=== PATIENT | female | born 2000 | race American Indian/Alaskan Native ===

== ENCOUNTER 2020-03-27 23:32 | Emergency (ER) | payer OTHER ==
--- NOTE | 2020-03-28 00:51 | Emergency Department Report ---
ED Psych HPI - General Chief Complaint: Psych Stated Complaint: SUICIDAL IDEATION/NO ATTEMPT Time Seen by Provider: 03/28/20 00:15 Source: patient, EMS Mode of arrival: Stretcher - History of Present Illness Initial Comments: Patient is 19 years old female with history of schizophrenia and bipolar disorder. Patient presented to the ER with a chief complaint of auditory hallucination and suicidal ideation. Patient stated that he is hearing voices asking her to kill herself by jumping in front of a moving car. Patient denied any homicidal ideation. No visual hallucination. MD Complaint: suicidal ideation -: days(s) Associated Psychiatric Symptoms: suicidal ideation, racing thoughts, auditory [place] llucinations History of same: Yes Quality: constant Associated Symptoms: denies other symptoms Treatments Prior to Arrival: none If Self Harm: admits thoughts of, has plan, self-inflicted trauma - Related Data Allergies Allergy/AdvReac Type Severity Reaction Status Date / Time No Known Allergies Allergy Unverified 03/28/20 01:20 ED Review of Systems ROS: Stated complaint: SUICIDAL IDEATION/NO ATTEMPT Other details as noted in HPI Comment: All other systems reviewed and negative Constitutional: denies: chills, fever Respiratory: denies: cough, shortness of breath, SOB with exertion, SOB at rest Cardiovascular: denies: chest pain, palpitations Gastrointestinal: denies: abdominal pain, nausea, vomiting Neurological: denies: headache, weakness, numbness, paresthesias, confusion Psychiatric: auditory hallucinations, suicidal thoughts. denies: visual hallucinations, homicidal thoughts ED Past Medical Hx - Past Medical History Previous Medical History?: Yes Hx Psychiatric Treatment: Yes (schizophrenia, bipolar, depression, anxiety, hydrocephalus) - Surgical History Past Surgical History?: Yes Additional Surgical History: hydrocephalus shunt - Social History Smoking Status: Never Smoker Substance Use Type: None ED Physical Exam - General Limitations: Physical Limitation General appearance: alert, in no apparent distress - Head Head exam: Present: atraumatic, normocephalic, normal inspection - Eye Eye exam: Present: normal appearance - ENT ENT exam: Present: normal exam, normal orophraynx, mucous membranes moist - Neck Neck exam: Present: normal inspection, full ROM. Absent: tenderness, meningismus - Respiratory Respiratory exam: Present: normal lung sounds bilaterally - Cardiovascular Cardiovascular Exam: Present: regular rate, normal rhythm, normal heart sounds - GI/Abdominal GI/Abdominal exam: Present: soft, normal bowel sounds. Absent: distended, tenderness, guarding, rebound, rigid, organomegaly, mass, bruit, pulsatile mass, hernia - Extremities Exam Extremities exam: Present: normal inspection, full ROM, normal capillary refill. Absent: tenderness, pedal edema, joint swelling, calf tenderness - Back Exam Back exam: Present: normal inspection, full ROM. Absent: CVA tenderness (R), CVA tenderness (L) - Neurological Exam Neurological exam: Present: alert, oriented X3, CN II-XII intact - Psychiatric Psychiatric exam: Present: anxious, suicidal ideation. Absent: homicidal ideation - Skin Skin exam: Present: warm ED Course Vital Signs 03/27/20 03/28/20 03/28/20 23:45 05:30 07:51 Temperature 98.4 F 97.8 F 98.0 F Pulse Rate 80 98 H 90 Respiratory 18 18 18 Rate Blood Pressure 101/62 113/42 112/63 [Left] O2 Sat by Pulse 96 98 98 Oximetry ED Medical Decision Making - Lab Data Result diagrams: 03/28/20 01:12 03/28/20 01:12 Critical care attestation.: If time is entered above; I have spent that time in minutes in the direct care of this critically ill patient, excluding procedure time. ED Disposition Clinical Impression: Suicidal ideation Disposition: DC/TX-65 PSY HOSP/PSY UNIT Is pt being admited?: No Condition: Stable Referrals: PRIMARY CARE, [Primary Care Provider] - 3-5 Days
[2020-03-28 01:15] LABS: Amphetamine Screen,Urine PRESUMPTIVE NEGATIVE; Benzodiazepines Screen,Urine PRESUMPTIVE NEGATIVE; Cannabinoid Screen,Urine PRESUMPTIVE NEGATIVE; Cocaine Screen,Urine PRESUMPTIVE NEGATIVE; Methadone Screen,Urine PRESUMPTIVE NEGATIVE; Opiate Screen,Urine PRESUMPTIVE NEGATIVE
[2020-03-28 01:18] LABS: Bilirubin,Urine NEG (Negative); Blood,Urine NEG (Negative); Color,Urine Yellow (Yellow); Mucus,Urine 3+ /HPF
[2020-03-28 02:00] LABS: Basophils % (Auto) 0.4 % (0.0-1.8); Eosinophils # (Auto) 0.1 K/mm3 (0.0-0.4); Eosinophils % (Auto) 0.8 % (0.0-4.3); Hematocrit 33.4 % (30.3-42.9); Hemoglobin 11.1 gm/dl (10.1-14.3); Lymphocytes # (Auto) 2.6 K/mm3 (1.2-5.4); Mean Corpuscular HGB Conc 33 % (30-34); Mean Corpuscular Volume 87 fl (79-97); Monocytes # (Auto) 0.4 K/mm3 (0.0-0.8); Monocytes % (Auto) 5.3 % (0.0-7.3); Platelet Count 421 K/mm3 (140-440); Red Blood Count 3.83 M/mm3 (3.65-5.03); Red Cell Distribution Width 17.9 % (13.2-15.2)
[2020-03-28 02:16] LABS: Blood Urea Nitrogen 8 mg/dL (7-17); Calcium 9.8 mg/dL (8.4-10.2); Hemolysis Index 6
[2020-03-28 02:17] LABS: BUN/Creatinine Ratio 11
[2020-03-28 07:52] VITALS: BP 112/63
== END 2020-03-28 14:53 ==
LOC: ED 23:32
DX: R45.851 Suicidal ideations (principal); F25.0 Schizoaffective disorder, bipolar type; F41.9 Anxiety disorder, unspecified; Z98.890 Other specified postprocedural states
CPT/HCPCS: 36415; 80048; 80307; 80320; 81001; 84703; 85025; G0480

== ENCOUNTER 2020-04-06 20:54 | Emergency (ER) | payer OTHER ==
[2020-04-06 21:56] LABS: Basophils % (Auto) 0.3 % (0.0-1.8); Eosinophils % (Auto) 0.6 % (0.0-4.3); Hematocrit 32.1 % (30.3-42.9); Hemoglobin 10.6 gm/dl (10.1-14.3); Lymphocytes # (Auto) 1.5 K/mm3 (1.2-5.4); Lymphocytes % (Auto) 20.6 % (13.4-35.0); Mean Corpuscular HGB Conc 33 % (30-34); Mean Corpuscular Volume 88 fl (79-97); Monocytes # (Auto) 0.9 K/mm3 (0.0-0.8); Monocytes % (Auto) 12.3 % (0.0-7.3); Platelet Count 403 K/mm3 (140-440); Red Blood Count 3.65 M/mm3 (3.65-5.03); Red Cell Distribution Width 18.1 % (13.2-15.2)
[2020-04-06 22:11] LABS: Alanine Aminotransferase 7 units/L (7-56); Albumin 4.1 g/dL (3.9-5); Blood Urea Nitrogen 8 mg/dL (7-17); Calcium 9.7 mg/dL (8.4-10.2); Hemolysis Index 10
[2020-04-06 22:12] LABS: BUN/Creatinine Ratio 11
[2020-04-06 23:08] LABS: Bilirubin,Urine NEG (Negative); Blood,Urine NEG (Negative); Color,Urine Yellow (Yellow); Mucus,Urine 3+ /HPF
[2020-04-07] MEDS ORDERED: MORPHINE 4 MG/1 ML INJ IV ONE (08:25)
[2020-04-07] MEDS ORDERED: ONDANSETRON 4 MG/2 ML INJ IV ONE (08:25)
[2020-04-07] MEDS ORDERED: SODIUM CHLORIDE 0.9% 1000 ML 1,000 ML IV ONE (08:26)
--- NOTE | 2020-04-07 08:27 | Emergency Department Report ---
ED Abdominal Pain HPI - General Chief Complaint: Abdominal Pain Stated Complaint: N/V Time Seen by Provider: 04/07/20 07:42 Source: patient, EMS Mode of arrival: Ambulatory Limitations: No Limitations - History of Present Illness Initial Comments: 19-year-old female with a past medical history of hydrocephalus status post PRICER shunt, psoriasis, anxiety and mood disorder presents to the ER today complaining of severe abdominal pain. Patient states that her pain started about a week ago. She reports pain mainly to her epigastric, right upper quadrant and periumbilical area which has been constant, and nonradiating. She describes as a "pulling pain". Seems to be worse when she coughs and moves and on palpation. Patient reports that she vomited twice yesterday. She denies any bowel changes, urinary symptoms, vaginal symptoms, fever or chills. She states that her last menstrual cycle was towards the end of February. Patient reports that she had similar pain in January, but at the time she swallowed plastic in a suicide attempt and he had to go in surgically to remove it from her abdomen but she states that in the past week she has not swallowed anything. She also reports that prior to that she had to have "fluid drained " from her abdomen secondary a shunt malfunction. She states she still has her shunt in place (it was removed from right to left side). Patient states that these procedures were done in [place]. She does not recall the name of her surgeon. She denies any other abdominal surgeries. She denies any history of bowel obstruction. MD Complaint: abdominal pain -: Gradual (1 week ago) - Related Data Previous Rx's Medication Instructions Recorded Last Taken Type Acetaminophen/Codeine [Tylenol 1 tab PO Q4H PRN #12 tab 04/07/20 Unknown Rx /Codeine # 3 tab] Dicyclomine [Bentyl] 10 mg PO TID PRN #15 capsule 04/07/20 Unknown Rx Ondansetron [Zofran Odt] 4 mg PO Q8HR PRN #12 tab.rapdis 04/07/20 Unknown Rx Allergies Allergy/AdvReac Type Severity Reaction Status Date / Time No Known Allergies Allergy Unverified 03/28/20 01:20 ED Review of Systems ROS: Stated complaint: N/V Other details as noted in HPI Comment: All other systems reviewed and negative Constitutional: denies: chills, fever Respiratory: denies: cough, shortness of breath, wheezing Cardiovascular: denies: chest pain, palpitations Gastrointestinal: abdominal pain, nausea, vomiting. denies: diarrhea, constipation, hematemesis, melena, hematochezia Genitourinary: denies: urgency, dysuria, discharge Musculoskeletal: denies: back pain, joint swelling, arthralgia Skin: denies: rash, lesions Psychiatric: denies: auditory hallucinations, visual hallucinations, homicidal thoughts, suicidal thoughts ED Past Medical Hx - Past Medical History Previous Medical History?: Yes Hx Psychiatric Treatment: Yes (schizophrenia, bipolar, depression, anxiety, hydrocephalus) - Surgical History Past Surgical History?: Yes Additional Surgical History: hydrocephalus shunt - Social History Smoking Status: Former Smoker Substance Use Type: None - Medications Home Medications: Home Medications Medication Instructions Recorded Confirmed Last Taken Type Acetaminophen/Codeine [Tylenol 1 tab PO Q4H PRN #12 tab 04/07/20 Unknown Rx /Codeine # 3 tab] Dicyclomine [Bentyl] 10 mg PO TID PRN #15 capsule 04/07/20 Unknown Rx Ondansetron [Zofran Odt] 4 mg PO Q8HR PRN #12 tab.rapdis 04/07/20 Unknown Rx ED Physical Exam - General Limitations: No Limitations General appearance: alert, anxious, in distress (mild pain distress) - Head Head exam: Present: atraumatic, normocephalic, normal inspection - ENT ENT exam: Present: normal exam, mucous membranes moist - Neck Neck exam: Present: normal inspection, full ROM - Respiratory Respiratory exam: Absent: respiratory distress - Cardiovascular Cardiovascular Exam: Present: regular rate - GI/Abdominal GI/Abdominal exam: Present: soft, tenderness (Diffuse abd ttp but more so epigastric and RUQ with guarding; ). Absent: rebound, rigid - Neurological Exam Neurological exam: Present: alert, oriented X3, CN II-XII intact - Psychiatric Psychiatric exam: Present: normal affect, anxious - Skin Skin exam: Present: intact ED Course Vital Signs 04/06/20 04/07/20 04/07/20 21:33 11:11 11:21 Temperature 98.6 F 97.6 F Pulse Rate 117 H 90 Respiratory 18 18 19 Rate Blood Pressure 117/59 Blood Pressure 109/67 [Left] O2 Sat by Pulse 97 100 Oximetry 04/07/20 11:27 Temperature 97.6 F Pulse Rate Respiratory Rate Blood Pressure Blood Pressure [Left] O2 Sat by Pulse Oximetry ED Medical Decision Making - Lab Data Result diagrams: 04/06/20 21:40 04/06/20 21:40 - Radiology Data Radiology results: report reviewed Patient: REZA DUMONT MR#: [id number] : 2000 Acct:[id number] Age/Sex: 19 / F ADM Date: 04/06/20 Loc: ED Attending Dr: Ordering Physician: CARLENE TORRES Date of Service: 04/07/20 Procedure(s): CT abdomen pelvis w con Accession Number(s): [id number] cc: CARLENE TORRES CT ABDOMEN AND PELVIS WITH CONTRAST INDICATION / CLINICAL INFORMATION: Severe central abdominal pain for one week. TECHNIQUE: Axial CT images were obtained through the abdomen and pelvis following the administration of intravenous contrast. All CT scans at this location are performed using CT dose reduction for ALARA by means of automated exposure control. COMPARISON: None available. FINDINGS: LOWER CHEST: No significant abnormality. LIVER: No significant abnormality. GALLBLADDER: No significant abnormality. PANCREAS: No significant abnormality. SPLEEN: No significant abnormality. ADRENALS: No significant abnormality. KIDNEYS / URETERS: No significant abnormality. URINARY BLADDER: No significant abnormality. REPRODUCTIVE ORGANS: No significant abnormality. STOMACH / SMALL BOWEL: No significant abnormality. COLON: No significant abnormality. APPENDIX: No significant abnormality. PERITONEUM: There is a moderate amount of abdominopelvic free fluid predominantly layering within the pelvis. No free air. No fluid collection. LYMPH NODES: No significant adenopathy. AORTA / ARTERIES: No significant abnormality. IVC / VEINS: No significant abnormality. SKELETAL SYSTEM: No significant abnormality. ADDITIONAL FINDINGS: Midline surgical incision is noted. IMPRESSION: 1. Moderate amount of abdominopelvic free fluid predominantly layering within the pelvis. This is likely related to the patient's history of PRICER shunt. No radiopaque shunt is visualized on this exam, however. 2. No acute abdominopelvic abnormality. Signer Name: Arthur Segundo MD Signed: 04/07/2020 10:41 AM Workstation Name: [id number] Transcribed By: SS Dictated By: ARTHUR SEGUNDO Electronically Authenticated By: ARTHUR SEGUNDO Signed Date/Time: 04/07/20 1041 DD/ 1035 TD/TT: - Medical Decision Making 04/07/2020 1051 19-year-old female with a past medical history of hydrocephalus status post PRICER shunt, psoriasis, anxiety and mood disorder presents to the ER today complaining of severe abdominal pain. Patient states that her pain started about a week ago. She reports pain mainly to her epigastric, right upper quadrant and periu mbilical area which has been constant, and nonradiating. She describes as a "pulling pain". Seems to be worse when she coughs and moves and on palpation. Patient reports that she vomited twice yesterday. She denies any bowel changes, urinary symptoms, vaginal symptoms, fever or chills. She states that her last menstrual cycle was towards the end of February. Patient currently resting comfortably with some improvement of her symptoms after morphine/zofran and fluids. Repeat abdominal exam - soft, non surgical abd exam. Labs/UA reviewed, her lipase was elevated at 147, but remaining labs showed no significant abnormality. Her CT abdomen/pelvis with IV contrast Moderate amount of abdominopelvic free fluid predominantly layering within the pelvis. This is likely related to the patient's history of PRICER shunt. No radiopaque shunt is visualized on this exam, however. No acute abdominopelvic abnormality. No evidence of pancreatitis on the CT, her pancrease was noted to be normal. Patient overall is not toxic, and appears well and currently in no distress. I reviewed heart rate improved with the fluids, she is afebrile and remaining vital signs have been stable. Based on repeat exam/ct/labs.. there is no indication for additional work up, admission or emergent surgical/GI consult at this time. Discussed CT and lab results with patient. She is scheduled to return back home to [place] around April 29 for 12. I will give her referral to local primary care doctor whom she can follow-up with during her stay. She will be discharged home with medication for pain and nausea. Patient understands that she should return to the ER if any symptoms changes or worsens in any way. Critical care attestation.: If time is entered above; I have spent that time in minutes in the direct care of this critically ill patient, excluding procedure time. ED Disposition Clinical Impression: Abdominal pain Disposition: DC-01 TO HOME OR SELFCARE Is pt being admited?: No Does the pt Need Aspirin: No Condition: Stable Instructions: Abdominal Pain, Adult, [id number], Abdominal Pain (ED) Additional Instructions: Take the medications as prescribed. Follow up with PCP listed on d/c instructions. Return to ED if symptoms changes or worsens in any way. Prescriptions: Dicyclomine [Bentyl] 10 mg PO TID PRN #15 capsule PRN Reason: abdominal cramp Acetaminophen/Codeine [Tylenol /Codeine # 3 tab] 1 tab PO Q4H PRN #12 tab PRN Reason: PAIN Ondansetron [Zofran Odt] 4 mg PO Q8HR PRN #12 tab.rapdis PRN Reason: Vomiting Referrals: JEANNINE BAZAN MD [Primary Care Provider] - 3-5 Days CORBIN PERRIN MD [Staff Physician] - 3-5 Days Time of Disposition: 11:07
--- NOTE | 2020-04-07 10:45 | Cat Scan Report ---
CT ABDOMEN AND PELVIS WITH CONTRAST INDICATION / CLINICAL INFORMATION: Severe central abdominal pain for one week. TECHNIQUE: Axial CT images were obtained through the abdomen and pelvis following the administration of intraven ous contrast. All CT scans at this location are performed using CT dose reduction for ALARA by means of automated exposure control. COMPARISON: None available. FINDINGS: LOWER CHEST: No significant abnormality. LIVER: No significant abnormality. GALLBLADDER: No significant abnormality. PANCREAS: No significant abnormality. SPLEEN: No significant abnormality. ADRENALS: No significant abnormality. KIDNEYS / URETERS: No significant abnormality. URINARY BLADDER: No significant abnormality. REPRODUCTIVE ORGANS: No significant abnormality. STOMACH / SMALL BOWEL: No significant abnormality. COLON: No significant abnormality. APPENDIX: No significant abnormality. PERITONEUM: There is a moderate amount of abdominopelvic free fluid predominantly layering within the pelvis. No free air. No fluid collection. LYMPH NODES: No significant adenopathy. AORTA / ARTERIES: No significant abnormality. IVC / VEINS: No significant abnormality. SKELETAL SYSTEM: No significant abnormality. ADDITIONAL FINDINGS: Midline surgical incision is noted. IMPRESSION: 1. Moderate amount of abdominopelvic free fluid predominantly layering within the pelvis. 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 No radiopaque shunt is visualized on this exam, how ever. 2. No acute abdominopelvic abnormality. Signer Name: Armando Segundo MD Signed: 04/07/2020 10:41 AM Workstation Name: [id number]
[2020-04-07] MEDS ORDERED: KETOROLAC 30 MG/1 ML INJ IV ONE (11:04)
[2020-04-07 11:22] VITALS: BP 109/67
== END 2020-04-07 11:27 | disposition home or self-care (01) ==
LOC: ED 20:54
DX: R10.13 Epigastric pain (principal); R10.11 Right upper quadrant pain; R10.33 Periumbilical pain; F20.9 Schizophrenia, unspecified; Z79.899 Other long term (current) drug therapy; Z98.890 Other specified postprocedural states; Z87.891 Personal history of nicotine dependence
CPT/HCPCS: 36415; 74177; 80053; 81001; 83690; 84703; 85025; 96361; 96374; 96375; 99284; J1885; J2270; J2405; J7030; Q9967

== ENCOUNTER 2020-06-30 16:56 | Observation (INO) | payer OTHER ==
--- NOTE | 2020-06-30 18:12 | XRay Report ---
CHEST / ABDOMEN 1 VIEW INDICATION / CLINICAL INFORMATION: F.B.. COMPARISON: None available. FINDINGS: SUPPORT DEVICES: Left IJ central venous catheter with tip terminating at the proximal right atrium. F igure 8 configuration of the catheter in the left cervical region. No evidence of kinking. HEART / MEDIASTINUM: No significant abnormality. LUNGS / PLEURA: No significant pulmonary or pleural abnormality. No pneumothorax. TUBES / LINES: None. BOWEL GAS PATTERN: No significant abnormality. FREE AIR / EXTRALUMINAL GAS: None seen. ADDITIONAL FINDINGS: No significant additional findings. IMPRESSION: 1. No acute findings. 2. Central venous catheter, as above. Signer Name: Maximiliano Crystal MD Signed: 06/30/2020 6:08 PM Workstation Name: [id number]
[2020-06-30 18:18] LABS: Basophils % (Auto) 0.3 % (0.0-1.8); Eosinophils # (Auto) 0.1 K/mm3 (0.0-0.4); Eosinophils % (Auto) 1.1 % (0.0-4.3); Hematocrit 35.8 % (30.3-42.9); Hemoglobin 12.1 gm/dl (10.1-14.3); Lymphocytes # (Auto) 2.2 K/mm3 (1.2-5.4); Lymphocytes % (Auto) 27.1 % (13.4-35.0); Mean Corpuscular HGB Conc 34 % (30-34); Mean Corpuscular Volume 94 fl (79-97); Monocytes # (Auto) 0.6 K/mm3 (0.0-0.8); Monocytes % (Auto) 7.9 % (0.0-7.3); Platelet Count 289 K/mm3 (140-440); Red Blood Count 3.79 M/mm3 (3.65-5.03); Red Cell Distribution Width 15.3 % (13.2-15.2)
--- NOTE | 2020-06-30 18:34 | Emergency Department Report ---
<ALOK HUTCHISON - Last Filed: 06/30/20 19:57> ED Abdominal Pain HPI - General Chief Complaint: Medical Clearance Stated Complaint: SWALLOWED PLASTIC SPOON/ABD PAIN Time Seen by Provider: 06/30/20 17:24 Source: patient, EMS, old records reviewed Mode of arrival: Stretcher Limitations: No Limitations - History of Present Illness Initial Comments: 19-year-old female the past medical history of bipolar disorder, schizophrenia, autism, hydrocephalus with previous BODY MASKER shunt placement presents to the hospital complaining of abdominal pain after swallowing plastic spoons. Patient is currently at [facility] but she is not a 1013. She states she was feeling suicidal and therefore swallowed the spoon ahndles. Pt broke off the spoon scoope and broke the handle into 2 pieces and swallowed them. She swallowed 1 handle yesterday and 2 handles today. Patient states she had nausea vomiting earlier today. Last bowel movement was here while in the ED. Patient has a history of swallowing plastic in the past which has required surgery/ex lap. Psychiatric no tremor was reviewed. Patient was recently admitted on June 21 with suicidal ideations on 1012 with plan to overdose which occurred self. Chief complaint at this time was "I am homeless. I need a place to stay" is noted that patient had kicked out of the [place] [facility] and needed placement and was exhibiting attention seeking behavior by the psychiatric facility and having pseudoseizures. Is documented that on the she both a letter to the nurse practitioner explained that she went to have a seizure because she want other people to feel her pain and that she wanted stronger medications. Patient diagnosis is schizoaffective disorder, bipolar type and chronic posttraumatic stress disorder. Plan apparently is to enroll patient in individual group therapy to has coping skills. - Related Data Allergies Allergy/AdvReac Type Severity Reaction Status Date / Time No Known Allergies Allergy Unverified 06/30/20 17:30 ED Review of Systems Comment: All other systems reviewed and negative ED Past Medical Hx - Past Medical History Additional medical history: bipolar, schizophrenic, autistic, anxiety, depre ssion - Surgical History Past Surgical History?: Yes Additional Surgical History: brain surgery - hydrocephalus, BODY MASKER shunt, abdominal surgery for swallowing plastic - Social History Smoking Status: Never Smoker Substance Use Type: None ED Physical Exam - General Limitations: No Limitations - Other Other exam information: General: No acute distress Head: Atraumatic Eyes: normal appearance ENT: Moist mucous membranes Neck: Normal appearance, no midline tenderness Chest: Clear to auscultation bilaterally CV: Regular rate and rhythm Abdomen: Soft, normal bowel sounds,midline vertical surgical scar, epigastric, mid abdomen, left lower quadrant tenderness, nondistended, no rebound or guarding Back: Normal inspection Extremity: Normal inspection, full range of motion Neuro: Alert O x 3, no facial asymmetry, speech clear, no gross motor sensory deficit Psych: Appropriate behavior Skin: Generalized rash combination of vitiligo and psoriasis (hypopigmented scaly rash) ED Course - Reevaluation(s) Reevaluation #1: 06/30/20 19:54 As of this time no foreign body identified on chest x-ray or abdominal x-ray. CT chest abdomen pelvis pending and delayed due to emergent stroke. Patient signed out to Dr. Betancur to follow-up results and reconsult surgery or GI as necessary for possible foreign body ingestion. - Consultations Consultation #1: 06/30/20 19:00 Case discussed with on-call surgeon Dr. Ron. CT pending at this time. Please refer to his note. Will reconsult as needed ED Medical Decision Making - Lab Data Result diagrams: 06/30/20 18:00 06/30/20 18:00 - Radiology Data Radiology results: report reviewed Chest x-ray/abdominal x-ray: No acute foreign body. Retained BODY MASKER shunt noted. Critical Care Time: No ED Disposition Clinical Impression: Foreign body ingestion, Schizoaffective disorder, Bipolar disorder Disposition: 09 OP ADMIT IP TO THIS HOSP Condition: Stable Referrals: PRIMARY CARE, [Primary Care Provider] - 3-5 Days <BUCK BETANCUR - Last Filed: 06/30/20 20:36> ED Review of Systems ROS: Stated complaint: SWALLOWED PLASTIC SPOON/ABD PAIN Other details as noted in HPI ED Course Vital Signs 06/30/20 06/30/20 06/30/20 17:32 17:35 18:33 Temperature 98.2 F Pulse Rate 83 80 Respiratory 16 18 16 Rate Blood Pressure 102/67 Blood Pressure 102/61 [Left] O2 Sat by Pulse 100 98 Oximetry 06/30/20 19:39 Temperature Pulse Rate 89 Respiratory 16 Rate Blood Pressure Blood Pressure 111/70 [Left] O2 Sat by Pulse 100 Oximetry - Consultations Consultation #2: 06/30/20 20:33 Received sign out from Dr Hutchison. CT's negative for foreign body. Shows simple- appearing free pelvic fluid. No definite evidence of hemoperitoneum to suggest rupture. CT findings relayed to Dr. Ron, general surgeon. Recommends admit for observation overnight. Keep patient n.p.o. ED Medical Decision Making - Lab Data Result diagrams: 06/30/20 18:00 06/30/20 18:00 Critical care attestation.: If time is entered above; I have spent that time in minutes in the direct care of this critically ill patient, excluding procedure time. ED Disposition Is pt being admited?: Yes Time of Disposition: 20:35
[2020-06-30 18:42] LABS: Alanine Aminotransferase 6 units/L (7-56); Albumin 3.9 g/dL (3.9-5); Blood Urea Nitrogen 13 mg/dL (7-17); Hemolysis Index 8
[2020-06-30 18:50] LABS: BUN/Creatinine Ratio 19
--- NOTE | 2020-06-30 18:53 | Consultation ---
History of Present Illness Consult date: 06/30/20 Reason for consult: abdominal pain - History of present illness History of present illness: 19 yo female schizophrenia pt who swallowed plastic spoons to "hurt myself". She c/o diffuse abdominal pain without fever, chills, melena or hematemesis. Pt has a h/o similar behavior in the past requiring operative intervention. Past History Past Medical History: other (autism, bipolar d/o) Medications and Allergies Allergies Allergy/AdvReac Type Severity Reaction Status Date / Time No Known Allergies Allergy Unverified 06/30/20 17:30 Review of Systems All systems: negative (none) Exam Vital Signs Resp 16 06/30/20 17:32 - General physical appearance Positive: well developed, well nourished, no distress - Eyes Positive: PERRL, normal occular movement - ENT Positive: normal pinna, normal nares, normal mucosa, no hearing loss, no congestion - Neck Positive: no masses, no bruits, trachea midline, no venous distension - Respiratory Positive: normal expansion, normal respiratory effort, clear to auscultation - Cardiovascular Rhythm: regular Heart Sounds: Present: S1 & S2. Absent: rub, click - Extremities Extremities: no ischemia, pulses symmetrical, No edema - Breasts Breasts: normal, no mass, no skin changes - Abdomen Abdomen: Present: soft, bowel sounds normal. Absent: tender, distended Hernia: none - Genitourinary Male Genitourinary: normal Female Genitourinary: normal - Integumentary no rash, no growths, no abnormal pigmentation - Neurologic Neurologic: alert and oriented to time, place and person, motor strength and sensation are grossly intact - Musculoskeletal normal gait, normal posture - Psychiatric Psychiatric: appropriate mood/affect, intact judgment & insight Results - Labs 06/30/20 18:00 06/30/20 18:00 Abnormal lab results 06/30/20 06/30/20 Range/Units 18:00 18:00 RDW 15.3 H (13.2-15.2) % [place] % (Auto) 7.9 H (0.0-7.3) % ALT 6 L (7-56) units/L Diabetes panel 06/30/20 Range/Units 18:00 Sodium 140 (137-145) mmol/L Potassium 4.3 (3.6-5.0) mmol/L Chloride 104.9 (98-107) mmol/L Carbon Dioxide 25 (22-30) mmol/L BUN 13 (7-17) mg/dL Creatinine 0.7 (0.6-1.2) mg/dL Glucose 85 (65-100) mg/dL Calcium 9.0 (8.4-10.2) mg/dL AST 19 (5-40) units/L ALT 6 L (7-56) units/L Alkaline Phosphatase 52 (35-129) units/L Total Protein 6.4 (6.3-8.2) g/dL Albumin 3.9 (3.9-5) g/dL Calcium panel 06/30/20 Range/Units 18:00 Calcium 9.0 (8.4-10.2) mg/dL Albumin 3.9 (3.9-5) g/dL Pituitary panel 06/30/20 Range/Units 18:00 Sodium 140 (137-145) mmol/L Potassium 4.3 (3.6-5.0) mmol/L Chloride 104.9 (98-107) mmol/L Carbon Dioxide 25 (22-30) mmol/L BUN 13 (7-17) mg/dL Creatinine 0.7 (0.6-1.2) mg/dL Glucose 85 (65-100) mg/dL Calcium 9.0 (8.4-10.2) mg/dL Adrenal panel 06/30/20 Range/Units 18:00 Sodium 140 (137-145) mmol/L Potassium 4.3 (3.6-5.0) mmol/L Chloride 104.9 (98-107) mmol/L Carbon Dioxide 25 (22-30) mmol/L BUN 13 (7-17) mg/dL Creatinine 0.7 (0.6-1.2) mg/dL Glucose 85 (65-100) mg/dL Calcium 9.0 (8.4-10.2) mg/dL Total Bilirubin < 0.20 (0.1-1.2) mg/dL AST 19 (5-40) units/L ALT 6 L (7-56) units/L Alkaline Phosphatase 52 (35-129) units/L Total Protein 6.4 (6.3-8.2) g/dL Albumin 3.9 (3.9-5) g/dL - Imaging Chest x-ray: report reviewed Abdominal x-ray: report reviewed Assessment and Plan - Patient Problems (1) Foreign body ingestion Current Visit: Yes Status: Acute Plan to address problem: 1) Urine/serum test 2) CT of chest abdomen and pelvis 3) Further intervention pending the results of CT's.
--- NOTE | 2020-06-30 20:17 | Cat Scan Report ---
CT CHEST, ABDOMEN, AND PELVIS WITH IV CONTRAST INDICATION / CLINICAL INFORMATION: abd pain. swallowed 3 plastic spoon handles. TECHNIQUE: Axial CT images were obtained through the chest, abdomen, and pelvis after 100 cc Omnipaque [address] All [address] scans at this location are performed using CT dose reduction for ALARA by means of aut omated exposure control. COMPARISON: None available. FINDINGS: NECK BASE: No significant abnormality. HEART: No significant abnormality. MEDIASTINUM and WALLACE: No significant abnormality. LUNGS/PLEURA: No acute air space or interstitial disease. HEPATOBILIARY: No significant abnormality. PANCREAS/SPLEEN/ADRENALS: No significant abnormality. GENITOURINARY: No significant abnormality. GASTROINTESTINAL/MESENTERY: No bowel obstruction or inflammation. No foreign object is visualized by CT technique. No free air. There is a moderate amount of simple attenuation pelvic free fluid. RETROPERITONEUM: No significant adenopathy. REPRODUCTIVE ORGANS: Subcentimeter ovarian follicles. No significant abnormality. VASCULAR: No significant abnormality. BODY WALL: Prominent right axillary lymph nodes likely reactive. SKELETAL SYSTEM: No significant abnormality. IMPRESSION: 1. Moderate amount of simple appearing pelvic free fluid. Etiology is not certain on this examination . No definite evidence of hemoperitoneum to suggest ruptured. Although pelvic structures demonstrate no focal abnormality, further evaluation with pelvic ultrasound should be considered. 2. No CT evidence of ingested foreign body. Signer Name: Maximiliano Crystal MD Signed: 06/30/2020 8:13 PM Workstation Name: [id number] ([id number]
[2020-06-30] MEDS ORDERED: ONDANSETRON 4 MG/2 ML INJ IV PRN (22:37)
[2020-06-30] MEDS ORDERED: ACETAMINOPHEN 650 MG RECT SUPP PR PRN (22:37)
[2020-06-30] MEDS: D5W/0.45% NACL 1,000 ML IV SCH (23:20)
[2020-06-30] MEDS: MORPHINE 2 MG/1 ML INJ IV PRN (23:28)
--- NOTE | 2020-07-01 04:29 | History and Physical Report ---
History of Present Illness Date of examination: 06/30/20 Date of admission: 06/30/20 21:42 Chief complaint: Chief complaint is abdominal pain, other complaint include swallowing of plastic material History of present illness: History of presenting illness, patient is a 89-year-old female brought from [facility] after she complained of having abdominal pain following swallow of plastic material. Patient has history of swallowing plastic in the past and have had exploratory laparotomy done because of that, there is no history of fever or chills, there is history of nausea but no vomiting, there is no history of diarrhea or constipation, also patient denied history of shortness of breath or chest pain. Past History Past Medical History: other (Autism, Bipolar Disorder, Schizophrenia) Past Surgical History: Other (EXPLORATORY LAPROTOMY) Social history: no significant social history Family history: no significant family history Medications and Allergies Allergies Allergy/AdvReac Type Severity Reaction Status Date / Time No Known Allergies Allergy Verified 06/30/20 22:40 Home Medications Medication Instructions Recorded Confirmed Last Taken Type No Known Home Medications [No 07/01/20 07/01/20 Unknown History Reported Home Medications] Active Meds: Active Medications Acetaminophen (Acetaminophen 650 Mg Rect Supp) 650 mg [place] Q4H PRN PRN Reason: Fever >101 Dextrose/Sodium Chloride (D5/0.45ns) 1,000 mls @ 125 mls/hr IV DIRECT RODO Last Admin: 06/30/20 23:20 Dose: 125 mls/hr Documented by: Morphine Sulfate (Morphine 2 Mg/1 Ml Inj) 2 mg IV Q4H PRN PRN Reason: Pain, Moderate (4-6) Last Admin: 06/30/20 23:28 Dose: 2 mg Documented by: Ondansetron HCl (Ondansetron 4 Mg/2 Ml Inj) 4 mg IV Q8H PRN PRN Reason: Nausea And Vomiting Last Admin: 06/30/20 23:46 Dose: 4 mg Documented by: Review of Systems Constitutional: no weight gain, no fever, no chills, no weakness Eyes: bilateral: other (NO BILATERAL EYE SYMPTOMS) Ears, nose, mouth and throat: no ear pain Breasts: deferred Cardiovascular: no chest pain, no orthopnea, no palpitations, no syncope, no lightheadedness Respiratory: no cough, no shortness of breath, no dyspnea on exertion Gastrointestinal: abdominal pain, nausea, no vomiting, no diarrhea, no constipation, no change in bowel habits, no melena Genitourinary Female: no pelvic pain, no flank pain Rectal: no pain Musculoskeletal: no neck stiffness, no neck pain Integumentary: no rash, no pruritis, no redness, no growths Neurological: no paralysis, no weakness, no parathesias, no numbness, no seizures, no syncope, no tremors, no vertigo, no headaches, no migraines Psychiatric: no anxiety, no depression Endocrine: no polydipsia, no polyuria, no nocturia Hematologic/Lymphatic: no easy bruising Exam - Constitutional Vitals: Temp Pulse Resp BP Pulse Ox 97.8 F 88 18 92/47 97 06/30/20 23:00 06/30/20 23:00 06/30/20 23:58 06/30/20 23:00 06/30/20 23:00 General appearance: Present: no acute distress - EENT Eyes: Present: PERRL, EOM intact ENT: hearing intact, clear oral mucosa - Neck Neck: Present: supple, normal ROM - Respiratory Respiratory effort: normal - Cardiovascular Rhythm: regular Heart Sounds: Present: S1 & S2. Absent: gallop - Extremities Extremities: no ischemia, No edema Peripheral Pulses: within normal limits - Abdominal General gastrointestinal: Present: soft, non-tender, non-distended. Absent: tender, distended, rigid, hepatomegaly, splenomegaly Female genitourinary: Present: deferred - Rectal Rectal Exam: deferred - Integumentary Integumentary: Present: clear, warm, dry - Musculoskeletal Musculoskeletal: strength equal bilaterally - Psychiatric Psychiatric: appropriate mood/affect HEART Score - HEART Score Risk factors: No known risk factors Troponin: < normal limit - Critical Actions Critical Actions: 0-3 pts:0.9-1.7%risk of adverse cardiac event.Candidate for discharge Results - Labs CBC & Chem 7: 06/30/20 18:00 06/30/20 18:00 Labs: Laboratory Last Values WBC 8.0 K/mm3 (4.5-11.0) 06/30/20 18:00 RBC 3.79 M/mm3 (3.65-5.03) 06/30/20 18:00 Hgb 12.1 gm/dl (10.1-14.3) 06/30/20 18:00 Hct 35.8 % (30.3-42.9) 06/30/20 18:00 MCV 94 fl (79-97) 06/30/20 18:00 MCH 32 pg (28-32) 06/30/20 18:00 MCHC 34 % (30-34) 06/30/20 18:00 RDW 15.3 % (13.2-15.2) H 06/30/20 18:00 Plt Count 289 K/mm3 (140-440) 06/30/20 18:00 Lymph % (Auto) 27.1 % (13.4-35.0) 06/30/20 18:00 [place] % (Auto) 7.9 % (0.0-7.3) H 06/30/20 18:00 Eos % (Auto) 1.1 % (0.0-4.3) 06/30/20 18:00 Baso % (Auto) 0.3 % (0.0-1.8) 06/30/20 18:00 Lymph # (Auto) 2.2 K/mm3 (1.2-5.4) 06/30/20 18:00 [place] # (Auto) 0.6 K/mm3 (0.0-0.8) 06/30/20 18:00 Eos # (Auto) 0.1 K/mm3 (0.0-0.4) 06/30/20 18:00 Baso # (Auto) 0.0 K/mm3 (0.0-0.1) 06/30/20 18:00 Seg Neutrophils % 63.6 % (40.0-70.0) 06/30/20 18:00 Seg Neutrophils # 5.1 K/mm3 (1.8-7.7) 06/30/20 18:00 Sodium 140 mmol/L (137-145) 06/30/20 18:00 Potassium 4.3 mmol/L (3.6-5.0) 06/30/20 18:00 Chloride 104.9 mmol/L (98-107) 06/30/20 18:00 Carbon Dioxide 25 mmol/L (22-30) 06/30/20 18:00 Anion Gap 14 mmol/L 06/30/20 18:00 BUN 13 mg/dL (7-17) 06/30/20 18:00 Creatinine 0.7 mg/dL (0.6-1.2) 06/30/20 18:00 Estimated GFR > 60 ml/min 06/30/20 18:00 BUN/Creatinine Ratio 19 % 06/30/20 18:00 Glucose 85 mg/dL (65-100) 06/30/20 18:00 Calcium 9.0 mg/dL (8.4-10.2) 06/30/20 18:00 Total Bilirubin < 0.20 mg/dL (0.1-1.2) 06/30/20 18:00 AST 19 units/L (5-40) 06/30/20 18:00 ALT 6 units/L (7-56) L 06/30/20 18:00 Alkaline Phosphatase 52 units/L (35-129) 06/30/20 18:00 Total Protein 6.4 g/dL (6.3-8.2) 06/30/20 18:00 Albumin 3.9 g/dL (3.9-5) 06/30/20 18:00 Albumin/Globulin Ratio 1.6 % 06/30/20 18:00 HCG, Quant < 2 mIU/mL (0-4) 06/30/20 18:00 Arizmendi/IV: Voiding Method Bedside Commode Assessment and Plan - Patient Problems (1) Bipolar disorder Current Visit: Yes Status: Acute Plan to address problem: PSYCHIATRIC CONSULT (2) Foreign body ingestion Current Visit: Yes Status: Acute Plan to address problem: 1. NPO 2. SURGICAL CONSULT 3. PSYCHIATRIC CONSULT 4. I.V MORPHINE FOR PAIN 5.I.V ZOFRAN FOR NAUSEA AND VOMITING (3) Schizoaffective disorder Current Visit: Yes Status: Acute Plan to address problem: PSYCHIATRIC CONSULT
[2020-07-01] MEDS: MORPHINE 2 MG/1 ML INJ IV PRN ×2 (09:03→14:33)
[2020-07-01] MEDS: D5W/0.45% NACL 1,000 ML IV SCH ×2 (09:08→19:38)
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
--- NOTE | 2020-07-01 15:41 | Progress Note ---
Assessment and Plan - Patient Problems (1) Foreign body ingestion Current Visit: Yes Status: Acute Plan to address problem: 1) Check repeat CBC 2) EGD tomorrow Subjective Date of service: 07/01/20 Patient Reports: Positive: no new complaints, still having pain (Hungry. Wants to eat.) Narrative: Pt insists that she swallowed 2 pieces of plastic spoon. Objective Vital Signs - 12hr 07/01/20 07/01/20 06:40 11:10 Temperature 97.7 F 98.6 F Pulse Rate 81 94 H Respiratory 16 20 Rate Blood Pressure 66/31 78/42 O2 Sat by Pulse 97 96 Oximetry - Abdomen soft, bowel sounds normal (Mild diffuse tenderness without rebound or guarding.) - Labs 06/30/20 18:00 06/30/20 18:00 Diabetes panel 06/30/20 Range/Units 18:00 Sodium 140 (137-145) mmol/L Potassium 4.3 (3.6-5.0) mmol/L Chloride 104.9 (98-107) mmol/L Carbon Dioxide 25 (22-30) mmol/L BUN 13 (7-17) mg/dL Creatinine 0.7 (0.6-1.2) mg/dL Glucose 85 (65-100) mg/dL Calcium 9.0 (8.4-10.2) mg/dL AST 19 (5-40) units/L ALT 6 L (7-56) units/L Alkaline Phosphatase 52 (35-129) units/L Total Protein 6.4 (6.3-8.2) g/dL Albumin 3.9 (3.9-5) g/dL Calcium panel 06/30/20 Range/Units 18:00 Calcium 9.0 (8.4-10.2) mg/dL Albumin 3.9 (3.9-5) g/dL Pituitary panel 06/30/20 Range/Units 18:00 Sodium 140 (137-145) mmol/L Potassium 4.3 (3.6-5.0) mmol/L Chloride 104.9 (98-107) mmol/L Carbon Dioxide 25 (22-30) mmol/L BUN 13 (7-17) mg/dL Creatinine 0.7 (0.6-1.2) mg/dL Glucose 85 (65-100) mg/dL Calcium 9.0 (8.4-10.2) mg/dL Adrenal panel 06/30/20 Range/Units 18:00 Sodium 140 (137-145) mmol/L Potassium 4.3 (3.6-5.0) mmol/L Chloride 104.9 (98-107) mmol/L Carbon Dioxide 25 (22-30) mmol/L BUN 13 (7-17) mg/dL Creatinine 0.7 (0.6-1.2) mg/dL Glucose 85 (65-100) mg/dL Calcium 9.0 (8.4-10.2) mg/dL Total Bilirubin < 0.20 (0.1-1.2) mg/dL AST 19 (5-40) units/L ALT 6 L (7-56) units/L Alkaline Phosphatase 52 (35-129) units/L Total Protein 6.4 (6.3-8.2) g/dL Albumin 3.9 (3.9-5) g/dL - Imaging CT scan - abdomen: report reviewed CT scan - chest: report reviewed CT scan - pelvis: report reviewed
[2020-07-01 16:29] LABS: Basophils % (Auto) 0.4 % (0.0-1.8); Eosinophils # (Auto) 0.1 K/mm3 (0.0-0.4); Eosinophils % (Auto) 1.5 % (0.0-4.3); Hematocrit 32.1 % (30.3-42.9); Lymphocytes # (Auto) 1.8 K/mm3 (1.2-5.4); Lymphocytes % (Auto) 27.1 % (13.4-35.0); Mean Corpuscular HGB Conc 34 % (30-34); Mean Corpuscular Volume 94 fl (79-97); Monocytes # (Auto) 0.6 K/mm3 (0.0-0.8); Monocytes % (Auto) 9.4 % (0.0-7.3); Platelet Count 273 K/mm3 (140-440); Red Blood Count 3.42 M/mm3 (3.65-5.03)
--- NOTE | 2020-07-01 18:13 | Progress Note ---
Assessment and Plan Assessment and plan: --Foreign body ingestion; Patient claims that she ate plastic spoons Imaging studies did not reveal any foreign bodies Patient does not have any nausea vomiting Supportive care, n.p.o., IV fluids, IV Protonix Surgery evaluation noted and appreciated Surgery recommend EGD tomorrow N.p.o. from midnight --History of bipolar disorder; Management per psych --History of schizophrenia/schizoaffective disorder; Continue current psych medications Psych following --Mild hypotension; Fluid bolus, closely monitor blood pressures If no improvement consider vasopressors Levophed per protocol --DVT prophylaxis; Lovenox We will closely monitor the patient and adjust management as needed packaging sales representative Consultants evaluation recommendations noted and appreciated History Interval history: I have seen and examined the patient at the bedside Patient's chart and medications reviewed Patient was admitted with history of swallowing plastic spoons However imaging studies did not show any evidence of foreign bodies in the stomach Or intestines Patient is alert and awake responding to simple questions appropriately Vital signs noted Hospitalist Physical - Constitutional Vitals: Temp Pulse Resp BP Pulse Ox 98.5 F 77 20 80/32 97 07/01/20 15:54 07/01/20 15:54 07/01/20 15:54 07/01/20 15:54 07/01/20 15:54 General appearance: Present: no acute distress, well-nourished - EENT Eyes: Present: PERRL, EOM intact - Neck Neck: Present: supple, normal ROM - Respiratory Respiratory effort: normal Respiratory: bilateral: diminished, negative: rales, rhonchi, wheezing - Cardiovascular Rhythm: regular Heart Sounds: Present: S1 & S2 - Extremities Extremities: no ischemia, No edema - Abdominal General gastrointestinal: soft, non-tender, non-distended, normal bowel sounds - Integumentary Integumentary: Present: clear, warm - Psychiatric Psychiatric: appropriate mood/affect, cooperative, other (Confused at times) - Neurologic Neurologic: moves all extremities HEART Score - HEART Score Risk factors: No known risk factors Troponin: < normal limit - Critical Actions Critical Actions: 0-3 pts:0.9-1.7%risk of adverse cardiac event.Candidate for discharge Results - Labs CBC & Chem 7: 07/01/20 16:08 06/30/20 18:00 Labs: Laboratory Last Values WBC 6.7 K/mm3 (4.5-11.0) 07/01/20 16:08 RBC 3.42 M/mm3 (3.65-5.03) L 07/01/20 16:08 Hgb 11.0 gm/dl (10.1-14.3) 07/01/20 16:08 Hct 32.1 % (30.3-42.9) 07/01/20 16:08 MCV 94 fl (79-97) 07/01/20 16:08 MCH 32 pg (28-32) 07/01/20 16:08 MCHC 34 % (30-34) 07/01/20 16:08 RDW 15.0 % (13.2-15.2) 07/01/20 16:08 Plt Count 273 K/mm3 (140-440) 07/01/20 16:08 Lymph % (Auto) 27.1 % (13.4-35.0) 07/01/20 16:08 [place] % (Auto) 9.4 % (0.0-7.3) H 07/01/20 16:08 Eos % (Auto) 1.5 % (0.0-4.3) 07/01/20 16:08 Baso % (Auto) 0.4 % (0.0-1.8) 07/01/20 16:08 Lymph # (Auto) 1.8 K/mm3 (1.2-5.4) 07/01/20 16:08 [place] # (Auto) 0.6 K/mm3 (0.0-0.8) 07/01/20 16:08 Eos # (Auto) 0.1 K/mm3 (0.0-0.4) 07/01/20 16:08 Baso # (Auto) 0.0 K/mm3 (0.0-0.1) 07/01/20 16:08 Seg Neutrophils % 61.6 % (40.0-70.0) 07/01/20 16:08 Seg Neutrophils # 4.1 K/mm3 (1.8-7.7) 07/01/20 16:08 Sodium 140 mmol/L (137-145) 06/30/20 18:00 Potassium 4.3 mmol/L (3.6-5.0) 06/30/20 18:00 Chloride 104.9 mmol/L (98-107) 06/30/20 18:00 Carbon Dioxide 25 mmol/L (22-30) 06/30/20 18:00 Anion Gap 14 mmol/L 06/30/20 18:00 BUN 13 mg/dL (7-17) 06/30/20 18:00 Creatinine 0.7 mg/dL (0.6-1.2) 06/30/20 18:00 Estimated GFR > 60 ml/min 06/30/20 18:00 BUN/Creatinine Ratio 19 % 06/30/20 18:00 Glucose 85 mg/dL (65-100) 06/30/20 18:00 Calcium 9.0 mg/dL (8.4-10.2) 06/30/20 18:00 Total Bilirubin < 0.20 mg/dL (0.1-1.2) 06/30/20 18:00 AST 19 units/L (5-40) 06/30/20 18:00 ALT 6 units/L (7-56) L 06/30/20 18:00 Alkaline Phosphatase 52 units/L (35-129) 06/30/20 18:00 Total Protein 6.4 g/dL (6.3-8.2) 06/30/20 18:00 Albumin 3.9 g/dL (3.9-5) 06/30/20 18:00 Albumin/Globulin Ratio 1.6 % 06/30/20 18:00 HCG, Quant < 2 mIU/mL (0-4) 06/30/20 18:00 Arizmendi/IV: Voiding Method Bedside Commode Active Medications - Current Medications Current Medications: Generic Name Dose Route Start Last Admin Trade Name Freq PRN Reason Stop Dose Admin Acetaminophen 650 mg 06/30/20 22:37 Acetaminophen 650 Mg Rect Supp [place] Q4H PRN Fever >101 Dextrose/Sodium Chloride 1,000 mls @ 125 mls/hr 06/30/20 23:00 07/01/20 09:08 D5/0.45ns IV 125 mls/hr DIRECT RODO Administration Morphine Sulfate 2 mg 06/30/20 22:37 07/01/20 14:33 Morphine 2 Mg/1 Ml Inj IV 2 mg Q4H PRN Administration Pain, Moderate (4-6) Ondansetron HCl 4 mg 06/30/20 22:37 06/30/20 23:46 Ondansetron 4 Mg/2 Ml Inj IV 4 mg Q8H PRN Administration Nausea And Vomiting
[2020-07-02] MEDS: D5W/0.45% NACL 1,000 ML IV SCH (05:46)
[2020-07-02] MEDS ORDERED: SODIUM CHLORIDE 0.9% 1000 ML 1,000 ML IV SCH ×2 (10:00→10:30)
--- NOTE | 2020-07-02 10:13 | Progress Note ---
Assessment and Plan Assessment and plan: --Foreign body ingestion; Patient claims that she ate plastic spoons Imaging studies did not reveal any foreign bodies Patient does not have any nausea vomiting Scheduled for EGD today per surgery Patient n.p.o. status Supportive care --History of bipolar disorder; Management per psych Stable on medications --History of schizophrenia/schizoaffective disorder; Continue current psych medications, stable Psych following Patient will return to [place] --Mild hypotension; Fluid bolus, closely monitor blood pressures Abortive care --DVT prophylaxis; Lovenox We will closely monitor the patient and adjust management as needed custom seamstress at the bedside Follow EGD findings, if negative and patient is stable, unable to tolerate diet May discharge back to [place] tomorrow Case management to assist with DC planning Consultants evaluation recommendations noted and appreciated History Interval history: Patient is scheduled for EGD today Vital signs noted Patient n.p.o. status Hospitalist Physical - Physical exam Narrative exam: Patient is in GI suite for EGD - Constitutional Vitals: Temp Pulse Resp BP Pulse Ox 98.0 F 109 H 20 91/57 96 07/01/20 23:56 07/01/20 23:56 07/01/20 23:56 07/01/20 23:56 07/01/20 23:56 General appearance: Present: other (Patient is in procedure) - EENT ENT: other (Patient having the procedure) - Neck Neck: Present: other (Patient having a procedure) - Respiratory Respiratory effort: other (Portion than GI suite) - Neurologic Neurologic: other (Patient is in procedure) HEART Score - HEART Score Risk factors: No known risk factors Troponin: < normal limit - Critical Actions Critical Actions: 0-3 pts:0.9-1.7%risk of adverse cardiac event.Candidate for discharge Results - Labs CBC & Chem 7: 07/01/20 16:08 06/30/20 18:00 Labs: Laboratory Last Values WBC 6.7 K/mm3 (4.5-11.0) 07/01/20 16:08 RBC 3.42 M/mm3 (3.65-5.03) L 07/01/20 16:08 Hgb 11.0 gm/dl (10.1-14.3) 07/01/20 16:08 Hct 32.1 % (30.3-42.9) 07/01/20 16:08 MCV 94 fl (79-97) 07/01/20 16:08 MCH 32 pg (28-32) 07/01/20 16:08 MCHC 34 % (30-34) 07/01/20 16:08 RDW 15.0 % (13.2-15.2) 07/01/20 16:08 Plt Count 273 K/mm3 (140-440) 07/01/20 16:08 Lymph % (Auto) 27.1 % (13.4-35.0) 07/01/20 16:08 [place] % (Auto) 9.4 % (0.0-7.3) H 07/01/20 16:08 Eos % (Auto) 1.5 % (0.0-4.3) 07/01/20 16:08 Baso % (Auto) 0.4 % (0.0-1.8) 07/01/20 16:08 Lymph # (Auto) 1.8 K/mm3 (1.2-5.4) 07/01/20 16:08 [place] # (Auto) 0.6 K/mm3 (0.0-0.8) 07/01/20 16:08 Eos # (Auto) 0.1 K/mm3 (0.0-0.4) 07/01/20 16:08 Baso # (Auto) 0.0 K/mm3 (0.0-0.1) 07/01/20 16:08 Seg Neutrophils % 61.6 % (40.0-70.0) 07/01/20 16:08 Seg Neutrophils # 4.1 K/mm3 (1.8-7.7) 07/01/20 16:08 Sodium 140 mmol/L (137-145) 06/30/20 18:00 Potassium 4.3 mmol/L (3.6-5.0) 06/30/20 18:00 Chloride 104.9 mmol/L (98-107) 06/30/20 18:00 Carbon Dioxide 25 mmol/L (22-30) 06/30/20 18:00 Anion Gap 14 mmol/L 06/30/20 18:00 BUN 13 mg/dL (7-17) 06/30/20 18:00 Creatinine 0.7 mg/dL (0.6-1.2) 06/30/20 18:00 Estimated GFR > 60 ml/min 06/30/20 18:00 BUN/Creatinine Ratio 19 % 06/30/20 18:00 Glucose 85 mg/dL (65-100) 06/30/20 18:00 Calcium 9.0 mg/dL (8.4-10.2) 06/30/20 18:00 Total Bilirubin < 0.20 mg/dL (0.1-1.2) 06/30/20 18:00 AST 19 units/L (5-40) 06/30/20 18:00 ALT 6 units/L (7-56) L 06/30/20 18:00 Alkaline Phosphatase 52 units/L (35-129) 06/30/20 18:00 Total Protein 6.4 g/dL (6.3-8.2) 06/30/20 18:00 Albumin 3.9 g/dL (3.9-5) 06/30/20 18:00 Albumin/Globulin Ratio 1.6 % 06/30/20 18:00 HCG, Quant < 2 mIU/mL (0-4) 06/30/20 18:00 Arizmendi/IV: Voiding Method Bedside Commode Active Medications - Current Medications Current Medications: Generic Name Dose Route Start Last Admin Trade Name Freq PRN Reason Stop Dose Admin Acetaminophen 650 mg 06/30/20 22:37 Acetaminophen 650 Mg Rect Supp [place] Q4H PRN Fever >101 Dextrose/Sodium Chloride 1,000 mls @ 125 mls/hr 06/30/20 23:00 07/02/20 05:46 D5/0.45ns IV 125 mls/hr DIRECT RODO Administration Sodium Chloride 1,000 mls @ 75 mls/hr 07/02/20 10:00 Nacl 0.9% 1000 Ml IV DIRECT RODO Morphine Sulfate 2 mg 06/30/20 22:37 07/01/20 14:33 Morphine 2 Mg/1 Ml Inj IV 2 mg Q4H PRN Administration Pain, Moderate (4-6) Ondansetron HCl 4 mg 06/30/20 22:37 06/30/20 23:46 Ondansetron 4 Mg/2 Ml Inj IV 4 mg Q8H PRN Administration Nausea And Vomiting
--- NOTE | 2020-07-02 10:40 | Anesthesia Day of Surgery ---
Anesthesia Day of Surgery - Day of Surgery Patient Examined: Yes Patient H&P Reviewed: Yes Patient is NPO: Yes
--- NOTE | 2020-07-02 10:40 | Anesthesia Consultation ---
Anesthesia Consult and Med Hx Date of service: 07/02/20 - Airway Anesthetic Teeth Evaluation: Good ROM Head & Neck: Adequate Mental/Hyoid Distance: Adequate Mallampati Class: Class II - Pre-Operative Health Status ASA Pre-Surgery Classification: ASA2 Proposed Anesthetic Plan: General - Pulmonary Hx Pneumonia: No - Central Nervous System Hx Psychiatric Problems: Yes (schizophrenia, bipolar disorder, suicidal ideation) - Gastrointestinal Hx Ulcer: No (foreign body in the stomack (3 plastic spoon handles) )
[2020-07-02] MEDS ORDERED: LIDOCAINE MPF (2%) 20 MG/1 ML VIAL 5 ML ONE (10:44)
[2020-07-02] MEDS ORDERED: propofoL 200 MG/20 ML VIAL IV ONE (10:44)
[2020-07-02] MEDS ORDERED: HYDROmorphone 1 MG/1 ML INJ ONE (10:44)
[2020-07-02] MEDS ORDERED: SUCCINYLCHOLINE CHLORIDE 200 MG/10 ML INJ MDV ONE (10:45)
[2020-07-02] MEDS ORDERED: ESMOLOL 100 MG/10 ML INJ IV ONE (11:24)
--- NOTE | 2020-07-02 11:28 | Procedure Note ---
Date of procedure: 07/02/20 Pre-op diagnosis: Foreign body ingestion Post-op diagnosis: same Procedure: EGD Description of procedure: Pt was placed supine on the OR table. GETA was administered. Pt was repositioned left side down. Bite block was placed between the pt's incisors. Endoscope was introduced into the pt's oropharynx and the esophagus intubated under direct vision. Examination of the esophagus, stomach and 1st and 2nd portions of the duodenum was then performed. The examination included a retroflexed view of the gastric fundus. No foreign body material, ulcers, tumors or significant inflammation was identified. Insufflated air was aspirated from the stomach and the scope withdrawn. Pt tolerated the procedure well. Pt was extubated in the OR and was taken to PACU in stable condition. Findings: Normal EGD. No foreign bodies were identified. Anesthesia: GETA Surgeon: ULICES ORTIZ Estimated blood loss: none Pathology: none Condition: stable Disposition: other (Pt can be discharged after she tolerates clear liquids.)
[2020-07-02] MEDS ORDERED: ONDANSETRON 4 MG/2 ML INJ ONE (11:29)
--- NOTE | 2020-07-02 12:35 | Post Anesthesia Evaluation ---
- Post Anesthesia Evaluation Patient Participated: Yes Airway Patent: Yes Stable Respiratory Function: Yes Nausea/Vomiting: No Temp > 96.8F: Yes Pain Manageable: Yes Adequeate Hydration: Yes Anesthesia Complications: No
--- NOTE | 2020-07-03 09:47 | Progress Note ---
Assessment and Plan - Patient Problems (1) Foreign body ingestion Current Visit: Yes Status: Acute Plan to address problem: 1) Pt can be discharged from my perspective. Subjective Date of service: 07/03/20 Patient Reports: Positive: no new complaints, feels better, tolerating liquids w ell Objective Vital Signs - 12hr 07/03/20 07/03/20 00:26 05:31 Temperature 97.7 F 97.6 F Pulse Rate 78 79 Respiratory 16 16 Rate Blood Pressure 87/42 80/35 O2 Sat by Pulse 96 97 Oximetry - Abdomen PM_46_EXABD1 4, PM_46_EXABD1 6, PM_46_EXABD1 8 Hernia: none - Labs 07/01/20 16:08 06/30/20 18:00
[2020-07-03] MEDS ORDERED: ACETAMINOPHEN 325 MG TAB PO PRN (12:00)
--- NOTE | 2020-07-03 14:38 | Progress Note ---
Assessment and Plan Assessment and plan: --Foreign body ingestion; Patient claims that she ate plastic spoons Imaging studies did not reveal any foreign bodies Status post EGD; no foreign body found Patient tolerated the diet --History of bipolar disorder; Management per psych Stable on medications --History of schizophrenia/schizoaffective disorder; Continue current psych medications, stable Psych following, Patient will return to [place] --Mild hypotension; Fluid bolus, resolved --DVT prophylaxis; Lovenox Patient is hemodynamically and clinically stable for discharge DC planning per case management. DC back to [place] versus home with home health Medically stable for discharge History Interval history: I have seen and examined the patient at the bedside Patient's chart and medications reviewed Patient underwent EGD yesterday no foreign body material seen Surgery cleared for discharge. Patient tolerated diet Alert and awake wants to go back to [place]. Vital signs noted Hospitalist Physical - Constitutional Vitals: Temp Pulse Resp BP Pulse Ox 97.6 F 79 16 80/35 97 07/03/20 05:31 07/03/20 05:31 07/03/20 05:31 07/03/20 05:31 07/03/20 05:31 General appearance: Present: no acute distress, well-nourished, other (Patient is in procedure) - EENT Eyes: Present: PERRL, EOM intact - Neck Neck: Present: supple, normal ROM - Respiratory Respiratory effort: normal Respiratory: bilateral: diminished, negative: rales, rhonchi, wheezing - Cardiovascular Rhythm: regular Heart Sounds: Present: S1 & S2 - Extremities Extremities: no ischemia, pulses intact - Abdominal General gastrointestinal: soft, non-tender, non-distended, normal bowel sounds - Integumentary Integumentary: Present: clear, warm - Psychiatric Psychiatric: appropriate mood/affect, cooperative - Neurologic Neurologic: moves all extremities HEART Score - HEART Score Risk factors: No known risk factors Troponin: < normal limit - Critical Actions Critical Actions: 0-3 pts:0.9-1.7%risk of adverse cardiac event.Candidate for discharge Results - Labs CBC & Chem 7: 07/01/20 16:08 06/30/20 18:00 Labs: Laboratory Last Values WBC 6.7 K/mm3 (4.5-11.0) 07/01/20 16:08 RBC 3.42 M/mm3 (3.65-5.03) L 07/01/20 16:08 Hgb 11.0 gm/dl (10.1-14.3) 07/01/20 16:08 Hct 32.1 % (30.3-42.9) 07/01/20 16:08 MCV 94 fl (79-97) 07/01/20 16:08 MCH 32 pg (28-32) 07/01/20 16:08 MCHC 34 % (30-34) 07/01/20 16:08 RDW 15.0 % (13.2-15.2) 07/01/20 16:08 Plt Count 273 K/mm3 (140-440) 07/01/20 16:08 Lymph % (Auto) 27.1 % (13.4-35.0) 07/01/20 16:08 [place] % (Auto) 9.4 % (0.0-7.3) H 07/01/20 16:08 Eos % (Auto) 1.5 % (0.0-4.3) 07/01/20 16:08 Baso % (Auto) 0.4 % (0.0-1.8) 07/01/20 16:08 Lymph # (Auto) 1.8 K/mm3 (1.2-5.4) 07/01/20 16:08 [place] # (Auto) 0.6 K/mm3 (0.0-0.8) 07/01/20 16:08 Eos # (Auto) 0.1 K/mm3 (0.0-0.4) 07/01/20 16:08 Baso # (Auto) 0.0 K/mm3 (0.0-0.1) 07/01/20 16:08 Seg Neutrophils % 61.6 % (40.0-70.0) 07/01/20 16:08 Seg Neutrophils # 4.1 K/mm3 (1.8-7.7) 07/01/20 16:08 Sodium 140 mmol/L (137-145) 06/30/20 18:00 Potassium 4.3 mmol/L (3.6-5.0) 06/30/20 18:00 Chloride 104.9 mmol/L (98-107) 06/30/20 18:00 Carbon Dioxide 25 mmol/L (22-30) 06/30/20 18:00 Anion Gap 14 mmol/L 06/30/20 18:00 BUN 13 mg/dL (7-17) 06/30/20 18:00 Creatinine 0.7 mg/dL (0.6-1.2) 06/30/20 18:00 Estimated GFR > 60 ml/min 06/30/20 18:00 BUN/Creatinine Ratio 19 % 06/30/20 18:00 Glucose 85 mg/dL (65-100) 06/30/20 18:00 Calcium 9.0 mg/dL (8.4-10.2) 06/30/20 18:00 Total Bilirubin < 0.20 mg/dL (0.1-1.2) 06/30/20 18:00 AST 19 units/L (5-40) 06/30/20 18:00 ALT 6 units/L (7-56) L 06/30/20 18:00 Alkaline Phosphatase 52 units/L (35-129) 06/30/20 18:00 Total Protein 6.4 g/dL (6.3-8.2) 06/30/20 18:00 Albumin 3.9 g/dL (3.9-5) 06/30/20 18:00 Albumin/Globulin Ratio 1.6 % 06/30/20 18:00 HCG, Quant < 2 mIU/mL (0-4) 06/30/20 18:00 Arizmendi/IV: Voiding Method Bedside Commode Active Medications - Current Medications Current Medications: Generic Name Dose Route Start Last Admin Trade Name Freq PRN Reason Stop Dose Admin Acetaminophen 650 mg 06/30/20 22:37 Acetaminophen 650 Mg Rect Supp [place] Q4H PRN Fever >101 Acetaminophen 650 mg 07/03/20 12:00 Acetaminophen 325 Mg Tab PO Q4H PRN Fever >101 Dextrose/Sodium Chloride 1,000 mls @ 125 mls/hr 06/30/20 23:00 07/02/20 05:46 D5/0.45ns IV 125 mls/hr DIRECT RODO Administration Morphine Sulfate 2 mg 06/30/20 22:37 07/01/20 14:33 Morphine 2 Mg/1 Ml Inj IV 2 mg Q4H PRN Administration Pain, Moderate (4-6) Ondansetron HCl 4 mg 06/30/20 22:37 06/30/20 23:46 Ondansetron 4 Mg/2 Ml Inj IV 4 mg Q8H PRN Administration Nausea And Vomiting
[2020-07-03] MEDS ORDERED: HALOPERIDOL 1 MG TAB PO PRN (14:48)
[2020-07-03] MEDS: MORPHINE 2 MG/1 ML INJ IV PRN (16:00)
--- NOTE | 2020-07-03 16:22 | Post Anesthesia Evaluation ---
- Post Anesthesia Evaluation Patient Participated: Yes Airway Patent: Yes Stable Respiratory Function: Yes Nausea/Vomiting: No Temp > 96.8F: Yes Pain Manageable: Yes (little epigastric dyscomfort) Adequeate Hydration: Yes Anesthesia Complications: No Block Receding Appropriately: Not Applicable Patient on Ventilator: No
--- NOTE | 2020-07-03 16:35 | Discharge Summary ---
Providers - Providers Date of Admission: 06/30/20 21:42 Date of discharge: 07/03/20 Attending physician: CASH VALENTINE 06/30/20 19:05 Consult to Physician [CONS] Urgent Comment: Consulting Provider: ULICES ORTIZ Physician Instructions: Reason For Exam: abd pain, swallowed spoons Primary care physician: ENVIRONMENTAL PLANNING ENGINEER Hospitalization Reason for admission: Abdominal pain/foreign body ingestion[plastic spoons] Condition: Stable Pertinent studies: X-ray chest; no acute abnormality noted CT chest abdomen and pelvis; moderate amount of simple appearance pelvic free fluid No acute abnormality noted No CT evidence of foreign body Procedures: EGD; no foreign bodies are identified, normal EGD patient feels better Hospital course: 19-year-old female patient was sent from [place] with abdominal pain Patient reports that she ate some plastic material, admitted symptomatically managed, imaging studies Did not reveal any foreign body in the abdomen, evaluated by surgery, patient underwent EGD No foreign body found in GI system, patient tolerated the food Patient also has significant psych history, psych has evaluated the patient, no indication for inpatient psych management Today she is comfortable no new complaints vital signs stable [place] was contacted by case management, they have discharge the patient unable to take her back. Patient is medically stable for discharge. Safe DC planning per case management Discharge diagnosis: --h/o Foreign body ingestion; Patient claims that she ate plastic spoons Imaging studies did not reveal any foreign bodies s/p EGD; no foreign body found Patient tolerated the diet --History of bipolar disorder; Management per psych, scripts prior to discharge --History of schizophrenia/schizoaffective disorder; Management per psych, scripts to be given at discharge --Mild hypotension; resolved Patient is medically stable for discharge Safe discharge planning per case management Disposition: DC-01 TO HOME OR SELFCARE Final Discharge Diagnosis (Prints w/discharge instructions): --Foreign body ingestion/EGD no foreign body material seen. --History of bipolar. --History of schizophrenia. --Hypotension, resolved Time spent for discharge: 35 min Core Measure Documentation - Palliative Care Palliative Care/ Comfort Measures: Not Applicable - Core Measures Any of the following diagnoses?: none Exam - Constitutional Vitals: Temp Pulse Resp BP Pulse Ox 98.3 F 95 H 20 95/55 95 07/03/20 15:51 07/03/20 15:51 07/03/20 15:51 07/03/20 15:51 07/03/20 15:51 General appearance: Present: no acute distress, well-nourished - EENT Eyes: Present: PERRL, EOM intact - Neck Neck: Present: supple - Respiratory Respiratory effort: normal Respiratory: negative: diminished, rales, rhonchi, wheezing - Cardiovascular Rhythm: regular Heart Sounds: Present: S1 & S2 - Extremities Extremities: no ischemia, No edema - Abdominal General gastrointestinal: Present: soft, non-tender, non-distended, normal bowel sounds - Integumentary Integumentary: Present: clear, warm - Musculoskeletal Musculoskeletal: strength equal bilaterally - Psychiatric Psychiatric: appropriate mood/affect, cooperative - Neurologic Neurologic: CNII-XII intact, moves all extremities Plan Activity: advance as tolerated Diet: regular Additional Instructions: Advised to follow private [facility] health in 3 to 5 days. If you have worsening symptoms contact MD or go to emergency room. Psych prescriptions to be given by psych at discharge. Advised to follow with [facility] Follow up with: PRIMARY CARE, [Primary Care Provider] - 3-5 Days
--- NOTE | 2020-07-03 19:43 | Event Note ---
Date: 07/03/20 Patient is trying to leave the hospital, Initially patient was supposed to be discharged to [place] facility As per case management, reviewed has discharged Patient is homeless, case management is processing placement Try to convince the patient about placement issues However patient has psych problems, unable to comprehend, insists on leaving Requested a safety manager, placed on [id number] as she cannot care for self Will follow psych recommendations, will follow DC planning tomorrow Plan of care discussed with patient's nurse, charge nurse and nurse fabric worker supervisor
[2020-07-03] MEDS: D5W/0.45% NACL 1,000 ML IV SCH (22:45)
[2020-07-03] MEDS: oxyCODONE /ACETAMINOPHEN 5-325MG TAB PO PRN (22:48)
[2020-07-04] MEDS ORDERED: diphenhydrAMINE 50 MG/ML VIAL IV ONE (00:23)
[2020-07-04] MEDS: oxyCODONE /ACETAMINOPHEN 5-325MG TAB PO PRN (10:32)
[2020-07-04 13:15] VITALS: BP 91/49
== END 2020-07-04 14:38 | disposition home or self-care (01) ==
LOC: ED 16:56 → 3A 21:42 → MERGE 21:42 → OBSVTOIN 07-01 16:58 → INTOOBSV 07-01 16:58
PROVIDERS: ADMIT Internal Medicine; ATTEND Internal Medicine
DX: T18.198A Other foreign object in esophagus causing other injury, initial encounter (principal); F31.9 Bipolar disorder, unspecified; F25.0 Schizoaffective disorder, bipolar type; F84.0 Autistic disorder; I95.9 Hypotension, unspecified; R10.9 Unspecified abdominal pain; Z98.890 Other specified postprocedural states; Z79.899 Other long term (current) drug therapy; X58.XXXA Exposure to other specified factors, initial encounter; Y93.89 Activity, other specified; Y92.89 Other specified places as the place of occurrence of the external cause; Y99.8 Other external cause status
CPT/HCPCS: 36415; 43235; 71045; 71260; 74018; 74177; 80053; 84702; 85025; 96361; 96374; 96375; 96376; 99285; G0378; J0330; J1170; J1200; J2270; J2405; J2704; J7030; Q9967

== ENCOUNTER 2020-07-07 12:04 | Emergency (ER) | payer OTHER ==
[2020-07-07 12:12] VITALS: BP 105/55
--- NOTE | 2020-07-07 12:51 | XRay Report ---
HISTORY:previous ankle fracture, heard pop today COMPARISON: None. TECHNIQUE: AP lateral and obliques views were obtained FINDINGS: Bones: No fracture or dislocation. Joint spaces: Maintained. Soft tissues: No significant abnormality. Additional findings: None. IMPRESSION: 1. No significant abnormality. Signer Name: Kit Cárdenas MD Signed: 07/07/2020 12:47 PM Workstation Name: [id number]
--- NOTE | 2020-07-07 12:52 | XRay Report ---
CLINICAL DATA: previous ankle fracture, heard pop today TECHNICAL DATA: Four views of the ankle were obtained in the AP, lateral, and obliques. FINDINGS: There is no acute fracture, dislocation, or subluxation. There is no joint effusion or soft tissue sw elling. The tibial plafond, ankle mortise, and talar dome are intact. IMPRESSION: No acute radiographic abnormality. Signer Name: Kit Cárdenas MD Signed: 07/07/2020 12:47 PM Workstation Name: [id number]
--- NOTE | 2020-07-07 13:22 | Emergency Department Report ---
ED Lower Extremity HPI - General Chief Complaint: Extremity Injury, Lower Stated Complaint: POSSIBLE LT ANKLE Time Seen by Provider: 07/07/20 12:12 Source: patient Mode of arrival: Ambulatory Limitations: No Limitations - History of Present Illness Initial Comments: Patient is a 19-year-old female who presents emergency room complaints of a left ankle injury that occurred today. Patient states that she was running down the steps when she accidentally tripped and fell and had a inversion injury of her ankle. She states that she heard a popping noise. She states that she was wearing her walking boot. She is currently in a walking boot secondary to a fracture that she had in May which she reports was diagnosed at [facility]. She states that she had a ankle fracture but is not sure which bone is fractured. She states that she has not yet seen an orthopedic doctor. She states that she is currently at a [facility] facility and cannot follow-up with orthopedic until she has been released from the facility. She denies any numbness or weakness. She has been ambulating. She has a past medical history of hydrocephalus with a [employer] shunt, she denies any complications. She denies any medication allergies. - Related Data Previous Rx's Medication Instructions Recorded Last Taken Type Acetaminophen/Codeine [Tylenol 1 tab PO Q4H PRN #12 tab 04/07/20 Unknown Rx /Codeine # 3 tab] Dicyclomine [Bentyl] 10 mg PO TID PRN #15 capsule 04/07/20 Unknown Rx Ondansetron [Zofran Odt] 4 mg PO Q8HR PRN #12 tab.rapdis 04/07/20 Unknown Rx Ibuprofen [Motrin 600 MG tab] 600 mg PO Q8H PRN #20 tablet 07/07/20 Unknown Rx Allergies Allergy/AdvReac Type Severity Reaction Status Date / Time No Known Allergies Allergy Verified 07/07/20 12:07 ED Review of Systems ROS: Stated complaint: POSSIBLE LT ANKLE Other details as noted in HPI Comment: All other systems reviewed and negative ED Past Medical Hx - Past Medical History Hx Psychiatric Treatment: Yes (schizophrenia, bipolar, depression, anxiety, hydrocephalus) Additional medical history: bipolar, schizophrenic, autistic, anxiety, depression - Surgical History Additional Surgical History: brain surgery - hydrocephalus, [employer] shunt, abdominal surgery for swallowing plastic - Social History Smoking Status: Never Smoker Substance Use Type: None - Medications Home Medications: Home Medications Medication Instructions Recorded Confirmed Last Taken Type Acetaminophen/Codeine [Tylenol 1 tab PO Q4H PRN #12 tab 04/07/20 Unknown Rx /Codeine # 3 tab] Dicyclomine [Bentyl] 10 mg PO TID PRN #15 capsule 04/07/20 Unknown Rx Ondansetron [Zofran Odt] 4 mg PO Q8HR PRN #12 tab.rapdis 04/07/20 Unknown Rx Ibuprofen [Motrin 600 MG tab] 600 mg PO Q8H PRN #20 tablet 07/07/20 Unknown Rx ED Physical Exam - General Limitations: No Limitations General appearance: alert, in no apparent distress - Head Head exam: Present: atraumatic, normocephalic - Eye Eye exam: Present: normal appearance - ENT ENT exam: Present: mucous membranes moist - Respiratory Respiratory exam: Absent: respiratory distress, accessory muscle use - Extremities Exam Extremities exam: Present: other (ttp and mild edema present to the left lateral malleolus, mild ttp to the proximal, dorsal left foot, no digit ttp, FROM of the LLE, discomfort with internal rotation of the left ankle, no deformity, neurovascularly intact) - Neurological Exam Neurological exam: Present: alert, oriented X3 - Psychiatric Psychiatric exam: Present: normal affect, normal mood - Skin Skin exam: Present: warm, dry, intact ED Course Vital Signs 07/07/20 12:11 Temperature 98.6 F Pulse Rate 91 H Respiratory 20 Rate Blood Pressure 105/55 O2 Sat by Pulse 98 Oximetry ED Lower Extremity MDM - Radiology Data Radiology results: report reviewed Ordering Physician: JOSLYN JENKINS Date of Service: 07/07/20 Procedure(s): XR ankle 3+V LT Accession Number(s): [id number] cc: JOSLYN JENKINS Fluoro Time In Minutes: CLINICAL DATA: previous ankle fracture, heard pop today TECHNICAL DATA: Four views of the ankle were obtained in the AP, lateral, and obliques. FINDINGS: There is no acute fracture, dislocation, or subluxation. There is no joint effusion or soft tissue swelling. The tibial plafond, ankle mortise, and talar dome are intact. IMPRESSION: No acute radiographic abnormality. Signer Name: Kit Cárdenas MD Signed: 07/07/2020 12:47 PM Workstation Name: [id number] Transcribed By: PB Dictated By: Kit Cárdenas MD Electronically Authenticated By: Kit Cárdenas MD Signed Date/Time: 07/07/201246 DD/ 46 TD/TT: Print Ordering Physician: JOSLYN JENKINS Date of Service: 07/07/20 Procedure(s): XR foot 3+V LT Accession Number(s): [id number] cc: JOSLYN JENKINS Fluoro Time In Minutes: HISTORY:previous ankle fracture, heard pop today COMPARISON: None. TECHNIQUE: AP lateral and obliques views were obtained FINDINGS: Bones: No fracture or dislocation. Joint spaces: Maintained. Soft tissues: No significant abnormality. Additional findings: None. IMPRESSION: 1. No significant abnormality. Signer Name: Kit Cárdenas MD Signed: 07/07/2020 12:47 PM Workstation Name: [id number] Transcribed By: PB Dictated By: Kit Cárdenas MD Electronically Authenticated By: Kit Cárdenas MD Signed Date/Time: 07/07/201246 DD/ 45 TD/TT: - Medical Decision Making Patient is a 19-year-old female who presents emergency room complaints of a left ankle injury that occurred today. Patient states that she was running down the steps when she accidentally tripped and fell and had a inversion injury of her ankle. She states that she heard a popping noise. She states that she was wearing her walking boot. She is currently in a walking boot secondary to a fracture that she had in May which she reports was diagnosed at [facility]. She states that she had a ankle fracture but is not sure which bone is fractured. She states that she has not yet seen an orthopedic doctor. She states that she is currently at a [facility] facility and cannot follow-up with orthopedic until she has been released from the facility. She denies any numbness or weakness. She has been ambulating. She has a past medical history of hydrocephalus with a [employer] shunt, she denies any complications. She denies any medication allergies. vss. on exam:ttp and mild edema present to the left lateral malleolus, mild ttp to the proximal, dorsal left foot, no digit ttp, FROM of the LLE, discomfort with internal rotation of the left ankle, no deformity, neurovascularly intact. X-ray left foot and left ankle: 1. No significant abnormality. Patient is already in a orthopedic boot. Advised patient to please keep the orthopedic boot on and patient was given crutches and advised not to bear weight. Patient can prescription for ibuprofen. Advised patient Please take medication as prescribed as needed. May use ice for 15 minutes at a time, rest, elevation of the leg. Please avoid bearing weight on the leg. Follow-up with orthopedic doctor. Return to emergency room for any new or worsening symptoms. - Differential Diagnosis Strain, sprain, fracture, dislocation, contusion Critical care attestation.: If time is entered above; I have spent that time in minutes in the direct care of this critically ill patient, excluding procedure time. ED Disposition Clinical Impression: Left ankle sprain Qualifiers: Encounter type: initial encounter Involved ligament of ankle: unspecified ligament Qualified Code(s): S93.402A - Sprain of unspecified ligament of left ankle, initial encounter Disposition: TO HOME OR SELFCARE Is pt being admited?: No Does the pt Need Aspirin: No Condition: Stable Instructions: Ankle Sprain Additional Instructions: Please take medication as prescribed as needed. May use ice for 15 minutes at a time, rest, elevation of the leg. Please avoid bearing weight on the leg. Follow-up with orthopedic doctor. Return to emergency room for any new or worsening symptoms. Prescriptions: Ibuprofen [Motrin 600 MG tab] 600 mg PO Q8H PRN #20 tablet PRN Reason: Pain Referrals: PRIMARY CARE, [Primary Care Provider] - 2-3 Days JEIMY GARRIDO MD [Staff Physician] - 2-3 Days [facility] [Provider Group] - 2-3 Days Forms: Work/School Release Form(ED) Time of Disposition: 13:21 Print Language: SWEDISH
== END 2020-07-07 13:46 | disposition home or self-care (01) ==
LOC: ED 12:04
DX: S93.402A Sprain of unspecified ligament of left ankle, initial encounter (principal); F20.9 Schizophrenia, unspecified; F31.9 Bipolar disorder, unspecified; Z98.890 Other specified postprocedural states; Z79.1 Long term (current) use of non-steroidal anti-inflammatories (NSAID); Z79.899 Other long term (current) drug therapy; W01.0XXA Fall on same level from slipping, tripping and stumbling without subsequent striking against object, initial encounter; Y93.89 Activity, other specified; Y92.89 Other specified places as the place of occurrence of the external cause; Y99.8 Other external cause status

== ENCOUNTER 2020-07-10 03:16 | Emergency (ER) | payer OTHER ==
[2020-07-10 05:58] LABS: Basophils % (Auto) 0.4 % (0.0-1.8); Eosinophils # (Auto) 0.1 K/mm3 (0.0-0.4); Eosinophils % (Auto) 1.5 % (0.0-4.3); Hematocrit 34.2 % (30.3-42.9); Hemoglobin 11.7 gm/dl (10.1-14.3); Lymphocytes # (Auto) 2.4 K/mm3 (1.2-5.4); Lymphocytes % (Auto) 35.6 % (13.4-35.0); Mean Corpuscular HGB Conc 34 % (30-34); Mean Corpuscular Volume 94 fl (79-97); Monocytes # (Auto) 0.7 K/mm3 (0.0-0.8); Monocytes % (Auto) 10.5 % (0.0-7.3); Platelet Count 386 K/mm3 (140-440); Red Blood Count 3.63 M/mm3 (3.65-5.03); Red Cell Distribution Width 14.7 % (13.2-15.2)
[2020-07-10 06:17] LABS: Bilirubin,Urine NEG (Negative); Blood,Urine NEG (Negative); Color,Urine Yellow (Yellow); Mucus,Urine FEW /HPF; WBC,Urine < 1.0 /HPF (0.0-6.0)
[2020-07-10 06:21] LABS: Albumin 3.9 g/dL (3.9-5); Blood Urea Nitrogen 6 mg/dL (7-17); Calcium 9.5 mg/dL (8.4-10.2); Hemolysis Index 18
[2020-07-10 06:22] LABS: Alanine Aminotransferase < 5 units/L (7-56); BUN/Creatinine Ratio 10
--- NOTE | 2020-07-10 07:18 | Emergency Department Report ---
ED Abdominal Pain HPI - General Chief Complaint: Abdominal Pain Stated Complaint: N/V PUI?: No Time Seen by Provider: 07/10/20 07:01 Source: patient Mode of arrival: Ambulatory Limitations: No Limitations - History of Present Illness Initial Comments: This is a very pleasant 19-year-old female who presents to the emergency depar tment chief complaint of nausea, vomiting, diarrhea that started last night after eating nachos. She denies any bloody or bilious vomiting. She denies any bloody diarrhea. She reports some intermittent left lower abdominal cramping that has now resolved. She denies any associated fever, chills, night sweats, headache, dizziness, blurry vision, chest pain, shortness of breath, weakness or any other associated symptoms. Severity scale (0 -10): 9 - Related Data Previous Rx's Medication Instructions Recorded Last Taken Type Acetaminophen/Codeine [Tylenol 1 tab PO Q4H PRN #12 tab 04/07/20 Unknown Rx /Codeine # 3 tab] Ibuprofen [Motrin 600 MG tab] 600 mg PO Q8H PRN #20 tablet 07/07/20 Unknown Rx Dicyclomine [Bentyl] 10 mg PO TID PRN #15 capsule 07/10/20 Unknown Rx Ondansetron [Zofran ODT TAB] 4 mg PO Q8HR PRN #12 tab.rapdis 07/10/20 Unknown Rx Allergies Allergy/AdvReac Type Severity Reaction Status Date / Time No Known Allergies Allergy Verified 07/10/20 03:27 ED Review of Systems ROS: Stated complaint: N/V Other details as noted in HPI Constitutional: denies: chills, fever Eyes: denies: eye pain, eye discharge, vision change ENT: denies: ear pain, throat pain Respiratory: denies: cough, shortness of breath, wheezing Cardiovascular: denies: chest pain, palpitations Endocrine: no symptoms reported Gastrointestinal: abdominal pain, nausea, vomiting, diarrhea Genitourinary: denies: urgency, dysuria, discharge Musculoskeletal: denies: back pain, joint swelling, arthralgia Skin: denies: rash, lesions Neurological: denies: headache, weakness, paresthesias Psychiatric: denies: anxiety, depression Hematological/Lymphatic: denies: easy bleeding, easy bruising ED Past Medical Hx - Past Medical History Previous Medical History?: Yes Hx Psychiatric Treatment: Yes (schizophrenia, bipolar, depression, anxiety, hydrocephalus) Additional medical history: bipolar, schizophrenic, autistic, anxiety, depression - Surgical History Past Surgical History?: Yes Additional Surgical History: brain surgery - hydrocephalus, [employer] shunt, abdominal surgery for swallowing plastic - Social History Smoking Status: Never Smoker Substance Use Type: None - Medications Home Medications: Home Medications Medication Instructions Recorded Confirmed Last Taken Type Acetaminophen/Codeine [Tylenol 1 tab PO Q4H PRN #12 tab 04/07/20 Unknown Rx /Codeine # 3 tab] Ibuprofen [Motrin 600 MG tab] 600 mg PO Q8H PRN #20 tablet 07/07/20 Unknown Rx Dicyclomine [Bentyl] 10 mg PO TID PRN #15 capsule 07/10/20 Unknown Rx Ondansetron [Zofran ODT TAB] 4 mg PO Q8HR PRN #12 tab.rapdis 07/10/20 Unknown Rx ED Physical Exam - General Limitations: No Limitations General appearance: alert, in no apparent distress - Head Head exam: Present: atraumatic, normocephalic - Eye Eye exam: Present: normal appearance, PERRL, EOMI Pupils: Present: normal accommodation - ENT ENT exam: Present: normal exam, normal orophraynx, mucous membranes moist - Neck Neck exam: Present: normal inspection, full ROM. Absent: tenderness, meningismus - Respiratory Respiratory exam: Present: normal lung sounds bilaterally. Absent: respiratory distress, wheezes, rales, rhonchi, stridor, chest wall tenderness - Cardiovascular Cardiovascular Exam: Present: regular rate, normal rhythm, normal heart sounds. Absent: systolic murmur, diastolic murmur, rubs, gallop - GI/Abdominal GI/Abdominal exam: Present: soft, normal bowel sounds, other (Negative Rivka's point tenderness, negative Lopez sign, no rebound or guarding.). Absent: distended, tenderness, guarding, rebound, rigid - Extremities Exam Extremities exam: Present: normal inspection, full ROM, normal capillary refill. Absent: tenderness, calf tenderness - Back Exam Back exam: Present: normal inspection, full ROM. Absent: tenderness, CVA tenderness (R), CVA tenderness (L) - Neurological Exam Neurological exam: Present: alert, oriented X3, normal gait - Psychiatric Psychiatric exam: Present: normal affect, normal mood - Skin Skin exam: Present: warm, dry, intact, normal color. Absent: rash ED Course Vital Signs 07/10/20 03:29 Temperature 98.2 F Pulse Rate 86 Respiratory 18 Rate Blood Pressure 107/43 O2 Sat by Pulse 98 Oximetry - Reevaluation(s) Reevaluation #1: 07/10/20 07:18 07/10/20 07:20 ED Medical Decision Making - Lab Data Result diagrams: 07/10/20 05:28 07/10/20 05:28 Lab Results 07/10/20 07/10/20 07/10/20 Range/Units 05:23 05:28 05:28 WBC 6.6 (4.5-11.0) K/mm3 RBC 3.63 L (3.65-5.03) M/mm3 Hgb 11.7 (10.1-14.3) gm/dl Hct 34.2 (30.3-42.9) % MCV 94 (79-97) fl MCH 32 (28-32) pg MCHC 34 (30-34) % RDW 14.7 (13.2-15.2) % Plt Count 386 (140-440) K/mm3 Lymph % (Auto) 35.6 H (13.4-35.0) % Potter % (Auto) 10.5 H (0.0-7.3) % Eos % (Auto) 1.5 (0.0-4.3) % Baso % (Auto) 0.4 (0.0-1.8) % Lymph # (Auto) 2.4 (1.2-5.4) K/mm3 Potter # (Auto) 0.7 (0.0-0.8) K/mm3 Eos # (Auto) 0.1 (0.0-0.4) K/mm3 Baso # (Auto) 0.0 (0.0-0.1) K/mm3 Seg Neutrophils % 52.0 (40.0-70.0) % Seg Neutrophils # 3.4 (1.8-7.7) K/mm3 Sodium 140 (137-145) mmol/L Potassium 4.0 (3.6-5.0) mmol/L Chloride 105.8 (98-107) mmol/L Carbon Dioxide 25 (22-30) mmol/L Anion Gap 13 mmol/L BUN 6 L (7-17) mg/dL Creatinine 0.6 (0.6-1.2) mg/dL Estimated GFR > 60 ml/min BUN/Creatinine Ratio 10 % Glucose 81 (65-100) mg/dL Calcium 9.5 (8.4-10.2) mg/dL Total Bilirubin < 0.20 (0.1-1.2) mg/dL AST 11 (5-40) units/L ALT < 5 L (7-56) units/L Alkaline Phosphatase 54 (35-129) units/L Total Protein 6.4 (6.3-8.2) g/dL Albumin 3.9 (3.9-5) g/dL Albumin/Globulin Ratio 1.6 % Lipase 23 (13-60) units/L HCG, Qual (Negative) Urine Color Yellow (Yellow) Urine Turbidity Slightly-cloudy (Clear) Urine pH 7.0 (5.0-7.0) Ur Specific [place] 1.024 (1.003-1.030) Urine Protein 30 mg/dl (Negative) mg/dL Urine Glucose (UA) Neg (Negative) mg/dL Urine Ketones Tr (Negative) mg/dL Urine Blood Neg (Negative) Urine Nitrite Neg (Negative) Urine Bilirubin Neg (Negative) Urine Urobilinogen 2.0 (<2.0) mg/dL Ur Leukocyte Esterase Neg (Negative) Urine WBC (Auto) < 1.0 (0.0-6.0) /HPF Urine RBC (Auto) 4.0 (0.0-6.0) /HPF U Epithel Cells (Auto) 18.0 H (0-13.0) /HPF Urine Mucus Few /HPF 07/10/20 Range/Units 05:28 WBC (4.5-11.0) K/mm3 RBC (3.65-5.03) M/mm3 Hgb (10.1-14.3) gm/dl Hct (30.3-42.9) % MCV (79-97) fl MCH (28-32) pg MCHC (30-34) % RDW (13.2-15.2) % Plt Count (140-440) K/mm3 Lymph % (Auto) (13.4-35.0) % Potter % (Auto) (0.0-7.3) % Eos % (Auto) (0.0-4.3) % Baso % (Auto) (0.0-1.8) % Lymph # (Auto) (1.2-5.4) K/mm3 Potter # (Auto) (0.0-0.8) K/mm3 Eos # (Auto) (0.0-0.4) K/mm3 Baso # (Auto) (0.0-0.1) K/mm3 Seg Neutrophils % (40.0-70.0) % Seg Neutrophils # (1.8-7.7) K/mm3 Sodium (137-145) mmol/L Potassium (3.6-5.0) mmol/L Chloride (98-107) mmol/L Carbon Dioxide (22-30) mmol/L Anion Gap mmol/L BUN (7-17) mg/dL Creatinine (0.6-1.2) mg/dL Estimated GFR ml/min BUN/Creatinine Ratio % Glucose (65-100) mg/dL Calcium (8.4-10.2) mg/dL Total Bilirubin (0.1-1.2) mg/dL AST (5-40) units/L ALT (7-56) units/L Alkaline Phosphatase (35-129) units/L Total Protein (6.3-8.2) g/dL Albumin (3.9-5) g/dL Albumin/Globulin Ratio % Lipase (13-60) units/L HCG, Qual Negative (Negative) Urine Color (Yellow) Urine Turbidity (Clear) Urine pH (5.0-7.0) Ur Specific [place] (1.003-1.030) Urine Protein (Negative) mg/dL Urine Glucose (UA) (Negative) mg/dL Urine Ketones (Negative) mg/dL Urine Blood (Negative) Urine Nitrite (Negative) Urine Bilirubin (Negative) Urine Urobilinogen (<2.0) mg/dL Ur Leukocyte Esterase (Negative) Urine WBC (Auto) (0.0-6.0) /HPF Urine RBC (Auto) (0.0-6.0) /HPF U Epithel Cells (Auto) (0-13.0) /HPF Urine Mucus /HPF - Medical Decision Making Patient is nontoxic in no acute distress. Labs were unremarkable and abdominal exam was unremarkable. She was tolerating p.o. fluids and felt much better. I will discharge her with outpatient follow-up with her primary care doctor in the next 24 hours and gave her Zofran and Bentyl. The patient had no reproducible abdominal tenderness on exam. She had negative McBurney's point tenderness and no right lower quadrant tenderness with a low Hartley score making acute appendicitis unlikely. She had no pelvic pain and denies any new unprotected sexual encounters or any concern about an STD exposure making PID, TOA unlikely. She had a soft nontender nonrigid abdomen making peritonitis unlikely obstruction unlikely any other acute intra-abdominal process unlikely. No right upper quadrant pain with a negative Lopez sign and normal LFTs making acute cholecystitis or cholelithiasis less likely. She is instructed to return to the emergency department immediately with any change or worsening symptoms. A plain film x-ray was ordered initially in triage I suspect secondary to the patient's history of ingestion of foreign substances however the patient adamantly denies that she has done this and does not want to have x-ray at this time. I think this is reasonable due to the benign abdominal exam I have low suspicion for this. She understood she could return to the ER at any time if she develops any change or worsening symptoms. - Differential Diagnosis Enteritis, cystitis, ovarian cyst, appendicitis, cholecystitis Critical care attestation.: If time is entered above; I have spent that time in minutes in the direct care of this critically ill patient, excluding procedure time. ED Disposition Clinical Impression: Nausea vomiting and diarrhea, LLQ abdominal pain Disposition: TO HOME OR SELFCARE Is pt being admited?: No Does the pt Need Aspirin: No Condition: Stable Instructions: Abdominal Pain (ED), Nausea and Vomiting, Adult, Food Choices to Help Relieve Diarrhea, Adult Prescriptions: Dicyclomine [Bentyl] 10 mg PO TID PRN #15 capsule PRN Reason: abdominal cramp Ondansetron [Zofran ODT TAB] 4 mg PO Q8HR PRN #12 tab.rapdis PRN Reason: Vomiting Referrals: PRIMARY CARE, [Primary Care Provider] - 3-5 Days [facility]Provider Group[facility] - 3-5 Days Forms: Work/School Release Form(ED) Time of Disposition: 07:08
[2020-07-10 07:25] VITALS: BP 97/54
== END 2020-07-10 07:30 | disposition home or self-care (01) ==
LOC: ED 03:16
DX: R11.2 Nausea with vomiting, unspecified (principal); R19.7 Diarrhea, unspecified; R10.32 Left lower quadrant pain; F25.0 Schizoaffective disorder, bipolar type; F41.9 Anxiety disorder, unspecified; Z98.890 Other specified postprocedural states; Z79.899 Other long term (current) drug therapy
CPT/HCPCS: 36415; 80053; 81001; 83690; 84703; 85025

== ENCOUNTER 2020-07-13 10:10 | Emergency (ER) | payer OTHER ==
[2020-07-13 10:58] LABS: Bilirubin,Urine NEG (Negative); Blood,Urine NEG (Negative); Color,Urine Yellow (Yellow); Mucus,Urine 1+ /HPF
--- NOTE | 2020-07-13 10:59 | Emergency Department Report ---
ED General Adult HPI - General Chief complaint: Psych Stated complaint: SWALLOWED PAPERCLIP Time Seen by Provider: 07/13/20 10:45 Source: patient Mode of arrival: Ambulatory Limitations: No Limitations - History of Present Illness Initial comments: 19-year-old female, history of bipolar, schizophrenia, psoriasis, cellulitis, presents to ED after reporting that she swallowed a paperclip. Patient currently living at [facility]. Patient states she went to speak to one of the counselors at [facility] to tell them what she had done. She states they ad vised her to come to the ER for evaluation. Patient denies reports some mild abdominal pain. Denies nausea, vomiting. Patient states it was a small, closed paperclip. It was not unfolded. There were no sharp ends exposed. Patient had a recent admission for same, 13 days ago, after reporting that she swallowed plastic spoons. At that time patient had negative abdominal x-ray and CT abdomen pelvis. She was also taken to the OR by Dr. Ron, general surgeon for an EGD that was normal, no foreign bodies were found. Patient reports history of swallowing foreign bodies which has required ex lap in the past. -: hour(s) (1) Location: abdomen Radiation: non-radiation Quality: aching Consistency: intermittent Improves with: none Worsens with: none Associated Symptoms: denies: fever/chills, nausea/vomiting Treatments Prior to Arrival: none - Related Data Home Medications Medication Instructions Recorded Confirmed Last Taken ARIPiprazole [Abilify] 20 mg PO QHS 07/13/20 07/13/20 Unknown Divalproex ER [DepaKOTE ER] 500 mg PO BID 07/13/20 07/13/20 Unknown Escitalopram [Lexapro] 10 mg PO DAILY 07/13/20 07/13/20 Unknown Gabapentin [Neurontin] 300 mg PO Q8HR 07/13/20 07/13/20 Unknown Ibuprofen [Motrin] 600 mg PO Q8H PRN 07/13/20 07/13/20 Unknown Midodrine HCl 10 mg PO TID 07/13/20 07/13/20 Unknown Previous Rx's Medication Instructions Recorded Last Taken Type Ibuprofen [Motrin 600 MG tab] 600 mg PO Q8H PRN #20 tablet 07/07/20 Unknown Rx Allergies Allergy/AdvReac Type Severity Reaction Status Date / Time No Known Allergies Allergy Verified 07/10/20 03:27 ED Review of Systems ROS: Stated complaint: SWALLOWED PAPERCLIP Other details as noted in HPI Comment: All other systems reviewed and negative Constitutional: denies: chills, fever Gastrointestinal: abdominal pain. denies: nausea, vomiting, diarrhea, hematemesis Psychiatric: denies: homicidal thoughts, suicidal thoughts ED Past Medical Hx - Past Medical History Previous Medical History?: Yes Hx Psychiatric Treatment: Yes (schizophrenia, bipolar, depression, anxiety, hydrocephalus) Additional medical history: bipolar, schizophrenic, autistic, anxiety, depression - Surgical History Past Surgical History?: Yes Additional Surgical History: brain surgery - hydrocephalus, WALL STEAMER shunt, abdominal surgery for swallowing plastic - Social History Smoking Status: Current Every Day Smoker Substance Use Type: Marijuana - Medications Home Medications: Home Medications Medication Instructions Recorded Confirmed Last Taken Type Ibuprofen [Motrin 600 MG tab] 600 mg PO Q8H PRN #20 tablet 07/07/20 07/13/20 Unknown Rx ARIPiprazole [Abilify] 20 mg PO QHS 07/13/20 07/13/20 Unknown History Divalproex ER [DepaKOTE ER] 500 mg PO BID 07/13/20 07/13/20 Unknown History Escitalopram [Lexapro] 10 mg PO DAILY 07/13/20 07/13/20 Unknown History Gabapentin [Neurontin] 300 mg PO Q8HR 07/13/20 07/13/20 Unknown History Ibuprofen [Motrin] 600 mg PO Q8H PRN 07/13/20 07/13/20 Unknown History Midodrine HCl 10 mg PO TID 07/13/20 07/13/20 Unknown History ED Physical Exam - General Limitations: No Limitations General appearance: alert, in no apparent distress - Head Head exam: Present: atraumatic, normocephalic - Eye Eye exam: Present: normal appearance - ENT ENT exam: Present: mucous membranes moist - Neck Neck exam: Present: normal inspection - Respiratory Respiratory exam: Present: normal lung sounds bilaterally. Absent: respiratory distress - Cardiovascular Cardiovascular Exam: Present: regular rate, normal rhythm - GI/Abdominal GI/Abdominal exam: Present: soft, other (Ex lap scar present midabdomen). Absent: distended, tenderness - Extremities Exam Extremities exam: Present: normal inspection - Neurological Exam Neurological exam: Present: alert, oriented X3 - Psychiatric Psychiatric exam: Present: normal affect, normal mood - Skin Skin exam: Present: warm, dry, intact ED Course Vital Signs 07/13/20 07/13/20 11:21 17:03 Temperature 98.3 F Pulse Rate 83 68 Respiratory 20 16 Rate Blood Pressure 100/63 100/62 [left arm] O2 Sat by Pulse 100 100 Oximetry - Consultations Consultation #1: 07/13/20 11:53 Spoke w/ Dr Baig, general surgery. States better for pt to undergo EGD since FB still in stomach. Spoke w/ Dr Antoine, conffirms no GI lab available here on weekends. Will attempt transfer. 07/13/20 13:06 Spoke w/ [facility]. Transfer line RN states no GI procedures performed on the weekend. Still awaiting callback from [facility]. 07/13/20 13:16 Contacted [facility]. Awaiting call back from 07/13/20 14:[address] Nicole at [place]. ED Medical Decision Making - Lab Data Result diagrams: 07/13/20 10:50 07/13/20 10:50 - Radiology Data Radiology results: report reviewed, image reviewed - Medical Decision Making Neg HCG on 07/10/20 19-year-old female presents to ED after following a paperclip earlier this morning. Patient has history of bipolar, schizophrenia and has a history of swallowing foreign objects in the past. X-ray shows paperclip in the stomach. Patient will be transferred to [facility] as we do not have GI services available at this time. Labs appear normal. Patient has been seen and evaluated by mental health intake assessor. Patient denies any suicidal ideation. No inpatient treatment on 1013 recommended at this time. Patient will be transferred to [facility] via ambulance. - Differential Diagnosis ingested foreign body, bowel perforation Critical care attestation.: If time is entered above; I have spent that time in minutes in the direct care of this critically ill patient, excluding procedure time. ED Disposition Clinical Impression: Foreign body ingestion Disposition: [id number]/[id number] ANOTHER TYPE HLTHCARE Is pt being admited?: No Condition: Stable Additional Instructions: OUTPATIENT MENTAL HEALTH RESOURCES [facility], [facility] Yaima Dahl MD: [address] [place] [address] [place] [address] [phone] [facility]: [facility] [address] [place] [address] [place], [place] [id number] [phone] [facility]: [facility]: [address] [facility] [address] [place] [address] [facility] [id number] [facility]: Duran [facility] MD: [address] [facility] [address] [facility] [id number] [facility]: [address] [place] [address] [phone] [place] CRISIS AND ACCESS LINE: Referrals: PRIMARY CAREMD [Primary Care Provider] - 3-5 Days Time of Disposition: 15:04
[2020-07-13 11:03] LABS: Basophils % (Auto) 0.7 % (0.0-1.8); Eosinophils # (Auto) 0.1 K/mm3 (0.0-0.4); Eosinophils % (Auto) 0.9 % (0.0-4.3); Hematocrit 34.9 % (30.3-42.9); Hemoglobin 11.9 gm/dl (10.1-14.3); Lymphocytes % (Auto) 33.2 % (13.4-35.0); Mean Corpuscular HGB Conc 34 % (30-34); Mean Corpuscular Volume 94 fl (79-97); Monocytes # (Auto) 0.3 K/mm3 (0.0-0.8); Monocytes % (Auto) 5.8 % (0.0-7.3); Platelet Count 357 K/mm3 (140-440); Red Cell Distribution Width 14.7 % (13.2-15.2)
[2020-07-13 11:06] LABS: Amphetamine Screen,Urine Negative; Benzodiazepines Screen,Urine Negative; Cannabinoid Screen,Urine Negative; Cocaine Screen,Urine Negative; Methadone Screen,Urine Negative; Opiate Screen,Urine Negative
[2020-07-13 11:18] LABS: BUN/Creatinine Ratio 11; Blood Urea Nitrogen 9 mg/dL (7-17); Calcium 9.3 mg/dL (8.4-10.2); Hemolysis Index 8
--- NOTE | 2020-07-13 11:36 | XRay Report ---
ABDOMEN 1 VIEW 07/13/2020 11:15 AM INDICATION / CLINICAL INFORMATION: swallowed paper clip. COMPARISON: 06/30/20 FINDINGS: TUBES / LINES: None. BOWEL GAS PATTERN: No significant abnormality. FREE AIR / EXTRALUMINAL GAS: None. ADDITIONAL FINDINGS: Metallic paper clip projects over the left upper abdomen possibly within the sto mach. IMPRESSION: 1. Metallic paperclip projecting over the left upper abdomen. Signer Name: Dean Madrigal MD Signed: 07/13/2020 11:32 AM Workstation Name: [id number]
--- NOTE | 2020-07-13 11:38 | XRay Report ---
CHEST 1 VIEW 07/13/2020 11:15 AM INDICATION / CLINICAL INFORMATION: swallowed paper clip. COMPARISON: 06/30/20 FINDINGS: SUPPORT DEVICES: Left-sided ventriculovenous shunt catheter is unchanged. Tip projects over the SVC-r ight atrial junction. HEART / MEDIASTINUM: No significant abnormality. LUNGS / PLEURA: No significant pulmonary or pleural abnormality. No pneumothorax. ADDITIONAL FINDINGS: Metallic paperclip projects over the left upper abdomen likely in the stomach. IMPRESSION: 1. Metallic paper clip in the left upper abdomen. Signer Name: Dean Madrigal MD Signed: 07/13/2020 11:34 AM Workstation Name: [id number]
--- NOTE | 2020-07-13 11:54 | Consultation ---
History of Present Illness - Reason for Consult Consult date: 07/13/20 Reason for consult: swollowed paperclip - History of Present Psychiatric Illness Per ER Note: 19-year-old female, history of bipolar, schizophrenia, psoriasis, cellulitis, presents to ED after reporting that she swallowed a paperclip. Patient currently living at [facility]. Patient states she went to speak to one of the counselors at [facility] to tell them what she had done. She states they advised her to come to the ER for evaluation. Patient denies reports some mild abdominal pain. Denies nausea, vomiting. Patient states it was a small, closed paperclip. It was not unfolded. There were no sharp ends exposed. Patient had a recent admission for same, 13 days ago, after reporting that she swallowed plastic spoons. At that time patient had negative abdominal x-ray and CT abdomen pelvis. She was also taken to the OR by Dr. Ron, general surgeon for an EGD that was normal, no foreign bodies were found. Patient reports history of swallowing foreign bodies which has required ex lap in the past. Pierre Torre is a patient who is known to me from a recent visit with a similar story. She is calm, cooperative, pleasant, and polite. She is here sta ting she swallowed a paperclip. The patient is a resident at [facility]. She says she was trying to get away from a situation where her boundaries were crossed. She says she also didn't want them to be mad at her. The patient is denying SI/HI, or any fear of harming herself. She says she does things like this "when my boundaries are crossed." Instructed the patient on some adaptive coping skills. She says "I'm doing well right now. I promise I'm not going to hurt myself." She denies any illicit drug use, alcohol or nicotine. PAST PSYCHIATRIC HISTORY Diagnoses: Biplar, schizophrenia Suicide attempts or Self-harm behavior: Yes Prior psychiatric hospitalizations: Yes Substance Abuse history: Denies Previous psychiatric medications tried: Could not recall Outpatient treatment: Denies PAST MEDICAL HISTORY: None reported Family Psychiatric History: None reported or documented SOCIAL HISTORY Marital Status: Single Living Arrangements: Homeless Employment Status: Unemployed Access to guns/weapons: Denies Education: high school History of Abuse: Denies Legal History: None reported REVIEW OF SYSTEMS Constitutional: Negative for weight loss ENT: Negative for stridor Respiratory: Negative for cough or hemoptysis All other systems reviewed and are negative MENTAL STATUS EXAMINATION General Appearance and Behavior: Age appropriate, good hygiene, not wearing appropriate clothes, good eye contact, calm, cooperative and polite Cooperation: cooperative Psychomotor Behavior: Psychomotor normal Mood: fine Affect and affective range: Euthymic, smiling Thought Process: Goal directed Thought Content: optimism Speech: normal rate and volume Suicidal Ideation: Denies Homicidal Ideation: Denies Hallucinations: Denies Delusions: None elicited Impulse Control: Impaired Insight and Judgment: Limited Memory: Limited Attention: Divided attention impaired Orientation: Alert Assessment and Plan (1) Bipolar Disorder Treatment Plan No medications at this time Risks, benefits and alternatives of medications discussed with the patient, questions answered and consent obtained from patient. PSYCHOTHERAPY: Supportive psychotherapy provided MEDICAL: Per primary team DELIRIUM PRECAUTIONS: Please re-orient patient frequently, keep lights on during the day, and minimize benzodiazepines and opiates as these medications could worsen patient's confusion. MANAGER CHANNEL: Defer to primary DISPOSITION: Do Not Recommend acute inpatient psychiatric hospitalization at this time. LEGAL STATUS: voluntary FOLLOW-UP: Will sign off The deputy assessor to give the patient safety plan, and resources. Thank you for the consult. Please contact with any questions and/or concerns Case discussed with Dr. Estrada who agrees with current disposition Medications and Allergies Allergies Allergy/AdvReac Type Severity Reaction Status Date / Time No Known Allergies Allergy Verified 07/10/20 03:27 Home Medications Medication Instructions Recorded Confirmed Last Taken Type Acetaminophen/Codeine [Tylenol 1 tab PO Q4H PRN #12 tab 04/07/20 Unknown Rx /Codeine # 3 tab] Ibuprofen [Motrin 600 MG tab] 600 mg PO Q8H PRN #20 tablet 07/07/20 Unknown Rx Dicyclomine [Bentyl] 10 mg PO TID PRN #15 capsule 07/10/20 Unknown Rx Ondansetron [Zofran ODT TAB] 4 mg PO Q8HR PRN #12 tab.rapdis 07/10/20 Unknown Rx Mental Status Exam - Vital signs Last Vital Signs Temp 98.3 F 07/13/20 11:21 Pulse 83 07/13/20 11:21 Resp 20 07/13/20 11:21 BP 100/63 07/13/20 11:21 Pulse Ox 100 07/13/20 11:21 Results Result Diagrams: 07/13/20 10:50 07/13/20 10:50 Abnormal lab results 07/13/20 Range/Units 10:50 Glucose 106 H (65-100) mg/dL All other labs normal.
[2020-07-13] MEDS ORDERED: LORazepam 2 MG/ML VIAL IM ONE (17:03)
[2020-07-13 17:04] VITALS: BP 100/62
== END 2020-07-13 18:54 | disposition other institution (70) ==
LOC: ED 10:10
DX: T18.8XXA Foreign body in other parts of alimentary tract, initial encounter (principal); F25.0 Schizoaffective disorder, bipolar type; F41.9 Anxiety disorder, unspecified; F17.200 Nicotine dependence, unspecified, uncomplicated; F12.10 Cannabis abuse, uncomplicated; Z79.899 Other long term (current) drug therapy; X58.XXXA Exposure to other specified factors, initial encounter; Y93.89 Activity, other specified; Y92.89 Other specified places as the place of occurrence of the external cause; Y99.8 Other external cause status
CPT/HCPCS: 36415; 71045; 74018; 80048; 80307; 81001; 85025; 96372; 99285; J2060

== ENCOUNTER 2020-07-30 23:45 | Emergency (ER) | payer OTHER ==
[2020-07-30 23:56] VITALS: BP 119/75
[2020-07-31] MEDS ORDERED: traMADol 50 MG TAB PO ONE (02:34)
[2020-07-31] MEDS ORDERED: TETANUS,DIPH,PERTUSS(ACELL) VACCINE 0.5 ML SYRINGE IM ONE (02:34)
--- NOTE | 2020-07-31 03:45 | Emergency Department Report ---
ED General Adult HPI - General Chief complaint: Wound/Laceration Stated complaint: LACERATION TO INDEX FINGER Time Seen by Provider: 07/31/20 02:26 Source: patient Mode of arrival: Ambulatory Limitations: No Limitations - History of Present Illness Initial comments: Patient is a 19-year-old female who presents for laceration to left index finger palmar side. States she accidentally cut it with a steak knife tonight at home. Bleeding was controlled with direct pressure. Patient drove self to ED last tetanus status unknown. Pain is described as 3/10 aching. There are no other exacerbating or relieving factors. Severity scale (0 -10): 3 - Related Data Home Medications Medication Instructions Recorded Confirmed Last Taken ARIPiprazole [Abilify] 20 mg PO QHS 07/13/20 07/13/20 Unknown Divalproex ER [DepaKOTE ER] 500 mg PO BID 07/13/20 07/13/20 Unknown Escitalopram [Lexapro] 10 mg PO DAILY 07/13/20 07/13/20 Unknown Gabapentin [Neurontin] 300 mg PO Q8HR 07/13/20 07/13/20 Unknown Ibuprofen [Motrin] 600 mg PO Q8H PRN 07/13/20 07/13/20 Unknown Midodrine HCl 10 mg PO TID 07/13/20 07/13/20 Unknown Previous Rx's Medication Instructions Recorded Last Taken Type Ibuprofen [Motrin 600 MG tab] 600 mg PO Q8H PRN #20 tablet 07/07/20 Unknown Rx Ibuprofen [Motrin 800 MG tab] 800 mg PO Q8HR PRN #30 tablet 07/31/20 Unknown Rx cephALEXin [Keflex] 500 mg PO Q8HR 7 Days #21 cap 07/31/20 Unknown Rx Allergies Allergy/AdvReac Type Severity Reaction Status Date / Time No Known Allergies Allergy Verified 07/10/20 03:27 ED Review of Systems ROS: Stated complaint: LACERATION TO INDEX FINGER Other details as noted in HPI Constitutional: denies: chills, fever Eyes: denies: eye pain, eye discharge, vision change ENT: denies: ear pain, throat pain Respiratory: denies: cough, shortness of breath, wheezing Cardiovascular: denies: chest pain, palpitations Endocrine: no symptoms reported Gastrointestinal: denies: abdominal pain, nausea, diarrhea Genitourinary: denies: urgency, dysuria, discharge Musculoskeletal: denies: back pain, joint swelling, arthralgia Skin: other (laceration left index finger less than 1 acm ) Neurological: denies: headache, weakness, paresthesias Psychiatric: denies: anxiety, depression Hematological/Lymphatic: denies: easy bleeding, easy bruising ED Past Medical Hx - Past Medical History Previous Medical History?: Yes Hx Psychiatric Treatment: Yes (schizophrenia, bipolar, depression, anxiety, hydrocephalus) Additional medical history: bipolar, schizophrenic, autistic, anxiety, depression - Surgical History Past Surgical History?: Yes Additional Surgical History: brain surgery - hydrocephalus, 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, abdominal surgery for swallowing plastic - Social History Smoking Status: Never Smoker Substance Use Type: None - Medications Home Medications: Home Medications Medication Instructions Recorded Confirmed Last Taken Type Ibuprofen [Motrin 600 MG tab] 600 mg PO Q8H PRN #20 tablet 07/07/20 07/13/20 Unknown Rx ARIPiprazole [Abilify] 20 mg PO QHS 07/13/20 07/13/20 Unknown History Divalproex ER [DepaKOTE ER] 500 mg PO BID 07/13/20 07/13/20 Unknown History Escitalopram [Lexapro] 10 mg PO DAILY 07/13/20 07/13/20 Unknown History Gabapentin [Neurontin] 300 mg PO Q8HR 07/13/20 07/13/20 Unknown History Ibuprofen [Motrin] 600 mg PO Q8H PRN 07/13/20 07/13/20 Unknown History Midodrine HCl 10 mg PO TID 07/13/20 07/13/20 Unknown History Ibuprofen [Motrin 800 MG tab] 800 mg PO Q8HR PRN #30 tablet 07/31/20 Unknown Rx cephALEXin [Keflex] 500 mg PO Q8HR 7 Days #21 cap 07/31/20 Unknown Rx ED Physical Exam - General Limitations: No Limitations General appearance: alert, in no apparent distress - Head Head exam: Present: normocephalic, normal inspection - Eye Eye exam: Present: normal appearance (Right without mononeuritis) - ENT ENT exam: Present: mucous membranes moist - Neck Neck exam: Present: normal inspection, full ROM. Absent: tenderness - Respiratory Respiratory exam: Present: normal lung sounds bilaterally. Absent: respiratory distress - Cardiovascular Cardiovascular Exam: Present: regular rate, normal rhythm, normal heart sounds. Absent: systolic murmur, diastolic murmur, rubs, gallop - GI/Abdominal GI/Abdominal exam: Present: soft, normal bowel sounds - Rectal Rectal exam: Present: deferred - Extremities Exam Extremities exam: Present: full ROM, tenderness (left index finger laceration ) - Expanded Upper Extremity Exam Left Hand Wrist exam: Present: full ROM, tenderness (left distal index finger laceration less than 1 cm superficial no nerve tendon or muscle damage ), laceration. Absent: deformity Neuro motor exam: Present: wrist extension intact, thumb opposition intact, thumb IP flexion intact, thumb adduction intact, fingers 2-5 abduction intact Neurosensory exam: Present: radial nerve intact Vascular: Present: normal capillary refill - Back Exam Back exam: Present: normal inspection, full ROM. Absent: tenderness - Neurological Exam Neurological exam: Present: alert, oriented X3, normal gait - Psychiatric Psychiatric exam: Present: normal affect, normal mood - Skin Skin exam: Present: warm, dry, normal color, other (laceration as above ). Absent: rash ED Course Vital Signs 07/30/20 23:53 Temperature 98.4 F Pulse Rate 134 H Respiratory 19 Rate Blood Pressure 119/75 O2 Sat by Pulse 94 Oximetry - Laceration /Wound Repair Left Distal Finger Wound Location: upper extremity Wound Length (cm): 1 Wound's Depth, Shape: superficial Wound Explored: clean Irrigated w/ Saline (ccs): 30 Betadine Prep?: Yes Wound Debrided: none required Wound Repaired With: Dermabond Progress: Left distal index finger with small laceration less than 1 cm wound cleaned with sterile saline x10 cc wound explored clean, wound closed with Dermabond, edges are well approximated there is no bleeding. Patient tolerated procedure with minimal distress. Patient given wound care instructions verbalized understanding of same. ED Medical Decision Making - Medical Decision Making This is a small index finger laceration no nerve tendon or muscle damage, site closed with Dermabond. There is no bleeding at this time. Range of motion remains intact. Distal pulses less than 3 seconds bilateral patient will be DC'd home in stable condition at this time. Patient will follow up with primary care doctor in 2 to 3 days for site check, patient will return to ED should symptoms worsen or symptoms of infection. Critical care attestation.: If time is entered above; I have spent that time in minutes in the direct care of this critically ill patient, excluding procedure time. ED Disposition Clinical Impression: Finger laceration Qualifiers: Encounter type: initial encounter Finger: index finger Damage to nail status: without damage Foreign body presence: without foreign body Laterality: left Qualified Code(s): S61.211A - Laceration without foreign body of left index finger without damage to nail, initial encounter Disposition: TO HOME OR SELFCARE Is pt being admited?: No Does the pt Need Aspirin: No Condition: Stable Instructions: Laceration Care, Adult Additional Instructions: take medications as prescribed , follow u with your primary care doctor in 2-3 days for wound check. return to ed if symptoms worsen Prescriptions: cephALEXin [Keflex] 500 mg PO Q8HR 7 Days #21 cap Ibuprofen [Motrin 800 MG tab] 800 mg PO Q8HR PRN #30 tablet PRN Reason: pain Referrals: PRIMARY CAREMD [Primary Care Provider] - 3-5 Days CORBIN PERRIN MD [Staff Physician] - 3-5 Days Forms: Work/School Release Form(ED) Time of Disposition: 03:57
== END 2020-07-31 04:12 | disposition home or self-care (01) ==
LOC: ED 23:45
DX: S61.211A Laceration without foreign body of left index finger without damage to nail, initial encounter (principal); F25.0 Schizoaffective disorder, bipolar type; F41.9 Anxiety disorder, unspecified; Z79.899 Other long term (current) drug therapy; W26.0XXA Contact with knife, initial encounter; Y93.89 Activity, other specified; Y92.89 Other specified places as the place of occurrence of the external cause; Y99.8 Other external cause status
CPT/HCPCS: 90471; 90715; 99282

== ENCOUNTER 2020-08-14 12:24 | Emergency (ER) | payer OTHER ==
--- NOTE | 2020-08-14 14:34 | Emergency Department Report ---
ED General Adult HPI - General Chief complaint: Abdominal Pain Stated complaint: VOMITING, DIARRHEA, ABD PAIN Time Seen by Provider: 08/14/20 13:53 Source: patient Mode of arrival: Ambulatory Limitations: No Limitations - History of Present Illness Initial comments: Patient is a 20-year-old female presents emergency room planes of nausea, vomiting, diarrhea that began last night. She states that she ate some chicken last night and began to feel the symptoms a few hours later. She denies any sick contacts or anyone else getting sick. She denies any recent travel, water from a different source, recent camping, recent antibiotics. She states that she has mild generalized abdominal cramping. She states that she is also had some dysuria over the last couple days. She states that she is not sexually active. She states that she has no concerns for STDs given that she is not sexually active. She states that she has a small amount of white vaginal discharge and some itching. She denies any fever, hematochezia, melena, hematemesis, pus in the stool, back pain, pelvic pain. Past medical history of hydrocephalus and has a CHEF BROILER OR FRY shunt. No allergies to medications. - Related Data Home Medications Medication Instructions Recorded Confirmed Last Taken ARIPiprazole [Abilify] 20 mg PO QHS 07/13/20 07/13/20 Unknown Divalproex ER [DepaKOTE ER] 500 mg PO BID 07/13/20 07/13/20 Unknown Escitalopram [Lexapro] 10 mg PO DAILY 07/13/20 07/13/20 Unknown Gabapentin [Neurontin] 300 mg PO Q8HR 07/13/20 07/13/20 Unknown Ibuprofen [Motrin] 600 mg PO Q8H PRN 07/13/20 07/13/20 Unknown Midodrine HCl 10 mg PO TID 07/13/20 07/13/20 Unknown Previous Rx's Medication Instructions Recorded Last Taken Type Ibuprofen [Motrin 600 MG tab] 600 mg PO Q8H PRN #20 tablet 07/07/20 Unknown Rx Ibuprofen [Motrin 800 MG tab] 800 mg PO Q8HR PRN #30 tablet 07/31/20 Unknown Rx cephALEXin [Keflex] 500 mg PO Q8HR 7 Days #21 cap 07/31/20 Unknown Rx Fluconazole [Diflucan TAB] 100 mg PO QDAY 1 Days #1 tablet 08/14/20 Unknown Rx Ondansetron [Zofran Odt] 4 mg PO Q8HR PRN #10 tab.rapdis 08/14/20 Unknown Rx metroNIDAZOLE [Flagyl] 500 mg PO BID 7 Days #14 tab 08/14/20 Unknown Rx Allergies Allergy/AdvReac Type Severity Reaction Status Date / Time No Known Allergies Allergy Verified 08/14/20 13:27 ED Review of Systems ROS: Stated complaint: VOMITING, DIARRHEA, ABD PAIN Other details as noted in HPI Comment: All other systems reviewed and negative ED Past Medical Hx - Past Medical History Hx Psychiatric Treatment: Yes (schizophrenia, bipolar, depression, anxiety, hydrocephalus) Additional medical history: bipolar, schizophrenic, autistic, anxiety, depression - Surgical History Additional Surgical History: brain surgery - hydrocephalus, CHEF BROILER OR FRY shunt, abdominal surgery for swallowing plastic - Social History Smoking Status: Current Every Day Smoker Substance Use Type: None - Medications Home Medications: Home Medications Medication Instructions Recorded Confirmed Last Taken Type Ibuprofen [Motrin 600 MG tab] 600 mg PO Q8H PRN #20 tablet 07/07/20 07/13/20 Unknown Rx ARIPiprazole [Abilify] 20 mg PO QHS 07/13/20 07/13/20 Unknown History Divalproex ER [DepaKOTE ER] 500 mg PO BID 07/13/20 07/13/20 Unknown History Escitalopram [Lexapro] 10 mg PO DAILY 07/13/20 07/13/20 Unknown History Gabapentin [Neurontin] 300 mg PO Q8HR 07/13/20 07/13/20 Unknown History Ibuprofen [Motrin] 600 mg PO Q8H PRN 07/13/20 07/13/20 Unknown History Midodrine HCl 10 mg PO TID 07/13/20 07/13/20 Unknown History Ibuprofen [Motrin 800 MG tab] 800 mg PO Q8HR PRN #30 tablet 07/31/20 Unknown Rx cephALEXin [Keflex] 500 mg PO Q8HR 7 Days #21 cap 07/31/20 Unknown Rx Fluconazole [Diflucan TAB] 100 mg PO QDAY 1 Days #1 tablet 08/14/20 Unknown Rx Ondansetron [Zofran Odt] 4 mg PO Q8HR PRN #10 tab.rapdis 08/14/20 Unknown Rx metroNIDAZOLE [Flagyl] 500 mg PO BID 7 Days #14 tab 08/14/20 Unknown Rx ED Physical Exam - General Limitations: No Limitations General appearance: alert, in no apparent distress - Head Head exam: Present: atraumatic, normocephalic - Eye Eye exam: Present: normal appearance - ENT ENT exam: Present: mucous membranes moist - Respiratory Respiratory exam: Present: normal lung sounds bilaterally. Absent: respiratory distress, wheezes, rales, rhonchi, stridor, chest wall tenderness, accessory muscle use, decreased breath sounds, prolonged expiratory - Cardiovascular Cardiovascular Exam: Present: regular rate, normal rhythm, normal heart sounds. Absent: systolic murmur, diastolic murmur, rubs, gallop - GI/Abdominal GI/Abdominal exam: Present: soft, normal bowel sounds. Absent: distended, tenderness, guarding, rebound, rigid - Speculum exam: Present: other (pt deferred ) - Neurological Exam Neurological exam: Present: alert, oriented X3 - Psychiatric Psychiatric exam: Present: normal affect, normal mood - Skin Skin exam: Present: warm, dry, intact ED Course Vital Signs 08/14/20 08/14/20 13:27 17:01 Temperature 98.6 F 98.6 F Pulse Rate 101 H 104 H Respiratory 20 20 Rate Blood Pressure 110/73 129/61 O2 Sat by Pulse 99 100 Oximetry ED Medical Decision Making - Lab Data Result diagrams: 08/14/20 14:34 08/14/20 14:34 Lab Results 08/14/20 08/14/20 08/14/20 Range/Units 14:34 14:34 Unknown WBC 8.6 (4.5-11.0) K/mm3 RBC 3.85 (3.65-5.03) M/mm3 Hgb 12.1 (10.1-14.3) gm/dl Hct 35.3 (30.3-42.9) % MCV 92 (79-97) fl MCH 32 (28-32) pg MCHC 34 (30-34) % RDW 14.1 (13.2-15.2) % Plt Count 293 (140-440) K/mm3 Lymph % (Auto) 27.1 (13.4-35.0) % [place] % (Auto) 8.4 H (0.0-7.3) % Eos % (Auto) 1.0 (0.0-4.3) % Baso % (Auto) 0.3 (0.0-1.8) % Lymph # (Auto) 2.3 (1.2-5.4) K/mm3 Perkins # (Auto) 0.7 (0.0-0.8) K/mm3 Eos # (Auto) 0.1 (0.0-0.4) K/mm3 Baso # (Auto) 0.0 (0.0-0.1) K/mm3 Seg Neutrophils % 63.2 (40.0-70.0) % Seg Neutrophils # 5.4 (1.8-7.7) K/mm3 Sodium 140 (137-145) mmol/L Potassium 4.2 (3.6-5.0) mmol/L Chloride 103.8 (98-107) mmol/L Carbon Dioxide 26 (22-30) mmol/L Anion Gap 14 mmol/L BUN 9 (7-17) mg/dL Creatinine 0.7 (0.6-1.2) mg/dL Estimated GFR > 60 ml/min BUN/Creatinine Ratio 13 % Glucose 75 (65-100) mg/dL Calcium 9.5 (8.4-10.2) mg/dL Total Bilirubin 0.30 (0.1-1.2) mg/dL AST 13 (5-40) units/L ALT 6 L (7-56) units/L Alkaline Phosphatase 67 (35-129) units/L Total Protein 6.6 (6.3-8.2) g/dL Albumin 4.4 (3.9-5) g/dL Albumin/Globulin Ratio 2.0 % Lipase 34 (13-60) units/L Urine Color Yellow (Yellow) Urine Turbidity Slightly-cloudy (Clear) Urine pH 7.0 (5.0-7.0) Ur Specific [place] 1.016 (1.003-1.030) Urine Protein <15 mg/dl (Negative) mg/dL Urine Glucose (UA) Neg (Negative) mg/dL Urine Ketones Neg (Negative) mg/dL Urine Blood Neg (Negative) Urine Nitrite Neg (Negative) Urine Bilirubin Neg (Negative) Urine Urobilinogen < 2.0 (<2.0) mg/dL Ur Leukocyte Esterase Neg (Negative) Urine WBC (Auto) 1.0 (0.0-6.0) /HPF Urine RBC (Auto) 1.0 (0.0-6.0) /HPF U Epithel Cells (Auto) 14.0 H (0-13.0) /HPF Urine Bacteria (Auto) 1+ (Negative) /HPF Urine Mucus Few /HPF Urine HCG, Qual Negative (Negative) - Medical Decision Making Patient is a 20-year-old female presents emergency room planes of nausea, vomiting, diarrhea that began last night. She states that she ate some chicken last night and began to feel the symptoms a few hours later. She denies any sick contacts or anyone else getting sick. She denies any recent travel, water from a different source, recent camping, recent antibiotics. She states that she has mild generalized abdominal cramping. She states that she is also had some dysuria over the last couple days. She states that she is not sexually active. She states that she has no concerns for STDs given that she is not sexually active. She states that she has a small amount of white vaginal discharge and some itching. She denies any fever, hematochezia, melena, hematemesis, pus in the stool, back pain, pelvic pain. Past medical history of hydrocephalus and has a CHEF BROILER OR FRY shunt. No allergies to medications. vitals with mild tachycardia, otherwise stable. labs are normal. UA is WNL. urine preg is negative. no abd ttp, no guarding, no rebound, no rigidity, no peritoneal signs. pt deferred exam. symptoms could be related to gastroenteritis and vaginitis. she is not sexually active does not want testing or treatment. pt given prescription for flagyl, fluconazole, zofran. given PO meds while in the ED, was able to tolerate PO intake without difficulty. she is feeling much b kellie and ready to go home. advised pt Please take medication as prescribed. Increase your fluid intake. Eat a bland liquid diet so advance her diet as tolerated. Follow-up with your primary care doctor for reexamination. Return to emergency room for new or worsening symptoms. Critical care attestation.: If time is entered above; I have spent that time in minutes in the direct care of this critically ill patient, excluding procedure time. ED Disposition Clinical Impression: Nausea vomiting and diarrhea, Vaginitis Disposition: DC-01 TO HOME OR SELFCARE Is pt being admited?: No Does the pt Need Aspirin: No Condition: Stable Instructions: Viral Gastroenteritis, Adult, Vaginitis, [id number], Abdominal Pain (ED) Additional Instructions: Please take medication as prescribed. Increase your fluid intake. Eat a bland liquid diet so advance her diet as tolerated. Follow-up with your primary care doctor for reexamination. Return to emergency room for new or worsening sympt oms. Prescriptions: Fluconazole [Diflucan TAB] 100 mg PO QDAY 1 Days #1 tablet metroNIDAZOLE [Flagyl] 500 mg PO BID 7 Days #14 tab Ondansetron [Zofran Odt] 4 mg PO Q8HR PRN #10 tab.rapdis PRN Reason: nausea/vomiting Referrals: PRIMARY CARE,MD [Primary Care Provider] - 2-3 Days Forms: Work/School Release Form(ED) Time of Disposition: 16:40 Print Language: [place]ET[place]ESE
[2020-08-14 15:04] LABS: Basophils % (Auto) 0.3 % (0.0-1.8); Eosinophils # (Auto) 0.1 K/mm3 (0.0-0.4); Hematocrit 35.3 % (30.3-42.9); Hemoglobin 12.1 gm/dl (10.1-14.3); Lymphocytes # (Auto) 2.3 K/mm3 (1.2-5.4); Lymphocytes % (Auto) 27.1 % (13.4-35.0); Mean Corpuscular HGB Conc 34 % (30-34); Mean Corpuscular Volume 92 fl (79-97); Monocytes # (Auto) 0.7 K/mm3 (0.0-0.8); Monocytes % (Auto) 8.4 % (0.0-7.3); Platelet Count 293 K/mm3 (140-440); Red Blood Count 3.85 M/mm3 (3.65-5.03); Red Cell Distribution Width 14.1 % (13.2-15.2)
[2020-08-14 15:29] LABS: Alanine Aminotransferase 6 units/L (7-56); Albumin 4.4 g/dL (3.9-5); Blood Urea Nitrogen 9 mg/dL (7-17); Calcium 9.5 mg/dL (8.4-10.2); Hemolysis Index 3
[2020-08-14 15:50] LABS: BUN/Creatinine Ratio 13
[2020-08-14 16:14] LABS: Bacteria,Urine 1+ /HPF (Negative); Bilirubin,Urine NEG (Negative); Blood,Urine NEG (Negative); Color,Urine Yellow (Yellow); HCG Qualitative,Urine Negative (Negative); Mucus,Urine FEW /HPF; Protein,Urine <15 mg/dL mg/dL (Negative); Urobilinogen,Urine < 2.0 mg/dL (<2.0)
[2020-08-14] MEDS ORDERED: ONDANSETRON 4 MG ODT TAB PO ONE (16:39)
[2020-08-14] MEDS ORDERED: HYOSCYAMINE SUBL 0.125 MG TAB SL ONE (16:39)
[2020-08-14 17:06] VITALS: BP 129/61
== END 2020-08-14 17:06 | disposition home or self-care (01) ==
LOC: ED 12:24
DX: N76.0 Acute vaginitis (principal); R19.7 Diarrhea, unspecified; R11.2 Nausea with vomiting, unspecified; F25.0 Schizoaffective disorder, bipolar type; F25.1 Schizoaffective disorder, depressive type; F41.9 Anxiety disorder, unspecified; F17.200 Nicotine dependence, unspecified, uncomplicated; Z98.890 Other specified postprocedural states; Z79.899 Other long term (current) drug therapy
CPT/HCPCS: 36415; 80053; 81001; 81025; 83690; 85025; Q0162

== ENCOUNTER 2020-08-22 21:50 | Emergency (ER) | payer OTHER ==
[2020-08-22 23:44] VITALS: BP 118/68
--- NOTE | 2020-08-23 00:16 | XRay Report ---
LEFT ANKLE RADIOGRAPH, 3 VIEWS INDICATION / CLINICAL INFORMATION: pain and sweling COMPARISON: Left ankle radiograph 07/07/2020 FINDINGS: BONES / JOINT(S): There is an old healed fracture deformity of the distal tibia. No acute displaced f racture or dislocation. No significant arthritis. SOFT TISSUES: Mild soft tissue swelling about the ankle. ADDITIONAL FINDINGS: None. Signer Name: Marisa Hidalgo MD Signed: 08/23/2020 12:11 AM Workstation Name: [id number]
--- NOTE | 2020-08-23 00:52 | Emergency Department Report ---
ED Lower Extremity HPI - General Chief Complaint: Extremity Injury, Lower Stated Complaint: LEFT ANKLE INJURY Time Seen by Provider: 08/22/20 23:53 Source: patient Mode of arrival: Ambulatory Limitations: No Limitations - History of Present Illness Initial Comments: Patient is a 20-year-old female presents emergency room complaints of left ankle injury that occurred just prior to arrival. Patient states that she was taking out the trash in the dark and accidentally rolled her ankle. She states that she had a inversion injury and fell to the ground. She states that she was ambulatory but that increases her pain. She states that she has a prior injury of this ankle but did not have to have surgery. She denies any numbness or weakness. No allergies to medications. - Related Data Home Medications Medication Instructions Recorded Confirmed Last Taken ARIPiprazole [Abilify] 20 mg PO QHS 07/13/20 07/13/20 Unknown Divalproex ER [DepaKOTE ER] 500 mg PO BID 07/13/20 07/13/20 Unknown Escitalopram [Lexapro] 10 mg PO DAILY 07/13/20 07/13/20 Unknown Gabapentin [Neurontin] 300 mg PO Q8HR 07/13/20 07/13/20 Unknown Ibuprofen [Motrin] 600 mg PO Q8H PRN 07/13/20 07/13/20 Unknown Midodrine HCl 10 mg PO TID 07/13/20 07/13/20 Unknown Previous Rx's Medication Instructions Recorded Last Taken Type Ibuprofen [Motrin 600 MG tab] 600 mg PO Q8H PRN #20 tablet 07/07/20 Unknown Rx Ibuprofen [Motrin 800 MG tab] 800 mg PO Q8HR PRN #30 tablet 07/31/20 Unknown Rx cephALEXin [Keflex] 500 mg PO Q8HR 7 Days #21 cap 07/31/20 Unknown Rx Fluconazole [Diflucan TAB] 100 mg PO QDAY 1 Days #1 tablet 08/14/20 Unknown Rx Ondansetron [Zofran Odt] 4 mg PO Q8HR PRN #10 tab.rapdis 08/14/20 Unknown Rx metroNIDAZOLE [Flagyl] 500 mg PO BID 7 Days #14 tab 08/14/20 Unknown Rx Ibuprofen [Motrin 600 MG tab] 600 mg PO Q8H PRN #20 tablet 08/23/20 Unknown Rx Allergies Allergy/AdvReac Type Severity Reaction Status Date / Time No Known Allergies Allergy Verified 08/14/20 13:27 ED Review of Systems ROS: Stated complaint: LEFT ANKLE INJURY Other details as noted in HPI Comment: All other systems reviewed and negative ED Past Medical Hx - Past Medical History Previous Medical History?: Yes Hx Psychiatric Treatment: Yes (schizophrenia, bipolar, depression, anxiety, hydrocephalus) Additional medical history: bipolar, schizophrenic, autistic, anxiety, depression - Surgical History Past Surgical History?: Yes Additional Surgical History: brain surgery - hydrocephalus, 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 ASSISTANT shunt, abdominal surgery for swallowing plastic - Social History Smoking Status: Former Smoker Substance Use Type: None - Medications Home Medications: Home Medications Medication Instructions Recorded Confirmed Last Taken Type Ibuprofen [Motrin 600 MG tab] 600 mg PO Q8H PRN #20 tablet 07/07/20 07/13/20 Unknown Rx ARIPiprazole [Abilify] 20 mg PO QHS 07/13/20 07/13/20 Unknown History Divalproex ER [DepaKOTE ER] 500 mg PO BID 07/13/20 07/13/20 Unknown History Escitalopram [Lexapro] 10 mg PO DAILY 07/13/20 07/13/20 Unknown History Gabapentin [Neurontin] 300 mg PO Q8HR 07/13/20 07/13/20 Unknown History Ibuprofen [Motrin] 600 mg PO Q8H PRN 07/13/20 07/13/20 Unknown History Midodrine HCl 10 mg PO TID 07/13/20 07/13/20 Unknown History Ibuprofen [Motrin 800 MG tab] 800 mg PO Q8HR PRN #30 tablet 07/31/20 Unknown Rx cephALEXin [Keflex] 500 mg PO Q8HR 7 Days #21 cap 07/31/20 Unknown Rx Fluconazole [Diflucan TAB] 100 mg PO QDAY 1 Days #1 tablet 08/14/20 Unknown Rx Ondansetron [Zofran Odt] 4 mg PO Q8HR PRN #10 tab.rapdis 08/14/20 Unknown Rx metroNIDAZOLE [Flagyl] 500 mg PO BID 7 Days #14 tab 08/14/20 Unknown Rx Ibuprofen [Motrin 600 MG tab] 600 mg PO Q8H PRN #20 tablet 08/23/20 Unknown Rx ED Physical Exam - General Limitations: No Limitations General appearance: alert, in no apparent distress - Head Head exam: Present: atraumatic, normocephalic - Eye Eye exam: Present: normal appearance - ENT ENT exam: Present: mucous membranes moist - Respiratory Respiratory exam: Absent: respiratory distress, accessory muscle use - Extremities Exam Extremities exam: Present: other (mild edema to the left ankle, ttp to the bilateral malleoli, medial >lateral, no deformity, FROM of the LLE, neurovascularly intact) - Neurological Exam Neurological exam: Present: alert, oriented X3 - Psychiatric Psychiatric exam: Present: normal affect, normal mood - Skin Skin exam: Present: warm, dry, intact ED Course Vital Signs 08/22/20 23:42 Temperature 98.5 F Pulse Rate 95 H Respiratory 16 Rate Blood Pressure 118/68 O2 Sat by Pulse 100 Oximetry ED Lower Extremity MDM - Radiology Data Radiology results: report reviewed interpreted by me: Ordering Physician: NADIA GARCIA MD Date of Service: 08/22/20 Procedure(s): XR ankle 3+V LT Accession Number(s): [id number] cc: NADIA GARCIA MD Fluoro Time In Minutes: LEFT ANKLE RADIOGRAPH, 3 VIEWS INDICATION / CLINICAL INFORMATION: pain and sweling COMPARISON: Left ankle radiograph 07/07/2020 FINDINGS: BONES / JOINT(S): There is an old healed fracture deformity of the distal tibia. No acute displaced fracture or dislocation. No significant arthritis. SOFT TISSUES: Mild soft tissue swelling about the ankle. ADDITIONAL FINDINGS: None. Signer Name: Marisa Hidalgo MD Signed: 08/23/2020 12:11 AM Workstation Name: [id number] Transcribed By: [facility] Dictated By: Marisa Hidalgo MD Electronically Authenticated By: Marisa Hidalgo MD Signed Date/Time: 08/23/2010 DD/ TD/TT: - Medical Decision Making Patient is a 20-year-old female presents emergency room complaints of left ankle injury that occurred just prior to arrival. Patient states that she was taking out the trash in the dark and accidentally rolled her ankle. She states that she had a inversion injury and fell to the ground. She states that she was ambulatory but that increases her pain. She states that she has a prior injury of this ankle but did not have to have surgery. She denies any numbness or weakness. No allergies to medications. Vitals are normal. On exam:mild edema to the left ankle, ttp to the bilateral malleoli, medial >lateral, no deformity, FROM of the LLE, neurovascularly intact. X-ray left ankle: BONES / JOINT(S): There is an old healed fracture deformity of the distal tibia. No acute displaced fracture or dislocation. No significant arthritis. SOFT TISSUES: Mild soft tissue swelling about the ankle. ADDITIONAL FINDINGS: None. Symptoms and examination most consistent with ankle sprain. Patient placed in ankle stirrup splint and given crutches by chief client officer remain neurovascular intact. Given prescription for ibuprofen. Advised patientPlease take medication as prescribed as needed. May use ice for 15 minutes at a time, rest, elevation of the leg. Follow-up with orthopedic doctor. Please avoid bearing weight on the leg until you have been cleared by the orthopedic doctor. Return to emergency room for new or worse symptoms. Critical care attestation.: If time is entered above; I have spent that time in minutes in the direct care of this critically ill patient, excluding procedure time. ED Disposition Clinical Impression: Left ankle sprain Qualifiers: Encounter type: initial encounter Involved ligament of ankle: unspecified ligament Qualified Code(s): S93.402A - Sprain of unspecified ligament of left ankle, initial encounter Disposition: TO HOME OR SELFCARE Is pt being admited?: No Does the pt Need Aspirin: No Condition: Stable Instructions: Ankle Sprain, RICE Therapy for Routine Care of Injuries Additional Instructions: Please take medication as prescribed as needed. May use ice for 15 minutes at a time, rest, elevation of the leg. Follow-up with orthopedic doctor. Please avoid bearing weight on the leg until you have been cleared by the orthopedic doctor. Return to emergency room for new or worse symptoms. Prescriptions: Ibuprofen [Motrin 600 MG tab] 600 mg PO Q8H PRN #20 tablet PRN Reason: Pain Referrals: JEIMY GARRIDO MD [Staff Physician] - 2-3 Days [facility] [[facility] Group] - 2-3 Days Forms: Work/School Release Form(ED) Time of Disposition: 00:51 Print Language: [place]AST [place]
== END 2020-08-23 01:15 | disposition home or self-care (01) ==
LOC: ED 21:50
DX: S93.402A Sprain of unspecified ligament of left ankle, initial encounter (principal); F20.9 Schizophrenia, unspecified; F31.9 Bipolar disorder, unspecified; Z98.890 Other specified postprocedural states; Z79.1 Long term (current) use of non-steroidal anti-inflammatories (NSAID); Z79.899 Other long term (current) drug therapy; X58.XXXA Exposure to other specified factors, initial encounter; Y93.89 Activity, other specified; Y92.89 Other specified places as the place of occurrence of the external cause; Y99.8 Other external cause status

== ENCOUNTER 2020-08-28 20:03 | Observation (INO) | payer OTHER ==
--- NOTE | 2020-08-28 22:50 | XRay Report ---
CHEST 1 VIEW 08/28/2020 8:55 PM INDICATION / CLINICAL INFORMATION: swallowed paper clip. COMPARISON: 07/13/2020 FINDINGS: SUPPORT DEVICES: Stable, satisfactory device positioning. HEART / MEDIASTINUM: Stable. LUNGS / PLEURA: No significant pulmonary or pleural abnormality. No pneumothorax. ADDITIONAL FINDINGS: Metallic paperclip again noted over the upper abdomen, unchanged from prior exam . IMPRESSION: 1. Findings are unchanged since 07/13/2020. The previously noted metallic paper clip is again noted pr ojected over the upper abdomen. Signer Name: Joey Dee MD Signed: 08/28/2020 10:45 PM Workstation Name: [id number]
--- NOTE | 2020-08-28 22:51 | XRay Report ---
ABDOMEN 1 VIEW INDICATION / CLINICAL INFORMATION: swallowed paper clip. COMPARISON: Prior abdominal radiograph 07/13/2020. FINDINGS: TUBES / LINES: None. BOWEL GAS PATTERN: No significant abnormality. FREE AIR / EXTRALUMINAL GAS: None seen. ADDITIONAL FINDINGS: The metallic paper clip again noted projected over the left upper abdomen. IMPRESSION: 1. Findings have not significantly changed since 07/13/2020. The previously noted metallic paper clip again projects over the left upper abdomen. Signer Name: Joey Dee MD Signed: 08/28/2020 10:46 PM Workstation Name: [id number]
--- NOTE | 2020-08-28 23:22 | Emergency Department Report ---
ED Psych HPI - General Chief Complaint: Psych Stated Complaint: HEARING VOICES/SWALLOWED FB/MH Time Seen by Provider: 08/28/20 23:08 Source: patient Mode of arrival: Ambulatory - History of Present Illness Initial Comments: Patient is a 20-year-old female that presents emergency room with complaints of a suicidal ideation and suicide attempt by swelling paperclip. Patient states she had a thought to herself and that is why she swallowed a paperclip. Patient states that she has on herself anymore. Patient states she was just thinking impulsively. Patient states she has been depressed lately. Patient denies homicidal ideation. Patient denies hallucinations. Patient denies abdominal pain. Patient denies chest pain. Patient denies shortness of breath. Patient denies nausea vomiting. Patient denies recent travel. Patient denies recent international travel. Pat ient denies exposure to the novel coronavirus. Patient denies sick contacts. Patient denies fever and chills. Patient denies cough. Patient denies diarrhea. Patient denies coming in contact with anybody with symptoms of the novel coronavirus. MD Complaint: suicidal ideation -: Sudden Associated Psychiatric Symptoms: depression, suicidal ideation, racing thoughts History of same: Yes Quality: constant Improves With: none Worsens With: none Associated Symptoms: denies: confusion, headache, shortness of breath, nausea, vomiting, syncope, insomnia Treatments Prior to Arrival: none If Self Harm: admits thoughts of, has plan, has acted on plan - Related Data Home Medications Medication Instructions Recorded Confirmed Last Taken ARIPiprazole [Abilify] 20 mg PO QHS 07/13/20 07/13/20 Unknown Divalproex ER [DepaKOTE ER] 500 mg PO BID 07/13/20 07/13/20 Unknown Escitalopram [Lexapro] 10 mg PO DAILY 07/13/20 07/13/20 Unknown Gabapentin [Neurontin] 300 mg PO Q8HR 07/13/20 07/13/20 Unknown Ibuprofen [Motrin] 600 mg PO Q8H PRN 07/13/20 07/13/20 Unknown Midodrine HCl 10 mg PO TID 07/13/20 07/13/20 Unknown Previous Rx's Medication Instructions Recorded Last Taken Type Ibuprofen [Motrin 600 MG tab] 600 mg PO Q8H PRN #20 tablet 07/07/20 Unknown Rx Ibuprofen [Motrin 800 MG tab] 800 mg PO Q8HR PRN #30 tablet 07/31/20 Unknown Rx cephALEXin [Keflex] 500 mg PO Q8HR 7 Days #21 cap 07/31/20 Unknown Rx Fluconazole [Diflucan TAB] 100 mg PO QDAY 1 Days #1 tablet 08/14/20 Unknown Rx Ondansetron [Zofran Odt] 4 mg PO Q8HR PRN #10 tab.rapdis 08/14/20 Unknown Rx metroNIDAZOLE [Flagyl] 500 mg PO BID 7 Days #14 tab 08/14/20 Unknown Rx Ibuprofen [Motrin 600 MG tab] 600 mg PO Q8H PRN #20 tablet 08/23/20 Unknown Rx Allergies Allergy/AdvReac Type Severity Reaction Status Date / Time No Known Allergies Allergy Verified 08/14/20 13:27 ED Review of Systems ROS: Stated complaint: HEARING VOICES/SWALLOWED FB/MH Other details as noted in HPI Constitutional: denies: chills, fever Eyes: denies: eye pain, eye discharge, vision change ENT: denies: ear pain, throat pain Respiratory: denies: cough, shortness of breath, wheezing Cardiovascular: denies: chest pain, palpitations Endocrine: no symptoms reported Gastrointestinal: denies: abdominal pain, nausea, diarrhea Genitourinary: denies: urgency, dysuria, discharge Musculoskeletal: denies: back pain, joint swelling, arthralgia Skin: denies: rash, lesions Neurological: denies: headache, weakness, paresthesias Psychiatric: as per HPI, anxiety, depression, suicidal thoughts. 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, abdominal surgery for swallowing plastic - Family History Family history: no significant - Social History Smoking Status: Never Smoker Substance Use Type: None - Medications Home Medications: Home Medications Medication Instructions Recorded Confirmed Last Taken Type Ibuprofen [Motrin 600 MG tab] 600 mg PO Q8H PRN #20 tablet 07/07/20 07/13/20 Unknown Rx ARIPiprazole [Abilify] 20 mg PO QHS 07/13/20 07/13/20 Unknown History Divalproex ER [DepaKOTE ER] 500 mg PO BID 07/13/20 07/13/20 Unknown History Escitalopram [Lexapro] 10 mg PO DAILY 07/13/20 07/13/20 Unknown History Gabapentin [Neurontin] 300 mg PO Q8HR 07/13/20 07/13/20 Unknown History Ibuprofen [Motrin] 600 mg PO Q8H PRN 07/13/20 07/13/20 Unknown History Midodrine HCl 10 mg PO TID 07/13/20 07/13/20 Unknown History Ibuprofen [Motrin 800 MG tab] 800 mg PO Q8HR PRN #30 tablet 07/31/20 Unknown Rx cephALEXin [Keflex] 500 mg PO Q8HR 7 Days #21 cap 07/31/20 Unknown Rx Fluconazole [Diflucan TAB] 100 mg PO QDAY 1 Days #1 tablet 08/14/20 Unknown Rx Ondansetron [Zofran Odt] 4 mg PO Q8HR PRN #10 tab.rapdis 08/14/20 Unknown Rx metroNIDAZOLE [Flagyl] 500 mg PO BID 7 Days #14 tab 08/14/20 Unknown Rx Ibuprofen [Motrin 600 MG tab] 600 mg PO Q8H PRN #20 tablet 08/23/20 Unknown Rx ED Physical Exam - General Limitations: No Limitations General appearance: alert, in no apparent distress - Head Head exam: Present: atraumatic, normocephalic - Eye Eye exam: Present: normal appearance - ENT ENT exam: Present: mucous membranes moist - Neck Neck exam: Present: normal inspection - Respiratory Respiratory exam: Present: normal lung sounds bilaterally. Absent: respiratory distress - Cardiovascular Cardiovascular Exam: Present: regular rate, normal rhythm. Absent: systolic murmur, diastolic murmur, rubs, gallop - GI/Abdominal GI/Abdominal exam: Present: soft, normal bowel sounds. Absent: distended, tenderness, guarding - Extremities Exam Extremities exam: Present: normal inspection - Back Exam Back exam: Present: normal inspection - Neurological Exam Neurological exam: Present: alert, oriented X3 - Psychiatric Psychiatric exam: Present: normal affect, normal mood - Skin Skin exam: Present: warm, dry, intact, normal color. Absent: rash ED Course Vital Signs 08/28/20 21:20 Temperature 98.6 F Pulse Rate 100 H Respiratory 18 Rate Blood Pressure 121/76 O2 Sat by Pulse 98 Oximetry - Reevaluation(s) Reevaluation #1: Patient placed on a 1013. 08/28/20 23:37 Reevaluation #2: Patient is now complaining of abdominal pain and is vomiting. Patient will be given Zofran. 08/29/20 02:32 Reevaluation #3: I discussed all results with patient. I discussed plan of care with patient. Patient agrees with plan of care and admission. Patient to be admitted to the hospitalist service. 08/29/20 02:45 - Consultations Consultation #1: I discussed the case with GI, . Dr. SAMPSON does not recommend admission and recommends a morning x-ray of the abdomen to verify the paperclip is moved into the small intestine. 08/28/20 23:10 I discussed the case again with Dr. SAMPSON, GI. agrees with admission to obs. 08/29/20 02:42 Consultation #2: Hospitalist consulted for admission. Hospitalist to admit patient. 08/29/20 02:43 ED Medical Decision Making - Lab Data Result diagrams: 08/28/20 23:19 08/28/20 23:19 - Radiology Data Radiology results: report reviewed, image reviewed interpreted by me: Chest x-ray: No pneumonia, no pneumothorax, foreign body noted in the upper abdominal region. No osseous findings, no acute findings First abdominal x-ray shows a foreign body in left upper quadrant. Second abdominal x-ray shows no change in the foreign body. ABDOMEN 1 VIEW INDICATION / CLINICAL INFORMATION: swallowed paper clip. COMPARISON: Prior abdominal radiograph 07/13/2020. FINDINGS: TUBES / LINES: None. BOWEL GAS PATTERN: No significant abnormality. FREE AIR / EXTRALUMINAL GAS: None seen. ADDITIONAL FINDINGS: The metallic paper clip again noted projected over the left upper abdomen. IMPRESSION: 1. Findings have not significantly changed since 07/13/2020. The previously noted metallic paper clip again projects over the left upper abdomen. CHEST 1 VIEW 08/28/2020 8:55 PM INDICATION / CLINICAL INFORMATION: swallowed paper clip. COMPARISON: 07/13/2020 FINDINGS: SUPPORT DEVICES: Stable, satisfactory device positioning. HEART / MEDIASTINUM: Stable. LUNGS / PLEURA: No significant pulmonary or pleural abnormality. No pneumothorax. ADDITIONAL FINDINGS: Metallic paperclip again noted over the upper abdomen, unchanged from prior exam. IMPRESSION: 1. Findings are unchanged since 07/13/2020. The previously noted metallic paper clip is again noted projected over the upper abdomen. . ABDOMEN 1 VIEW(S) INDICATION / CLINICAL INFORMATION: Stomach foreign body. COMPARISON: Previous day. FINDINGS: TUBES / LINES: None. BOWEL GAS PATTERN: No significant abnormality. ADDITIONAL FINDINGS: A paperclip again lies over the expected location of the body of the stomach. - Medical Decision Making Patient is a 20-year-old female that presents emergency room with a suicide attempt by ingestion of a foreign body. Patient has done this in the past. Patient states she been having suicidal thoughts and depression lately. Patient had labs done which were essentially unremarkable. Patient chest x-ray which was negative for acute findings. Patient had an abdominal x-ray which shows a foreign body in the stomach region. I discussed the case with GI and GI grisel mmends monitoring the patient and repeat the x-ray. After being x-ray, the patient did not complain of abdominal pain and nausea vomiting. I then discussed the case again with GI GI recommends admit the patient observation. After his evaluation, the patient was placed on a 1013 and an ER hold. Patient admitted to the hospital service for further evaluation treatment. Critical care time documented due to the multiple reassessments, prolonged time at the bedside, interpretation of diagnostics and labs and discussion with consultants.. - Differential Diagnosis Ingestion of foreign body, suicide attempt, suicidal ideation, depression Critical Care Time: Yes Critical care time in (mins) excluding proc time.: 35 Critical care attestation.: If time is entered above; I have spent that time in minutes in the direct care of this critically ill patient, excluding procedure time. Critical Care Time: 35 MINUTES ED Disposition Clinical Impression: Suicidal ideation, Suicide attempt Foreign body ingestion Qualifiers: Encounter type: initial encounter Qualified Code(s): T18.9XXA - Foreign body of alimentary tract, part unspecified, initial encounter Abdominal pain Qualifiers: Abdominal location: generalized Qualified Code(s): R10.84 - Generalized abdominal pain Nausea & vomiting Qualifiers: Vomiting type: unspecified Vomiting Intractability: non-intractable Qualified C ode(s): R11.2 - Nausea with vomiting, unspecified Disposition: DC-09 OP ADMIT IP TO THIS HOSP Is pt being admited?: Yes Does the pt Need Aspirin: No Condition: Critical Time of Disposition: 02:48
[2020-08-28 23:36] LABS: Basophils % (Auto) 0.4 % (0.0-1.8); Eosinophils % (Auto) 0.4 % (0.0-4.3); Hematocrit 37.2 % (30.3-42.9); Hemoglobin 12.3 gm/dl (10.1-14.3); Lymphocytes # (Auto) 3.5 K/mm3 (1.2-5.4); Lymphocytes % (Auto) 37.5 % (13.4-35.0); Mean Corpuscular HGB Conc 33 % (30-34); Mean Corpuscular Volume 94 fl (79-97); Monocytes # (Auto) 0.6 K/mm3 (0.0-0.8); Monocytes % (Auto) 6.5 % (0.0-7.3); Platelet Count 393 K/mm3 (140-440); Red Blood Count 3.97 M/mm3 (3.65-5.03); Red Cell Distribution Width 14.5 % (13.2-15.2)
[2020-08-28 23:53] LABS: Bilirubin,Urine NEG (Negative); Blood,Urine SM (Negative); Color,Urine Yellow (Yellow); Mucus,Urine FEW /HPF; Protein,Urine <15 mg/dL mg/dL (Negative); Urobilinogen,Urine < 2.0 mg/dL (<2.0)
[2020-08-28 23:59] LABS: Alanine Aminotransferase 7 units/L (7-56); Albumin 4.1 g/dL (3.9-5); BUN/Creatinine Ratio 14; Blood Urea Nitrogen 11 mg/dL (7-17); Calcium 9.1 mg/dL (8.4-10.2); Hemolysis Index 6
[2020-08-29 00:02] LABS: Amphetamine Screen,Urine PRESUMPTIVE NEGATIVE; Benzodiazepines Screen,Urine PRESUMPTIVE NEGATIVE; Cannabinoid Screen,Urine PRESUMPTIVE NEGATIVE; Cocaine Screen,Urine PRESUMPTIVE NEGATIVE; Methadone Screen,Urine PRESUMPTIVE NEGATIVE; Opiate Screen,Urine PRESUMPTIVE NEGATIVE
--- NOTE | 2020-08-29 01:54 | XRay Report ---
ABDOMEN 1 VIEW(S) INDICATION / CLINICAL INFORMATION: Stomach foreign body. COMPARISON: Previous day. FINDINGS: TUBES / LINES: None. BOWEL GAS PATTERN: No significant abnormality. ADDITIONAL FINDINGS: A paperclip again lies over the expected location of the body of the stomach. Signer Name: Aaron Siddiqi MD Signed: 08/29/2020 1:49 AM Workstation Name: [id number]
[2020-08-29] MEDS ORDERED: ONDANSETRON 4 MG/2 ML INJ IV ONE (02:43)
[2020-08-29] MEDS ORDERED: METOCLOPRAMIDE 10 MG/2 ML INJ IV PRN (03:28)
--- NOTE | 2020-08-29 03:42 | History and Physical Report ---
History of Present Illness Date of examination: 08/29/20 Date of admission: 08/29/20 Chief complaint: Suicide ideation History of present illness: Patient is a 20-year-old female that presents emergency room with a suicide attempt by ingestion of a foreign body. Patient has done this in the past. Patient states she been having suicidal thoughts and depression lately. Patient had labs done which were essentially unremarkable. Patient chest x-ray which was negative for acute findings. Patient had an abdominal x-ray which shows a foreign body in the stomach region. I discussed the case with GI and GI recommends monitoring the patient and repeat the x-ray. After being x-ray, the patient did not complain of abdominal pain and nausea vomiting. I then disc ussed the case again with GI GI recommends admit the patient observation. After his evaluation, the patient was placed on a 1013 and an ER hold. Patient admitted to the hospital service for further evaluation treatment. ED work-up WBC 9.4, hemoglobin 12.3, platelet 393, sodium 138, potassium 3.9, creatinin is 0.8, serum glucose 81 x-ray of the abdomen no significant abnormality. Chest x-ray patient has a metallic paperclip noted projected over the upper abdomen and no significant pulmonary or pleural abnormality. Patient seen in the ED. Alert oriented x3 at the time of assessment. She re ports a history of bipolar disorder, schizophrenia, hallucination hearing voices she says she swallowed it directly because she had voices telling her to do so. She admits compliance with her medication. I reviewed her lab, radiology studies, vital signs, and medication record. 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, abdominal surgery for swallowing plastic) Social history: no significant social history, Lives alone Family history: hypertension Medications and Allergies Allergies Allergy/AdvReac Type Severity Reaction Status Date / Time No Known Allergies Allergy Verified 08/14/20 13:27 Home Medications Medication Instructions Recorded Confirmed Last Taken Type Ibuprofen [Motrin 600 MG tab] 600 mg PO Q8H PRN #20 tablet 07/07/20 07/13/20 Unknown Rx ARIPiprazole [Abilify] 20 mg PO QHS 07/13/20 07/13/20 Unknown History Divalproex ER [DepaKOTE ER] 500 mg PO BID 07/13/20 07/13/20 Unknown History Escitalopram [Lexapro] 10 mg PO DAILY 07/13/20 07/13/20 Unknown History Gabapentin [Neurontin] 300 mg PO Q8HR 07/13/20 07/13/20 Unknown History Ibuprofen [Motrin] 600 mg PO Q8H PRN 07/13/20 07/13/20 Unknown History Midodrine HCl 10 mg PO TID 07/13/20 07/13/20 Unknown History Ibuprofen [Motrin 800 MG tab] 800 mg PO Q8HR PRN #30 tablet 07/31/20 Unknown Rx cephALEXin [Keflex] 500 mg PO Q8HR 7 Days #21 cap 07/31/20 Unknown Rx Fluconazole [Diflucan TAB] 100 mg PO QDAY 1 Days #1 tablet 08/14/20 Unknown Rx Ondansetron [Zofran Odt] 4 mg PO Q8HR PRN #10 tab.rapdis 08/14/20 Unknown Rx metroNIDAZOLE [Flagyl] 500 mg PO BID 7 Days #14 tab 08/14/20 Unknown Rx Ibuprofen [Motrin 600 MG tab] 600 mg PO Q8H PRN #20 tablet 08/23/20 Unknown Rx Review of Systems Ears, nose, mouth and throat: no epistaxis, no bleeding gums Breasts: no discharge Cardiovascular: no orthopnea Gastrointestinal: no melena, no loss of appetite Genitourinary Female: no vaginal itching Rectal: no itching Integumentary: no rash, no pruritis Psychiatric: anxiety, suicidal ideation, hallucinations, confusion, sadness/tearfullness Hematologic/Lymphatic: no easy bruising, no easy bleeding Allergic/Immunologic: no urticaria Exam - Constitutional Vitals: Temp Pulse Resp BP Pulse Ox 98.0 F 88 14 99/57 99 08/29/20 03:34 08/29/20 03:34 08/29/20 03:34 08/29/20 03:34 08/29/20 03:34 General appearance: Present: no acute distress, well-nourished - EENT Eyes: Present: PERRL ENT: hearing intact, clear oral mucosa - Neck Neck: Present: supple, normal ROM - Respiratory Respiratory effort: normal Respiratory: bilateral: CTA - Cardiovascular Heart Sounds: Present: S1 & S2. Absent: rub, click - Extremities Extremities: pulses symmetrical, No edema Peripheral Pulses: within normal limits - Abdominal General gastrointestinal: Present: soft, non-tender, non-distended, normal bowel sounds Female genitourinary: Present: normal - Integumentary Integumentary: Present: clear, warm, dry - Musculoskeletal Musculoskeletal: gait normal, strength equal bilaterally - Psychiatric Psychiatric: appropriate mood/affect, intact judgment & insight, cooperative - Neurologic Neurologic: CNII-XII intact, moves all extremities - Allied Health Allied health notes reviewed: nursing Results - Labs CBC & Chem 7: 08/28/20 23:19 08/28/20 23:19 Labs: Abnormal lab results 08/28/20 08/28/20 08/28/20 Range/Units 23:19 23:19 23:19 Lymph % (Auto) 37.5 H (13.4-35.0) % Salicylates < 0.3 L (2.8-20.0) mg/dL Acetaminophen 5.0 L (10.0-30.0) ug/mL Assessment and Plan - Patient Problems (1) Suicidal ideation Current Visit: Yes Status: Acute Plan to address problem: Patient admits swallowing directly. Abdominal x-ray shows paperclip in the upper abdomen. GI consultedfollow-up with recommendation. (2) Foreign body ingestion Current Visit: Yes Status: Acute Qualifiers: Encounter type: initial encounter Qualified Code(s): T18.9XXA - Foreign body of alimentary tract, part unspecified, initial encounter Plan to address problem: GI consult, serial abdominal x-ray GI recommends a morning x-ray of the abdomen to verify the paperclip is moved into the small intestine (3) Nausea & vomiting Current Visit: Yes Status: Acute Qualifiers: Vomiting type: unspecified Vomiting Intractability: non-intractable Qualified Code(s): R11.2 - Nausea with vomiting, unspecified Plan to address problem: Likely secondary to presence of paperclip in the stomach Continue antiemetic with Zofran Patient has abdominal pain. Pain level 3/10 (4) Schizoaffective disorder Current Visit: No Status: Acute Plan to address problem: Resume home antipsychotic (5) DVT prophylaxis Current Visit: Yes Status: Acute Plan to address problem: SCD
--- NOTE | 2020-08-29 08:40 | XRay Report ---
ABDOMEN 1 VIEW 08/29/2020 8:12 AM INDICATION / CLINICAL INFORMATION: Swallowed a paperclip. COMPARISON: Earlier today at 1:16 AM. FINDINGS: TUBES / LINES: None. BOWEL GAS PATTERN: No significant abnormality. FREE AIR / EXTRALUMINAL GAS: None. ADDITIONAL FINDINGS: The paper clip overlies the expected location of the gastric fundus/proximal gas tric body and is located slightly more proximally in the stomach than on the prior study. IMPRESSION: The paper clip remains in the stomach. Signer Name: Maximiliano Romero MD Signed: 08/29/2020 8:36 AM Workstation Name: [id number]
--- NOTE | 2020-08-29 08:45 | Gastroenterology Consultation ---
History of Present Illness - Reason for Consult Consult date: 08/29/20 foreign body ingestion Requesting physician: CHIKIS DE GUZMAN III - History of Present Illness This is a 20 yo female with pmh of hydrocephalus s/p AMBULATORY CARE shunt, bipolar, schizophrenia, and h/o foreign body ingestions presented last night to the ED after ingestion a closed paper clip. Patient reports epigastric pain. No nausea/vomiting. No BM overnight. She has h/o foreign body ingestions in the past. Was admitted in 06/2019 for swallowing a plastic spoon and EGD was done with Dr. Ron. No foreign object was identified. She was seen again later in 06/2019 after swallowing a paper clip. She was transfer to [place] and had EGD with removal. She reports having abdominal surgery in the past to take out a plastic spoon which she swallow. Has a linear surgical scar. medication list reviewed. Past History Past Medical History: other (schizophrenia, bipolar, depression, anxiety, hydrocephalus) Past Surgical History: bowel surgery, Other (brain surgery - hydrocephalus, AMBULATORY CARE shunt, abdominal surgery for swallowing plastic) Social history: no significant social history, Lives alone Family history: hypertension Medications and Allergies Allergies Allergy/AdvReac Type Severity Reaction Status Date / Time No Known Allergies Allergy Verified 08/14/20 13:27 Home Medications Medication Instructions Recorded Confirmed Last Taken Type Ibuprofen [Motrin 600 MG tab] 600 mg PO Q8H PRN #20 tablet 07/07/20 07/13/20 Unknown Rx ARIPiprazole [Abilify] 20 mg PO QHS 07/13/20 07/13/20 Unknown History Divalproex ER [DepaKOTE ER] 500 mg PO BID 07/13/20 07/13/20 Unknown History Escitalopram [Lexapro] 10 mg PO DAILY 07/13/20 07/13/20 Unknown History Gabapentin [Neurontin] 300 mg PO Q8HR 07/13/20 07/13/20 Unknown History Ibuprofen [Motrin] 600 mg PO Q8H PRN 07/13/20 07/13/20 Unknown History Midodrine HCl 10 mg PO TID 07/13/20 07/13/20 Unknown History Ibuprofen [Motrin 800 MG tab] 800 mg PO Q8HR PRN #30 tablet 07/31/20 Unknown Rx cephALEXin [Keflex] 500 mg PO Q8HR 7 Days #21 cap 07/31/20 Unknown Rx Fluconazole [Diflucan TAB] 100 mg PO QDAY 1 Days #1 tablet 08/14/20 Unknown Rx Ondansetron [Zofran Odt] 4 mg PO Q8HR PRN #10 tab.rapdis 08/14/20 Unknown Rx metroNIDAZOLE [Flagyl] 500 mg PO BID 7 Days #14 tab 08/14/20 Unknown Rx Ibuprofen [Motrin 600 MG tab] 600 mg PO Q8H PRN #20 tablet 08/23/20 Unknown Rx Active Meds: Active Medications Acetaminophen (Acetaminophen 325 Mg Tab) 650 mg PO Q4H PRN PRN Reason: Pain MILD(1-3)/Fever >100.5/NAYAK Aripiprazole (Aripiprazole 10 Mg Tab) 20 mg PO QDAY RODO Divalproex Sodium (Divalproex Er 500 Mg Tab) 500 mg PO BID RODO Escitalopram Oxalate (Escitalopram 10 Mg Tab) 10 mg PO QDAY RODO Metoclopramide HCl (Metoclopramide 10 Mg/2 Ml Inj) 10 mg IV Q6H PRN PRN Reason: Nausea And Vomiting Ondansetron HCl (Ondansetron 4 Mg/2 Ml Inj) 4 mg IV Q8H PRN PRN Reason: Nausea And Vomiting Sodium Chloride (Sodium Chloride 0.9% 10 Ml Flush Syringe) 10 ml IV BID RODO Sodium Chloride (Sodium Chloride 0.9% 10 Ml Flush Syringe) 10 ml IV PRN PRN PRN Reason: LINE FLUSH Review of Systems - Review of Systems All systems: negative Constitutional: no weight loss, no weight gain Cardiovascular: no chest pain Respiratory: no cough, no shortness of breath Gastrointestinal: abdominal pain Neurological: no weakness Hematologic/Lymphatic: no easy bruising Allergic/Immunologic: no wheezing Exam - Constitutional Vital Signs: Temp Pulse Resp BP Pulse Ox 98.0 F 86 23 108/77 99 08/29/20 03:34 08/29/20 05:30 08/29/20 05:30 08/29/20 05:30 08/29/20 05:30 General appearance: no acute distress - EENT Eyes: EOM intact ENT: hearing intact - Respiratory Respiratory effort: normal - Cardiovascular Rhythm: regular Heart Sounds: Present: S1 & S2 - Gastrointestinal General gastrointestinal: Present: soft, non-tender, non-distended, other (surgical scar) - Integumentary Integumentary: Present: clear, warm - Labs CBC & Chem 7: 08/28/20 23:19 08/28/20 23:19 Lab Results: Laboratory Results - last 24 hr 08/28/20 08/28/20 08/28/20 23:19 23:19 23:19 WBC 9.4 RBC 3.97 Hgb 12.3 Hct 37.2 MCV 94 MCH 31 MCHC 33 RDW 14.5 Plt Count 393 Lymph % (Auto) 37.5 H [place] % (Auto) 6.5 Eos % (Auto) 0.4 Baso % (Auto) 0.4 Lymph # (Auto) 3.5 [place] # (Auto) 0.6 Eos # (Auto) 0.0 Baso # (Auto) 0.0 Seg Neutrophils % 55.2 Seg Neutrophils # 5.2 Sodium 138 Potassium 3.9 Chloride 103.3 Carbon Dioxide 22 Anion Gap 17 BUN 11 Creatinine 0.8 Estimated GFR > 60 BUN/Creatinine Ratio 14 Glucose 81 Calcium 9.1 Total Bilirubin 0.20 AST 14 ALT 7 Alkaline Phosphatase 63 Total Protein 7.1 Albumin 4.1 Albumin/Globulin Ratio 1.4 HCG, Qual Urine Color Urine Turbidity Urine pH Ur Specific [place] Urine Protein Urine Glucose (UA) Urine Ketones Urine Blood Urine Nitrite Urine Bilirubin Urine Urobilinogen Ur Leukocyte Esterase Urine WBC (Auto) Urine RBC (Auto) U Epithel Cells (Auto) Urine Mucus Salicylates < 0.3 L Urine Opiates Screen Urine Methadone Screen Acetaminophen Ur Barbiturates Screen Ur Phencyclidine Scrn Ur Amphetamines Screen U Benzodiazepines Scrn Urine Cocaine Screen U Marijuana (THC) Screen Drugs of Abuse Note Plasma/Serum Alcohol 08/28/20 08/28/20 08/28/20 23:19 23:19 23:19 WBC RBC Hgb Hct MCV MCH MCHC RDW Plt Count Lymph % (Auto) [place] % (Auto) Eos % (Auto) Baso % (Auto) Lymph # (Auto) [place] # (Auto) Eos # (Auto) Baso # (Auto) Seg Neutrophils % Seg Neutrophils # Sodium Potassium Chloride Carbon Dioxide Anion Gap BUN Creatinine Estimated GFR BUN/Creatinine Ratio Glucose Calcium Total Bilirubin AST ALT Alkaline Phosphatase Total Protein Albumin Albumin/Globulin Ratio HCG, Qual Negative Urine Color Urine Turbidity Urine pH Ur Specific [place] Urine Protein Urine Glucose (UA) Urine Ketones Urine Blood Urine Nitrite Urine Bilirubin Urine Urobilinogen Ur Leukocyte Esterase Urine WBC (Auto) Urine RBC (Auto) U Epithel Cells (Auto) Urine Mucus Salicylates Urine Opiates Screen Urine Methadone Screen Acetaminophen 5.0 L Ur Barbiturates Screen Ur Phencyclidine Scrn Ur Amphetamines Screen U Benzodiazepines Scrn Urine Cocaine Screen U Marijuana (THC) Screen Drugs of Abuse Note Plasma/Serum Alcohol < 0.01 08/28/20 08/28/20 Unknown Unknown WBC RBC Hgb Hct MCV MCH MCHC RDW Plt Count Lymph % (Auto) [place] % (Auto) Eos % (Auto) Baso % (Auto) Lymph # (Auto) [place] # (Auto) Eos # (Auto) Baso # (Auto) Seg Neutrophils % Seg Neutrophils # Sodium Potassium Chloride Carbon Dioxide Anion Gap BUN Creatinine Estimated GFR BUN/Creatinine Ratio Glucose Calcium Total Bilirubin AST ALT Alkaline Phosphatase Total Protein Albumin Albumin/Globulin Ratio HCG, Qual Urine Color Yellow Urine Turbidity Slightly-cloudy Urine pH 6.0 Ur Specific [place] 1.020 Urine Protein <15 mg/dl Urine Glucose (UA) Neg Urine Ketones Neg Urine Blood Sm Urine Nitrite Neg Urine Bilirubin Neg Urine Urobilinogen < 2.0 Ur Leukocyte Esterase Neg Urine WBC (Auto) 2.0 Urine RBC (Auto) 4.0 U Epithel Cells (Auto) 13.0 Urine Mucus Few Salicylates Urine Opiates Screen Presumptive negative Urine Methadone Screen Presumptive negative Acetaminophen Ur Barbiturates Screen Presumptive negative Ur Phencyclidine Scrn Presumptive negative Ur Amphetamines Screen Presumptive negative U Benzodiazepines Scrn Presumptive negative Urine Cocaine Screen Presumptive negative U Marijuana (THC) Screen Presumptive negative Drugs of Abuse Note Disclamer Plasma/Serum Alcohol - Imaging X-ray: report reviewed Assessment and Plan - Patient Problems (1) Foreign body ingestion Current Visit: Yes Status: Acute Qualifiers: Encounter type: initial encounter Qualified Code(s): T18.9XXA - Foreign body of alimentary tract, part unspecified, initial encounter Plan to address problem: This is a 20 yo female with pmh of hydrocephalus s/p AMBULATORY CARE shunt, bipolar, schizophrenia, and h/o foreign body ingestions presented last night to the ED after ingestion a closed paper clip. # Foreign body ingestion - swallowed a closed paper clip - abdominal xray shows foreign body remaining in the stomach area Rec - will plan for EGD - keep NPO - psych on board
--- NOTE | 2020-08-29 09:22 | Anesthesia Consultation ---
Anesthesia Consult and Med Hx Date of service: 08/29/20 - Airway Anesthetic Teeth Evaluation: Good ROM Head & Neck: Adequate Mental/Hyoid Distance: Adequate Mallampati Class: Class II Intubation Access Assessment: Probably Good - Pre-Operative Health Status ASA Pre-Surgery Classification: ASA2 Proposed Anesthetic Plan: General - Pulmonary Hx Pneumonia: No - Central Nervous System Hx Psychiatric Problems: Yes (schizophrenia, bipolar disorder, suicidal ideation) - Gastrointestinal Hx Ulcer: No (foreign body in the stomack (paperclip))
[2020-08-29] MEDS ORDERED: SODIUM CHLORIDE 0.9% 1000 ML 1,000 ML ONE (09:24)
--- NOTE | 2020-08-29 09:25 | Anesthesia Day of Surgery ---
Anesthesia Day of Surgery - Day of Surgery Patient Examined: Yes Patient H&P Reviewed: Yes Patient is NPO: No (patient states that she had some crackers @ AM)
[2020-08-29] MEDS ORDERED: LIDOCAINE MPF (2%) 20 MG/1 ML VIAL 5 ML ONE (09:33)
[2020-08-29] MEDS ORDERED: HYDROmorphone 1 MG/1 ML INJ ONE (09:33)
[2020-08-29] MEDS ORDERED: propofoL 200 MG/20 ML VIAL IV ONE ×3 (09:33→09:58)
[2020-08-29] MEDS ORDERED: SUCCINYLCHOLINE CHLORIDE 200 MG/10 ML INJ MDV ONE (09:34)
[2020-08-29] MEDS ORDERED: ARIPiprazole 15 MG TAB PO SCH (10:00)
[2020-08-29] MEDS: DIVALPROEX ER 500 MG TAB PO SCH ×2 (10:00→22:13)
[2020-08-29] MEDS ORDERED: ONDANSETRON 4 MG/2 ML INJ ONE (10:02)
[2020-08-29] MEDS ORDERED: ALBUTEROL 2.5 MG/3 ML NEBU IH PRN (10:24)
--- NOTE | 2020-08-29 10:29 | Operative Report ---
Operative Report Operative Report: EGD performed on 08/29/2020 with successful removal of closed paperclip from the stomach intact. No immediate complications. patient can resume diet. Please see procedure note on [facility] and it will be scanned to the system.
--- NOTE | 2020-08-29 11:14 | Post Anesthesia Evaluation ---
- Post Anesthesia Evaluation Patient Participated: Yes Airway Patent: Yes Stable Respiratory Function: Yes Nausea/Vomiting: No Temp > 96.8F: Yes Pain Manageable: Yes Adequeate Hydration: Yes Anesthesia Complications: No Other Comments: Albuterol neb given in PACU for suspected mild bronchospasm. No hypoxia.
--- NOTE | 2020-08-29 11:17 | Progress Note ---
Assessment and Plan Assessment and plan: Patient is a 20-year-old female that presents emergency room with a suicide attempt by ingestion of a foreign body. Patient has done this in the past. Patient states she been having suicidal thoughts and depression lately. Patient had labs done which were essentially unremarkable. Patient chest x-ray which was negative for acute findings. Patient had an abdominal x-ray which shows a foreign body in the stomach region. I discussed the case with GI and GI recommends monitoring the patient and repeat the x-ray. After being x-ray, the patient did not complain of abdominal pain and nausea vomiting. I then discussed the case again with GI GI recommends admit the patient observation. After his evaluation, the patient was placed on a 1013 and an ER hold. Patient admitted to the hospital service for further evaluation treatment. ED work-up WBC 9.4, hemoglobin 12.3, platelet 393, sodium 138, potassium 3.9, creatinin is 0.8, serum glucose 81 x-ray of the abdomen no significant abnormality. Chest x-ray patient has a metallic paperclip noted projected over the upper abdomen and no significant pulmonary or pleural abnormality. Patient seen in the ED. Alert oriented x3 at the time of assessment. She reports a history of bipolar disorder, schizophrenia, hallucination hearing voices she says she swallowed it directly because she had voices telling her to do so. She admits compliance with her medication. I reviewed her lab, radiology studies, vital signs, and medication record. 08/29: Xray shows repeatedly retained paper clip, Discussed with GI, patient underwent endoscopy with removal of the clip. She is clinically stable for discharge based on Psych recommendation (1) Suicidal ideation Current Visit: Yes Status: Acute Plan to address problem: Patient admits swallowing directly. Abdominal x-ray shows paperclip in the upper abdomen. GI consultedfollow-up with recommendation. (2) Foreign body ingestion Current Visit: Yes Status: Acute Qualifiers: Encounter type: initial encounter Qualified Code(s): T18.9XXA - Foreign body of alimentary tract, part unspecified, initial encounter Plan to address problem: GI consult, serial abdominal x-ray GI recommends a morning x-ray of the abdomen to verify the paperclip is moved into the small intestine (3) Nausea & vomiting Current Visit: Yes Status: Acute Qualifiers: Vomiting type: unspecified Vomiting Intractability: non-intractable Qu alified Code(s): R11.2 - Nausea with vomiting, unspecified Plan to address problem: Likely secondary to presence of paperclip in the stomach Continue antiemetic with Zofran Patient has abdominal pain. Pain level 3/10 (4) Schizoaffective disorder Current Visit: No Status: Acute Plan to address problem: Resume home antipsychotic (5) DVT prophylaxis Current Visit: Yes Status: Acute Plan to address problem: SCD History Interval history: Patient seen and examined, resting comfortable post endoscopy. Hospitalist Physical - Physical exam Narrative exam: General appearance: Present: no acute distress, well-nourished - EENT Eyes: Present: PERRL ENT: hearing intact, clear oral mucosa - Neck Neck: Present: supple, normal ROM - Respiratory Respiratory effort: normal Respiratory: bilateral: CTA - Cardiovascular Heart Sounds: Present: S1 & S2. Absent: rub, click - Extremities Extremities: pulses symmetrical, No edema Peripheral Pulses: within normal limits - Abdominal General gastrointestinal: Present: soft, non-tender, non-distended, normal bowel sounds Female genitourinary: Present: normal - Integumentary Integumentary: Present: Multiple denuded skin area, warm, dry - Musculoskeletal Musculoskeletal: gait normal, strength equal bilaterally - Psychiatric Psychiatric: appropriate mood/affect, intact judgment & insight, cooperative - Neurologic Neurologic: CNII-XII intact, moves all extremities - Allied Health Allied health notes reviewed: nursing - Constitutional Vitals: Temp Pulse Resp BP Pulse Ox 97.4 F L 102 H 15 99/58 95 08/29/20 10:20 08/29/20 10:35 08/29/20 10:35 08/29/20 10:35 08/29/20 10:35 General appearance: Present: no acute distress, well-nourished Results - Labs CBC & Chem 7: 08/28/20 23:19 08/28/20 23:19 Labs: Laboratory Last Values WBC 9.4 K/mm3 (4.5-11.0) 08/28/20 23:19 RBC 3.97 M/mm3 (3.65-5.03) 08/28/20 23:19 Hgb 12.3 gm/dl (10.1-14.3) 08/28/20 23:19 Hct 37.2 % (30.3-42.9) 08/28/20 23:19 MCV 94 fl (79-97) 08/28/20 23:19 MCH 31 pg (28-32) 08/28/20 23:19 MCHC 33 % (30-34) 08/28/20 23:19 RDW 14.5 % (13.2-15.2) 08/28/20 23:19 Plt Count 393 K/mm3 (140-440) 08/28/20 23:19 Lymph % (Auto) 37.5 % (13.4-35.0) H 08/28/20 23:19 Leslie % (Auto) 6.5 % (0.0-7.3) 08/28/20 23:19 Eos % (Auto) 0.4 % (0.0-4.3) 08/28/20 23:19 Baso % (Auto) 0.4 % (0.0-1.8) 08/28/20 23:19 Lymph # (Auto) 3.5 K/mm3 (1.2-5.4) 08/28/20 23:19 Leslie # (Auto) 0.6 K/mm3 (0.0-0.8) 08/28/20 23:19 Eos # (Auto) 0.0 K/mm3 (0.0-0.4) 08/28/20 23:19 Baso # (Auto) 0.0 K/mm3 (0.0-0.1) 08/28/20 23:19 Seg Neutrophils % 55.2 % (40.0-70.0) 08/28/20 23:19 Seg Neutrophils # 5.2 K/mm3 (1.8-7.7) 08/28/20 23:19 Sodium 138 mmol/L (137-145) 08/28/20 23:19 Potassium 3.9 mmol/L (3.6-5.0) 08/28/20 23:19 Chloride 103.3 mmol/L (98-107) 08/28/20 23:19 Carbon Dioxide 22 mmol/L (22-30) 08/28/20 23:19 Anion Gap 17 mmol/L 08/28/20 23:19 BUN 11 mg/dL (7-17) 08/28/20 23:19 Creatinine 0.8 mg/dL (0.6-1.2) 08/28/20 23:19 Estimated GFR > 60 ml/min 08/28/20 23:19 BUN/Creatinine Ratio 14 % 08/28/20 23:19 Glucose 81 mg/dL (65-100) 08/28/20 23:19 Calcium 9.1 mg/dL (8.4-10.2) 08/28/20 23:19 Total Bilirubin 0.20 mg/dL (0.1-1.2) 08/28/20 23:19 AST 14 units/L (5-40) 08/28/20 23:19 ALT 7 units/L (7-56) 08/28/20 23:19 Alkaline Phosphatase 63 units/L (35-129) 08/28/20 23:19 Total Protein 7.1 g/dL (6.3-8.2) 08/28/20 23:19 Albumin 4.1 g/dL (3.9-5) 08/28/20 23:19 Albumin/Globulin Ratio 1.4 % 08/28/20 23:19 HCG, Qual Negative (Negative) 08/28/20 23:19 Urine Color Yellow (Yellow) 08/28/20 Unknown Urine Turbidity Slightly-cloudy (Clear) 08/28/20 Unknown Urine pH 6.0 (5.0-7.0) 08/28/20 Unknown Ur Specific [place] 1.020 (1.003-1.030) 08/28/20 Unknown Urine Protein <15 mg/dl mg/dL (Negative) 08/28/20 Unknown Urine Glucose (UA) Neg mg/dL (Negative) 08/28/20 Unknown Urine Ketones Neg mg/dL (Negative) 08/28/20 Unknown Urine Blood Sm (Negative) 08/28/20 Unknown Urine Nitrite Neg (Negative) 08/28/20 Unknown Urine Bilirubin Neg (Negative) 08/28/20 Unknown Urine Urobilinogen < 2.0 mg/dL (<2.0) 08/28/20 Unknown Ur Leukocyte Esterase Neg (Negative) 08/28/20 Unknown Urine WBC (Auto) 2.0 /HPF (0.0-6.0) 08/28/20 Unknown Urine RBC (Auto) 4.0 /HPF (0.0-6.0) 08/28/20 Unknown U Epithel Cells (Auto) 13.0 /HPF (0-13.0) 08/28/20 Unknown Urine Mucus Few /HPF 08/28/20 Unknown Salicylates < 0.3 mg/dL (2.8-20.0) L 08/28/20 23:19 Urine Opiates Screen Presumptive negative 08/28/20 Unknown Urine Methadone Screen Presumptive negative 08/28/20 Unknown Acetaminophen 5.0 ug/mL (10.0-30.0) L 08/28/20 23:19 Ur Barbiturates Screen Presumptive negative 08/28/20 Unknown Ur Phencyclidine Scrn Presumptive negative 08/28/20 Unknown Ur Amphetamines Screen Presumptive negative 08/28/20 Unknown U Benzodiazepines Scrn Presumptive negative 08/28/20 Unknown Urine Cocaine Screen Presumptive negative 08/28/20 Unknown U Marijuana (THC) Screen Presumptive negative 08/28/20 Unknown Drugs of Abuse Note Disclamer 08/28/20 Unknown Plasma/Serum Alcohol < 0.01 % (0-0.07) 08/28/20 23:19 Arizmendi/IV: Voiding Method Toilet Active Medications - Current Medications Current Medications: Generic Name Dose Route Start Last Admin Trade Name Freq PRN Reason Stop Dose Admin Acetaminophen 650 mg 08/29/20 03:28 Acetaminophen 325 Mg Tab PO Q4H PRN Pain MILD(1-3)/Fever >100.5/NAYAK Albuterol 2.5 mg 08/29/20 10:24 08/29/20 10:25 Albuterol 2.5 Mg/3 Ml Nebu IH 08/29/20 20:00 2.5 mg PREOP PRN Administration Wheezing Aripiprazole 20 mg 08/29/20 10:00 Aripiprazole 10 Mg Tab PO QDAY RODO Divalproex Sodium 500 mg 08/29/20 10:00 Divalproex Er 500 Mg Tab PO BID RODO Escitalopram Oxalate 10 mg 08/29/20 10:00 Escitalopram 10 Mg Tab PO QDAY RODO Metoclopramide HCl 10 mg 08/29/20 03:28 Metoclopramide 10 Mg/2 Ml Inj IV Q6H PRN Nausea And Vomiting Ondansetron HCl 4 mg 08/29/20 03:28 Ondansetron 4 Mg/2 Ml Inj IV Q8H PRN Nausea And Vomiting Sodium Chloride 10 ml 08/29/20 10:00 Sodium Chloride 0.9% 10 Ml Flush Syringe IV BID RODO Sodium Chloride 10 ml 08/29/20 03:28 Sodium Chloride 0.9% 10 Ml Flush Syringe IV PRN PRN LINE FLUSH
[2020-08-29] MEDS: ARIPiprazole 10 MG TAB PO SCH (17:27)
[2020-08-29] MEDS: ESCITALOPRAM 10 MG TAB PO SCH (17:28)
[2020-08-30 06:26] LABS: Hematocrit 37.8 % (30.3-42.9); Hemoglobin 12.7 gm/dl (10.1-14.3); Mean Corpuscular HGB Conc 34 % (30-34); Mean Corpuscular Volume 91 fl (79-97); Platelet Count 395 K/mm3 (140-440); Red Blood Count 4.16 M/mm3 (3.65-5.03); Red Cell Distribution Width 13.9 % (13.2-15.2)
[2020-08-30 06:32] LABS: Basophils % (Auto) 0.4 % (0.0-1.8); Eosinophils # (Auto) 0.1 K/mm3 (0.0-0.4); Eosinophils % (Auto) 0.9 % (0.0-4.3); Lymphocytes # (Auto) 2.4 K/mm3 (1.2-5.4); Lymphocytes % (Auto) 35.5 % (13.4-35.0); Monocytes # (Auto) 0.4 K/mm3 (0.0-0.8); Monocytes % (Auto) 6.4 % (0.0-7.3)
[2020-08-30 06:49] LABS: Alanine Aminotransferase 7 units/L (7-56); Albumin 3.8 g/dL (3.9-5); BUN/Creatinine Ratio 12; Blood Urea Nitrogen 11 mg/dL (7-17); Calcium 9.2 mg/dL (8.4-10.2); Hemolysis Index 28
--- NOTE | 2020-08-30 07:40 | Consultation ---
History of Present Illness - Reason for Consult Consult date: 08/30/20 Reason for consult: MHE Requesting physician: MARTHA ANGULO - Chief Complaint Chief complaint: Suicide ideation - History of Present Psychiatric Illness Per ER Note: Patient is a 20-year-old female that presents emergency room with complaints of a suicidal ideation and suicide attempt by swelling paperclip. Patient states she had a thought to herself and that is why she swallowed a paperclip. Patient states that she has on herself anymore. Patient states she was just thinking impulsively. Patient states she has been depressed lately. Patient denies homicidal ideation. Patient denies hallucinations. Patient denies abdominal pain. Patient denies chest pain. Patient denies shortness of breath. Patient denies nausea vomiting. PSYCH HPI Patient is a 20-year-old single, unemployed currently disabled and resides in a alf -[place] female with past psychiatric history of bipolar schizophrenia, depression and also has past medical history of hydrocephalus status post shunting brain, psoriasis scented to a alf with chief complaint of suicidal ideation with plan and she already swallowed the pain so that she could kill herself and . Patient reports she was not like that the other day, because she did not like a alf and now she feels fine. Patient endorses prior history of swallowing nonedible stuff including plastics, and endorses having mental health issues since age 15. States that she mostly hear voices. PAST PSYCHIATRIC HISTORY Diagnoses: Biplar, schizophrenia Suicide attempts or Self-harm behavior: Yes Prior psychiatric hospitalizations: Yes Substance Abuse history: Denies Previous psychiatric medications tried: Could not recall Outpatient treatment: Denies PAST MEDICAL HISTORY: Hydrocephalus, psoriasis Family Psychiatric History: None reported or documented SOCIAL HISTORY Marital Status: Single Living Arrangements: alf Employment Status: Unemployed Access to guns/weapons: Denies Education: high school 11th grade History of Abuse: Denies Legal History: None reported REVIEW OF SYSTEMS Constitutional: Negative for weight loss ENT: Negative for stridor Respiratory: Negative for cough or hemoptysis All other systems reviewed and are negative MENTAL STATUS EXAMINATION General Appearance and Behavior: Age appropriate, fair hygiene, wearing appropriate clothes, lying in bed, poor eye contact, cooperative irritable with questioning. Cooperation: Participating, Hostile and Guarded Psychomotor Behavior: unremarkable and within normal limits Mood: I don't know Affect and affective range: flat, preservative Thought Process: Illogical, Blocked, Thought Content: Hopelessness, Helplessness, Speech: Normal volume, Regular rate and rhythm, Intellectual Functioning: Average Suicidal Ideation: Denies SI Homicidal Ideation: Denies HI Impulse Control: Impaired Insight and Judgment: Limited insight and judgment Memory: Short term memory intact Attention: Divided attention impaired Orientation: Alert, oriented, Assessment and Plan (1) Bipolar Disorder Treatment Plan No medications at this time Risks, benefits and alternatives of medications discussed with the patient, questions answered and consent obtained from patient. PSYCHOTHERAPY: Supportive psychotherapy provided MEDICAL: Per primary team DELIRIUM PRECAUTIONS: Please re-orient patient frequently, keep lights on during the day, and minimize benzodiazepines and opiates as these medications could worsen patient's confusion. MANAGER OF CORPORATE COMMUNICATIONS: Defer to primary DISPOSITION: Do Recommend acute inpatient psychiatric hospitalization at this time. LEGAL STATUS: voluntary FOLLOW-UP: follow The sorter operator to give the patient safety plan, and resources. Thank you for the consult. Please contact with any questions and/or concerns Case discussed with Dr. Estrada who agrees with current disposition Medications and Allergies Allergies Allergy/AdvReac Type Severity Reaction Status Date / Time No Known Allergies Allergy Verified 08/14/20 13:27 Home Medications Medication Instructions Recorded Confirmed Last Taken Type ARIPiprazole [Abilify] 20 mg PO QHS 07/13/20 07/13/20 Unknown History Divalproex ER [Depakote ER] 500 mg PO BID 07/13/20 07/13/20 Unknown History Escitalopram [Lexapro] 10 mg PO DAILY 07/13/20 07/13/20 Unknown History Gabapentin 300 mg PO Q8HR 07/13/20 07/13/20 Unknown History Midodrine HCl 10 mg PO TID 07/13/20 07/13/20 Unknown History Ondansetron [Zofran ODT TAB] 4 mg PO Q8HR PRN #10 tab.rapdis 08/14/20 Unknown Rx Active Meds: Active Medications Acetaminophen (Acetaminophen 325 Mg Tab) 650 mg PO Q4H PRN PRN Reason: Pain MILD(1-3)/Fever >100.5/NAYAK Aripiprazole (Aripiprazole 10 Mg Tab) 20 mg PO QDAY [facility] Last Admin: 08/29/20 17:27 Dose: 20 mg Documented by: Divalproex Sodium (Divalproex Er 500 Mg Tab) 500 mg PO BID [facility] Last Admin: 08/29/20 22:13 Dose: 500 mg Documented by: Escitalopram Oxalate (Escitalopram 10 Mg Tab) 10 mg PO QDAY [facility] Last Admin: 08/29/20 17:28 Dose: 10 mg Documented by: Metoclopramide HCl (Metoclopramide 10 Mg/2 Ml Inj) 10 mg IV Q6H PRN PRN Reason: Nausea And Vomiting Ondansetron HCl (Ondansetron 4 Mg/2 Ml Inj) 4 mg IV Q8H PRN PRN Reason: Nausea And Vomiting Sodium Chloride (Sodium Chloride 0.9% 10 Ml Flush Syringe) 10 ml IV BID [facility] Last Admin: 08/29/20 22:13 Dose: 10 ml Documented by: Sodium Chloride (Sodium Chloride 0.9% 10 Ml Flush Syringe) 10 ml IV PRN PRN PRN Reason: LINE FLUSH Mental Status Exam - Vital signs Last Vital Signs Temp 98.6 F 08/30/20 04:21 Pulse 87 08/30/20 04:21 Resp 20 08/30/20 04:21 BP 94/41 08/30/20 04:21 Pulse Ox 96 08/30/20 04:21 Results Result Diagrams: 08/30/20 05:48 08/30/20 05:48 Abnormal lab results 08/30/20 08/30/20 Range/Units 05:48 05:48 Lymph % (Auto) 35.5 H (13.4-35.0) % Albumin 3.8 L (3.9-5) g/dL All other labs normal.
[2020-08-30] MEDS: ESCITALOPRAM 10 MG TAB PO SCH (09:28)
[2020-08-30] MEDS: DIVALPROEX ER 500 MG TAB PO SCH ×2 (09:28→21:44)
[2020-08-30] MEDS: ARIPiprazole 10 MG TAB PO SCH (09:28)
--- NOTE | 2020-08-30 11:35 | Discharge Summary ---
Providers - Providers Date of Admission: 08/29/20 02:59 Attending physician: MARTHA ANGULO MD 08/29/20 02:59 Consult to Physician [CONS] Routine Comment: Dr. Dunn spoke with Dr. Ross @ 0240 Consulting Provider: NATHANIEL ROSS Physician Instructions: Reason For Exam: GI foreign body, nausea vomiting 08/29/20 07:06 Consult to Mental Health [CONS] Routine Reason For Exam: suicide ideation 08/29/20 11:21 Consult to Physician [CONS] Routine Comment: Consulting Provider: JON HUA Physician Instructions: Reason For Exam: suicidal ideation Primary care physician: SLIP COVER MAKER Hospitalization Reason for admission: Altered mental status Condition: Stable Hospital course: Patient is a 20-year-old female that presents emergency room with a suicide attempt by ingestion of a foreign body. Patient has done this in the past. Patient states she been having suicidal thoughts and depression lately. Patient had labs done which were essentially unremarkable. Patient chest x-ray which was negative for acute findings. Patient had an abdominal x-ray which shows a foreign body in the stomach region. I discussed the case with GI and GI recommends monitoring the patient and repeat the x-ray. After being x-ray, the patient did not complain of abdominal pain and nausea vomiting. I then discussed the case again with GI GI recommends admit the patient observation. After his evaluation, the patient was placed on a 1013 and an ER hold. Patient admitted to the hospital service for further evaluation treatment. ED work-up WBC 9.4, hemoglobin 12.3, platelet 393, sodium 138, potassium 3.9, creatinin is 0.8, serum glucose 81 x-ray of the abdomen no significant abnormality. Chest x-ray patient has a meta llic paperclip noted projected over the upper abdomen and no significant pulmonary or pleural abnormality. Patient seen in the ED. Alert oriented x3 at the time of assessment. She reports a history of bipolar disorder, schizophrenia, hallucination hearing voices she says she swallowed it directly because she had voices telling her to do so. She admits compliance with her medication. I reviewed her lab, radiology studies, vital signs, and medication record. 08/29: Xray shows repeatedly retained paper clip, Discussed with GI, patient underwent endoscopy with removal of the clip. She is clinically stable for discharge based on Psych recommendation 08/30: Discussed with psych team. Initially it was thought the patient will be discharged but after reevaluation they felt that the patient will benefit from inpatient psych. They are recommending inpatient psych placement voluntarily. 08/31: Patient with asymptomatic chronic Hypotension, will restart Midodrine. Awaiting placement. No new complaints. 09/01: Noted headache improved some yesterday we will start on Fioricet discontinue morphine as that was not helpful to the patient. Patient remains at 1013 clarification by psych and is pending placement blood pressure has improved. No further nausea vomiting. And no blurry vision noted. 09/02: Patient this morning doing well no new concerns. Very jovial again denies suicidal ideation. Psych rescinded 1013 no further headache nausea vomiting. She is stable for discharge and follow-up with psych outpatient and also with her outpatient program. (1) Suicidal ideation Current Visit: Yes Status: Acute Plan to address problem: Patient admits swallowing directly. Abdominal x-ray shows paperclip in the upper abdomen. GI consultedfollow-up with recommendation. (2) Foreign body ingestion Current Visit: Yes Status: Acute Qualifiers: Encounter type: initial encounter Qualified Code(s): T18.9XXA - Foreign body of alimentary tract, part unspecified, initial encounter Plan to address problem: GI consult, serial abdominal x-ray GI recommends a morning x-ray of the abdomen to verify the paperclip is moved into the small intestine (3) Nausea & vomiting Current Visit: Yes Status: Acute Qualifiers: Vomiting type: unspecified Vomiting Intractability: non-intractable Qualified Code(s): R11.2 - Nausea with vomiting, unspecified Plan to address problem: Likely secondary to presence of paperclip in the stomach Continue antiemetic with Zofran Patient has abdominal pain. Pain level 3/10 (4) Schizoaffective disorder/bipolar Current Visit: No Status: Acute Plan to address problem: Resume home antipsychotic (5) chronic Hypotension (6) headache Disposition: -01 TO HOME OR SELFCARE Final Discharge Diagnosis (Prints w/discharge instructions): Suicidal ideation Time spent for discharge: 35 mins Core Measure Documentation - Palliative Care Palliative Care/ Comfort Measures: Not Applicable - Core Measures Any of the following diagnoses?: none Exam - Physical Exam Narrative exam: General appearance: Present: no acute distress, well-nourished - EENT Eyes: Present: PERRL ENT: hearing intact, clear oral mucosa - Neck Neck: Present: supple, normal ROM - Respiratory Respiratory effort: normal Respiratory: bilateral: CTA - Cardiovascular Heart Sounds: Present: S1 & S2. Absent: rub, click - Extremities Extremities: pulses symmetrical, No edema Peripheral Pulses: within normal limits - Abdominal General gastrointestinal: Present: soft, non-tender, non-distended, normal bowel sounds Female genitourinary: Present: normal - Integumentary Integumentary: Present: Multiple denuded skin area, warm, dry - Musculoskeletal Musculoskeletal: gait normal, strength equal bilaterally - Psychiatric Psychiatric: appropriate mood/affect, intact judgment & insight, cooperative - Neurologic Neurologic: CNII-XII intact, moves all extremities - Allied Health Allied health notes reviewed: nursing - Constitutional Vitals: Temp Pulse Resp BP Pulse Ox 98.6 F 87 20 94/41 96 08/30/20 04:21 08/30/20 04:21 08/30/20 04:21 08/30/20 04:21 08/30/20 04:21 Plan Activity: advance as tolerated, fall precautions Diet: low fat Plan of Treatment: Continue to follow the outpatient psych facility at [facility] Follow up with: PRIMARY MD MARGOT [Primary Care Provider] - 7 Days JON HUA MD [Staff Physician] - 7 Days Prescriptions: ARIPiprazole [Abilify] 20 mg PO QHS #30 tab Divalproex ER [Depakote ER] 500 mg PO BID #60 tab Gabapentin 300 mg PO Q8HR #90 cap Escitalopram [Lexapro] 10 mg PO DAILY #30 tab Midodrine [Proamatine] 5 mg PO TID@0800,1200,1600 #90 tablet Ondansetron [Zofran ODT TAB] 4 mg PO Q8HR PRN #30 tab.rapdis PRN Reason: nausea/vomiting
--- NOTE | 2020-08-30 14:51 | Post Anesthesia Evaluation ---
- Post Anesthesia Evaluation Patient Participated: Yes Airway Patent: Yes Stable Respiratory Function: Yes Nausea/Vomiting: No Temp > 96.8F: Yes Pain Manageable: Yes Adequeate Hydration: Yes Anesthesia Complications: No Block Receding Appropriately: Not Applicable Patient on Ventilator: No Other Comments: prepares for discharge
--- NOTE | 2020-08-30 19:10 | Progress Note ---
Assessment and Plan Assessment and plan: Patient is a 20-year-old female that presents emergency room with a suicide attempt by ingestion of a foreign body. Patient has done this in the past. Patient states she been having suicidal thoughts and depression lately. Patient had labs done which were essentially unremarkable. Patient chest x-ray which was negative for acute findings. Patient had an abdominal x-ray which shows a foreign body in the stomach region. I discussed the case with GI and GI recommends monitoring the patient and repeat the x-ray. After being x-ray, the patient did not complain of abdominal pain and nausea vomiting. I then discussed the case again with GI GI recommends admit the patient observation. After his evaluation, the patient was placed on a 1013 and an ER hold. Patient admitted to the hospital service for further evaluation treatment. ED work-up WBC 9.4, hemoglobin 12.3, platelet 393, sodium 138, potassium 3.9, creatinin is 0.8, serum glucose 81 x-ray of the abdomen no significant abnormality. Chest x-ray patient has a metallic paperclip noted projected over the upper abdomen and no significant pulmonary or pleural abnormality. Patient seen in the ED. Alert oriented x3 at the time of assessment. She reports a history of bipolar disorder, schizophrenia, hallucination hearing voices she says she swallowed it directly because she had voices telling her to do so. She admits compliance with her medication. I reviewed her lab, radiology studies, vital signs, and medication record. 08/29: Xray shows repeatedly retained paper clip, Discussed with GI, patient underwent endoscopy with removal of the clip. She is clinically stable for discharge based on Psych recommendation 08/30: Discussed with psych team. Initially it was thought the patient will be discharged but after reevaluation they felt that the patient will benefit from inpatient psych. They are recommending inpatient psych placement voluntarily. (1) Suicidal ideation Current Visit: Yes Status: Acute Plan to address problem: Patient admits swallowing directly. Abdominal x-ray shows paperclip in the upper abdomen. GI consultedfollow-up with recommendation. (2) Foreign body ingestion Current Visit: Yes Status: Acute Qualifiers: Encounter type: initial encounter Qualified Code(s): T18.9XXA - Foreign body of alimentary tract, part unspecified, initial encounter Plan to address problem: GI consult, serial abdominal x-ray GI recommends a morning x-ray of the abdomen to verify the paperclip is moved into the small intestine (3) Nausea & vomiting Current Visit: Yes Status: Acute Qualifiers: Vomiting type: unspecified Vomiting Intractability: non-intractable Qualified Code(s): R11.2 - Nausea with vomiting, unspecified Plan to address problem: Likely secondary to presence of paperclip in the stomach Continue antiemetic with Zofran Patient has abdominal pain. Pain level 3/10 (4) Schizoaffective disorder/bipolar Current Visit: No Status: Acute Plan to address problem: Resume home antipsychotic (5) DVT prophylaxis Current Visit: Yes Status: Acute Plan to address problem: SCD History Interval history: Patient seen and examined, no new complaints this morning wants to be discharged to follow-up with her outpatient program. Hospitalist Physical - Physical exam Narrative exam: General appearance: Present: no acute distress, well-nourished - EENT Eyes: Present: PERRL ENT: hearing intact, clear oral mucosa - Neck Neck: Present: supple, normal ROM - Respiratory Respiratory effort: normal Respiratory: bilateral: CTA - Cardiovascular Heart Sounds: Present: S1 & S2. Absent: rub, click - Extremities Extremities: pulses symmetrical, No edema Peripheral Pulses: within normal limits - Abdominal General gastrointestinal: Present: soft, non-tender, non-distended, normal bowel sounds Female genitourinary: Present: normal - Integumentary Integumentary: Present: Multiple denuded skin area, warm, dry - Musculoskeletal Musculoskeletal: gait normal, strength equal bilaterally - Psychiatric Psychiatric: appropriate mood/affect, intact judgment & insight, cooperative - Neurologic Neurologic: CNII-XII intact, moves all extremities - Allied Health Allied health notes reviewed: nursing - Constitutional Vitals: Temp Pulse Resp BP Pulse Ox 98.6 F 87 20 94/41 96 08/30/20 04:21 08/30/20 04:21 08/30/20 04:21 08/30/20 04:21 08/30/20 04:21 General appearance: Present: no acute distress, well-nourished Results - Labs CBC & Chem 7: 08/30/20 05:48 08/30/20 05:48 Labs: Laboratory Last Values WBC 6.5 K/mm3 (4.5-11.0) 08/30/20 05:48 RBC 4.16 M/mm3 (3.65-5.03) 08/30/20 05:48 Hgb 12.7 gm/dl (10.1-14.3) 08/30/20 05:48 Hct 37.8 % (30.3-42.9) 08/30/20 05:48 MCV 91 fl (79-97) 08/30/20 05:48 MCH 31 pg (28-32) 08/30/20 05:48 MCHC 34 % (30-34) 08/30/20 05:48 RDW 13.9 % (13.2-15.2) 08/30/20 05:48 Plt Count 395 K/mm3 (140-440) 08/30/20 05:48 Lymph % (Auto) 35.5 % (13.4-35.0) H 08/30/20 05:48 Luna % (Auto) 6.4 % (0.0-7.3) 08/30/20 05:48 Eos % (Auto) 0.9 % (0.0-4.3) 08/30/20 05:48 Baso % (Auto) 0.4 % (0.0-1.8) 08/30/20 05:48 Lymph # (Auto) 2.4 K/mm3 (1.2-5.4) 08/30/20 05:48 Luna # (Auto) 0.4 K/mm3 (0.0-0.8) 08/30/20 05:48 Eos # (Auto) 0.1 K/mm3 (0.0-0.4) 08/30/20 05:48 Baso # (Auto) 0.0 K/mm3 (0.0-0.1) 08/30/20 05:48 Seg Neutrophils % 56.8 % (40.0-70.0) 08/30/20 05:48 Seg Neutrophils # 3.7 K/mm3 (1.8-7.7) 08/30/20 05:48 Sodium 140 mmol/L (137-145) 08/30/20 05:48 Potassium 4.4 mmol/L (3.6-5.0) 08/30/20 05:48 Chloride 105.6 mmol/L (98-107) 08/30/20 05:48 Carbon Dioxide 26 mmol/L (22-30) 08/30/20 05:48 Anion Gap 13 mmol/L 08/30/20 05:48 BUN 11 mg/dL (7-17) 08/30/20 05:48 Creatinine 0.9 mg/dL (0.6-1.2) 08/30/20 05:48 Estimated GFR > 60 ml/min 08/30/20 05:48 BUN/Creatinine Ratio 12 % 08/30/20 05:48 Glucose 79 mg/dL (65-100) 08/30/20 05:48 Calcium 9.2 mg/dL (8.4-10.2) 08/30/20 05:48 Total Bilirubin 0.50 mg/dL (0.1-1.2) 08/30/20 05:48 AST 26 units/L (5-40) 08/30/20 05:48 ALT 7 units/L (7-56) 08/30/20 05:48 Alkaline Phosphatase 64 units/L (35-129) 08/30/20 05:48 Total Protein 6.9 g/dL (6.3-8.2) 08/30/20 05:48 Albumin 3.8 g/dL (3.9-5) L 08/30/20 05:48 Albumin/Globulin Ratio 1.2 % 08/30/20 05:48 HCG, Qual Negative (Negative) 08/28/20 23:19 Urine Color Yellow (Yellow) 08/28/20 Unknown Urine Turbidity Slightly-cloudy (Clear) 08/28/20 Unknown Urine pH 6.0 (5.0-7.0) 08/28/20 Unknown Ur Specific [place] 1.020 (1.003-1.030) 08/28/20 Unknown Urine Protein <15 mg/dl mg/dL (Negative) 08/28/20 Unknown Urine Glucose (UA) Neg mg/dL (Negative) 08/28/20 Unknown Urine Ketones Neg mg/dL (Negative) 08/28/20 Unknown Urine Blood Sm (Negative) 08/28/20 Unknown Urine Nitrite Neg (Negative) 08/28/20 Unknown Urine Bilirubin Neg (Negative) 08/28/20 Unknown Urine Urobilinogen < 2.0 mg/dL (<2.0) 08/28/20 Unknown Ur Leukocyte Esterase Neg (Negative) 08/28/20 Unknown Urine WBC (Auto) 2.0 /HPF (0.0-6.0) 08/28/20 Unknown Urine RBC (Auto) 4.0 /HPF (0.0-6.0) 08/28/20 Unknown U Epithel Cells (Auto) 13.0 /HPF (0-13.0) 08/28/20 Unknown Urine Mucus Few /HPF 08/28/20 Unknown Salicylates < 0.3 mg/dL (2.8-20.0) L 08/28/20 23:19 Urine Opiates Screen Presumptive negative 08/28/20 Unknown Urine Methadone Screen Presumptive negative 08/28/20 Unknown Acetaminophen 5.0 ug/mL (10.0-30.0) L 08/28/20 23:19 Ur Barbiturates Screen Presumptive negative 08/28/20 Unknown Ur Phencyclidine Scrn Presumptive negative 08/28/20 Unknown Ur Amphetamines Screen Presumptive negative 08/28/20 Unknown U Benzodiazepines Scrn Presumptive negative 08/28/20 Unknown Urine Cocaine Screen Presumptive negative 08/28/20 Unknown U Marijuana (THC) Screen Presumptive negative 08/28/20 Unknown Drugs of Abuse Note Disclamer 08/28/20 Unknown Plasma/Serum Alcohol < 0.01 % (0-0.07) 08/28/20 23:19 Arizmendi/IV: Voiding Method Toilet Active Medications - Current Medications Current Medications: Generic Name Dose Route Start Last Admin Trade Name Freq PRN Reason Stop Dose Admin Acetaminophen 650 mg 08/29/20 03:28 Acetaminophen 325 Mg Tab PO Q4H PRN Pain MILD(1-3)/Fever >100.5/NAYAK Aripiprazole 20 mg 08/29/20 10:00 08/30/20 09:28 Aripiprazole 10 Mg Tab PO 20 mg QDAY RODO Administration Divalproex Sodium 500 mg 08/29/20 10:00 08/30/20 09:28 Divalproex Er 500 Mg Tab PO 500 mg BID RODO Administration Escitalopram Oxalate 10 mg 08/29/20 10:00 08/30/20 09:28 Escitalopram 10 Mg Tab PO 10 mg QDAY RODO Administration Metoclopramide HCl 10 mg 08/29/20 03:28 08/30/20 14:02 Metoclopramide 10 Mg/2 Ml Inj IV 10 mg Q6H PRN Administration Nausea And Vomiting Ondansetron HCl 4 mg 08/29/20 03:28 Ondansetron 4 Mg/2 Ml Inj IV Q8H PRN Nausea And Vomiting Sodium Chloride 10 ml 08/29/20 10:00 08/30/20 09:29 Sodium Chloride 0.9% 10 Ml Flush Syringe IV 10 ml BID RODO Administration Sodium Chloride 10 ml 08/29/20 03:28 Sodium Chloride 0.9% 10 Ml Flush Syringe IV PRN PRN LINE FLUSH
[2020-08-31] MEDS: ONDANSETRON 4 MG/2 ML INJ IV PRN (09:34)
[2020-08-31] MEDS: ESCITALOPRAM 10 MG TAB PO SCH (09:34)
[2020-08-31] MEDS: ARIPiprazole 10 MG TAB PO SCH (09:35)
[2020-08-31] MEDS: DIVALPROEX ER 500 MG TAB PO SCH ×2 (09:35→21:59)
[2020-08-31] MEDS: ACETAMINOPHEN 325 MG TAB PO PRN (09:43)
--- NOTE | 2020-08-31 10:45 | Progress Note ---
Assessment and Plan Assessment and plan: Patient is a 20-year-old female that presents emergency room with a suicide attempt by ingestion of a foreign body. Patient has done this in the past. Patient states she been having suicidal thoughts and depression lately. Patient had labs done which were essentially unremarkable. Patient chest x-ray which was negative for acute findings. Patient had an abdominal x-ray which shows a foreign body in the stomach region. I discussed the case with GI and GI recommends monitoring the patient and repeat the x-ray. After being x-ray, the patient did not complain of abdominal pain and nausea vomiting. I then discussed the case again with GI GI recommends admit the patient observation. After his evaluation, the patient was placed on a 1013 and an ER hold. Patient admitted to the hospital service for further evaluation treatment. ED work-up WBC 9.4, hemoglobin 12.3, platelet 393, sodium 138, potassium 3.9, creatinin is 0.8, serum glucose 81 x-ray of the abdomen no significant abnormality. Chest x-ray patient has a metallic paperclip noted projected over the upper abdomen and no significant pulmonary or pleural abnormality. Patient seen in the ED. Alert oriented x3 at the time of assessment. She reports a history of bipolar disorder, schizophrenia, hallucination hearing voices she says she swallowed it directly because she had voices telling her to do so. She admits compliance with her medication. I reviewed her lab, radiology studies, vital signs, and medication record. 08/29: Xray shows repeatedly retained paper clip, Discussed with GI, patient underwent endoscopy with removal of the clip. She is clinically stable for discharge based on Psych recommendation 08/30: Discussed with psych team. Initially it was thought the patient will be discharged but after reevaluation they felt that the patient will benefit from inpatient psych. They are recommending inpatient psych placement voluntarily. 08/31: Patient with asymptomatic chronic Hypotension, will restart Midodrine. Awaiting placement. No new complaints. (1) Suicidal ideation Current Visit: Yes Status: Acute Plan to address problem: Patient admits swallowing directly. Abdominal x-ray shows paperclip in the upper abdomen. GI consultedfollow-up with recommendation. (2) Foreign body ingestion Current Visit: Yes Status: Acute Qualifiers: Encounter type: initial encounter Qualified Code(s): T18.9XXA - Foreign body of alimentary tract, part unspecified, initial encounter Plan to address problem: GI consult, serial abdominal x-ray GI recommends a morning x-ray of the abdomen to verify the paperclip is moved into the small intestine (3) Nausea & vomiting Current Visit: Yes Status: Acute Qualifiers: Vomiting type: unspecified Vomiting Intractability: non-intractable Qualified Code(s): R11.2 - Nausea with vomiting, unspecified Plan to address problem: Likely secondary to presence of paperclip in the stomach Continue antiemetic with Zofran Patient has abdominal pain. Pain level 3/10 (4) Schizoaffective disorder/bipolar Current Visit: No Status: Acute Plan to address problem: Resume home antipsychotic (5) chronic Hypotension (6) DVT prophylaxis Current Visit: Yes Status: Acute Plan to address problem: SCD History Interval history: Patient seen and examined, no new complaints , an issues was raised about her blood pressure and she states is normally low. She has been on midodrine in the past. Hospitalist Physical - Physical exam Narrative exam: General appearance: Present: no acute distress, well-nourished - EENT Eyes: Present: PERRL ENT: hearing intact, clear oral mucosa - Neck Neck: Present: supple, normal ROM - Respiratory Respiratory effort: normal Respiratory: bilateral: CTA - Cardiovascular Heart Sounds: Present: S1 & S2. Absent: rub, click - Extremities Extremities: pulses symmetrical, No edema Peripheral Pulses: within normal limits - Abdominal General gastrointestinal: Present: soft, non-tender, non-distended, normal bowel sounds Female genitourinary: Present: normal - Integumentary Integumentary: Present: Multiple denuded skin area, warm, dry - Musculoskeletal Musculoskeletal: gait normal, strength equal bilaterally - Psychiatric Psychiatric: appropriate mood/affect, intact judgment & insight, cooperative - Neurologic Neurologic: CNII-XII intact, moves all extremities - Allied Health Allied health notes reviewed: nursing - Constitutional Vitals: Temp Pulse Resp BP Pulse Ox 98.3 F 93 H 20 89/50 95 08/31/20 09:47 08/31/20 09:47 08/31/20 09:47 08/31/20 09:47 08/31/20 09:47 General appearance: Present: no acute distress, well-nourished Results - Labs CBC & Chem 7: 08/30/20 05:48 08/30/20 05:48 Labs: Laboratory Last Values WBC 6.5 K/mm3 (4.5-11.0) 08/30/20 05:48 RBC 4.16 M/mm3 (3.65-5.03) 08/30/20 05:48 Hgb 12.7 gm/dl (10.1-14.3) 08/30/20 05:48 Hct 37.8 % (30.3-42.9) 08/30/20 05:48 MCV 91 fl (79-97) 08/30/20 05:48 MCH 31 pg (28-32) 08/30/20 05:48 MCHC 34 % (30-34) 08/30/20 05:48 RDW 13.9 % (13.2-15.2) 08/30/20 05:48 Plt Count 395 K/mm3 (140-440) 08/30/20 05:48 Lymph % (Auto) 35.5 % (13.4-35.0) H 08/30/20 05:48 [place] % (Auto) 6.4 % (0.0-7.3) 08/30/20 05:48 Eos % (Auto) 0.9 % (0.0-4.3) 08/30/20 05:48 Baso % (Auto) 0.4 % (0.0-1.8) 08/30/20 05:48 Lymph # (Auto) 2.4 K/mm3 (1.2-5.4) 08/30/20 05:48 [place] # (Auto) 0.4 K/mm3 (0.0-0.8) 08/30/20 05:48 Eos # (Auto) 0.1 K/mm3 (0.0-0.4) 08/30/20 05:48 Baso # (Auto) 0.0 K/mm3 (0.0-0.1) 08/30/20 05:48 Seg Neutrophils % 56.8 % (40.0-70.0) 08/30/20 05:48 Seg Neutrophils # 3.7 K/mm3 (1.8-7.7) 08/30/20 05:48 Sodium 140 mmol/L (137-145) 08/30/20 05:48 Potassium 4.4 mmol/L (3.6-5.0) 08/30/20 05:48 Chloride 105.6 mmol/L (98-107) 08/30/20 05:48 Carbon Dioxide 26 mmol/L (22-30) 08/30/20 05:48 Anion Gap 13 mmol/L 08/30/20 05:48 BUN 11 mg/dL (7-17) 08/30/20 05:48 Creatinine 0.9 mg/dL (0.6-1.2) 08/30/20 05:48 Estimated GFR > 60 ml/min 08/30/20 05:48 BUN/Creatinine Ratio 12 % 08/30/20 05:48 Glucose 79 mg/dL (65-100) 08/30/20 05:48 Calcium 9.2 mg/dL (8.4-10.2) 08/30/20 05:48 Total Bilirubin 0.50 mg/dL (0.1-1.2) 08/30/20 05:48 AST 26 units/L (5-40) 08/30/20 05:48 ALT 7 units/L (7-56) 08/30/20 05:48 Alkaline Phosphatase 64 units/L (35-129) 08/30/20 05:48 Total Protein 6.9 g/dL (6.3-8.2) 08/30/20 05:48 Albumin 3.8 g/dL (3.9-5) L 08/30/20 05:48 Albumin/Globulin Ratio 1.2 % 08/30/20 05:48 HCG, Qual Negative (Negative) 08/28/20 23:19 Urine Color Yellow (Yellow) 08/28/20 Unknown Urine Turbidity Slightly-cloudy (Clear) 08/28/20 Unknown Urine pH 6.0 (5.0-7.0) 08/28/20 Unknown Ur Specific [place] 1.020 (1.003-1.030) 08/28/20 Unknown Urine Protein <15 mg/dl mg/dL (Negative) 08/28/20 Unknown Urine Glucose (UA) Neg mg/dL (Negative) 08/28/20 Unknown Urine Ketones Neg mg/dL (Negative) 08/28/20 Unknown Urine Blood Sm (Negative) 08/28/20 Unknown Urine Nitrite Neg (Negative) 08/28/20 Unknown Urine Bilirubin Neg (Negative) 08/28/20 Unknown Urine Urobilinogen < 2.0 mg/dL (<2.0) 08/28/20 Unknown Ur Leukocyte Esterase Neg (Negative) 08/28/20 Unknown Urine WBC (Auto) 2.0 /HPF (0.0-6.0) 08/28/20 Unknown Urine RBC (Auto) 4.0 /HPF (0.0-6.0) 08/28/20 Unknown U Epithel Cells (Auto) 13.0 /HPF (0-13.0) 08/28/20 Unknown Urine Mucus Few /HPF 08/28/20 Unknown Salicylates < 0.3 mg/dL (2.8-20.0) L 08/28/20 23:19 Urine Opiates Screen Presumptive negative 08/28/20 Unknown Urine Methadone Screen Presumptive negative 08/28/20 Unknown Acetaminophen 5.0 ug/mL (10.0-30.0) L 08/28/20 23:19 Ur Barbiturates Screen Presumptive negative 08/28/20 Unknown Ur Phencyclidine Scrn Presumptive negative 08/28/20 Unknown Ur Amphetamines Screen Presumptive negative 08/28/20 Unknown U Benzodiazepines Scrn Presumptive negative 08/28/20 Unknown Urine Cocaine Screen Presumptive negative 08/28/20 Unknown U Marijuana (THC) Screen Presumptive negative 08/28/20 Unknown Drugs of Abuse Note Disclamer 08/28/20 Unknown Plasma/Serum Alcohol < 0.01 % (0-0.07) 08/28/20 23:19 Arizmendi/IV: Voiding Method Toilet Active Medications - Current Medications Current Medications: Generic Name Dose Route Start Last Admin Trade Name Freq PRN Reason Stop Dose Admin Acetaminophen 650 mg 08/29/20 03:28 08/31/20 09:43 Acetaminophen 325 Mg Tab PO 650 mg Q4H PRN Administration Pain MILD(1-3)/Fever >100.5/NAYAK Aripiprazole 20 mg 08/29/20 10:00 08/31/20 09:35 Aripiprazole 10 Mg Tab PO 20 mg QDAY RODO Administration Divalproex Sodium 500 mg 08/29/20 10:00 08/31/20 09:35 Divalproex Er 500 Mg Tab PO 500 mg BID RODO Administration Escitalopram Oxalate 10 mg 08/29/20 10:00 08/31/20 09:34 Escitalopram 10 Mg Tab PO 10 mg QDAY RODO Administration Metoclopramide HCl 10 mg 08/29/20 03:28 08/30/20 14:02 Metoclopramide 10 Mg/2 Ml Inj IV 10 mg Q6H PRN Administration Nausea And Vomiting Midodrine 2.5 mg 08/31/20 09:00 Midodrine 2.5 Mg Tab PO TID@0800,1200,1600 RODO Ondansetron HCl 4 mg 08/29/20 03:28 08/31/20 09:34 Ondansetron 4 Mg/2 Ml Inj IV 4 mg Q8H PRN Administration Nausea And Vomiting Sodium Chloride 10 ml 08/29/20 10:00 08/31/20 09:35 Sodium Chloride 0.9% 10 Ml Flush Syringe IV 10 ml BID RODO Administration Sodium Chloride 10 ml 08/29/20 03:28 Sodium Chloride 0.9% 10 Ml Flush Syringe IV PRN PRN LINE FLUSH
[2020-08-31] MEDS: MIDODRINE 2.5 MG TAB PO SCH ×3 (12:48→17:14)
--- NOTE | 2020-08-31 14:49 | Progress Note ---
Subjective - Reason for Consult Consult date: 08/31/20 Reason for consult: MHE Requesting physician: MARTHA ANGULO - Chief Complaint Chief complaint: Psych Progress Pt reports feeling good today, resting well at this time. Denies feeling depre ssed or suicidal. Though pt denies symptoms, due to persistent behavior and high risk without good suport system, an intervention strongly recommended REVIEW OF SYSTEMS Constitutional: Negative for weight loss ENT: Negative for stridor Respiratory: Negative for cough or hemoptysis All other systems reviewed and are negative MENTAL STATUS EXAMINATION General Appearance and Behavior: Age appropriate, fair hygiene, wearing appropriate clothes, lying in bed, poor eye contact, cooperative irritable with questioning. Cooperation: Participating, Hostile and Guarded Psychomotor Behavior: unremarkable and within normal limits Mood: I don't know Affect and affective range: flat, preservative Thought Process: Illogical, Blocked, Thought Content: Hopelessness, Helplessness, Speech: Normal volume, Regular rate and rhythm, Intellectual Functioning: Average Suicidal Ideation: Denies SI Homicidal Ideation: Denies HI Impulse Control: Impaired Insight and Judgment: Limited insight and judgment Memory: Short term memory intact Attention: Divided attention impaired Orientation: Alert, oriented, Assessment and Plan (1) Bipolar Disorder Treatment Plan No medications at this time Risks, benefits and alternatives of medications discussed with the patient, questions answered and consent obtained from patient. PSYCHOTHERAPY: Supportive psychotherapy provided MEDICAL: Per primary team DELIRIUM PRECAUTIONS: Please re-orient patient frequently, keep lights on during the day, and minimize benzodiazepines and opiates as these medications could worsen patient's confusion. BUDGET DIRECTOR: Defer to primary DISPOSITION: Do Recommend acute inpatient psychiatric hospitalization at this time. LEGAL STATUS: 1013 FOLLOW-UP: follow The supervisor fish processing to give the patient safety plan, and resources. Thank you for the consult. Please contact with any questions and/or concerns Case discussed with Dr. Estrada who agrees with current disposition Mental Status Exam - Vital signs Last Vital Signs Temp 98.3 F 08/31/20 11:04 Pulse 94 H 08/31/20 11:04 Resp 20 08/31/20 11:04 BP 89/50 08/31/20 11:04 Pulse Ox 96 08/31/20 11:04
[2020-08-31] MEDS ORDERED: traMADol 50 MG TAB PO ONE (17:10)
[2020-09-01] MEDS: ESCITALOPRAM 10 MG TAB PO SCH ×2 (08:41→18:48)
[2020-09-01] MEDS: ARIPiprazole 10 MG TAB PO SCH ×2 (08:41→18:48)
[2020-09-01] MEDS: DIVALPROEX ER 500 MG TAB PO SCH ×3 (08:41→22:32)
[2020-09-01] MEDS: MIDODRINE 2.5 MG TAB PO SCH ×3 (08:42→16:57)
[2020-09-01] MEDS: ONDANSETRON 4 MG/2 ML INJ IV PRN (08:52)
[2020-09-01] MEDS: ACETAMINOPHEN 325 MG TAB PO PRN (08:52)
--- NOTE | 2020-09-01 10:02 | Progress Note ---
Assessment and Plan Assessment and plan: Patient is a 20-year-old female that presents emergency room with a suicide attempt by ingestion of a foreign body. Patient has done this in the past. Patient states she been having suicidal thoughts and depression lately. Patient had labs done which were essentially unremarkable. Patient chest x-ray which was negative for acute findings. Patient had an abdominal x-ray which shows a foreign body in the stomach region. I discussed the case with GI and GI recommends monitoring the patient and repeat the x-ray. After being x-ray, the patient did not complain of abdominal pain and nausea vomiting. I then discussed the case again with GI GI recommends admit the patient observation. After his evaluation, the patient was placed on a 1013 and an ER hold. Patient admitted to the hospital service for further evaluation treatment. ED work-up WBC 9.4, hemoglobin 12.3, platelet 393, sodium 138, potassium 3.9, creatinin is 0.8, serum glucose 81 x-ray of the abdomen no significant abnormality. Chest x-ray patient has a metallic paperclip noted projected over the upper abdomen and no significant pulmonary or pleural abnormality. Patient seen in the ED. Alert oriented x3 at the time of assessment. She reports a history of bipolar disorder, schizophrenia, hallucination hearing voices she says she swallowed it directly because she had voices telling her to do so. She admits compliance with her medication. I reviewed her lab, radiology studies, vital signs, and medication record. 08/29: Xray shows repeatedly retained paper clip, Discussed with GI, patient underwent endoscopy with removal of the clip. She is clinically stable for discharge based on Psych recommendation 08/30: Discussed with psych team. Initially it was thought the patient will be discharged but after reevaluation they felt that the patient will benefit from inpatient psych. They are recommending inpatient psych placement voluntarily. 08/31: Patient with asymptomatic chronic Hypotension, will restart Midodrine. Awaiting placement. No new complaints. 09/01: Noted headache improved some yesterday we will start on Fioricet discontinue morphine as that was not helpful to the patient. Patient remains at 1013 clarification by psych and is pending placement blood pressure has improved. No further nausea vomiting. And no blurry vision noted. (1) Suicidal ideation Current Visit: Yes Status: Acute Plan to address problem: Patient admits swallowing directly. Abdominal x-ray shows paperclip in the upper abdomen. GI consultedfollow-up with recommendation. (2) Foreign body ingestion Current Visit: Yes Status: Acute Qualifiers: Encounter type: initial encounter Qualified Code(s): T18.9XXA - Foreign body of alimentary tract, part unspecified, initial encounter Plan to address problem: GI consult, serial abdominal x-ray GI recommends a morning x-ray of the abdomen to verify the paperclip is moved into the small intestine (3) Nausea & vomiting Current Visit: Yes Status: Acute Qualifiers: Vomiting type: unspecified Vomiting Intractability: non-intractable Qualified Code(s): R11.2 - Nausea with vomiting, unspecified Plan to address problem: Likely secondary to presence of paperclip in the stomach Continue antiemetic with Zofran Patient has abdominal pain. Pain level 3/10 (4) Schizoaffective disorder/bipolar Current Visit: No Status: Acute Plan to address problem: Resume home antipsychotic (5) chronic Hypotension (6) headache (7) DVT prophylaxis Current Visit: Yes Status: Acute Plan to address problem: SCD History Interval history: Patient seen and examined, no new complaints , yesterday complained of headache states is improving today. Hospitalist Physical - Physical exam Narrative exam: General appearance: Present: no acute distress, well-nourished - EENT Eyes: Present: PERRL ENT: hearing intact, clear oral mucosa - Neck Neck: Present: supple, normal ROM - Respiratory Respiratory effort: normal Respiratory: bilateral: CTA - Cardiovascular Heart Sounds: Present: S1 & S2. Absent: rub, click - Extremities Extremities: pulses symmetrical, No edema Peripheral Pulses: within normal limits - Abdominal General gastrointestinal: Present: soft, non-tender, non-distended, normal bowel sounds Female genitourinary: Present: normal - Integumentary Integumentary: Present: Multiple denuded skin area, warm, dry - Musculoskeletal Musculoskeletal: gait normal, strength equal bilaterally - Psychiatric Psychiatric: appropriate mood/affect, intact judgment & insight, cooperative - Neurologic Neurologic: CNII-XII intact, moves all extremities - Allied Health Allied health notes reviewed: nursing - Constitutional Vitals: Temp Pulse Resp BP Pulse Ox 98.9 F 69 17 102/53 97 09/01/20 05:40 09/01/20 05:40 09/01/20 05:40 09/01/20 05:40 09/01/20 05:40 General appearance: Present: no acute distress, well-nourished Results - Labs CBC & Chem 7: 08/30/20 05:48 08/30/20 05:48 Labs: Laboratory Last Values WBC 6.5 K/mm3 (4.5-11.0) 08/30/20 05:48 RBC 4.16 M/mm3 (3.65-5.03) 08/30/20 05:48 Hgb 12.7 gm/dl (10.1-14.3) 08/30/20 05:48 Hct 37.8 % (30.3-42.9) 08/30/20 05:48 MCV 91 fl (79-97) 08/30/20 05:48 MCH 31 pg (28-32) 08/30/20 05:48 MCHC 34 % (30-34) 08/30/20 05:48 RDW 13.9 % (13.2-15.2) 08/30/20 05:48 Plt Count 395 K/mm3 (140-440) 08/30/20 05:48 Lymph % (Auto) 35.5 % (13.4-35.0) H 08/30/20 05:48 [place] % (Auto) 6.4 % (0.0-7.3) 08/30/20 05:48 Eos % (Auto) 0.9 % (0.0-4.3) 08/30/20 05:48 Baso % (Auto) 0.4 % (0.0-1.8) 08/30/20 05:48 Lymph # (Auto) 2.4 K/mm3 (1.2-5.4) 08/30/20 05:48 Real # (Auto) 0.4 K/mm3 (0.0-0.8) 08/30/20 05:48 Eos # (Auto) 0.1 K/mm3 (0.0-0.4) 08/30/20 05:48 Baso # (Auto) 0.0 K/mm3 (0.0-0.1) 08/30/20 05:48 Seg Neutrophils % 56.8 % (40.0-70.0) 08/30/20 05:48 Seg Neutrophils # 3.7 K/mm3 (1.8-7.7) 08/30/20 05:48 Sodium 140 mmol/L (137-145) 08/30/20 05:48 Potassium 4.4 mmol/L (3.6-5.0) 08/30/20 05:48 Chloride 105.6 mmol/L (98-107) 08/30/20 05:48 Carbon Dioxide 26 mmol/L (22-30) 08/30/20 05:48 Anion Gap 13 mmol/L 08/30/20 05:48 BUN 11 mg/dL (7-17) 08/30/20 05:48 Creatinine 0.9 mg/dL (0.6-1.2) 08/30/20 05:48 Estimated GFR > 60 ml/min 08/30/20 05:48 BUN/Creatinine Ratio 12 % 08/30/20 05:48 Glucose 79 mg/dL (65-100) 08/30/20 05:48 Calcium 9.2 mg/dL (8.4-10.2) 08/30/20 05:48 Total Bilirubin 0.50 mg/dL (0.1-1.2) 08/30/20 05:48 AST 26 units/L (5-40) 08/30/20 05:48 ALT 7 units/L (7-56) 08/30/20 05:48 Alkaline Phosphatase 64 units/L (35-129) 08/30/20 05:48 Total Protein 6.9 g/dL (6.3-8.2) 08/30/20 05:48 Albumin 3.8 g/dL (3.9-5) L 08/30/20 05:48 Albumin/Globulin Ratio 1.2 % 08/30/20 05:48 HCG, Qual Negative (Negative) 08/28/20 23:19 Urine Color Yellow (Yellow) 08/28/20 Unknown Urine Turbidity Slightly-cloudy (Clear) 08/28/20 Unknown Urine pH 6.0 (5.0-7.0) 08/28/20 Unknown Ur Specific [place] 1.020 (1.003-1.030) 08/28/20 Unknown Urine Protein <15 mg/dl mg/dL (Negative) 08/28/20 Unknown Urine Glucose (UA) Neg mg/dL (Negative) 08/28/20 Unknown Urine Ketones Neg mg/dL (Negative) 08/28/20 Unknown Urine Blood Sm (Negative) 08/28/20 Unknown Urine Nitrite Neg (Negative) 08/28/20 Unknown Urine Bilirubin Neg (Negative) 08/28/20 Unknown Urine Urobilinogen < 2.0 mg/dL (<2.0) 08/28/20 Unknown Ur Leukocyte Esterase Neg (Negative) 08/28/20 Unknown Urine WBC (Auto) 2.0 /HPF (0.0-6.0) 08/28/20 Unknown Urine RBC (Auto) 4.0 /HPF (0.0-6.0) 08/28/20 Unknown U Epithel Cells (Auto) 13.0 /HPF (0-13.0) 08/28/20 Unknown Urine Mucus Few /HPF 08/28/20 Unknown Salicylates < 0.3 mg/dL (2.8-20.0) L 08/28/20 23:19 Urine Opiates Screen Presumptive negative 08/28/20 Unknown Urine Methadone Screen Presumptive negative 08/28/20 Unknown Acetaminophen 5.0 ug/mL (10.0-30.0) L 08/28/20 23:19 Ur Barbiturates Screen Presumptive negative 08/28/20 Unknown Ur Phencyclidine Scrn Presumptive negative 08/28/20 Unknown Ur Amphetamines Screen Presumptive negative 08/28/20 Unknown U Benzodiazepines Scrn Presumptive negative 08/28/20 Unknown Urine Cocaine Screen Presumptive negative 08/28/20 Unknown U Marijuana (THC) Screen Presumptive negative 08/28/20 Unknown Drugs of Abuse Note Disclamer 08/28/20 Unknown Plasma/Serum Alcohol < 0.01 % (0-0.07) 08/28/20 23:19 Coronavirus (PCR) Negative (Negative) 08/30/20 08:30 Arizmendi/IV: Voiding Method Toilet Active Medications - Current Medications Current Medications: Generic Name Dose Route Start Last Admin Trade Name Freq PRN Reason Stop Dose Admin Acetaminophen 650 mg 08/29/20 03:28 09/01/20 08:52 Acetaminophen 325 Mg Tab PO 650 mg Q4H PRN Administration Pain MILD(1-3)/Fever >100.5/NAYAK Aripiprazole 20 mg 08/29/20 10:00 09/01/20 08:41 Aripiprazole 10 Mg Tab PO 20 mg QDAY RODO Administration Divalproex Sodium 500 mg 08/29/20 10:00 09/01/20 08:41 Divalproex Er 500 Mg Tab PO 500 mg BID RODO Administration Escitalopram Oxalate 10 mg 08/29/20 10:00 09/01/20 08:41 Escitalopram 10 Mg Tab PO 10 mg QDAY RODO Administration Metoclopramide HCl 10 mg 08/29/20 03:28 08/30/20 14:02 Metoclopramide 10 Mg/2 Ml Inj IV 10 mg Q6H PRN Administration Nausea And Vomiting Midodrine 2.5 mg 08/31/20 09:00 09/01/20 08:42 Midodrine 2.5 Mg Tab PO 2.5 mg TID@0800,1200,1600 RODO Administration Ondansetron HCl 4 mg 08/29/20 03:28 09/01/20 08:52 Ondansetron 4 Mg/2 Ml Inj IV 4 mg Q8H PRN Administration Nausea And Vomiting Sodium Chloride 10 ml 08/29/20 10:00 08/31/20 22:00 Sodium Chloride 0.9% 10 Ml Flush Syringe IV 10 ml BID RODO Administration Sodium Chloride 10 ml 08/29/20 03:28 Sodium Chloride 0.9% 10 Ml Flush Syringe IV PRN PRN LINE FLUSH
--- NOTE | 2020-09-01 10:14 | Progress Note ---
Subjective - Reason for Consult Consult date: 09/01/20 Reason for consult: MHE Requesting physician: MARTHA ANGULO - Chief Complaint Chief complaint: Psych Progress Patient seen at bedside, denies having complaints, endorses wishes to go home. Pt informed reason for inpatient is due to cyclical behavior of ingesting sharp objects with intention to hurt self and needs intervention. REVIEW OF SYSTEMS Constitutional: Negative for weight loss ENT: Negative for stridor Respiratory: Negative for cough or hemoptysis All other systems reviewed and are negative MENTAL STATUS EXAMINATION General Appearance and Behavior: Age appropriate, fair hygiene, wearing appropriate clothes, lying in bed, poor eye contact, cooperative irritable with questioning. Cooperation: Participating, Hostile and Guarded Psychomotor Behavior: unremarkable and within normal limits Mood: I don't know Affect and affective range: flat, preservative Thought Process: Illogical, Blocked, Thought Content: Hopelessness, Helplessness, Speech: Normal volume, Regular rate and rhythm, Intellectual Functioning: Average Suicidal Ideation: Denies SI Homicidal Ideation: Denies HI Impulse Control: Impaired Insight and Judgment: Limited insight and judgment Memory: Short term memory intact Attention: Divided attention impaired Orientation: Alert, oriented, Assessment and Plan (1) Bipolar Disorder Treatment Plan No medications at this time Risks, benefits and alternatives of medications discussed with the patient, questions answered and consent obtained from patient. PSYCHOTHERAPY: Supportive psychotherapy provided MEDICAL: Per primary team DELIRIUM PRECAUTIONS: Please re-orient patient frequently, keep lights on during the day, and minimize benzodiazepines and opiates as these medications could worsen patient's confusion. SCHOOL BUS DRIVER/TEACHER ASSISTANT: Defer to primary DISPOSITION: Do Recommend acute inpatient psychiatric hospitalization at this time. LEGAL STATUS: 1013 FOLLOW-UP: follow The torch straightener and heater to give the patient safety plan, and resources. Thank you for the consult. Please contact with any questions and/or concerns Case discussed with Dr. Estrada who agrees with current disposition Mental Status Exam - Vital signs Last Vital Signs Temp 98.9 F 09/01/20 05:40 Pulse 69 09/01/20 05:40 Resp 17 09/01/20 05:40 BP 102/53 09/01/20 05:40 Pulse Ox 97 09/01/20 05:40
[2020-09-02] MEDS: ARIPiprazole 10 MG TAB PO SCH (10:25)
[2020-09-02] MEDS: DIVALPROEX ER 500 MG TAB PO SCH (10:25)
[2020-09-02] MEDS: ESCITALOPRAM 10 MG TAB PO SCH (10:26)
[2020-09-02] MEDS: MIDODRINE 2.5 MG TAB PO SCH (10:32)
--- NOTE | 2020-09-02 10:40 | Progress Note ---
Subjective - Reason for Consult Consult date: 09/02/20 Reason for consult: MHE Requesting physician: MARTHA ANGULO - Chief Complaint Chief complaint: Psych Progress Patient interviewed this AM, states she really would like to go back to [facility] which was where she was before coming here. Patient states she only did what she did hoping it would bring her mom closer to her in person as she has not seen her mom in over 4 months. Does not have any thoughts of self harming, and has been doing very well without any majhor incident in 3-4 weeks while she was at [facility]. REVIEW OF SYSTEMS Constitutional: Negative for weight loss ENT: Negative for stridor Respiratory: Negative for cough or hemoptysis All other systems reviewed and are negative MENTAL STATUS EXAMINATION General Appearance and Behavior: Age appropriate, good hygiene, wearing appropriate clothes, good eye contact, cooperative polite with questioning. Cooperation: Participating/engaged Psychomotor Behavior: unremarkable and within normal limits Mood: Good Affect and affective range: congruent with mood Thought Process: Fluent/Logical, Thought Content: Within reality, Speech: Normal volume, Regular rate and rhythm, Intellectual Functioning: Average Suicidal Ideation: Denies SI Homicidal Ideation: Denies HI Impulse Control: Unimpaired Insight and Judgment: Normal insight and judgment, Memory: Normal, Attention: Normal, Orientation: Alert, oriented, Assessment and Plan (1) Bipolar Disorder Treatment Plan Can resume her home medications. Risks, benefits and alternatives of medications discussed with the patient, questions answered and consent obtained from patient. PSYCHOTHERAPY: Supportive psychotherapy provided MEDICAL: Per primary team DELIRIUM PRECAUTIONS: Please re-orient patient frequently, keep lights on during the day, and minimize benzodiazepines and opiates as these medications could worsen patient's confusion. IOS DEVELOPER: Defer to primary DISPOSITION: Do not Recommend acute inpatient psychiatric hospitalization at this time. Safety discharge LEGAL STATUS: 1013 rescinded FOLLOW-UP: sign off The avionics systems repairer to give the patient safety plan, and resources. Thank you for the consult. Please contact with any questions and/or concerns Case discussed with Dr. Estrada who agrees with current disposition Mental Status Exam - Vital signs Last Vital Signs Temp 98.6 F 09/02/20 05:45 Pulse 75 09/02/20 05:45 Resp 12 09/02/20 05:45 BP 91/54 09/02/20 05:56 Pulse Ox 98 09/02/20 00:30
[2020-09-02 10:45] VITALS: BP 107/60
--- NOTE | 2020-09-02 11:05 | Progress Note ---
Hospitalist Physical - Constitutional Vitals: Temp Pulse Resp BP Pulse Ox 98.3 F 75 18 107/60 98 09/02/20 10:43 09/02/20 05:45 09/02/20 10:43 09/02/20 10:43 09/02/20 00:30 General appearance: Present: no acute distress, well-nourished Results - Labs CBC & Chem 7: 08/30/20 05:48 08/30/20 05:48 Labs: Laboratory Last Values WBC 6.5 K/mm3 (4.5-11.0) 08/30/20 05:48 RBC 4.16 M/mm3 (3.65-5.03) 08/30/20 05:48 Hgb 12.7 gm/dl (10.1-14.3) 08/30/20 05:48 Hct 37.8 % (30.3-42.9) 08/30/20 05:48 MCV 91 fl (79-97) 08/30/20 05:48 MCH 31 pg (28-32) 08/30/20 05:48 MCHC 34 % (30-34) 08/30/20 05:48 RDW 13.9 % (13.2-15.2) 08/30/20 05:48 Plt Count 395 K/mm3 (140-440) 08/30/20 05:48 Lymph % (Auto) 35.5 % (13.4-35.0) H 08/30/20 05:48 Warren % (Auto) 6.4 % (0.0-7.3) 08/30/20 05:48 Eos % (Auto) 0.9 % (0.0-4.3) 08/30/20 05:48 Baso % (Auto) 0.4 % (0.0-1.8) 08/30/20 05:48 Lymph # (Auto) 2.4 K/mm3 (1.2-5.4) 08/30/20 05:48 [place] # (Auto) 0.4 K/mm3 (0.0-0.8) 08/30/20 05:48 Eos # (Auto) 0.1 K/mm3 (0.0-0.4) 08/30/20 05:48 Baso # (Auto) 0.0 K/mm3 (0.0-0.1) 08/30/20 05:48 Seg Neutrophils % 56.8 % (40.0-70.0) 08/30/20 05:48 Seg Neutrophils # 3.7 K/mm3 (1.8-7.7) 08/30/20 05:48 Sodium 140 mmol/L (137-145) 08/30/20 05:48 Potassium 4.4 mmol/L (3.6-5.0) 08/30/20 05:48 Chloride 105.6 mmol/L (98-107) 08/30/20 05:48 Carbon Dioxide 26 mmol/L (22-30) 08/30/20 05:48 Anion Gap 13 mmol/L 08/30/20 05:48 BUN 11 mg/dL (7-17) 08/30/20 05:48 Creatinine 0.9 mg/dL (0.6-1.2) 08/30/20 05:48 Estimated GFR > 60 ml/min 08/30/20 05:48 BUN/Creatinine Ratio 12 % 08/30/20 05:48 Glucose 79 mg/dL (65-100) 08/30/20 05:48 Calcium 9.2 mg/dL (8.4-10.2) 08/30/20 05:48 Total Bilirubin 0.50 mg/dL (0.1-1.2) 08/30/20 05:48 AST 26 units/L (5-40) 08/30/20 05:48 ALT 7 units/L (7-56) 08/30/20 05:48 Alkaline Phosphatase 64 units/L (35-129) 08/30/20 05:48 Total Protein 6.9 g/dL (6.3-8.2) 08/30/20 05:48 Albumin 3.8 g/dL (3.9-5) L 08/30/20 05:48 Albumin/Globulin Ratio 1.2 % 08/30/20 05:48 HCG, Qual Negative (Negative) 08/28/20 23:19 Urine Color Yellow (Yellow) 08/28/20 Unknown Urine Turbidity Slightly-cloudy (Clear) 08/28/20 Unknown Urine pH 6.0 (5.0-7.0) 08/28/20 Unknown Ur Specific [place] 1.020 (1.003-1.030) 08/28/20 Unknown Urine Protein <15 mg/dl mg/dL (Negative) 08/28/20 Unknown Urine Glucose (UA) Neg mg/dL (Negative) 08/28/20 Unknown Urine Ketones Neg mg/dL (Negative) 08/28/20 Unknown Urine Blood Sm (Negative) 08/28/20 Unknown Urine Nitrite Neg (Negative) 08/28/20 Unknown Urine Bilirubin Neg (Negative) 08/28/20 Unknown Urine Urobilinogen < 2.0 mg/dL (<2.0) 08/28/20 Unknown Ur Leukocyte Esterase Neg (Negative) 08/28/20 Unknown Urine WBC (Auto) 2.0 /HPF (0.0-6.0) 08/28/20 Unknown Urine RBC (Auto) 4.0 /HPF (0.0-6.0) 08/28/20 Unknown U Epithel Cells (Auto) 13.0 /HPF (0-13.0) 08/28/20 Unknown Urine Mucus Few /HPF 08/28/20 Unknown Salicylates < 0.3 mg/dL (2.8-20.0) L 08/28/20 23:19 Urine Opiates Screen Presumptive negative 08/28/20 Unknown Urine Methadone Screen Presumptive negative 08/28/20 Unknown Acetaminophen 5.0 ug/mL (10.0-30.0) L 08/28/20 23:19 Ur Barbiturates Screen Presumptive negative 08/28/20 Unknown Ur Phencyclidine Scrn Presumptive negative 08/28/20 Unknown Ur Amphetamines Screen Presumptive negative 08/28/20 Unknown U Benzodiazepines Scrn Presumptive negative 08/28/20 Unknown Urine Cocaine Screen Presumptive negative 08/28/20 Unknown U Marijuana (THC) Screen Presumptive negative 08/28/20 Unknown Drugs of Abuse Note Disclamer 08/28/20 Unknown Plasma/Serum Alcohol < 0.01 % (0-0.07) 08/28/20 23:19 Coronavirus (PCR) Negative (Negative) 08/30/20 08:30 Arizmendi/IV: Voiding Method Toilet Active Medications - Current Medications Current Medications: Generic Name Dose Route Start Last Admin Trade Name Freq PRN Reason Stop Dose Admin Acetaminophen 650 mg 08/29/20 03:28 09/01/20 08:52 Acetaminophen 325 Mg Tab PO 650 mg Q4H PRN Administration Pain MILD(1-3)/Fever >100.5/NAYAK Aripiprazole 20 mg 08/29/20 10:00 09/02/20 10:25 Aripiprazole 10 Mg Tab PO 20 mg QDAY RODO Administration Divalproex Sodium 500 mg 08/29/20 10:00 09/02/20 10:25 Divalproex Er 500 Mg Tab PO 500 mg BID RODO Administration Escitalopram Oxalate 10 mg 08/29/20 10:00 09/02/20 10:26 Escitalopram 10 Mg Tab PO 10 mg QDAY RODO Administration Metoclopramide HCl 10 mg 08/29/20 03:28 08/30/20 14:02 Metoclopramide 10 Mg/2 Ml Inj IV 10 mg Q6H PRN Administration Nausea And Vomiting Midodrine 2.5 mg 08/31/20 09:00 09/02/20 10:32 Midodrine 2.5 Mg Tab PO 2.5 mg TID@0800,1200,1600 RODO Administration Ondansetron HCl 4 mg 08/29/20 03:28 09/01/20 08:52 Ondansetron 4 Mg/2 Ml Inj IV 4 mg Q8H PRN Administration Nausea And Vomiting Sodium Chloride 10 ml 08/29/20 10:00 09/02/20 10:26 Sodium Chloride 0.9% 10 Ml Flush Syringe IV 10 ml BID RODO Administration Sodium Chloride 10 ml 08/29/20 03:28 Sodium Chloride 0.9% 10 Ml Flush Syringe IV PRN PRN LINE FLUSH
[2020-09-02] MEDS ORDERED: MIDODRINE 2.5 MG TAB PO SCH (11:07)
[2020-09-02] MEDS ORDERED: MIDODRINE 5 MG TAB PO SCH (12:00)
== END 2020-09-02 15:45 | disposition home or self-care (01) ==
LOC: ED 20:03 → OBSVTOIN 08-29 02:59 → 3A 08-29 02:59 → INTOOBSV 08-29 02:59 → 3A 08-29 06:43
PROVIDERS: ADMIT Internal Medicine Geriatric Medicine; ATTEND Internal Medicine
DX: T18.9XXA Foreign body of alimentary tract, part unspecified, initial encounter (principal); T18.108A Unspecified foreign body in esophagus causing other injury, initial encounter; Z20.822 Contact with and (suspected) exposure to COVID-19; R45.851 Suicidal ideations; R10.9 Unspecified abdominal pain; R11.2 Nausea with vomiting, unspecified; F25.9 Schizoaffective disorder, unspecified; F31.9 Bipolar disorder, unspecified; G91.9 Hydrocephalus, unspecified; R51.9 Headache, unspecified; Z79.899 Other long term (current) drug therapy; Z98.890 Other specified postprocedural states
CPT/HCPCS: 36415; 43247; 71045; 74018; 80053; 80307; 81001; 84703; 85025; 96374; 96375; 96376; 99291; G0378; J0330; J1170; J2405; J2704; J2765; J7030; U0003; 80320; G0480

== ENCOUNTER 2020-09-05 10:05 | Emergency (ER) | payer OTHER ==
--- NOTE | 2020-09-05 11:52 | Event Note ---
ED Screening Note ED Screening Note: states she is currently at [facility] for [facility], schizophrenia, depression, and anxiety this morning she was writing and began feeling lightheaded states she had an episode of syncope states she has had syncope in the past states last time it was due to being overheated states she was overheated today when it happened states she does not drink much water no CP no SOB no fever states she had n/v today mild abd discomfort PMHx hydrocephalus no allergies to meds LNMP 08/28/2020 This initial assessment/diagnostic orders/clinical plan/treatment(s) is/are subject to change based on patients health status, clinical progression and re- assessment by fellow clinical providers in the ED. Further treatment and workup at subsequent clinical providers discretion. Patient/guardian urged not to elope from the ED as their condition may be serious if not clinically assessed and managed. Initial orders include: labs, ua, ct head, ekg
--- NOTE | 2020-09-05 12:59 | Cat Scan Report ---
CT HEAD WITHOUT CONTRAST INDICATION : syncope, hx of hydrocephalus. TECHNIQUE: Axial imaging performed from the skull apex through the skull base without the use of con trast. Sagittal and coronal reformatted images. All CT scans at this location are performed using C T dose reduction for ALARA by means of automated exposure control. COMPARISON: None FINDINGS: Parenchyma: No acute intracranial hemorrhage or parenchymal abnormality. No extra-axial fluid collec tion or chronic infarct. Ventricles: Ventricles are normal in size and appear symmetric. A left parietal ventriculoperitoneal shunt terminates in the left lateral ventricle. Bones: No acute osseous abnormality. Sinuses: Sinuses and mastoid air cells are clear. Soft tissues: Soft tissues including the orbits appear normal. IMPRESSION: No acute abnormality. Signer Name: Terrell Celaya Jr, MD Signed: 09/05/2020 12:54 PM Workstation Name: [id number]
[2020-09-05 13:01] LABS: Basophils % (Auto) 0.5 % (0.0-1.8); Eosinophils # (Auto) 0.1 K/mm3 (0.0-0.4); Eosinophils % (Auto) 0.9 % (0.0-4.3); Hematocrit 39.8 % (30.3-42.9); Hemoglobin 13.1 gm/dl (10.1-14.3); Lymphocytes % (Auto) 32.7 % (13.4-35.0); Mean Corpuscular HGB Conc 33 % (30-34); Mean Corpuscular Volume 96 fl (79-97); Monocytes # (Auto) 0.4 K/mm3 (0.0-0.8); Monocytes % (Auto) 5.8 % (0.0-7.3); Platelet Count 255 K/mm3 (140-440); Red Blood Count 4.15 M/mm3 (3.65-5.03); Red Cell Distribution Width 14.7 % (13.2-15.2)
[2020-09-05 13:06] LABS: Alanine Aminotransferase 7 units/L (7-56); Albumin 4.3 g/dL (3.9-5); Blood Urea Nitrogen 8 mg/dL (7-17); Calcium 9.1 mg/dL (8.4-10.2); Hemolysis Index 24
[2020-09-05 13:09] LABS: BUN/Creatinine Ratio 11
[2020-09-05 13:58] LABS: Bacteria,Urine 1+ /HPF (Negative); Bilirubin,Urine NEG (Negative); Blood,Urine NEG (Negative); Color,Urine Yellow (Yellow); Mucus,Urine FEW /HPF; Protein,Urine <15 mg/dL mg/dL (Negative); Urobilinogen,Urine < 2.0 mg/dL (<2.0)
[2020-09-05 14:13] LABS: Amphetamine Screen,Urine Negative; Benzodiazepines Screen,Urine Negative; Cannabinoid Screen,Urine Negative; Cocaine Screen,Urine Negative; Methadone Screen,Urine Negative; Opiate Screen,Urine Negative
--- NOTE | 2020-09-05 14:30 | Emergency Department Report ---
ED General Adult HPI - General Chief complaint: Syncope Stated complaint: WEAKNESS Time Seen by Provider: 09/05/20 11:49 Source: patient, EMS Mode of arrival: Wheelchair Limitations: No Limitations - History of Present Illness Initial comments: pt is a 20 yo female who states she is currently at [place] for bipolar, schizophrenia, depression, and anxiety she reports this morning she was writing and began feeling lightheaded states she had a brief episode of syncope and was advised she needed clearance to return back to [place] she states she has had syncope in the past states last time it was due to being overheated states she was overheated today when it happened states she does not drink much water no CP no SOB no fever no dizziness states she had n/v today, approximately two episodes after she got overheated pt states she has mild abd discomfort after she had the vomiting, no abd pain currently no NAYAK, vision changes, numbness, weakness, bowel or bladder incontinence PMHx hydrocephalus no allergies to meds LNMP 08/28/2020 Severity scale (0 -10): 6 - Related Data Home Medications Medication Instructions Recorded Confirmed Last Taken Midodrine HCl 10 mg PO TID 07/13/20 08/30/20 Unknown Previous Rx's Medication Instructions Recorded Last Taken Type ARIPiprazole [Abilify] 20 mg PO QHS #30 tab 09/02/20 Unknown Rx Divalproex ER [Depakote ER] 500 mg PO BID #60 tab 09/02/20 Unknown Rx Escitalopram [Lexapro] 10 mg PO DAILY #30 tab 09/02/20 Unknown Rx Gabapentin 300 mg PO Q8HR #90 cap 09/02/20 Unknown Rx Midodrine [Proamatine] 5 mg PO TID@0800,1200,1600 #90 09/02/20 Unknown Rx tablet Ondansetron [Zofran ODT TAB] 4 mg PO Q8HR PRN #30 tab.rapdis 09/02/20 Unknown Rx Allergies Allergy/AdvReac Type Severity Reaction Status Date / Time No Known Allergies Allergy Verified 08/14/20 13:27 ED Review of Systems ROS: Stated complaint: WEAKNESS Other details as noted in HPI Comment: All other systems reviewed and negative ED Past Medical Hx - Past Medical History Previous Medical History?: Yes Hx Psychiatric Treatment: Yes (schizophrenia, bipolar, depression, anxiety, hydrocephalus) Additional medical history: bipolar, schizophrenic, autistic, anxiety, depression - Surgical History Past Surgical History?: Yes Additional Surgical History: brain surgery - hydrocephalus, [employer] shunt, abdominal surgery for swallowing plastic - Social History Smoking Status: Never Smoker - Medications Home Medications: Home Medications Medication Instructions Recorded Confirmed Last Taken Type Midodrine HCl 10 mg PO TID 07/13/20 08/30/20 Unknown History ARIPiprazole [Abilify] 20 mg PO QHS #30 tab 09/02/20 Unknown Rx Divalproex ER [Depakote ER] 500 mg PO BID #60 tab 09/02/20 Unknown Rx Escitalopram [Lexapro] 10 mg PO DAILY #30 tab 09/02/20 Unknown Rx Gabapentin 300 mg PO Q8HR #90 cap 09/02/20 Unknown Rx Midodrine [Proamatine] 5 mg PO TID@0800,1200,1600 #90 09/02/20 Unknown Rx tablet Ondansetron [Zofran ODT TAB] 4 mg PO Q8HR PRN #30 tab.rapdis 09/02/20 Unknown Rx ED Physical Exam - General Limitations: No Limitations General appearance: alert, in no apparent distress - Head Head exam: Present: atraumatic, normocephalic - Eye Eye exam: Present: normal appearance - ENT ENT exam: Present: mucous membranes moist - Respiratory Respiratory exam: Present: normal lung sounds bilaterally. Absent: respiratory distress, wheezes, rales, rhonchi, stridor, chest wall tenderness, accessory muscle use, decreased breath sounds, prolonged expiratory - Cardiovascular Cardiovascular Exam: Present: regular rate, normal rhythm, normal heart sounds. Absent: systolic murmur, diastolic murmur, rubs, gallop - GI/Abdominal GI/Abdominal exam: Present: soft, normal bowel sounds. Absent: distended, tenderness, guarding, rebound, rigid - Neurological Exam Neurological exam: Present: alert, oriented X3, CN II-XII intact, normal gait. Absent: motor sensory deficit - Psychiatric Psychiatric exam: Present: normal affect, normal mood - Skin Skin exam: Present: warm, dry ED Course Vital Signs 09/05/20 09/05/20 10:25 14:51 Temperature 98.6 F Pulse Rate 83 83 Respiratory 18 Rate Blood Pressure 130/93 122/71 [Right] O2 Sat by Pulse 100 100 Oximetry ED Medical Decision Making - Lab Data Result diagrams: 09/05/20 12:16 05/20/21 12:16 Lab Results 09/05/20 09/05/20 09/05/20 Range/Units 12:16 12:16 12:16 WBC 6.2 (4.5-11.0) K/mm3 RBC 4.15 (3.65-5.03) M/mm3 Hgb 13.1 (10.1-14.3) gm/dl Hct 39.8 (30.3-42.9) % MCV 96 (79-97) fl MCH 31 (28-32) pg MCHC 33 (30-34) % RDW 14.7 (13.2-15.2) % Plt Count 255 (140-440) K/mm3 Lymph % (Auto) 32.7 (13.4-35.0) % [place] % (Auto) 5.8 (0.0-7.3) % Eos % (Auto) 0.9 (0.0-4.3) % Baso % (Auto) 0.5 (0.0-1.8) % Lymph # (Auto) 2.0 (1.2-5.4) K/mm3 [place] # (Auto) 0.4 (0.0-0.8) K/mm3 Eos # (Auto) 0.1 (0.0-0.4) K/mm3 Baso # (Auto) 0.0 (0.0-0.1) K/mm3 Seg Neutrophils % 60.1 (40.0-70.0) % Seg Neutrophils # 3.7 (1.8-7.7) K/mm3 Sodium 139 (137-145) mmol/L Potassium 4.3 (3.6-5.0) mmol/L Chloride 106.8 (98-107) mmol/L Carbon Dioxide 23 (22-30) mmol/L Anion Gap 14 mmol/L BUN 8 (7-17) mg/dL Creatinine 0.7 (0.6-1.2) mg/dL Estimated GFR > 60 ml/min BUN/Creatinine Ratio 11 % Glucose 78 (65-100) mg/dL Calcium 9.1 (8.4-10.2) mg/dL Magnesium 2.20 (1.7-2.3) mg/dL Total Bilirubin 0.30 (0.1-1.2) mg/dL AST 13 (5-40) units/L ALT 7 (7-56) units/L Alkaline Phosphatase 63 (35-129) units/L Total Creatine Kinase 116 (30-135) units/L Total Protein 7.3 (6.3-8.2) g/dL Albumin 4.3 (3.9-5) g/dL Albumin/Globulin Ratio 1.4 % HCG, Qual Negative (Negative) Urine Color (Yellow) Urine Turbidity (Clear) Urine pH (5.0-7.0) Ur Specific [place] (1.003-1.030) Urine Protein (Negative) mg/dL Urine Glucose (UA) (Negative) mg/dL Urine Ketones (Negative) mg/dL Urine Blood (Negative) Urine Nitrite (Negative) Urine Bilirubin (Negative) Urine Urobilinogen (<2.0) mg/dL Ur Leukocyte Esterase (Negative) Urine WBC (Auto) (0.0-6.0) /HPF Urine RBC (Auto) (0.0-6.0) /HPF U Epithel Cells (Auto) (0-13.0) /HPF Urine Bacteria (Auto) (Negative) /HPF Urine Mucus /HPF Urine Opiates Screen Urine Methadone Screen Ur Barbiturates Screen Ur Phencyclidine Scrn Ur Amphetamines Screen U Benzodiazepines Scrn Urine Cocaine Screen U Marijuana (THC) Screen Drugs of Abuse Note 09/05/20 09/05/20 Range/Units 13:31 13:31 WBC (4.5-11.0) K/mm3 RBC (3.65-5.03) M/mm3 Hgb (10.1-14.3) gm/dl Hct (30.3-42.9) % MCV (79-97) fl MCH (28-32) pg MCHC (30-34) % RDW (13.2-15.2) % Plt Count (140-440) K/mm3 Lymph % (Auto) (13.4-35.0) % [place] % (Auto) (0.0-7.3) % Eos % (Auto) (0.0-4.3) % Baso % (Auto) (0.0-1.8) % Lymph # (Auto) (1.2-5.4) K/mm3 [place] # (Auto) (0.0-0.8) K/mm3 Eos # (Auto) (0.0-0.4) K/mm3 Baso # (Auto) (0.0-0.1) K/mm3 Seg Neutrophils % (40.0-70.0) % Seg Neutrophils # (1.8-7.7) K/mm3 Sodium (137-145) mmol/L Potassium (3.6-5.0) mmol/L Chloride (98-107) mmol/L Carbon Dioxide (22-30) mmol/L Anion Gap mmol/L BUN (7-17) mg/dL Creatinine (0.6-1.2) mg/dL Estimated GFR ml/min BUN/Creatinine Ratio % Glucose (65-100) mg/dL Calcium (8.4-10.2) mg/dL Magnesium (1.7-2.3) mg/dL Total Bilirubin (0.1-1.2) mg/dL AST (5-40) units/L ALT (7-56) units/L Alkaline Phosphatase (35-129) units/L Total Creatine Kinase (30-135) units/L Total Protein (6.3-8.2) g/dL Albumin (3.9-5) g/dL Albumin/Globulin Ratio % HCG, Qual (Negative) Urine Color Yellow (Yellow) Urine Turbidity Slightly-cloudy (Clear) Urine pH 6.0 (5.0-7.0) Ur Specific [place] 1.021 (1.003-1.030) Urine Protein <15 mg/dl (Negative) mg/dL Urine Glucose (UA) Neg (Negative) mg/dL Urine Ketones Neg (Negative) mg/dL Urine Blood Neg (Negative) Urine Nitrite Neg (Negative) Urine Bilirubin Neg (Negative) Urine Urobilinogen < 2.0 (<2.0) mg/dL Ur Leukocyte Esterase Neg (Negative) Urine WBC (Auto) 1.0 (0.0-6.0) /HPF Urine RBC (Auto) 7.0 (0.0-6.0) /HPF U Epithel Cells (Auto) 15.0 H (0-13.0) /HPF Urine Bacteria (Auto) 1+ (Negative) /HPF Urine Mucus Few /HPF Urine Opiates Screen Negative Urine Methadone Screen Negative Ur Barbiturates Screen Negative Ur Phencyclidine Scrn Negative Ur Amphetamines Screen Negative U Benzodiazepines Scrn Negative Urine Cocaine Screen Negative U Marijuana (THC) Screen Negative Drugs of Abuse Note Disclamer - EKG Data EKG shows normal: sinus rhythm, axis, intervals, QRS complexes, ST-T waves Rate: normal - Radiology Data Radiology results: report reviewed Ordering Physician: JOSLYN JENKINS Date of Service: 09/05/20 Procedure(s): CT head/brain wo con Accession Number(s): [id number] cc: JOSLYN JENKINS CT HEAD WITHOUT CONTRAST INDICATION : syncope, hx of hydrocephalus. TECHNIQUE: Axial imaging performed from the skull apex through the skull base without the use of contrast. Sagittal and coronal reformatted images. All CT scans at this [facility] are performed using CT dose reduction for ALARA by means of automated exposure control. COMPARISON: None FINDINGS: Parenchyma: No acute intracranial hemorrhage or parenchymal abnormality. No extra-axial fluid collection or chronic infarct. Ventricles: Ventricles are normal in size and appear symmetric. A left parietal ventriculoperitoneal shunt terminates in the left lateral ventricle. Bones: No acute osseous abnormality. Sinuses: Sinuses and mastoid air cells are clear. Soft tissues: Soft tissues including the orbits appear normal. IMPRESSION: No acute abnormality. Signer Name: Terrell Celaya Jr, MD Signed: 09/05/2020 12:54 PM Workstation Name: [id number] Transcribed By: TTR Dictated By: TERRELL CELAYA JR, MD Electronically Authenticated By: TERRELL CELAYA JR, MD Signed Date/Time: 09/05/20 1254 DD/ 1253 TD/TT: - Medical Decision Making pt is a 20 yo female who states she is currently at [place] for bipolar, schizophrenia, depression, and anxiety she reports this morning she was writing and began feeling lightheaded states she had a brief episode of syncope and was advised she needed clearance to return back to [place] she states she has had syncope in the past states last time it was due to being overheated states she was overheated today when it happened states she does not drink much water no CP no SOB no fever no dizziness states she had n/v today, approximately two episodes after she got overheated pt states she has mild abd discomfort after she had the vomiting, no abd pain currently no NAYAK, vision changes, numbness, weakness, bowel or bladder incontinence PMHx hydrocephalus no allergies to meds LNMP 08/28/2020 Vitals are stable. No abnormality on physical examination as documented in chart. Labs are normal. No evidence of UTI or dehydration. UDS is negative. EKG is within normal limits. CT head IMPRESSION: No acute abnormality. Patient was observed in the emergency department for multiple hours without any complications and no further episodes of syncope. She states that she currently feels asymptomatic. She is able to tolerate p.o. intake without difficulty. Patient will be referred to outpatient neurology. Discussed with patient based on [place] law she is unable to operate a motor vehicle, she states that she does not drive. advised pt Please increase your fluid intake. Follow-up with a primary care doctor. Follow-up with a neurologist. Return to emergency room for any new or worsening symptoms. Critical care attestation.: If time is entered above; I have spent that time in minutes in the direct care of this critically ill patient, excluding procedure time. ED Disposition Clinical Impression: Lightheaded Syncope Qualifiers: Syncope type: unspecified Qualified Code(s): R55 - Syncope and collapse Nausea & vomiting Qualifiers: Vomiting type: unspecified Vomiting Intractability: non-intractable Qualified Code(s): R11.2 - Nausea with vomiting, unspecified Disposition: DC-01 TO HOME OR SELFCARE Is pt being admited?: No Does the pt Need Aspirin: No Condition: Stable Instructions: Syncope, [id number], Syncope (ED) Additional Instructions: Please increase your fluid intake. Follow-up with a primary care doctor. Follow-up with a neurologist. Return to emergency room for any new or worsening symptoms. Referrals: JUAN FROST MD [Primary Care Provider] - 2-3 Days JACK POLLACK MD [Referring] - 2-3 Days Forms: Work/School Release Form(ED) Time of Disposition: 14:30 Print Language: SINHALA
[2020-09-05 14:52] VITALS: BP 122/71
--- NOTE | 2020-09-06 10:49 | Electrocardiograph Report ---
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
== END 2020-09-05 14:52 | disposition home or self-care (01) ==
LOC: ED 10:05
DX: R55 Syncope and collapse (principal); R42 Dizziness and giddiness; R11.2 Nausea with vomiting, unspecified; F20.9 Schizophrenia, unspecified; Z98.890 Other specified postprocedural states; Z79.899 Other long term (current) drug therapy
CPT/HCPCS: 36415; 70450; 80053; 80307; 81001; 82550; 83735; 84703; 85025; 93005

== ENCOUNTER 2020-09-06 14:08 | Emergency (ER) | payer OTHER ==
--- NOTE | 2020-09-06 16:52 | Event Note ---
ED Screening Note Date of service: 09/06/20 Time: 16:50 ED Screening Note: Patient complains of abdominal pain and distention x1 week History of hydrocephalus with a shunt-states last time she had the symptoms her shunt was not draining properly she had to have her abdomen drained Denies any other past medical history Patient was seen here yesterday for weakness and had a normal CT of the head This initial assessment/diagnostic orders/clinical plan/treatment(s) is/are subject to change based on patients health status, clinical progression and re- assessment by fellow clinical providers in the ED. Further treatment and workup at subsequent clinical providers discretion. Patient/guardian urged not to elope from the ED as their condition may be serious if not clinically assessed and managed. Initial orders include: labs Possible CT abdomen
[2020-09-06 17:08] LABS: Basophils % (Auto) 0.6 % (0.0-1.8); Eosinophils # (Auto) 0.1 K/mm3 (0.0-0.4); Eosinophils % (Auto) 0.7 % (0.0-4.3); Hematocrit 36.7 % (30.3-42.9); Hemoglobin 12.3 gm/dl (10.1-14.3); Lymphocytes # (Auto) 2.7 K/mm3 (1.2-5.4); Lymphocytes % (Auto) 37.8 % (13.4-35.0); Mean Corpuscular HGB Conc 34 % (30-34); Mean Corpuscular Volume 94 fl (79-97); Monocytes # (Auto) 0.5 K/mm3 (0.0-0.8); Monocytes % (Auto) 6.8 % (0.0-7.3); Platelet Count 257 K/mm3 (140-440); Red Blood Count 3.91 M/mm3 (3.65-5.03); Red Cell Distribution Width 14.2 % (13.2-15.2)
[2020-09-06 17:30] LABS: Alanine Aminotransferase 7 units/L (7-56); Albumin 4.4 g/dL (3.9-5); BUN/Creatinine Ratio 11; Blood Urea Nitrogen 9 mg/dL (7-17); Calcium 9.6 mg/dL (8.4-10.2); Hemolysis Index 29
[2020-09-06] MEDS ORDERED: FAMOTIDINE 20 MG TAB PO ONE (19:32)
[2020-09-06] MEDS ORDERED: DICYCLOMINE 20 MG TAB PO ONE (19:32)
[2020-09-06] MEDS ORDERED: ONDANSETRON 4 MG ODT TAB PO ONE (19:32)
[2020-09-06 22:52] LABS: Bilirubin,Urine NEG (Negative); Blood,Urine NEG (Negative); Color,Urine Yellow (Yellow); Mucus,Urine 1+ /HPF; Protein,Urine <15 mg/dL mg/dL (Negative)
--- NOTE | 2020-09-07 03:06 | Emergency Department Report ---
HPI - General Chief Complaint: Abdominal Pain Time Seen by Provider: 09/07/20 02:58 - HPI HPI: This is a 20-year-old female presents to the emergency department with a complaint of a 1 day history of left-sided chest wall/rib pain, and a 2-day history of some abdominal discomfort with diarrhea. Patient has a past medical history of hydrocephalus with a STENCIL CUTTER shunt. Patient has had previous abdominal surgery for swallowing plastic. She was just recently seen here after swallowing a paperclip. She is currently at [facility] in the partial hospitalization program where she is being treated for bipolar disorder and schizophrenia. The patient says that she was concerned about her abdominal discomfort due to her STENCIL CUTTER shunt as she was concerned that there could be "fluid buildup." She denies any fever, shortness of breath, lower extremity swelling, dysuria, vaginal bleeding or discharge, constipation. She has not taken anything for symptoms prior to presentation. She is a tobacco smoker but denies any illicit drug use. ED Past Medical Hx - Past Medical History Previous Medical History?: Yes Hx Psychiatric Treatment: Yes (schizophrenia, bipolar, depression, anxiety, hydrocephalus) Additional medical history: bipolar, schizophrenic, autistic, anxiety, depression - Surgical History Past Surgical History?: Yes Additional Surgical History: brain surgery - hydrocephalus, STENCIL CUTTER shunt, abdominal surgery for swallowing plastic - Social History Smoking Status: Never Smoker - Medications Home Medications: Home Medications Medication Instructions Recorded Confirmed Last Taken Type Midodrine HCl 10 mg PO TID 07/13/20 08/30/20 Unknown History ARIPiprazole [Abilify] 20 mg PO QHS #30 tab 09/02/20 Unknown Rx Divalproex ER [Depakote ER] 500 mg PO BID #60 tab 09/02/20 Unknown Rx Escitalopram [Lexapro] 10 mg PO DAILY #30 tab 09/02/20 Unknown Rx Gabapentin 300 mg PO Q8HR #90 cap 09/02/20 Unknown Rx Midodrine [Proamatine] 5 mg PO TID@0800,1200,1600 #90 09/02/20 Unknown Rx tablet Ondansetron [Zofran ODT TAB] 4 mg PO Q8HR PRN #30 tab.rapdis 09/02/20 Unknown Rx ED Review of Systems ROS: Stated complaint: RT ARM NUMBNESS/RIB CAGE/HERE X 3 DAYS THIS WEEK Other details as noted in HPI Comment: All other systems reviewed and negative Constitutional: denies: chills, fever Eyes: denies: eye pain, vision change ENT: denies: ear pain, throat pain Respiratory: denies: cough, shortness of breath Cardiovascular: chest pain (Left-sided rib pain). denies: edema Gastrointestinal: abdominal pain, diarrhea. denies: vomiting Genitourinary: denies: dysuria, discharge Musculoskeletal: denies: back pain, arthralgia Skin: denies: rash, lesions Neurological: denies: headache, weakness Physical Exam - Physical Exam Vital Signs: Vital Signs 09/06/20 14:46 Pulse Rate 86 Respiratory 16 Rate Blood Pressure 104/64 [Right] O2 Sat by Pulse 97 Oximetry Physical Exam: GENERAL: The patient is well-developed well-nourished. HENT: Normocephalic. Atraumatic. Patient has moist mucous membranes. EYES: Extraocular motions are intact. NECK: Supple. Trachea is midline. CHEST/LUNGS: Clear to auscultation. There is no respiratory distress noted. There is some reproducible left-sided chest wall/rib tenderness to palpation. No crepitus or deformity. HEART/CARDIOVASCULAR: Regular. There is no tachycardia. There is no murmur. ABDOMEN: Abdomen is soft, nontender. Patient has normal bowel sounds. There is no abdominal distention. SKIN: Skin is warm and dry. NEURO: The patient is awake, alert, and oriented. The patient is cooperative. The patient has no focal neurologic deficits. Normal speech. MUSCULOSKELETAL: There is no tenderness or deformity. There is no limitation range of motion. ED Course Vital Signs 09/06/20 14:46 Pulse Rate 86 Respiratory 16 Rate Blood Pressure 104/64 [Right] O2 Sat by Pulse 97 Oximetry ED Medical Decision Making - Lab Data Result diagrams: 09/06/20 16:54 09/06/20 16:54 Lab Results 09/06/20 09/06/20 09/06/20 Range/Units 16:54 16:54 16:54 WBC 7.1 (4.5-11.0) K/mm3 RBC 3.91 (3.65-5.03) M/mm3 Hgb 12.3 (10.1-14.3) gm/dl Hct 36.7 (30.3-42.9) % MCV 94 (79-97) fl MCH 31 (28-32) pg MCHC 34 (30-34) % RDW 14.2 (13.2-15.2) % Plt Count 257 (140-440) K/mm3 Lymph % (Auto) 37.8 H (13.4-35.0) % [place] % (Auto) 6.8 (0.0-7.3) % Eos % (Auto) 0.7 (0.0-4.3) % Baso % (Auto) 0.6 (0.0-1.8) % Lymph # (Auto) 2.7 (1.2-5.4) K/mm3 [place] # (Auto) 0.5 (0.0-0.8) K/mm3 Eos # (Auto) 0.1 (0.0-0.4) K/mm3 Baso # (Auto) 0.0 (0.0-0.1) K/mm3 Seg Neutrophils % 54.1 (40.0-70.0) % Seg Neutrophils # 3.8 (1.8-7.7) K/mm3 Sodium 140 (137-145) mmol/L Potassium 4.4 (3.6-5.0) mmol/L Chloride 105.1 (98-107) mmol/L Carbon Dioxide 24 (22-30) mmol/L Anion Gap 15 mmol/L BUN 9 (7-17) mg/dL Creatinine 0.8 (0.6-1.2) mg/dL Estimated GFR > 60 ml/min BUN/Creatinine Ratio 11 % Glucose 86 (65-100) mg/dL Calcium 9.6 (8.4-10.2) mg/dL Total Bilirubin 0.20 (0.1-1.2) mg/dL AST 14 (5-40) units/L ALT 7 (7-56) units/L Alkaline Phosphatase 61 (35-129) units/L Total Protein 6.8 (6.3-8.2) g/dL Albumin 4.4 (3.9-5) g/dL Albumin/Globulin Ratio 1.8 % Lipase 35 (13-60) units/L HCG, Qual Negative (Negative) Urine Color (Yellow) Urine Turbidity (Clear) Urine pH (5.0-7.0) Ur Specific [place] (1.003-1.030) Urine Protein (Negative) mg/dL Urine Glucose (UA) (Negative) mg/dL Urine Ketones (Negative) mg/dL Urine Blood (Negative) Urine Nitrite (Negative) Urine Bilirubin (Negative) Urine Urobilinogen (<2.0) mg/dL Ur Leukocyte Esterase (Negative) Urine WBC (Auto) (0.0-6.0) /HPF Urine RBC (Auto) (0.0-6.0) /HPF U Epithel Cells (Auto) (0-13.0) /HPF Urine Mucus /HPF 09/06/20 Range/Units Unknown WBC (4.5-11.0) K/mm3 RBC (3.65-5.03) M/mm3 Hgb (10.1-14.3) gm/dl Hct (30.3-42.9) % MCV (79-97) fl MCH (28-32) pg MCHC (30-34) % RDW (13.2-15.2) % Plt Count (140-440) K/mm3 Lymph % (Auto) (13.4-35.0) % [place] % (Auto) (0.0-7.3) % Eos % (Auto) (0.0-4.3) % Baso % (Auto) (0.0-1.8) % Lymph # (Auto) (1.2-5.4) K/mm3 [place] # (Auto) (0.0-0.8) K/mm3 Eos # (Auto) (0.0-0.4) K/mm3 Baso # (Auto) (0.0-0.1) K/mm3 Seg Neutrophils % (40.0-70.0) % Seg Neutrophils # (1.8-7.7) K/mm3 Sodium (137-145) mmol/L Potassium (3.6-5.0) mmol/L Chloride (98-107) mmol/L Carbon Dioxide (22-30) mmol/L Anion Gap mmol/L BUN (7-17) mg/dL Creatinine (0.6-1.2) mg/dL Estimated GFR ml/min BUN/Creatinine Ratio % Glucose (65-100) mg/dL Calcium (8.4-10.2) mg/dL Total Bilirubin (0.1-1.2) mg/dL AST (5-40) units/L ALT (7-56) units/L Alkaline Phosphatase (35-129) units/L Total Protein (6.3-8.2) g/dL Albumin (3.9-5) g/dL Albumin/Globulin Ratio % Lipase (13-60) units/L HCG, Qual (Negative) Urine Color Yellow (Yellow) Urine Turbidity Slightly-cloudy (Clear) Urine pH 7.0 (5.0-7.0) Ur Specific [place] 1.028 (1.003-1.030) Urine Protein <15 mg/dl (Negative) mg/dL Urine Glucose (UA) Neg (Negative) mg/dL Urine Ketones Tr (Negative) mg/dL Urine Blood Neg (Negative) Urine Nitrite Neg (Negative) Urine Bilirubin Neg (Negative) Urine Urobilinogen 4.0 (<2.0) mg/dL Ur Leukocyte Esterase Neg (Negative) Urine WBC (Auto) 1.0 (0.0-6.0) /HPF Urine RBC (Auto) 4.0 (0.0-6.0) /HPF U Epithel Cells (Auto) 14.0 H (0-13.0) /HPF Urine Mucus 1+ /HPF - EKG Data -: EKG Interpreted by Mt EKG shows normal: sinus rhythm, axis, intervals, QRS complexes, ST-T waves Rate: normal - EKG Data When compared to previous EKG there are: previous EKG unavailable Interpretation: normal EKG - Radiology Data Radiology results: image reviewed interpreted by az: Chest x-ray does not show any acute process. There are no pleural effusions, obvious pneumonia and there is no pneumothorax. No significant cardiomegaly. Abdominal x-ray shows nonspecific nonobstructive bowel gas. No free air. - Medical Decision Making This patient presents to the emergency department with a complaint of some left- sided rib pain and some nonspecific abdominal discomfort that she describes as a fullness. There is reproducible left lateral rib/chest wall pain but no crepitus or deformity. No significant abdominal tenderness to palpation. The abdomen is soft, nondistended and nontoxic in appearance. EKG did not have any morphology consistent with ST elevation myocardial infarction. Chest x-ray does not show any pneumonia, pleural effusions, widened mediastinum, or any other acute process. Abdominal x-ray shows nonspecific nonobstructive bowel gas. No free air. The patient's labs have been unremarkable including CBC, metabolic panel, lipase, urinalysis, and the patient is not . Vital signs have been reassuring throughout her ED course including being afebrile. For all these reasons patient does not appear to have any life or limb threatening emergencies. She does not appear to require admission at this time. She does appear safe for discharge back to her [facility] program. She has been given outpatient referral for primary care and instructed to return to the closest emergency department with any worsening of her symptoms or with any acute distress. Critical Care Time: No Critical care attestation.: If time is entered above; I have spent that time in minutes in the direct care of this critically ill patient, excluding procedure time. ED Disposition Clinical Impression: Rib pain on left side, Chest wall pain Abdominal pain Qualifiers: Abdominal location: unspecified location Qualified Code(s): R10.9 - Unspecified abdominal pain Disposition: TO HOME OR SELFCARE Is pt being admited?: No Condition: Stable Instructions: Abdominal Pain, Adult, Chest Wall Pain, Abdominal Pain (ED) Additional Instructions: Please follow-up with a primary care physician in the next few days. I have given you a referral for a local primary care physician and a primary care clinic. Return to the emergency department with any worsening of your symptoms, new or concerning symptoms not addressed during this current emergency department visit, or with any acute distress. Referrals: JUAN FROST MD [Primary Care Provider] - 3-5 Days GERALD ANSARI MD [Staff Physician] - 3-5 Days [facility] [Provider Group] - 3-5 Days Forms: Work/School Release Form(ED) Time of Disposition: 04:41
--- NOTE | 2020-09-07 03:46 | XRay Report ---
CHEST WITH LEFT RIBS 3 VIEWS 0318 INDICATION: left sided rib pain COMPARISON: Chest x-ray 07/13/2020 FINDINGS: Left ventriculopleural venous shunt is unchanged. Lung harris are clear. No pneumothorax is noted. No rib fractures or rib lesions are seen. Signer Name: Louis Dixon MD Signed: 09/07/2020 3:41 AM Workstation Name: [id number]
--- NOTE | 2020-09-07 03:48 | XRay Report ---
ABDOMEN FLAT AND UPRIGHT 0320 INDICATION: Abd pain COMPARISON: 08/29/2020 FINDINGS: No pneumoperitoneum is seen. Bowel gas pattern is unremarkable. No urinary tract calculi ar e seen. Previous ingested foreign body is no longer seen. Signer Name: Louis Dixon MD Signed: 09/07/2020 3:43 AM Workstation Name: [id number]
[2020-09-07] MEDS ORDERED: KETOROLAC 30 MG/1 ML INJ IM ONE (03:49)
[2020-09-07 05:15] VITALS: BP 108/68
--- NOTE | 2020-09-10 10:08 | Electrocardiograph Report ---
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
== END 2020-09-07 05:15 | disposition home or self-care (01) ==
LOC: ED 14:08
DX: R07.89 Other chest pain (principal); R07.81 Pleurodynia; R19.7 Diarrhea, unspecified; Z98.890 Other specified postprocedural states; Z79.899 Other long term (current) drug therapy
CPT/HCPCS: 36415; 71101; 74019; 80053; 81001; 83690; 84703; 85025; 93005; 96372; 99284; J1885

== ENCOUNTER 2020-09-07 20:14 | Emergency (ER) | payer OTHER | END 2020-09-07 20:30 | disposition left against medical advice (07) | LOC: ED 20:14 | DX: R45.851 Suicidal ideations (principal); Z53.21 Procedure and treatment not carried out due to patient leaving prior to being seen by health care provider ==

== ENCOUNTER 2020-10-25 15:25 | Emergency (ER) | payer OTHER ==
--- NOTE | 2020-10-25 17:53 | Emergency Department Report ---
ED Psych HPI - General Chief Complaint: Psych Stated Complaint: RYLEE PEREZ Time Seen by Provider: 10/25/20 17:09 Source: patient, EMS Mode of arrival: Ambulatory - History of Present Illness Initial Comments: Complaint: I [facility] of my [facility]. I have nowhere to go." HPI: This is a 20-year-old female with history of schizoaffective disorder bipolar disorder who presents with need for alf. She states that she was [facility] of her [facility]. She only has $130. She denies suicidal ideation. She denies plan to harm her self. She denies homicidal ideation. She denies hallucinations. She needs transportation. She does not know where to go. [facility] [place] Complaint: other (Needs transportation and housing) -: days(s) (needs transportation and housing) Associated Psychiatric Symptoms: none Improves With: none Worsens With: none Context: not taking psychiatric Treatments Prior to Arrival: none - Related Data Home Medications Medication Instructions Recorded Confirmed Last Taken Midodrine HCl 10 mg PO TID 07/13/20 08/30/20 Unknown Previous Rx's Medication Instructions Recorded Last Taken Type ARIPiprazole [Abilify] 20 mg PO QHS #30 tab 09/02/20 Unknown Rx Divalproex ER [Depakote ER] 500 mg PO BID #60 tab 09/02/20 Unknown Rx Escitalopram [Lexapro] 10 mg PO DAILY #30 tab 09/02/20 Unknown Rx Gabapentin 300 mg PO Q8HR #90 cap 09/02/20 Unknown Rx Midodrine [Proamatine] 5 mg PO TID@0800,1200,1600 #90 09/02/20 Unknown Rx tablet Ondansetron [Zofran ODT TAB] 4 mg PO Q8HR PRN #30 tab.rapdis 09/02/20 Unknown Rx Allergies Allergy/AdvReac Type Severity Reaction Status Date / Time No Known Allergies Allergy Verified 08/14/20 13:27 ED Review of Systems ROS: Stated complaint: RYLEE PEREZ Other details as noted in HPI Comment: All other systems reviewed and negative Constitutional: denies: fever, malaise Respiratory: denies: cough, shortness of breath Cardiovascular: denies: chest pain ED Past Medical Hx - Past Medical History Previous Medical History?: Yes Hx Psychiatric Treatment: Yes (schizophrenia, bipolar, depression, anxiety, hydrocephalus) Additional medical history: bipolar, schizophrenic, autistic, anxiety, depression, swallows objects - Surgical History Past Surgical History?: Yes Additional Surgical History: brain surgery - hydrocephalus, 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, abdominal surgery for swallowing plastic - Social History Smoking Status: Never Smoker Substance Use Type: None - Medications Home Medications: Home Medications Medication Instructions Recorded Confirmed Last Taken Type Midodrine HCl 10 mg PO TID 07/13/20 08/30/20 Unknown History ARIPiprazole [Abilify] 20 mg PO QHS #30 tab 09/02/20 Unknown Rx Divalproex ER [Depakote ER] 500 mg PO BID #60 tab 09/02/20 Unknown Rx Escitalopram [Lexapro] 10 mg PO DAILY #30 tab 09/02/20 Unknown Rx Gabapentin 300 mg PO Q8HR #90 cap 09/02/20 Unknown Rx Midodrine [Proamatine] 5 mg PO TID@0800,1200,1600 #90 09/02/20 Unknown Rx tablet Ondansetron [Zofran ODT TAB] 4 mg PO Q8HR PRN #30 tab.rapdis 09/02/20 Unknown Rx ED Physical Exam - General Limitations: No Limitations General appearance: alert, in no apparent distress, other (Calm cooperative honest) - Head Head exam: Present: atraumatic, normocephalic - Eye Eye exam: Present: normal appearance - ENT ENT exam: Present: mucous membranes moist - Neck Neck exam: Present: normal inspection - Respiratory Respiratory exam: Present: normal lung sounds bilaterally. Absent: respiratory distress - Cardiovascular Cardiovascular Exam: Present: regular rate, normal rhythm. Absent: systolic murmur, diastolic murmur, rubs, gallop - GI/Abdominal GI/Abdominal exam: Present: soft, normal bowel sounds - Extremities Exam Extremities exam: Present: normal inspection - Neurological Exam Neurological exam: Present: alert, oriented X3 - Psychiatric Psychiatric exam: Present: normal affect, normal mood - Skin Skin exam: Present: warm, dry, intact, normal color. Absent: rash ED Medical Decision Making - Medical Decision Making Is a 20-year-old female schizoaffective disorder depression who presents with request for housing and transportation. Patient was given referrals for housing and bus pass. She is discharged to self-care. She does not have an acute psychiatric or medical condition which needs further treatment or evaluation. Critical care attestation.: If time is entered above; I have spent that time in minutes in the direct care of this critically ill patient, excluding procedure time. ED Disposition Clinical Impression: Schizoaffective disorder, Bipolar disorder Disposition: DC-01 TO HOME OR SELFCARE Is pt being admited?: No Does the pt Need Aspirin: No Condition: Stable Additional Instructions: HOMELESS RESOURCES: [facility] NEED HELP? If you are in need of help or know someone who does, please contact us at [email or web address] call , or come to our offices at [address] [place] [address], Wednesday-Wednesday beginning at 8AM. [facility] Males only Admission at 7am Wed to Wed Address: [address] [place] [address] Client Engagement [phone] Regular program admission occurs Wednesday through Wednesday at 7:00 amand operates on a first come, first serve basis.Because we cant anticipate program availability in advance andprogram spots are in high demand, we recommend arriving early. Space fills up fast! Next steps can include: Assignment to a [facility] program bed Connection to and placement in a partner program, or Referral to a partner agency [place]: DECLAN James Address: [address] [place] [address] How do I join the [facility] housing program? Our housing programs are offered based on availability. If you are looking to participate in our housing program, simply call [phone] to find out if we have available space. Since we do receive many calls, please allow up to 48 hours for one of our housing specialists to return your call. If we do not have vacancies, we suggest callingthe [facility] hotline at 211 for additional housing options. [facility] [place] City[facility] only Admission at 4:30pm daily Address: [place] [address] [facility] Admission from 8am to 10am Daily No intake until 04/15/20 Address: [place] [address] [facility] WOMEN and FAMILY Admission Address: [address], [place] [address] Information needed: OUTPATIENT MENTAL HEALTH RESOURCES [facility], [facility] Yaima Dahl MD: [address] [place] [address] [place], [place] [id number] [place] [facility]: [facility] [address] [place] [address] [place] [address] [phone] [facility] Integrative Psychiatry: [facility]: [address] [facility] [address] [facility] [place] [address] [facility] [id number] [place] [facility]: Duran Hugo MD: [address] [facility] [address] [facility] [id number] [facility]: [address] [place], [place] [id number] [phone] [place] CRISIS AND ACCESS LINE: * [facility]errals[facility] - 3-5 Days
[2020-10-25 18:28] VITALS: BP 106/61
== END 2020-10-25 18:00 | disposition home or self-care (01) ==
LOC: ED 15:25
DX: F25.0 Schizoaffective disorder, bipolar type (principal); F41.9 Anxiety disorder, unspecified; F31.9 Bipolar disorder, unspecified; Z98.890 Other specified postprocedural states; Z79.899 Other long term (current) drug therapy

== ENCOUNTER 2020-11-02 12:28 | Emergency (ER) | payer OTHER | END 2020-11-02 12:40 | disposition left against medical advice (07) | LOC: ED 12:28 | DX: K92.1 Melena (principal); Z53.21 Procedure and treatment not carried out due to patient leaving prior to being seen by health care provider ==

== ENCOUNTER 2020-11-02 16:03 | Emergency (ER) | payer OTHER ==
--- NOTE | 2020-11-02 17:09 | Emergency Department Report ---
ED GI Bleed HPI - General Chief complaint: GI Bleed Stated complaint: BLOOD IN STOOL / SWALLOWED PAPER CLIP 09/19/2020 Time Seen by Provider: 11/02/20 16:51 Source: patient Mode of arrival: Ambulatory Limitations: No Limitations - History of Present Illness Initial comments: 20-year-old female, history of psoriasis, bipolar and schizoaffective disorder, foreign body ingestions, presents to ED with report of blood in her stool. Patient states she swallowed a paperclip over 1 month ago on 09/19/20. Patient states she has been having intermittent checks of blood in her stool since then. Patient was supposed to follow-up with GI at [facility] approximately 1 week ago to have a repeat x-ray done, but she missed her appointment. Patient reports today with complaint of continued blood in her stool and abdominal pain. Patient reports she has seen bright red blood on the toilet paper when wiping. She also reports painful stools. MD complaint: blood on toilet paper -: month(s) (1) Location: diffuse Quality: cramping Consistency: intermittent Improves with: none Worsens with: none Context: swallowed FB Associated Symptoms: abdominal pain. denies: nausea, vomiting, fever/chills - Related Data Home Medications Medication Instructions Recorded Confirmed Last Taken Midodrine HCl 10 mg PO TID 07/13/20 08/30/20 Unknown Previous Rx's Medication Instructions Recorded Last Taken Type ARIPiprazole [Abilify] 20 mg PO QHS #30 tab 09/02/20 Unknown Rx Divalproex ER [Depakote ER] 500 mg PO BID #60 tab 09/02/20 Unknown Rx Escitalopram [Lexapro] 10 mg PO DAILY #30 tab 09/02/20 Unknown Rx Gabapentin 300 mg PO Q8HR #90 cap 09/02/20 Unknown Rx Midodrine [Proamatine] 5 mg PO TID@0800,1200,1600 #90 09/02/20 Unknown Rx tablet Ondansetron [Zofran ODT TAB] 4 mg PO Q8HR PRN #30 tab.rapdis 09/02/20 Unknown Rx Allergies Allergy/AdvReac Type Severity Reaction Status Date / Time No Known Allergies Allergy Verified 11/02/20 17:07 ED Review of Systems ROS: Stated complaint: BLOOD IN STOOL / SWALLOWED PAPER CLIP 09/19/2020 Other details as noted in HPI Comment: All other systems reviewed and negative Constitutional: denies: chills, fever Gastrointestinal: abdominal pain, hematochezia. 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, abdominal surgery for swallowing plastic - Social History Smoking Status: Current Every Day Smoker Substance Use Type: Prescribed - Medications Home Medications: Home Medications Medication Instructions Recorded Confirmed Last Taken Type Midodrine HCl 10 mg PO TID 07/13/20 08/30/20 Unknown History ARIPiprazole [Abilify] 20 mg PO QHS #30 tab 09/02/20 Unknown Rx Divalproex ER [Depakote ER] 500 mg PO BID #60 tab 09/02/20 Unknown Rx Escitalopram [Lexapro] 10 mg PO DAILY #30 tab 09/02/20 Unknown Rx Gabapentin 300 mg PO Q8HR #90 cap 09/02/20 Unknown Rx Midodrine [Proamatine] 5 mg PO TID@0800,1200,1600 #90 09/02/20 Unknown Rx tablet Ondansetron [Zofran ODT TAB] 4 mg PO Q8HR PRN #30 tab.rapdis 09/02/20 Unknown Rx ED Physical Exam - General Limitations: No Limitations General appearance: alert, in no apparent distress - Head Head exam: Present: atraumatic, normocephalic - Eye Eye exam: Present: normal appearance, EOMI - ENT ENT exam: Present: mucous membranes moist - Neck Neck exam: Present: normal inspection - Respiratory Respiratory exam: Present: normal lung sounds bilaterally. Absent: respiratory distress - Cardiovascular Cardiovascular Exam: Present: regular rate, normal rhythm - GI/Abdominal GI/Abdominal exam: Present: soft. Absent: distended, tenderness - Rectal Rectal exam: Present: normal rectal tone, heme (-) stool, other (Chaperoned by EMILE Escobedo). Absent: hemorrhoids - Extremities Exam Extremities exam: Present: normal inspection - Neurological Exam Neurological exam: Present: alert, oriented X3 - Skin Skin exam: Present: rash (Psoriasis) ED Course Vital Signs 11/02/20 11/02/20 16:15 17:52 Temperature 98.8 F Pulse Rate 103 H 79 Respiratory 18 14 Rate Blood Pressure 111/57 Blood Pressure 105/68 [Left] O2 Sat by Pulse 98 Oximetry - Consultations Consultation #1: 11/02/20 17:[address] Mora GI on-call here at [facility]. Relayed labs, exam findings, and radiology report. States patient okay for discharge and should follow up with [facility]. ED Medical Decision Making - Lab Data Result diagrams: 11/02/20 16:43 11/02/20 16:43 - Radiology Data Radiology results: report reviewed, image reviewed - Medical Decision Making Vital signs are stable. Hemoglobin 11.8. X-ray shows paperclip in the left upper quadrant, possibly small bowel or colon. No free air or pneumatosis present. I spoke with Dr. Mora, GI, who states patient can follow-up with her GI doctors at [facility]. Pt re-examined. Abdomen is soft. Pt talking on cell phone, no acute distress. Patient agrees with plan to follow-up with her GI physician. Return precautions given. - Differential Diagnosis Foreign body ingestion, bowel perforation Critical care attestation.: If time is entered above; I have spent that time in minutes in the direct care of this critically ill patient, excluding procedure time. ED Disposition Clinical Impression: Foreign body ingestion Disposition: DC-01 TO HOME OR SELFCARE Is pt being admited?: No Condition: Stable Instructions: Swallowed Foreign Body, Adult, [id number] Referrals: PRIMARY CARE,MD [Primary Care Provider] - 3-5 Days Forms: Accompanied Note Time of Disposition: 17:57
[2020-11-02 17:17] LABS: BUN/Creatinine Ratio 13; Blood Urea Nitrogen 10 mg/dL (7-17); Calcium 9.1 mg/dL (8.4-10.2); Hemolysis Index 7
[2020-11-02 17:20] LABS: Basophils % (Auto) 0.3 % (0.0-1.8); Eosinophils # (Auto) 0.1 K/mm3 (0.0-0.4); Eosinophils % (Auto) 1.1 % (0.0-4.3); Hematocrit 35.3 % (30.3-42.9); Hemoglobin 11.8 gm/dl (10.1-14.3); Lymphocytes # (Auto) 1.6 K/mm3 (1.2-5.4); Lymphocytes % (Auto) 30.7 % (13.4-35.0); Mean Corpuscular HGB Conc 34 % (30-34); Mean Corpuscular Volume 91 fl (79-97); Monocytes # (Auto) 0.3 K/mm3 (0.0-0.8); Monocytes % (Auto) 5.9 % (0.0-7.3); Platelet Count 274 K/mm3 (140-440); Red Blood Count 3.86 M/mm3 (3.65-5.03); Red Cell Distribution Width 16.3 % (13.2-15.2)
--- NOTE | 2020-11-02 17:33 | XRay Report ---
XR abdomen 1V ap INDICATION: swallowed paper clip 1 month ago; abd pain. COMPARISON: None available. FINDINGS: Metallic foreign body is seen projecting over the left upper quadrant. This could be within small bow el or colon. There is no appreciable free air or pneumatosis. Signer Name: Kervin Handy MD Signed: 11/02/2020 5:29 PM Workstation Name: [id number]
[2020-11-02 17:59] VITALS: BP 105/68
== END 2020-11-02 18:09 | disposition home or self-care (01) ==
LOC: ED 16:03
DX: T18.9XXA Foreign body of alimentary tract, part unspecified, initial encounter (principal); F20.9 Schizophrenia, unspecified; F31.9 Bipolar disorder, unspecified; F17.200 Nicotine dependence, unspecified, uncomplicated; Z98.890 Other specified postprocedural states; Z79.899 Other long term (current) drug therapy; X58.XXXA Exposure to other specified factors, initial encounter; Y93.89 Activity, other specified; Y92.89 Other specified places as the place of occurrence of the external cause; Y99.8 Other external cause status
CPT/HCPCS: 36415; 74018; 80048; 85025

== ENCOUNTER 2020-11-04 17:00 | Emergency (ER) | payer OTHER ==
--- NOTE | 2020-11-04 21:34 | Emergency Department Report ---
ED General Adult HPI - General Chief complaint: Skin/Abscess/Foreign Body Stated complaint: SWALLOW A PAPER CLIP Time Seen by Provider: 11/04/20 20:41 Source: patient Mode of arrival: Ambulatory Limitations: No Limitations - History of Present Illness Initial comments: 20-year-old -[place] female presents emerged department complaining of swelling of a ProGrip on September 19 which was given 5 she reports on this past Wednesday being in the left flank but reports no pain. States that she needs paperwork proving that she was evaluated by provider and she was able to follow- up to her correction she reports no hemoptysis no hematemesis hematochezia, no nausea, no vomiting, no chest pain, palpitations, no shortness of breath. -: Gradual Quality: dull Consistency: constant Improves with: none - Related Data Home Medications Medication Instructions Recorded Confirmed Last Taken Midodrine HCl 10 mg PO TID 07/13/20 08/30/20 Unknown Previous Rx's Medication Instructions Recorded Last Taken Type ARIPiprazole [Abilify] 20 mg PO QHS #30 tab 09/02/20 Unknown Rx Divalproex ER [Depakote ER] 500 mg PO BID #60 tab 09/02/20 Unknown Rx Escitalopram [Lexapro] 10 mg PO DAILY #30 tab 09/02/20 Unknown Rx Gabapentin 300 mg PO Q8HR #90 cap 09/02/20 Unknown Rx Midodrine [Proamatine] 5 mg PO TID@0800,1200,1600 #90 09/02/20 Unknown Rx tablet Ondansetron [Zofran ODT TAB] 4 mg PO Q8HR PRN #30 tab.rapdis 09/02/20 Unknown Rx Allergies Allergy/AdvReac Type Severity Reaction Status Date / Time No Known Allergies Allergy Verified 11/02/20 17:07 ED Review of Systems ROS: Stated complaint: SWALLOW A PAPER CLIP Other details as noted in HPI Comment: All other systems reviewed and negative ED Past Medical Hx - Past Medical History Hx Psychiatric Treatment: Yes (schizophrenia, bipolar, depression, anxiety, hydrocephalus) Additional medical history: bipolar, schizophrenic, autistic, anxiety, depression, swallows objects - Surgical History Additional Surgical History: brain surgery - hydrocephalus, 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, abdominal surgery for swallowing plastic - Social History Smoking Status: Current Every Day Smoker Substance Use Type: Prescribed - Medications Home Medications: Home Medications Medication Instructions Recorded Confirmed Last Taken Type Midodrine HCl 10 mg PO TID 07/13/20 08/30/20 Unknown History ARIPiprazole [Abilify] 20 mg PO QHS #30 tab 09/02/20 Unknown Rx Divalproex ER [Depakote ER] 500 mg PO BID #60 tab 09/02/20 Unknown Rx Escitalopram [Lexapro] 10 mg PO DAILY #30 tab 09/02/20 Unknown Rx Gabapentin 300 mg PO Q8HR #90 cap 09/02/20 Unknown Rx Midodrine [Proamatine] 5 mg PO TID@0800,1200,1600 #90 09/02/20 Unknown Rx tablet Ondansetron [Zofran ODT TAB] 4 mg PO Q8HR PRN #30 tab.rapdis 09/02/20 Unknown Rx ED Physical Exam - General Limitations: No Limitations General appearance: alert, in no apparent distress - Head Head exam: Present: atraumatic, normocephalic - Eye Eye exam: Present: normal appearance - ENT ENT exam: Present: mucous membranes moist - Neck Neck exam: Present: normal inspection - Respiratory Respiratory exam: Present: normal lung sounds bilaterally. Absent: respiratory distress - Cardiovascular Cardiovascular Exam: Present: regular rate, normal rhythm. Absent: systolic murmur, diastolic murmur, rubs, gallop - GI/Abdominal GI/Abdominal exam: Present: soft, normal bowel sounds - Extremities Exam Extremities exam: Present: normal inspection - Back Exam Back exam: Present: normal inspection - Neurological Exam Neurological exam: Present: alert, oriented X3 - Psychiatric Psychiatric exam: Present: normal affect, normal mood - Skin Skin exam: Present: warm, dry, intact, normal color. Absent: rash ED Medical Decision Making - Medical Decision Making 20-year-old female with with heavy clip to the left mid gastric region with no free air or pneumatosis noted. Patient reports she is still pain-free and still and is planning to follow-up with the [facility] as recommended by Dr. Mora on 11/02/2020 on tomorrow at 115. Again states the primary reason for her visit today is to receive a note to return to her correction. Patient states she is able to tolerate food she reports no GI bleeding and her vital signs are stable Critical care attestation.: If time is entered above; I have spent that time in minutes in the direct care of this critically ill patient, excluding procedure time. ED Disposition Clinical Impression: Foreign body ingestion Disposition: DC-01 TO HOME OR SELFCARE Is pt being admited?: No Does the pt Need Aspirin: No Condition: Stable Instructions: Swallowed Foreign Body, Adult Additional Instructions: Please keep your appointment with [facility] for removal of this foreign body as previously discussed. You are safe to return back to your living arrangement but you need to follow-up as recommended with gastroenterology Referrals: PRIMARY CARE, [Primary Care Provider] - 3-5 Days [facility]Other] - [facility]
--- NOTE | 2020-11-04 22:01 | XRay Report ---
ABDOMEN, SINGLE VIEW INDICATION / CLINICAL INFORMATION: swallowed paper clip 1 month ago. COMPARISON: Recent abdominal radiograph 11/02/2020 FINDINGS: A metallic foreign object consistent with a paper clip is again noted in the left mid abdomen, not si gnificantly changed in location.. It is unclear if it is within the colon or a loop of small bowel. T here is no suggestion of free air or other significant abnormality. The bowel gas pattern is normal. IMPRESSION: A metallic foreign object consistent with paper clip persists in the left mid abdomen not appreciably changed in position compared with radiograph obtained 2 days earlier. Signer Name: Tanya Walsh MD Signed: 11/04/2020 9:57 PM Workstation Name: [id number]
== END 2020-11-04 23:50 | disposition home or self-care (01) ==
LOC: ED 17:00
DX: T18.9XXA Foreign body of alimentary tract, part unspecified, initial encounter (principal); F25.0 Schizoaffective disorder, bipolar type; F25.1 Schizoaffective disorder, depressive type; F41.9 Anxiety disorder, unspecified; F17.200 Nicotine dependence, unspecified, uncomplicated; Z79.899 Other long term (current) drug therapy; Z98.890 Other specified postprocedural states; X58.XXXA Exposure to other specified factors, initial encounter; Y93.89 Activity, other specified; Y92.89 Other specified places as the place of occurrence of the external cause; Y99.8 Other external cause status
CPT/HCPCS: 74018

== ENCOUNTER 2020-11-11 21:51 | Emergency (ER) | payer OTHER ==
[2020-11-12 01:59] VITALS: BP 99/67
--- NOTE | 2020-11-12 21:21 | Emergency Department Report ---
ED GI Bleed HPI - General Chief complaint: GI Bleed Stated complaint: BLOOD IN STOOL/ABD PAIN/EMESIS/SWALLOWED FB Time Seen by Provider: 11/12/20 21:08 Source: patient Mode of arrival: Ambulatory Limitations: No Limitations - History of Present Illness Initial comments: Patient is 20 years old female with history of schizophrenia. Patient presented to the ER complaining of blood in the stool. Patient was seen here several times before. Patient is followed [facility] and of September and since then she has been having bleeding. Patient has been evaluated by [facility]. Patient stated that she had an appointment today with them but she was unable to go because he does not have money for the ride. Patient denied any bleeding at this moment but she said the last time she had some blood in the stool was this morning. She denied any dizziness, weakness, abdominal pain, fever or chills. Patient denied any suicidal ideation, homicidal ideation, visual or auditory hallucination. MD complaint: blood on toilet paper -: week(s) Context: swallowed FB Associated Symptoms: denies other symptoms - Related Data Home Medications Medication Instructions Recorded Confirmed Last Taken Midodrine HCl 10 mg PO TID 07/13/20 08/30/20 Unknown Previous Rx's Medication Instructions Recorded Last Taken Type ARIPiprazole [Abilify] 20 mg PO QHS #30 tab 09/02/20 Unknown Rx Divalproex ER [Depakote ER] 500 mg PO BID #60 tab 09/02/20 Unknown Rx Escitalopram [Lexapro] 10 mg PO DAILY #30 tab 09/02/20 Unknown Rx Gabapentin 300 mg PO Q8HR #90 cap 09/02/20 Unknown Rx Midodrine [Proamatine] 5 mg PO TID@0800,1200,1600 #90 09/02/20 Unknown Rx tablet Ondansetron [Zofran ODT TAB] 4 mg PO Q8HR PRN #30 tab.rapdis 09/02/20 Unknown Rx Allergies Allergy/AdvReac Type Severity Reaction Status Date / Time No Known Allergies Allergy Verified 11/02/20 17:07 ED Review of Systems ROS: Stated complaint: BLOOD IN STOOL/ABD PAIN/EMESIS/SWALLOWED FB Other details as noted in HPI Comment: All other systems reviewed and negative Respiratory: denies: cough, orthopnea, shortness of breath Cardiovascular: denies: chest pain, palpitations Gastrointestinal: melena, hematochezia. denies: abdominal pain, nausea, vomiting, diarrhea, constipation, hematemesis Genitourinary: denies: urgency, dysuria Musculoskeletal: denies: back pain Neurological: denies: headache, weakness, numbness, paresthesias, confusion, abnormal gait ED Past Medical Hx - Past Medical History Previous Medical History?: Yes Hx Psychiatric Treatment: Yes (schizophrenia, bipolar, depression, anxiety, hydrocephalus) Additional medical history: bipolar, schizophrenic, autistic, anxiety, depression, swallows objects - Surgical History Past Surgical History?: Yes Additional Surgical History: brain surgery - hydrocephalus, 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, abdominal surgery for swallowing plastic - Social History Smoking Status: Never Smoker Substance Use Type: None - Medications Home Medications: Home Medications Medication Instructions Recorded Confirmed Last Taken Type Midodrine HCl 10 mg PO TID 07/13/20 08/30/20 Unknown History ARIPiprazole [Abilify] 20 mg PO QHS #30 tab 09/02/20 Unknown Rx Divalproex ER [Depakote ER] 500 mg PO BID #60 tab 09/02/20 Unknown Rx Escitalopram [Lexapro] 10 mg PO DAILY #30 tab 09/02/20 Unknown Rx Gabapentin 300 mg PO Q8HR #90 cap 09/02/20 Unknown Rx Midodrine [Proamatine] 5 mg PO TID@0800,1200,1600 #90 09/02/20 Unknown Rx tablet Ondansetron [Zofran ODT TAB] 4 mg PO Q8HR PRN #30 tab.rapdis 09/02/20 Unknown Rx ED Physical Exam - General Limitations: No Limitations General appearance: alert, in no apparent distress - Head Head exam: Present: atraumatic, normocephalic, normal inspection - Eye Eye exam: Present: normal appearance - ENT ENT exam: Present: normal exam, normal orophraynx, mucous membranes moist - Neck Neck exam: Present: normal inspection, full ROM. Absent: tenderness, meningismus - Respiratory Respiratory exam: Present: normal lung sounds bilaterally - Cardiovascular Cardiovascular Exam: Present: regular rate, normal rhythm, normal heart sounds - GI/Abdominal GI/Abdominal exam: Present: soft, normal bowel sounds. Absent: distended, tenderness, guarding, rebound, rigid, organomegaly, mass, bruit, pulsatile mass, hernia - Extremities Exam Extremities exam: Present: normal inspection, full ROM, normal capillary refill. Absent: tenderness - Back Exam Back exam: Present: normal inspection, full ROM. Absent: CVA tenderness (R), CVA tenderness (L) - Neurological Exam Neurological exam: Present: alert, oriented X3, CN II-XII intact, normal gait, reflexes normal. Absent: motor sensory deficit - Psychiatric Psychiatric exam: Present: normal mood. Absent: homicidal ideation, suicidal ideation - Skin Skin exam: Present: warm, intact, normal color ED Course Vital Signs 11/12/20 01:53 Temperature 98.2 F Pulse Rate 81 Respiratory 18 Rate Blood Pressure 99/67 O2 Sat by Pulse 99 Oximetry ED Medical Decision Making - Lab Data Result diagrams: 11/12/20 21:23 11/12/20 21:23 - Radiology Data Radiology results: report reviewed, image reviewed [facility] [address] [place] [address] XRay Report Signed Patient: REZA DUMONT MR#: [id number] : 2000 Acct:[id number] Age/Sex: 20 / F ADM Date: 11/11/20 Loc: ED Attending Dr: Ordering Physician: ADAM THORNE Date of Service: 11/12/20 Procedure(s): XR abd series w cxr 1V Accession Number(s): [id number] cc: ADAM Crook ro Time In Minutes: XR abd series w cxr 1V INDICATION / CLINICAL INFORMATION: abdominal pain. COMPARISON: Abdominal radiograph November 04 FINDINGS: SUPPORT DEVICES: Catheter apparatus noted extending from the left side of the neck into the chest with tip terminating at the superior cavoatrial junction. HEART / MEDIASTINUM: No significant abnormality. LUNGS / PLEURA: Lungs are clear. Costophrenic sulci are sharp. No pneumothorax. ABDOMEN: Nonobstructive bowel gas pattern. No pneumoperitoneum. ADDITIONAL FINDINGS: No significant additional findings. IMPRESSION: 1. Interval passage of a paper clip demonstrated on reference radiograph. 2. No other acute findings. Signer Name: Felipe Collado MD Signed: 11/12/2020 9:57 PM Workstation Name: [id number] Transcribed By: SB Dictated By: FELIPE COLLADO MD Electronically Authenticated By: FELIPE COLLADO MD Signed Date/Time: 11/12/202156 DD/ 54 TD/TT: Critical care attestation.: If time is entered above; I have spent that time in minutes in the direct care of this critically ill patient, excluding procedure time. ED Disposition Clinical Impression: Homeless, GI bleed Disposition: DC-01 TO HOME OR SELFCARE Is pt being admited?: No Condition: Stable Referrals: PRIMARY CARE, [Primary Care Provider] - 3-5 Days Forms: Accompanied Note
[2020-11-12 21:53] LABS: Basophils # (Auto) 0.1 K/mm3 (0.0-0.1); Basophils % (Auto) 0.6 % (0.0-1.8); Eosinophils # (Auto) 0.2 K/mm3 (0.0-0.4); Eosinophils % (Auto) 1.5 % (0.0-4.3); Hematocrit 37.3 % (30.3-42.9); Hemoglobin 12.6 gm/dl (10.1-14.3); Lymphocytes # (Auto) 2.6 K/mm3 (1.2-5.4); Lymphocytes % (Auto) 24.9 % (13.4-35.0); Mean Corpuscular HGB Conc 34 % (30-34); Mean Corpuscular Volume 96 fl (79-97); Monocytes # (Auto) 1.2 K/mm3 (0.0-0.8); Monocytes % (Auto) 11.1 % (0.0-7.3); Platelet Count 329 K/mm3 (140-440); Red Blood Count 3.89 M/mm3 (3.65-5.03); Red Cell Distribution Width 13.4 % (13.2-15.2)
--- NOTE | 2020-11-12 22:02 | XRay Report ---
XR abd series w cxr 1V INDICATION / CLINICAL INFORMATION: abdominal pain. COMPARISON: Abdominal radiograph November 04 FINDINGS: SUPPORT DEVICES: Catheter apparatus noted extending from the left side of the neck into the chest wit h tip terminating at the superior cavoatrial junction. HEART / MEDIASTINUM: No significant abnormality. LUNGS / PLEURA: Lungs are clear. Costophrenic sulci are sharp. No pneumothorax. ABDOMEN: Nonobstructive bowel gas pattern. No pneumoperitoneum. ADDITIONAL FINDINGS: No significant additional findings. IMPRESSION: 1. Interval passage of a paper clip demonstrated on reference radiograph. 2. No other acute findings. Signer Name: Felipe Collado MD Signed: 11/12/2020 9:57 PM Workstation Name: [id number]
[2020-11-12 22:10] LABS: Blood Urea Nitrogen 9 mg/dL (7-17); Calcium 9.2 mg/dL (8.4-10.2); Hemolysis Index 4
[2020-11-12 22:15] LABS: BUN/Creatinine Ratio 18
== END 2020-11-13 09:06 | disposition home or self-care (01) ==
LOC: ED 21:51
DX: K92.2 Gastrointestinal hemorrhage, unspecified (principal); F25.0 Schizoaffective disorder, bipolar type; F41.9 Anxiety disorder, unspecified; Z79.899 Other long term (current) drug therapy; Z98.890 Other specified postprocedural states; Z59.0 Homelessness
CPT/HCPCS: 36415; 74022; 80048; 80053; 85025

== ENCOUNTER 2020-11-12 17:22 | Emergency (ER) | payer OTHER ==
[2020-11-12 20:34] VITALS: BP 104/58
[2020-11-12] MEDS ORDERED: ACETAMINOPHEN 500 MG TAB PO ONE (20:40)
[2020-11-12 21:23] LABS: Hematocrit 33.3 % (30.3-42.9); Mean Corpuscular HGB Conc 33 % (30-34); Mean Corpuscular Volume 93 fl (79-97); Platelet Count 332 K/mm3 (140-440); Red Blood Count 3.59 M/mm3 (3.65-5.03); Red Cell Distribution Width 15.6 % (13.2-15.2)
[2020-11-12 21:29] LABS: Basophils % (Auto) 0.3 % (0.0-1.8); Eosinophils % (Auto) 0.4 % (0.0-4.3); Lymphocytes % (Auto) 29.6 % (13.4-35.0); Monocytes # (Auto) 0.7 K/mm3 (0.0-0.8)
[2020-11-12 21:38] LABS: Alanine Aminotransferase 5 units/L (7-56); Albumin 4.5 g/dL (3.9-5); Blood Urea Nitrogen 9 mg/dL (7-17); Calcium 9.8 mg/dL (8.4-10.2); Hemolysis Index 10
[2020-11-12 21:59] LABS: BUN/Creatinine Ratio 13
--- NOTE | 2020-11-12 22:15 | Emergency Department Report ---
ED GI Bleed HPI - General Chief complaint: Abdominal Pain Stated complaint: BLOOD STOOL Time Seen by Provider: 11/12/20 20:42 Source: patient Mode of arrival: Ambulatory Limitations: No Limitations - History of Present Illness Initial comments: Patient is 20 years old female with history of schizophrenia. Patient presented to the ER complaining of blood in the stool. Patient was seen here several times before. Patient is [facility] and of September and since then she has been having bleeding. Patient has been evaluated by [facility]. Patient stated that she had an appointment today with them but she was unable to go because he does not have money for the ride. Patient denied any bleeding at this moment but she said the last time she had some blood in the stool was this morning. She denied any dizziness, weakness, abdominal pain, fever or chills. Patient denied any suicidal ideation, homicidal ideation, visual or auditory hallucination. MD complaint: blood streaked stool Severity scale (0 -10): 5 Context: swallowed FB - Related Data Home Medications Medication Instructions Recorded Confirmed Last Taken Midodrine HCl 10 mg PO TID 07/13/20 08/30/20 Unknown Previous Rx's Medication Instructions Recorded Last Taken Type ARIPiprazole [Abilify] 20 mg PO QHS #30 tab 09/02/20 Unknown Rx Divalproex ER [Depakote ER] 500 mg PO BID #60 tab 09/02/20 Unknown Rx Escitalopram [Lexapro] 10 mg PO DAILY #30 tab 09/02/20 Unknown Rx Gabapentin 300 mg PO Q8HR #90 cap 09/02/20 Unknown Rx Midodrine [Proamatine] 5 mg PO TID@0800,1200,1600 #90 09/02/20 Unknown Rx tablet Ondansetron [Zofran ODT TAB] 4 mg PO Q8HR PRN #30 tab.rapdis 09/02/20 Unknown Rx Allergies Allergy/AdvReac Type Severity Reaction Status Date / Time No Known Allergies Allergy Verified 11/02/20 17:07 ED Review of Systems ROS: Stated complaint: BLOOD STOOL Other details as noted in HPI Comment: All other systems reviewed and negative Constitutional: denies: chills, fever Respiratory: denies: orthopnea, shortness of breath, SOB with exertion, SOB at rest Cardiovascular: denies: chest pain, palpitations Gastrointestinal: denies: abdominal pain, nausea, vomiting Musculoskeletal: denies: back pain Neurological: denies: headache, weakness Psychiatric: denies: depression, auditory hallucinations, visual hallucinations, homicidal thoughts, suicidal thoughts ED Past Medical Hx - Past Medical History Hx Psychiatric Treatment: Yes (schizophrenia, bipolar, depression, anxiety, hydrocephalus) Additional medical history: bipolar, schizophrenic, autistic, anxiety, depression, swallows objects - Surgical History Additional Surgical History: brain surgery - hydrocephalus, [employer] shunt, abdominal surgery for swallowing plastic - Social History Smoking Status: Never Smoker Substance Use Type: None - Medications Home Medications: Home Medications Medication Instructions Recorded Confirmed Last Taken Type Midodrine HCl 10 mg PO TID 07/13/20 08/30/20 Unknown History ARIPiprazole [Abilify] 20 mg PO QHS #30 tab 09/02/20 Unknown Rx Divalproex ER [Depakote ER] 500 mg PO BID #60 tab 09/02/20 Unknown Rx Escitalopram [Lexapro] 10 mg PO DAILY #30 tab 09/02/20 Unknown Rx Gabapentin 300 mg PO Q8HR #90 cap 09/02/20 Unknown Rx Midodrine [Proamatine] 5 mg PO TID@0800,1200,1600 #90 09/02/20 Unknown Rx tablet Ondansetron [Zofran ODT TAB] 4 mg PO Q8HR PRN #30 tab.rapdis 09/02/20 Unknown Rx ED Physical Exam - General Limitations: No Limitations General appearance: alert, in no apparent distress - Head Head exam: Present: atraumatic, normocephalic, normal inspection - Eye Eye exam: Present: normal appearance, PERRL - ENT ENT exam: Present: normal exam, normal orophraynx, mucous membranes moist - Neck Neck exam: Present: normal inspection. Absent: tenderness, meningismus - Respiratory Respiratory exam: Present: normal lung sounds bilaterally - Cardiovascular Cardiovascular Exam: Present: regular rate, normal rhythm, normal heart sounds - GI/Abdominal GI/Abdominal exam: Present: soft, normal bowel sounds. Absent: distended, tenderness, guarding, rebound, rigid, organomegaly, mass, bruit, pulsatile mass, hernia - Extremities Exam Extremities exam: Present: normal inspection, full ROM, normal capillary refill. Absent: tenderness - Back Exam Back exam: Present: normal inspection, full ROM. Absent: CVA tenderness (R), CVA tenderness (L) - Neurological Exam Neurological exam: Present: alert, oriented X3, CN II-XII intact, normal gait, reflexes normal. Absent: motor sensory deficit - Psychiatric Psychiatric exam: Present: normal mood. Absent: homicidal ideation, suicidal ideation - Skin Skin exam: Present: warm, intact, normal color ED Course Vital Signs 11/12/20 20:32 Temperature 98.8 F Pulse Rate 93 H Respiratory 18 Rate Blood Pressure 104/58 O2 Sat by Pulse 98 Oximetry ED Medical Decision Making - Lab Data Result diagrams: 11/12/20 21:01 11/12/20 21:01 - Radiology Data Radiology results: report reviewed [facility] [address] [place] [address] XRay Report Signed Patient: REZA DUMONT MR#: [id number] : 2000 Acct:[id number] Age/Sex: 20 / F ADM Date: 11/11/20 Loc: ED Attending Dr: Ordering Physician: ADAM THORNE Date of Service: 11/12/20 Procedure(s): XR abd series w cxr 1V Accession Number(s): [id number] cc: ADAM THORNE Fluoro Time In Minutes: XR abd series w cxr 1V INDICATION / CLINICAL INFORMATION: abdominal pain. COMPARISON: Abdominal radiograph November 04 FINDINGS: SUPPORT DEVICES: Catheter apparatus noted extending from the left side of the neck into the chest with tip terminating at the superior cavoatrial junction. HEART / MEDIASTINUM: No significant abnormality. LUNGS / PLEURA: Lungs are sher ar. Costophrenic sulci are sharp. No pneumothorax. ABDOMEN: Nonobstructive bowel gas pattern. No pneumoperitoneum. ADDITIONAL FINDINGS: No significant additional findings. IMPRESSION: 1. Interval passage of a paper clip demonstrated on reference radiograph. 2. No other acute findings. Signer Name: Felipe Jose MD Signed: 11/12/2020 9:57 PM Workstation Name: [id number] Transcribed By: HARITHA Dictated By: FELIPE JOSE MD Electronically Authenticated By: FELIPE JOSE MD Signed Date/Time: 11/12/202156 DD/ 54 TD/TT: - Medical Decision Making Patient is 20 years old female with history of schizophrenia. Patient presented to the ER complaining of blood in the stool. Patient was seen here several times before. Patient is followed [facility] and of September and since then she has been having bleeding. Patient has been evaluated by [facility]. Patient stated that she had an appointment today with them but she was unable to go because he does not have money for the ride. Patient denied any bleeding at this moment but she said the last time she had some blood in the stool was this morning. She denied any dizziness, weakness, abdominal pain, fever or chills. Patient denied any suicidal ideation, homicidal ideation, visual or auditory hallucination. Labs reviewed and is unremarkable. Hemoglobin is 12.6. Abdominal x-ray showed interval passage of the paperclip. Social consult requested as the patient is homeless. Patient advised to follow-up with her GI doctor at the schedule. She also advised to return to the ER if she develop any new symptoms. Critical care attestation.: If time is entered above; I have spent that time in minutes in the direct care of this critically ill patient, excluding procedure time. ED Disposition Clinical Impression: GI bleed, Homeless Disposition: DC-01 TO HOME OR SELFCARE Is pt being admited?: No Condition: Stable Instructions: Abdominal Pain (ED), Gastrointestinal Bleeding Referrals: PRIMARY CARE, [Primary Care Provider] - 3-5 Days
--- NOTE | 2020-11-12 23:24 | XRay Report ---
LEFT KNEE 3 VIEWS INDICATION / CLINICAL INFORMATION: Left knee pain, twisting injury of left knee, history of fall. COMPARISON: None available. FINDINGS: BONES and JOINT(S): No acute fracture or subluxation. No significant arthritis. SOFT TISSUES: No significant abnormality. ADDITIONAL FINDINGS: None. IMPRESSION: 1. No acute findings. Signer Name: Candelario Mancia MD Signed: 11/12/2020 11:20 PM Workstation Name: [id number]
== END 2020-11-13 02:00 | disposition home or self-care (01) ==
LOC: ED 17:22
DX: K92.1 Melena (principal); F41.8 Other specified anxiety disorders; F20.9 Schizophrenia, unspecified; F31.9 Bipolar disorder, unspecified; Z98.890 Other specified postprocedural states
CPT/HCPCS: 36415; 74022; 80053; 85025

== ENCOUNTER 2020-12-15 07:08 | Emergency (ER) | payer OTHER ==
[2020-12-15 07:51] VITALS: BP 109/63
[2020-12-15] MEDS ORDERED: TETANUS,DIPH,PERTUSS(ACELL) VACCINE 0.5 ML SYRINGE IM ONE (09:01)
[2020-12-15] MEDS ORDERED: LIDOCAINE (2%) 20 MG/1 ML VIAL 20 ML MDV INFILTRATI ONE (09:01)
--- NOTE | 2020-12-15 09:12 | Emergency Department Report ---
ED Lower Extremity HPI - General Chief Complaint: Extremity Injury, Lower Stated Complaint: TOE PAIN Time Seen by Provider: 12/15/20 08:40 Source: patient, EMS Mode of arrival: Ambulatory Limitations: No Limitations - History of Present Illness Initial Comments: This is a pleasant 20 old female presents the emergency department with a chief complaint of right second toe injury. She reports she accidentally kicked a refrigerator and bent her toenail backwards. She denies any additional injuries. She reports pain is aggravated with movement and walking. She is unsure of her last tetanus vaccine. Pain is an 8 out of 10. She denies any known past medical history, current medication use or known allergies to medications. - Related Data Home Medications Medication Instructions Recorded Confirmed Last Taken Midodrine HCl 10 mg PO TID 07/13/20 08/30/20 Unknown Previous Rx's Medication Instructions Recorded Last Taken Type ARIPiprazole [Abilify] 20 mg PO QHS #30 tab 09/02/20 Unknown Rx Divalproex ER [Depakote ER] 500 mg PO BID #60 tab 09/02/20 Unknown Rx Escitalopram [Lexapro] 10 mg PO DAILY #30 tab 09/02/20 Unknown Rx Gabapentin 300 mg PO Q8HR #90 cap 09/02/20 Unknown Rx Midodrine [Proamatine] 5 mg PO TID@0800,1200,1600 #90 09/02/20 Unknown Rx tablet Ondansetron [Zofran ODT TAB] 4 mg PO Q8HR PRN #30 tab.rapdis 09/02/20 Unknown Rx Allergies Allergy/AdvReac Type Severity Reaction Status Date / Time No Known Allergies Allergy Verified 11/02/20 17:07 ED Review of Systems ROS: Stated complaint: TOE PAIN Other details as noted in HPI Comment: All other systems reviewed and negative Constitutional: denies: chills, fever Eyes: denies: eye pain, eye discharge, vision change ENT: denies: ear pain, throat pain Respiratory: denies: cough, shortness of breath, wheezing Cardiovascular: denies: chest pain, palpitations Endocrine: no symptoms reported Gastrointestinal: denies: abdominal pain, nausea, diarrhea Genitourinary: denies: urgency, dysuria, discharge Musculoskeletal: as per HPI, arthralgia. denies: back pain, joint swelling Skin: denies: rash, lesions Neurological: denies: headache, weakness, paresthesias Psychiatric: denies: anxiety, depression Hematological/Lymphatic: denies: easy bleeding, easy bruising ED Past Medical Hx - Past Medical History Previous Medical History?: Yes Hx Psychiatric Treatment: Yes (schizophrenia, bipolar, depression, anxiety, hydrocephalus) Additional medical history: bipolar, schizophrenic, autistic, anxiety, depression, swallows objects - Surgical History Past Surgical History?: Yes Additional Surgical History: brain surgery - hydrocephalus, [employer] shunt, abdominal surgery for swallowing plastic - Social History Smoking Status: Current Every Day Smoker Substance Use Type: Marijuana - Medications Home Medications: Home Medications Medication Instructions Recorded Confirmed Last Taken Type Midodrine HCl 10 mg PO TID 07/13/20 08/30/20 Unknown History ARIPiprazole [Abilify] 20 mg PO QHS #30 tab 09/02/20 Unknown Rx Divalproex ER [Depakote ER] 500 mg PO BID #60 tab 09/02/20 Unknown Rx Escitalopram [Lexapro] 10 mg PO DAILY #30 tab 09/02/20 Unknown Rx Gabapentin 300 mg PO Q8HR #90 cap 09/02/20 Unknown Rx Midodrine [Proamatine] 5 mg PO TID@0800,1200,1600 #90 09/02/20 Unknown Rx tablet Ondansetron [Zofran ODT TAB] 4 mg PO Q8HR PRN #30 tab.rapdis 09/02/20 Unknown Rx ED Physical Exam - General Limitations: No Limitations General appearance: alert, in no apparent distress - Head Head exam: Present: atraumatic, normocephalic - Eye Eye exam: Present: normal appearance, PERRL, EOMI Pupils: Present: normal accommodation - ENT ENT exam: Present: normal exam, normal orophraynx, mucous membranes moist - Neck Neck exam: Present: normal inspection, full ROM. Absent: tenderness, meningismus - Respiratory Respiratory exam: Present: normal lung sounds bilaterally. Absent: respiratory distress, wheezes, rales, rhonchi, stridor - Cardiovascular Cardiovascular Exam: Present: regular rate, normal rhythm, normal heart sounds. Absent: systolic murmur, diastolic murmur, rubs, gallop - GI/Abdominal GI/Abdominal exam: Present: soft, normal bowel sounds. Absent: distended, tenderness, guarding, rebound, rigid - Extremities Exam Extremities exam: Present: full ROM, tenderness (There is tenderness to palpation over the nail of the right second toe with a partial avulsion on the medial side. No active bleeding. Normal distal sensation capillary refill.), normal capillary refill - Back Exam Back exam: Present: normal inspection, full ROM. Absent: tenderness, CVA tenderness (R), CVA tenderness (L) - Neurological Exam Neurological exam: Present: alert, oriented X3, normal gait - Psychiatric Psychiatric exam: Present: normal affect, normal mood - Skin Skin exam: Present: warm, dry, intact, normal color. Absent: rash ED Course Vital Signs 12/15/20 07:47 Temperature 98.7 F Pulse Rate 76 Respiratory 17 Rate Blood Pressure 109/63 O2 Sat by Pulse 99 Oximetry - Reevaluation(s) Reevaluation #1: 12/15/20 09:11 I discussed treating this conservatively with the patient including cleaning the wound, bandage and follow-up with podiatry as needed. Versus doing a digital block and removing the nail. The patient preferred to remove the nail due to concern of it catching on her socks or close and bending backwards again. X-ray was ordered to rule out acute fracture. Tetanus will be updated. - Procedure Description Procedures done: Toenail removal: Right second toenail removal due to avulsion. 2% lidocaine was used to do a digital block on the toe. Proximally 5 mL of anesthetic used. Anesthesia achieved. I then used the blunt end of a scalpel and the nail bed from the bottom of the nail. The nail was then removed and the nailbed was thoroughly cleaned and a sterile nonadherent dressing was applied. There is less than 5 mL of blood loss. Patient tolerated the procedure well. ED Lower Extremity MDM - Radiology Data Radiology results: report reviewed Fluoro Time In Minutes: RIGHT FOOT 3 VIEW(S) INDICATION / CLINICAL INFORMATION: kicked refrigerator, injury to 2nd toe COMPARISON: None available. FINDINGS: BONES / JOINT(S): No acute fracture or subluxation. No significant arthritis. SOFT TISSUES: No significant abnormality. ADDITIONAL FINDINGS: None. Signer Name: Dean Madrigal MD Signed: 12/15/2020 10:05 AM Workstation Name: [id number] Transcribed By: LILIANE Dictated By: Jimy Madrigal MD Electronically Authenticated By: Jimy Madrigal MD Signed Date/Time: 12/15/20 1005 DD/ 1003 TD/TT: Print - Medical Decision Making The patient's toenail had avulsed and was from the nailbed. Patient requested that I remove the nail. I did a digital block and remove the nail without complication, see procedure note. Patient tolerated this well. The nailbed was intact without laceration or injury. A nonadherent dressing was applied. We will send the patient home with outpatient podiatry follow-up and return to the ER with any change or worsening symptoms. Patient verbalized understand these instructions and all of her questions were answered. - Differential Diagnosis Nailbed avulsion, contusion, fracture Critical care attestation.: If time is entered above; I have spent that time in minutes in the direct care of this critically ill patient, excluding procedure time. ED Disposition Clinical Impression: Avulsion of toenail of right foot Disposition: 01 HOME / SELF CARE / HOMELESS Is pt being admited?: No Condition: Stable Instructions: Fingernail or Toenail Removal, Adult, Care After Referrals: PRIMARY CARE, [Primary Care Provider] - 3-5 Days VICTOR HUGO WALLACE DPM [Staff Physician] - 3-5 Days Time of Disposition: 11:20
--- NOTE | 2020-12-15 10:09 | XRay Report ---
RIGHT FOOT 3 VIEW(S) INDICATION / CLINICAL INFORMATION: kicked refrigerator, injury to 2nd toe COMPARISON: None available. FINDINGS: BONES / JOINT(S): No acute fracture or subluxation. No significant arthritis. SOFT TISSUES: No significant abnormality. ADDITIONAL FINDINGS: None. Signer Name: Dean Madrigal MD Signed: 12/15/2020 10:05 AM Workstation Name: [id number]
== END 2020-12-15 11:31 | disposition home or self-care (01) ==
LOC: ED 07:08
DX: S91.204A Unspecified open wound of right lesser toe(s) with damage to nail, initial encounter (principal); F17.200 Nicotine dependence, unspecified, uncomplicated; F12.90 Cannabis use, unspecified, uncomplicated; F20.9 Schizophrenia, unspecified; F31.9 Bipolar disorder, unspecified; W22.8XXA Striking against or struck by other objects, initial encounter; F41.8 Other specified anxiety disorders; Y92.89 Other specified places as the place of occurrence of the external cause; Y93.89 Activity, other specified; Y99.8 Other external cause status
CPT/HCPCS: 90471; 90715; 99283

== ENCOUNTER 2021-01-12 15:54 | Emergency (ER) | payer OTHER, MEDICAID ==
[2021-01-12] MEDS ORDERED: diphenhydrAMINE 50 MG/ML VIAL IV ONE (16:23)
[2021-01-12] MEDS ORDERED: FAMOTIDINE 20 MG/2 ML INJ IV ONE (16:23)
[2021-01-12] MEDS ORDERED: DICYCLOMINE 20 MG TAB PO ONE ×2 (16:23→19:00)
[2021-01-12] MEDS ORDERED: METOCLOPRAMIDE 10 MG/2 ML INJ IV ONE (16:23)
[2021-01-12] MEDS ORDERED: SODIUM CHLORIDE 0.9% 1000 ML 1,000 ML IV ONE (16:23)
[2021-01-12] MEDS ORDERED: METOCLOPRAMIDE 10 MG TAB PO ONE (17:00)
[2021-01-12] MEDS ORDERED: FAMOTIDINE 20 MG TAB PO ONE (17:00)
[2021-01-12] MEDS ORDERED: diphenhydrAMINE 25 MG CAP PO ONE (17:00)
[2021-01-12 17:08] LABS: Basophils % (Auto) 0.2 % (0.0-1.8); Eosinophils % (Auto) 0.4 % (0.0-4.3); Hematocrit 37.7 % (30.3-42.9); Hemoglobin 12.6 gm/dl (10.1-14.3); Lymphocytes # (Auto) 1.7 K/mm3 (1.2-5.4); Lymphocytes % (Auto) 18.8 % (13.4-35.0); Mean Corpuscular HGB Conc 34 % (30-34); Mean Corpuscular Volume 88 fl (79-97); Monocytes # (Auto) 0.5 K/mm3 (0.0-0.8); Monocytes % (Auto) 5.9 % (0.0-7.3); Platelet Count 327 K/mm3 (140-440)
[2021-01-12 17:23] LABS: Bilirubin,Urine NEG (Negative); Blood,Urine LG (Negative); Color,Urine Amber (Yellow); Mucus,Urine 3+ /HPF
[2021-01-12 17:24] LABS: RBC,Urine > 182.0 /HPF (0.0-6.0)
[2021-01-12 17:25] LABS: HCG Qualitative,Urine Negative (Negative)
[2021-01-12 17:26] LABS: Albumin 4.6 g/dL (3.9-5); BUN/Creatinine Ratio 9; Blood Urea Nitrogen 9 mg/dL (7-17); Calcium 9.8 mg/dL (8.4-10.2); Hemolysis Index 6
[2021-01-12 17:27] LABS: Bilirubin,Direct < 0.2 mg/dL (0-0.2)
[2021-01-12 17:28] LABS: Alanine Aminotransferase < 5 units/L (7-56)
--- NOTE | 2021-01-12 17:33 | Emergency Department Report ---
ED Abdominal Pain HPI - General Chief Complaint: Abdominal Pain Stated Complaint: ABD/BACK PAIN Time Seen by Provider: 01/12/21 16:23 Source: patient Mode of arrival: Ambulatory Limitations: No Limitations - History of Present Illness Initial Comments: This is a 20-year-old female nontoxic, well nourished in appearance, no acute signs of distress presents to the ED with c/o of nausea and vomiting and RUQ abdomen pain with radiation to right flank x several days. Patient describes vomiting as food content and yellow gastric acid. Patient describes abdominal pain as cramping and aching with level of 8/10. Patient denies chest pain, short of breath, fever, hemoptysis, blood in stool, chills, headache, stiff neck, numbness or tingling. Patient denies any diarrhea or constipation. Denies any blood in stool. Patient denies any recent travels. Patient denies any allergies. Stated is on her menstrual cycle prior to symptoms. MD Complaint: abdominal pain, flank pain -: days(s) Location: RUQ Radiation: R flank Migration to: no migration Severity: mild Severity scale (0 -10): 8 Quality: cramping, aching Consistency: intermittent Improves With: nothing Worsens With: nothing Associated Symptoms: nausea, vomiting. denies: diarrhea, fever, chills, constipation, dysuria, hematemesis, hematochezia, melena, hematuria, anorexia, syncope - Related Data Home Medications Medication Instructions Recorded Confirmed Last Taken Midodrine HCl 10 mg PO TID 07/13/20 08/30/20 Unknown Previous Rx's Medication Instructions Recorded Last Taken Type ARIPiprazole [Abilify] 20 mg PO QHS #30 tab 09/02/20 Unknown Rx Divalproex ER [Depakote ER] 500 mg PO BID #60 tab 09/02/20 Unknown Rx Escitalopram [Lexapro] 10 mg PO DAILY #30 tab 09/02/20 Unknown Rx Gabapentin 300 mg PO Q8HR #90 cap 09/02/20 Unknown Rx Midodrine [Proamatine] 5 mg PO TID@0800,1200,1600 #90 09/02/20 Unknown Rx tablet Ondansetron [Zofran ODT TAB] 4 mg PO Q8HR PRN #30 tab.rapdis 09/02/20 Unknown Rx Ondansetron [Zofran Odt] 4 mg PO Q8HR PRN #12 tab.rapdis 01/12/21 Unknown Rx cephALEXin [Keflex] 500 mg PO Q8HR #21 cap 01/12/21 Unknown Rx Allergies Allergy/AdvReac Type Severity Reaction Status Date / Time No Known Allergies Allergy Verified 01/12/21 18:03 ED Review of Systems ROS: Stated complaint: ABD/BACK PAIN Other details as noted in HPI Comment: All other systems reviewed and negative Constitutional: denies: chills, fever Eyes: denies: eye pain, eye discharge, vision change ENT: denies: ear pain, throat pain Respiratory: denies: cough, shortness of breath, wheezing Cardiovascular: denies: chest pain, palpitations Endocrine: no symptoms reported Gastrointestinal: abdominal pain, nausea, vomiting. denies: diarrhea, constipation, hematemesis, melena, hematochezia Genitourinary: denies: urgency, dysuria, discharge Musculoskeletal: denies: back pain, joint swelling, arthralgia Skin: denies: rash, lesions Neurological: denies: headache, weakness, paresthesias Psychiatric: denies: anxiety, depression Hematological/Lymphatic: denies: easy bleeding, easy bruising ED Past Medical Hx - Past Medical History Previous Medical History?: Yes Hx Psychiatric Treatment: Yes (schizophrenia, bipolar, depression, anxiety, hydrocephalus) Additional medical history: bipolar, schizophrenic, autistic, anxiety, depression, swallows objects - Surgical History Past Surgical History?: Yes Additional Surgical History: brain surgery - hydrocephalus, LINEMARKER shunt, abdominal surgery for swallowing plastic - Social History Smoking Status: Current Every Day Smoker Substance Use Type: Prescribed - Medications Home Medications: Home Medications Medication Instructions Recorded Confirmed Last Taken Type Midodrine HCl 10 mg PO TID 07/13/20 08/30/20 Unknown History ARIPiprazole [Abilify] 20 mg PO QHS #30 tab 09/02/20 Unknown Rx Divalproex ER [Depakote ER] 500 mg PO BID #60 tab 09/02/20 Unknown Rx Escitalopram [Lexapro] 10 mg PO DAILY #30 tab 09/02/20 Unknown Rx Gabapentin 300 mg PO Q8HR #90 cap 09/02/20 Unknown Rx Midodrine [Proamatine] 5 mg PO TID@0800,1200,1600 #90 09/02/20 Unknown Rx tablet Ondansetron [Zofran ODT TAB] 4 mg PO Q8HR PRN #30 tab.rapdis 09/02/20 Unknown Rx Ondansetron [Zofran Odt] 4 mg PO Q8HR PRN #12 tab.rapdis 01/12/21 Unknown Rx cephALEXin [Keflex] 500 mg PO Q8HR #21 cap 01/12/21 Unknown Rx ED Physical Exam - General Limitations: No Limitations General appearance: alert, in no apparent distress - Head Head exam: Present: atraumatic, normocephalic - Eye Eye exam: Present: normal appearance - Neck Neck exam: Present: normal inspection, full ROM. Absent: lymphadenopathy - Respiratory Respiratory exam: Present: normal lung sounds bilaterally. Absent: respiratory distress, wheezes, rales, rhonchi, stridor, chest wall tenderness, accessory muscle use, decreased breath sounds, prolonged expiratory - Cardiovascular Cardiovascular Exam: Present: regular rate, normal rhythm, tachycardia, normal heart sounds. Absent: irregular rhythm, systolic murmur, diastolic murmur, rubs, gallop - GI/Abdominal GI/Abdominal exam: Present: soft, tenderness (RUQ), normal bowel sounds. Absent: distended, guarding, rebound, rigid, diminished bowel sounds - Extremities Exam Extremities exam: Present: normal inspection, full ROM - Back Exam Back exam: Present: normal inspection, full ROM. Absent: tenderness, CVA t enderness (R), CVA tenderness (L), muscle spasm, paraspinal tenderness, vertebral tenderness, rash noted - Neurological Exam Neurological exam: Present: alert, oriented X3, normal gait - Psychiatric Psychiatric exam: Present: normal affect, normal mood - Skin Skin exam: Present: warm, dry, intact, normal color. Absent: rash ED Course Vital Signs 01/12/21 01/12/21 16:07 18:27 Temperature 98.1 F 98.6 F Pulse Rate 119 H 83 Respiratory 18 18 Rate Blood Pressure 101/65 Blood Pressure 112/69 [Left] O2 Sat by Pulse 99 100 Oximetry Vital Signs 01/12/21 16:07 Temperature 98.1 F Pulse Rate 119 H Respiratory 18 Rate Blood Pressure 101/65 O2 Sat by Pulse 99 Oximetry - Reevaluation(s) Reevaluation #1: 01/12/21 17:32 Patient is speaking in full sentences with no signs of distress noted. ED Medical Decision Making - Lab Data Result diagrams: 01/12/21 16:36 01/12/21 16:36 - Medical Decision Making This is a 20-year-old female that presents with abdominal pain, nausea/v, and UTI. Patient is stable and was examined by me. Negative signs of symptoms of appendicitis. Labs obtained. UA obtained. CT of abdomen obtained and dictated by the radiologist. Patient is notified of the report with no questions noted by the patient. Vital signs are stable prior to discharge. Patient received medical treatment in the ED which patient stated symptoms has resovled and subsided. Was instructed note to operate any machinery due to possible drowsiness and stated someone will drive the patient home. A by mouth challenge has been obtained and patient tolerated well with no nausea vomiting. Patient was also instructed to Follow-up with a primary care doctor in 3-5 days or if symptoms worsen and continue return to emergency room as soon as possible. At time of discharge, the patient does not seem toxic or ill in appearance. No acute signs of distress noted. Patient agrees to discharge treatment plan of care. No further questions noted by the patient. Critical care attestation.: If time is entered above; I have spent that time in minutes in the direct care of this critically ill patient, excluding procedure time. ED Disposition Clinical Impression: Nausea & vomiting Qualifiers: Vomiting type: unspecified Vomiting Intractability: non-intractable Qualified Code(s): R11.2 - Nausea with vomiting, unspecified Abdominal pain Qualifiers: Abdominal location: right upper quadrant Qualified Code(s): R10.11 - Right upper quadrant pain UTI (urinary tract infection) Qualifiers: Urinary tract infection type: acute cystitis Hematuria presence: with hematuria Qualified Code(s): N30.01 - Acute cystitis with hematuria Disposition: HOME / SELF CARE / HOMELESS Is pt being admited?: No Does the pt Need Aspirin: No Condition: Stable Instructions: Urinary Tract Infection, Adult, Nausea and Vomiting, Adult, Abdominal Pain (ED) Additional Instructions: Follow-up with a primary care and [facility] doctor in 3-5 days or if symptoms worsen and continue return to emergency room as soon as possible. Prescriptions: cephALEXin [Keflex] 500 mg PO Q8HR #21 cap Ondansetron [Zofran Odt] 4 mg PO Q8HR PRN #12 tab.rapdis PRN Reason: Nausea Referrals: PRIMARY CARE, [Referring] - 3-5 Days CORBIN PERRIN MD [Staff Physician] - 3-5 Days [facility] [Provider Group] - 3-5 Days [facility] [Provider Group] - 3-5 Days Time of Disposition: 18:29
--- NOTE | 2021-01-12 18:25 | Cat Scan Report ---
CT ABDOMEN AND PELVIS WITHOUT CONTRAST INDICATION / CLINICAL INFORMATION: right upper abd pain with radiation to flank. TECHNIQUE: Axial CT images were obtained through the abdomen and pelvis without IV contrast. All CT scans at this location are performed using CT dose reduction for ALARA by means of automated exposure control. COMPARISON: 06/30/2020, 04/07/2020. FINDINGS: LOWER CHEST: No significant abnormality. LIVER: No significant abnormality. GALLBLADDER: No significant abnormality. BILE DUCTS: No significant abnormality. PANCREAS: No significant abnormality. SPLEEN: No significant abnormality. ADRENALS: No significant abnormality. RIGHT KIDNEY / URETER: No significant abnormality. LEFT KIDNEY / URETER: No significant abnormality. STOMACH / SMALL BOWEL: No significant abnormality. COLON: No significant abnormality. APPENDIX: No significant abnormality. PERITONEUM: No free fluid. No free air. No fluid collection. LYMPH NODES: No significant adenopathy. AORTA / ARTERIES: No significant abnormality. IVC / VEINS: No significant abnormality. URINARY BLADDER: No significant abnormality. REPRODUCTIVE ORGANS: No significant abnormality. 2.1 cm cystic lesion of the left adnexa, unchanged w ith most recent reference exam. ADDITIONAL FINDINGS: Large amount of fairly simple attenuating fluid ranging from 10-15 Hounsfield un its within the pelvis, retroperitoneum and bilateral paracolic gutters, similar with reference exam. SKELETAL SYSTEM: No significant abnormality. IMPRESSION: 1. No acute abnormality. 2. Large amount of simple attenuating fluid within the pelvis, lower peritoneum and bilateral paraco lic gutters, essentially identical in appearance to reference exam from June 2020. This finding was also present in March 2020 and is of indeterminate clinical significance. Correlation with patient history may be of benefit. Also, consideration of gynecologic referral to outpatient setting could a lso be considered. Signer Name: Felipe Collado MD Signed: 01/12/2021 6:20 PM Workstation Name: [id number]
[2021-01-12 18:27] VITALS: BP 112/69
== END 2021-01-13 04:39 | disposition home or self-care (01) ==
LOC: ED 15:54
DX: R11.2 Nausea with vomiting, unspecified (principal); R10.9 Unspecified abdominal pain; N39.0 Urinary tract infection, site not specified; F17.200 Nicotine dependence, unspecified, uncomplicated; Z86.59 Personal history of other mental and behavioral disorders
CPT/HCPCS: 36415; 74176; 80048; 80076; 81001; 81025; 83690; 84703; 85025; 87086; 99284

== ENCOUNTER 2021-02-09 18:26 | Emergency (ER) | payer OTHER, MEDICAID ==
[2021-02-09 18:33] VITALS: BP 116/56
[2021-02-09] MEDS ORDERED: IBUPROFEN 800 MG TAB PO ONE (18:41)
--- NOTE | 2021-02-09 19:13 | XRay Report ---
LEFT FOOT 3 VIEWS 1854 INDICATION: left foot pain s/p injury COMPARISON: None available. FINDINGS: No fractures or dislocations are seen. Mild tarsal and ankle degenerative changes are noted . Signer Name: Louis Dixon MD Signed: 02/09/2021 7:09 PM Workstation Name: [id number]
--- NOTE | 2021-02-09 19:34 | Emergency Department Report ---
ED Lower Extremity HPI - General Chief Complaint: Extremity Injury, Lower Stated Complaint: LEFT FOOT PAIN Time Seen by Provider: 02/09/21 18:35 Source: patient Mode of arrival: Ambulatory Limitations: No Limitations - History of Present Illness Initial Comments: This is a 20-year-old female nontoxic, well nourished in appearance, no acute signs of distress presents to the ED with c/o of left foot pain 1 day. Patient stated that a metal piece that weighs about 2-3 ibs feel onto foot. Patient denies any other injuries or trauma. Patient denies any numbness, tingling, fever, chills, nausea, vomiting, chest pain, shortness of breath, headache, st iff neck. Patient denies any joint swelling or joint redness. Patient denies decreased range of motion. Patient stated has decreased gait due to pain. Patient denies any allergies. MD Complaint: foot injury -: days(s) (1) Injury: Foot: Left Severity: mild Severity scale (0 -10): 3 Improves With: immobilization Worsens With: palpation Associated Symptoms: ambulatory. denies: snap/pop sensation, swelling, numbness, tingling, unable to bear weight, able to partially bear weight - Related Data Home Medications Medication Instructions Recorded Confirmed Last Taken Midodrine HCl 10 mg PO TID 07/13/20 08/30/20 Unknown Previous Rx's Medication Instructions Recorded Last Taken Type ARIPiprazole [Abilify] 20 mg PO QHS #30 tab 09/02/20 Unknown Rx Divalproex ER [Depakote ER] 500 mg PO BID #60 tab 09/02/20 Unknown Rx Escitalopram [Lexapro] 10 mg PO DAILY #30 tab 09/02/20 Unknown Rx Gabapentin 300 mg PO Q8HR #90 cap 09/02/20 Unknown Rx Midodrine [Proamatine] 5 mg PO TID@0800,1200,1600 #90 09/02/20 Unknown Rx tablet Ondansetron [Zofran ODT TAB] 4 mg PO Q8HR PRN #30 tab.rapdis 09/02/20 Unknown Rx Ondansetron [Zofran Odt] 4 mg PO Q8HR PRN #12 tab.rapdis 01/12/21 Unknown Rx cephALEXin [Keflex] 500 mg PO Q8HR #21 cap 01/12/21 Unknown Rx Naproxen 500 mg PO Q12H PRN #12 tablet 02/09/21 Unknown Rx Allergies Allergy/AdvReac Type Severity Reaction Status Date / Time No Known Allergies Allergy Verified 01/12/21 18:03 ED Review of Systems ROS: Stated complaint: LEFT FOOT PAIN Other details as noted in HPI Comment: All other systems reviewed and negative Constitutional: denies: chills, fever Eyes: denies: eye pain, eye discharge, vision change ENT: denies: ear pain, throat pain Respiratory: denies: cough, shortness of breath, wheezing Cardiovascular: denies: chest pain, palpitations Endocrine: no symptoms reported Gastrointestinal: denies: abdominal pain, nausea, diarrhea Genitourinary: denies: urgency, dysuria, discharge Musculoskeletal: denies: back pain, joint swelling, arthralgia Skin: denies: rash, lesions Neurological: denies: headache, weakness, paresthesias Psychiatric: denies: anxiety, depression Hematological/Lymphatic: denies: easy bleeding, easy bruising ED Past Medical Hx - Past Medical History Previous Medical History?: Yes Hx Psychiatric Treatment: Yes (schizophrenia, bipolar, depression, anxiety, hydrocephalus) Additional medical history: bipolar, schizophrenic, autistic, anxiety, depression, swallows objects - Surgical History Past Surgical History?: Yes Additional Surgical History: brain surgery - hydrocephalus, PATTERN WEAVER shunt, abdominal surgery for swallowing plastic - Social History Smoking Status: Current Every Day Smoker Substance Use Type: Prescribed - Medications Home Medications: Home Medications Medication Instructions Recorded Confirmed Last Taken Type Midodrine HCl 10 mg PO TID 07/13/20 08/30/20 Unknown History ARIPiprazole [Abilify] 20 mg PO QHS #30 tab 09/02/20 Unknown Rx Divalproex ER [Depakote ER] 500 mg PO BID #60 tab 09/02/20 Unknown Rx Escitalopram [Lexapro] 10 mg PO DAILY #30 tab 09/02/20 Unknown Rx Gabapentin 300 mg PO Q8HR #90 cap 09/02/20 Unknown Rx Midodrine [Proamatine] 5 mg PO TID@0800,1200,1600 #90 09/02/20 Unknown Rx tablet Ondansetron [Zofran ODT TAB] 4 mg PO Q8HR PRN #30 tab.rapdis 09/02/20 Unknown Rx Ondansetron [Zofran Odt] 4 mg PO Q8HR PRN #12 tab.rapdis 01/12/21 Unknown Rx cephALEXin [Keflex] 500 mg PO Q8HR #21 cap 01/12/21 Unknown Rx Naproxen 500 mg PO Q12H PRN #12 tablet 02/09/21 Unknown Rx ED Physical Exam - General Limitations: No Limitations General appearance: alert, in no apparent distress - Head Head exam: Present: atraumatic, normocephalic - Eye Eye exam: Present: normal appearance - Neck Neck exam: Present: normal inspection, full ROM. Absent: lymphadenopathy - Respiratory Respiratory exam: Absent: respiratory distress - Cardiovascular Cardiovascular Exam: Present: regular rate - Extremities Exam Extremities exam: Present: normal inspection, full ROM, tenderness, normal capillary refill. Absent: pedal edema, joint swelling, calf tenderness - Expanded Lower Extremity Exam Left Hip exam: Present: normal inspection, full ROM. Absent: tenderness, swelling Upper Leg exam: Present: normal inspection, full ROM. Absent: tenderness, swelling Knee exam: Present: normal inspection, full ROM. Absent: tenderness, swelling Lower Leg exam: Present: normal inspection, full ROM. Absent: tenderness, swelling Ankle exam: Present: normal inspection, full ROM. Absent: tenderness, swelling, abrasion, laceration, ecchymosis, deformity, crepidus, dislocation, erythema, anterior draw sign Foot/Toe exam: Present: normal inspection, full ROM, tenderness. Absent: swelling, abrasion, laceration, ecchymosis, deformity, crepidus, dislocation, erythema, amputation, puncture wound, foreign body, calcaneal tenderness, tenderness at base of 5th metatarsal, nail avulsion, subungual hematoma Neuro vascular tendon exam: Present: no vascular compromise Gait: Positive: observed and normal 1 - pain here - Back Exam Back exam: Present: normal inspection, full ROM - Neurological Exam Neurological exam: Present: alert, oriented X3, normal gait - Psychiatric Psychiatric exam: Present: normal affect, normal mood - Skin Skin exam: Present: warm, dry, intact, normal color. Absent: rash ED Course Vital Signs 02/09/21 02/09/21 18:32 19:05 Temperature 98.8 F Pulse Rate 97 H Respiratory 20 18 Rate Blood Pressure 116/56 [Right] O2 Sat by Pulse 100 Oximetry - Reevaluation(s) Reevaluation #1: 02/09/21 19:32 Patient is speaking in full sentences with no signs of distress noted. ED Lower Extremity MDM - Radiology Data [facility] [address] [place] [address] XRay Report Signed Patient: REZA DUMONT MR#: [id number] : 2000 Acct:[id number] Age/Sex: 20 / F ADM Date: 02/09/21 Loc: ED Attending Dr: Ordering Physician: PETER MESA NP Date of Service: 02/09/21 Procedure(s): XR foot 3+V LT Accession Number(s): [id number] cc: PETER MESA NP Fluoro Time In Minutes: LEFT FOOT 3 VIEWS 1854 INDICATION: left foot pain s/p injury COMPARISON: None available. FINDINGS: No fractures or dislocations are seen. Mild tarsal and ankle degenerative changes are noted. Signer Name: Louis Dixon MD Signed: 02/09/2021 7:09 PM Workstation Name: [id number] Transcribed By: ELIJAH Dictated By: Louis Dixon MD Electronically Authenticated By: Louis Dixon MD Signed Date/Time: 02/09/211908 DD/ 07 TD/TT: - Medical Decision Making This is a 20-year-old female that presents with left foot strain. Patient is stable and was examined by me. I referred patient to an orthopedic doctor for further evaluation for possible MRI. X-ray has been obtained and dictated by the radiologist. Patient is notified of the x-ray report with noted by the patient. Patient does have normal gait with no tenderness and no joint sw elling. No ecchymosis. no joint redness or swelling. Not warm to touch. No signs of cellulites present. Patient was instructed to RICE therapy. Patient received Motrin for pain. Patient is discharged with Motrin. At time of discharge, the patient does not seem toxic or ill in appearance. No acute signs of distress noted. Patient agrees to discharge treatment plan of care. No further questions noted by the patient. Critical care attestation.: If time is entered above; I have spent that time in minutes in the direct care of this critically ill patient, excluding procedure time. ED Disposition Clinical Impression: Strain of left foot Qualifiers: Encounter type: initial encounter Qualified Code(s): S96.912A - Strain of unspecified muscle and tendon at ankle and foot level, left foot, initial encounter Disposition: HOME / SELF CARE / HOMELESS Is pt being admited?: No Does the pt Need Aspirin: No Condition: Stable Instructions: RICE Therapy for Routine Care of Injuries, [id number] Additional Instructions: Follow-up with a orthopedic doctor in 3-5 days or if symptoms worsen and continue return to emergency room as soon as possible. Prescriptions: Naproxen 500 mg PO Q12H PRN #12 tablet PRN Reason: Pain , Severe (7-10) Referrals: PRIMARY CAREMD [Referring] - 3-5 Days JEIMY GARRIDO MD [Staff Physician] - 3-5 Days Forms: Work/School Release Form(ED) Time of Disposition: 19:34
== END 2021-02-09 20:44 | disposition home or self-care (01) ==
LOC: ED 18:26
DX: S96.912A Strain of unspecified muscle and tendon at ankle and foot level, left foot, initial encounter (principal); F31.9 Bipolar disorder, unspecified; F20.9 Schizophrenia, unspecified; F41.9 Anxiety disorder, unspecified; F17.200 Nicotine dependence, unspecified, uncomplicated; Z98.890 Other specified postprocedural states; Z79.899 Other long term (current) drug therapy; X58.XXXA Exposure to other specified factors, initial encounter; Y93.89 Activity, other specified; Y92.89 Other specified places as the place of occurrence of the external cause; Y99.8 Other external cause status
CPT/HCPCS: 99283

== ENCOUNTER 2021-02-25 12:52 | Emergency (ER) | payer OTHER, MEDICAID ==
--- NOTE | 2021-02-25 16:20 | Event Note ---
ED Screening Note Date of service: 02/25/21 Time: 16:15 ED Screening Note: This initial assessment/diagnostic orders/clinical plan/treatment(s) is/are subject to change based on patients health status, clinical progression and re- assessment by fellow clinical providers in the ED. Further treatment and workup at subsequent clinical providers discretion. Patient/guardian urged not to elope from the ED as their condition may be serious if not clinically assessed and managed. pt c/o abd pain intermittently for months. sharp component now. no f/c/n/v has had "fluid in stomach due to cyst" drained at [facility]. they did a paracentesis. no h/o liver dz abd soft w/mild diffuse ttp. no fluid wave. no rebound. will get old records before proceeding. Initial orders include: old records from [facility]
[2021-02-25] MEDS ORDERED: ACETAMINOPHEN 500 MG TAB PO ONE (20:26)
[2021-02-25] MEDS ORDERED: ONDANSETRON 4 MG/2 ML INJ IV ONE (20:26)
--- NOTE | 2021-02-25 20:57 | Emergency Department Report ---
ED Abdominal Pain HPI - General Chief Complaint: Abdominal Pain Stated Complaint: CYST Time Seen by Provider: 02/25/21 20:30 Source: patient Mode of arrival: Ambulatory Limitations: No Limitations - History of Present Illness Initial Comments: pt c/o abd pain intermittently for months. Pt denies f/c/n/v, has hx of "fluid in stomach due to cyst" drained at [facility]. Pt has no h/o liver dz. States intermittent nausea no vomiting, pain rated at 4/10 generalized aching. MD Complaint: abdominal pain Severity scale (0 -10): 8 - Related Data Home Medications Medication Instructions Recorded Confirmed Last Taken RX: Midodrine HCl 10 mg PO TID 07/13/20 08/30/20 Unknown Previous Rx's Medication Instructions Recorded Last Taken Type RX: ARIPiprazole [Abilify] 20 mg PO QHS #30 tab 09/02/20 Unknown Rx RX: Divalproex ER [Depakote ER] 500 mg PO BID #60 tab 09/02/20 Unknown Rx RX: Escitalopram [Lexapro] 10 mg PO DAILY #30 tab 09/02/20 Unknown Rx RX: Gabapentin 300 mg PO Q8HR #90 cap 09/02/20 Unknown Rx RX: Midodrine [Proamatine] 5 mg PO TID@0800,1200,1600 #90 09/02/20 Unknown Rx tablet RX: Ondansetron [Zofran ODT TAB] 4 mg PO Q8HR PRN #30 tab.rapdis 09/02/20 Unknown Rx Ondansetron [Zofran Odt] 4 mg PO Q8HR PRN #12 tab.rapdis 01/12/21 Unknown Rx cephALEXin [Keflex] 500 mg PO Q8HR #21 cap 01/12/21 Unknown Rx RX: Naproxen 500 mg PO Q12H PRN #12 tablet 02/09/21 Unknown Rx Dicyclomine [Bentyl] 10 mg PO QID #20 capsule 02/26/21 Unknown Rx Ondansetron [Zofran Odt] 4 mg PO Q8HR #12 tab.rapdis 02/26/21 Unknown Rx Allergies Allergy/AdvReac Type Severity Reaction Status Date / Time No Known Allergies Allergy Verified 01/12/21 18:03 ED Review of Systems ROS: Stated complaint: CYST Other details as noted in HPI Constitutional: denies: chills, fever Eyes: denies: eye pain, eye discharge, vision change ENT: denies: ear pain, throat pain Respiratory: denies: cough, shortness of breath, wheezing Cardiovascular: denies: chest pain, palpitations Endocrine: no symptoms reported Gastrointestinal: abdominal pain, nausea. denies: vomiting, diarrhea, con stipation, hematemesis, melena, hematochezia Genitourinary: denies: urgency, dysuria, frequency, hematuria, discharge Musculoskeletal: denies: back pain, joint swelling, arthralgia Skin: denies: rash, lesions Neurological: as per HPI. denies: headache, weakness, vertigo Psychiatric: denies: anxiety, depression Hematological/Lymphatic: denies: easy bleeding, easy bruising ED Past Medical Hx - Past Medical History Hx Psychiatric Treatment: Yes (schizophrenia, bipolar, depression, anxiety, hydrocephalus) Additional medical history: bipolar, schizophrenic, autistic, anxiety, depression, swallows objects - Surgical History Additional Surgical History: brain surgery - hydrocephalus, [employer] shunt, abdominal surgery for swallowing plastic - Social History Smoking Status: Current Every Day Smoker Substance Use Type: Prescribed - Medications Home Medications: Home Medications Medication Instructions Recorded Confirmed Last Taken Type RX: Midodrine HCl 10 mg PO TID 07/13/20 08/30/20 Unknown History RX: ARIPiprazole [Abilify] 20 mg PO QHS #30 tab 09/02/20 Unknown Rx RX: Divalproex ER [Depakote ER] 500 mg PO BID #60 tab 09/02/20 Unknown Rx RX: Escitalopram [Lexapro] 10 mg PO DAILY #30 tab 09/02/20 Unknown Rx RX: Gabapentin 300 mg PO Q8HR #90 cap 09/02/20 Unknown Rx RX: Midodrine [Proamatine] 5 mg PO TID@0800,1200,1600 #90 09/02/20 Unknown Rx tablet RX: Ondansetron [Zofran ODT TAB] 4 mg PO Q8HR PRN #30 tab.rapdis 09/02/20 Unknown Rx Ondansetron [Zofran Odt] 4 mg PO Q8HR PRN #12 tab.rapdis 01/12/21 Unknown Rx cephALEXin [Keflex] 500 mg PO Q8HR #21 cap 01/12/21 Unknown Rx RX: Naproxen 500 mg PO Q12H PRN #12 tablet 02/09/21 Unknown Rx Dicyclomine [Bentyl] 10 mg PO QID #20 capsule 02/26/21 Unknown Rx Ondansetron [Zofran Odt] 4 mg PO Q8HR #12 tab.rapdis 02/26/21 Unknown Rx ED Physical Exam - General Limitations: No Limitations General appearance: alert, in no apparent distress - Head Head exam: Present: atraumatic, normocephalic - Eye Eye exam: Present: EOMI Pupils: Present: normal accommodation - ENT ENT exam: Present: mucous membranes moist - Neck Neck exam: Present: normal inspection, full ROM. Absent: tenderness - Respiratory Respiratory exam: Present: normal lung sounds bilaterally. Absent: respiratory distress, wheezes - Cardiovascular Cardiovascular Exam: Present: regular rate, normal rhythm, normal heart sounds. Absent: systolic murmur, diastolic murmur, rubs, gallop - GI/Abdominal GI/Abdominal exam: Present: soft, normal bowel sounds. Absent: distended, tenderness, guarding, rebound, rigid, bruit, hernia - Rectal Rectal exam: Present: deferred - Extremities Exam Extremities exam: Present: normal inspection - Back Exam Back exam: Present: normal inspection, full ROM. Absent: CVA tenderness (R), CVA tenderness (L) - Neurological Exam Neurological exam: Present: alert, oriented X3, CN II-XII intact, normal gait - Psychiatric Psychiatric exam: Present: normal affect, normal mood - Skin Skin exam: Present: warm, dry, intact, normal color. Absent: rash ED Course Vital Signs 02/25/21 16:14 Temperature 97.1 F L Pulse Rate 67 Respiratory 16 Rate Blood Pressure 106/60 [Right] O2 Sat by Pulse 99 Oximetry ED Medical Decision Making - Lab Data Result diagrams: 02/25/21 21:24 02/25/21 21:24 Labs 02/25/21 02/25/21 02/25/21 21:24 21:24 21:24 WBC 8.3 RBC 4.21 Hgb 11.7 Hct 36.2 MCV 86 MCH 28 MCHC 32 RDW 17.6 H Plt Count 315 Lymph % (Auto) 29.4 [place] % (Auto) 6.1 Eos % (Auto) 0.2 Baso % (Auto) 0.5 Lymph # (Auto) 2.5 [place] # (Auto) 0.5 Eos # (Auto) 0.0 Baso # (Auto) 0.0 Seg Neutrophils % 63.8 Seg Neutrophils # 5.3 Sodium 139 Potassium 4.1 Chloride 103.4 Carbon Dioxide 20 L Anion Gap 20 BUN 6 L Creatinine 0.8 Estimated GFR > 60 BUN/Creatinine Ratio 8 Glucose 88 Calcium 10.0 Total Bilirubin 0.40 AST 14 ALT 6 L Alkaline Phosphatase 62 Total Protein 7.4 Albumin 4.4 Albumin/Globulin Ratio 1.5 Lipase 21 HCG, Quant < 2 Urine Color Urine Turbidity Urine pH Ur Specific [place] Urine Protein Urine Glucose (UA) Urine Ketones Urine Blood Urine Nitrite Urine Bilirubin Urine Urobilinogen Ur Leukocyte Esterase Urine WBC (Auto) Urine RBC (Auto) U Epithel Cells (Auto) Urine Mucus 02/25/21 Unknown WBC RBC Hgb Hct MCV MCH MCHC RDW Plt Count Lymph % (Auto) [place] % (Auto) Eos % (Auto) Baso % (Auto) Lymph # (Auto) [place] # (Auto) Eos # (Auto) Baso # (Auto) Seg Neutrophils % Seg Neutrophils # Sodium Potassium Chloride Carbon Dioxide Anion Gap BUN Creatinine Estimated GFR BUN/Creatinine Ratio Glucose Calcium Total Bilirubin AST ALT Alkaline Phosphatase Total Protein Albumin Albumin/Globulin Ratio Lipase HCG, Quant Urine Color Yellow Urine Turbidity Slightly-cloudy Urine pH 6.0 Ur Specific [place] 1.021 Urine Protein <15 mg/dl Urine Glucose (UA) Neg Urine Ketones Neg Urine Blood Neg Urine Nitrite Neg Urine Bilirubin Neg Urine Urobilinogen < 2.0 Ur Leukocyte Esterase Neg Urine WBC (Auto) 1.0 Urine RBC (Auto) 3.0 U Epithel Cells (Auto) 21.0 H Urine Mucus 2+ - Radiology Data Radiology results: report reviewed, image reviewed ABDOMEN 1 VIEW 02/25/2021 11:10 PM INDICATION / CLINICAL INFORMATION: abd pain. Pt states she has had the cyst in her stomach that has been drained multiple times. COMPARISON: Radiograph dated 11/12/20. CT abdomen dated 01/12/21 FINDINGS: TUBES / LINES: None. BOWEL GAS PATTERN: No significant abnormality. FREE AIR / EXTRALUMINAL GAS: None. ADDITIONAL FINDINGS: Slight bulging of the flanks which can be seen in the setting of ascites. Appearance is similar to prior CT. IMPRESSION: 1. No bowel obstruction or free air. Possible ascites. Signer Name: Dean Madrigal MD Signed: 02/25/2021 11:35 PM Workstation Name: [id number] - Medical Decision Making Labs noted above normal, KUB normal bowel pattern no obstruction abdominal exam is improved there is no focal point tenderness no peritoneal signs. She is tolerating p.o. intake without nausea vomiting at this time. Patient will follow up with [facility] as scheduled or sooner if needed. Patient DC'd home in stable condition at this time. Critical care attestation.: If time is entered above; I have spent that time in minutes in the direct care of this critically ill patient, excluding procedure time. ED Disposition Clinical Impression: Abdominal pain Qualifiers: Abdominal location: generalized Qualified Code(s): R10.84 - Generalized abdominal pain Disposition: HOME / SELF CARE / HOMELESS Is pt being admited?: No Does the pt Need Aspirin: No Condition: Stable Instructions: Abdominal Pain (ED), Abdominal Pain, Adult, [id number] Additional Instructions: Medications as prescribed. Follow-up with [facility] as scheduled. To emergency if symptoms worsen. Prescriptions: Dicyclomine [Bentyl] 10 mg PO QID #20 capsule Ondansetron [Zofran Odt] 4 mg PO Q8HR #12 tab.rapdis Referrals: PRIMARY CARE, [Primary Care Provider] - 3-5 Days [facility] [Outside] - 2-3 Days ([facility] as scheduled ) Forms: Work/School Release Form(ED) Time of Disposition: 00:30
[2021-02-25] MEDS ORDERED: SODIUM CHLORIDE 0.9% 1000 ML 1,000 ML IV ONE (21:35)
[2021-02-25 21:39] LABS: Basophils % (Auto) 0.5 % (0.0-1.8); Eosinophils % (Auto) 0.2 % (0.0-4.3); Hematocrit 36.2 % (30.3-42.9); Hemoglobin 11.7 gm/dl (10.1-14.3); Lymphocytes # (Auto) 2.5 K/mm3 (1.2-5.4); Lymphocytes % (Auto) 29.4 % (13.4-35.0); Mean Corpuscular HGB Conc 32 % (30-34); Mean Corpuscular Volume 86 fl (79-97); Monocytes # (Auto) 0.5 K/mm3 (0.0-0.8); Monocytes % (Auto) 6.1 % (0.0-7.3); Platelet Count 315 K/mm3 (140-440); Red Blood Count 4.21 M/mm3 (3.65-5.03); Red Cell Distribution Width 17.6 % (13.2-15.2)
[2021-02-25 22:05] LABS: Bilirubin,Urine NEG (Negative); Blood,Urine NEG (Negative); Color,Urine Yellow (Yellow); Mucus,Urine 2+ /HPF; Protein,Urine <15 mg/dL mg/dL (Negative); Urobilinogen,Urine < 2.0 mg/dL (<2.0)
[2021-02-25 22:07] LABS: Alanine Aminotransferase 6 units/L (7-56); Albumin 4.4 g/dL (3.9-5); BUN/Creatinine Ratio 8; Blood Urea Nitrogen 6 mg/dL (7-17); Hemolysis Index 39
--- NOTE | 2021-02-25 23:40 | XRay Report ---
ABDOMEN 1 VIEW 02/25/2021 11:10 PM INDICATION / CLINICAL INFORMATION: abd pain. Pt states she has had the cyst in her stomach that has been drained multiple times. COMPARISON: Radiograph dated 11/12/20. CT abdomen dated 01/12/21 FINDINGS: TUBES / LINES: None. BOWEL GAS PATTERN: No significant abnormality. FREE AIR / EXTRALUMINAL GAS: None. ADDITIONAL FINDINGS: Slight bulging of the flanks which can be seen in the setting of ascites. Appear ance is similar to prior CT. IMPRESSION: 1. No bowel obstruction or free air. Possible ascites. Signer Name: Dean Madrigal MD Signed: 02/25/2021 11:35 PM Workstation Name: [id number]
[2021-02-26 02:31] VITALS: BP 97/57
--- NOTE | 2021-02-26 13:32 | Electrocardiograph Report ---
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
== END 2021-02-26 02:33 | disposition home or self-care (01) ==
LOC: ED 12:52
DX: R10.84 Generalized abdominal pain (principal); F17.200 Nicotine dependence, unspecified, uncomplicated; F20.9 Schizophrenia, unspecified; F31.9 Bipolar disorder, unspecified; F41.9 Anxiety disorder, unspecified
CPT/HCPCS: 36415; 74018; 80053; 81001; 83690; 84702; 85025; 93005; 96361; 96374; 99284; J2405; J7030

== ENCOUNTER 2021-03-02 00:42 | Observation (INO) | payer OTHER, MEDICAID ==
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
[2021-03-02 01:59] LABS: Alanine Aminotransferase 9 units/L (7-56); Albumin 4.1 g/dL (3.9-5); BUN/Creatinine Ratio 20; Blood Urea Nitrogen 16 mg/dL (7-17); Calcium 9.4 mg/dL (8.4-10.2); Hemolysis Index 7
[2021-03-02 02:20] LABS: Basophils % (Auto) 0.4 % (0.0-1.8); Eosinophils % (Auto) 0.6 % (0.0-4.3); Hematocrit 37.7 % (30.3-42.9); Hemoglobin 12.2 gm/dl (10.1-14.3); Lymphocytes # (Auto) 2.2 K/mm3 (1.2-5.4); Lymphocytes % (Auto) 32.6 % (13.4-35.0); Mean Corpuscular HGB Conc 32 % (30-34); Mean Corpuscular Volume 86 fl (79-97); Monocytes # (Auto) 0.6 K/mm3 (0.0-0.8); Monocytes % (Auto) 8.9 % (0.0-7.3); Platelet Count 258 K/mm3 (140-440); Red Blood Count 4.36 M/mm3 (3.65-5.03); Red Cell Distribution Width 18.9 % (13.2-15.2)
[2021-03-02 02:35] LABS: INR 0.9 (0.87-1.13)
--- NOTE | 2021-03-02 03:02 | XRay Report ---
CHEST AND ABDOMINAL SERIES HISTORY: DIRECTOR OF TEENAGE ACTIVITIES shunt. Formed body ingestion. COMPARISON: Chest x-ray 09/07/2020. FINDINGS: Chest one view: Heart size is normal. No lung infiltrate. A DIRECTOR OF TEENAGE ACTIVITIES shunt 2 traverses the left neck where it is again noted to be looped. The tip lies at the right atrial/SVC junction. Two-view abdomen: Gas is scattered throughout the abdomen in a nonobstructive fashion. Colonic stool is moderate. No free air. A radiopaque foreign body with 3 linear metallic strips overlies the expected location of the stomach . Signer Name: Aaron Siddiqi MD Signed: 03/02/2021 2:58 AM Workstation Name: [id number]
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
[2021-03-02] MEDS ORDERED: PANTOPRAZOLE 40 MG INJ IV ONE (04:47)
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
[2021-03-02] MEDS ORDERED: MAGNESIUM HYDROXIDE (MOM) ORAL LIQD UDC PO PRN (06:25)
[2021-03-02] MEDS ORDERED: ONDANSETRON 4 MG/2 ML INJ IV PRN (06:25)
[2021-03-02] MEDS ORDERED: MORPHINE 4 MG/1 ML INJ IV PRN (06:25)
[2021-03-02] MEDS ORDERED: MORPHINE 2 MG/1 ML INJ IV PRN (06:25)
[2021-03-02] MEDS ORDERED: SODIUM CHLORIDE 0.9% 1000 ML 1,000 ML IV SCH (06:30)
[2021-03-02] MEDS ORDERED: WATER FOR IRRIG STERILE 250 ML BOTTLE IR ONE (07:59)
[2021-03-02] MEDS ORDERED: WATER FOR IRRIG STERILE 1,000 ML BOTTLE ONE (07:59)
[2021-03-02] MEDS ORDERED: LIDOCAINE MPF (2%) 20 MG/1 ML VIAL 5 ML ONE (08:19)
[2021-03-02] MEDS ORDERED: SODIUM CHLORIDE 0.9% 1000 ML 1,000 ML ONE (08:19)
[2021-03-02] MEDS ORDERED: propofoL 200 MG/20 ML VIAL IV ONE (08:19)
[2021-03-02] MEDS ORDERED: MIDAZOLAM 2 MG/2 ML INJ ONE (08:19)
--- NOTE | 2021-03-02 08:42 | Post Operative Note ---
Date of procedure: 03/02/21 Pre-op diagnosis: foreign body ingestion Post-op diagnosis: same Findings: Esophagogastroduodenoscopy Procedure Note with foreign body removal Date of procedure: 03/02/2021 Endoscopist: Krishan Mora Pre-op diagnosis/indication: Foreign body ingestion Post-op diagnosis: same MEDICATIONS: MAC COMPLICATIONS: No immediate complications ESTIMATED BLOOD LOSS: Minimal DESCRIPTION OF PROCEDURE: After consent was obtained, the patient was placed in the left lateral decubitis position. The olympus endoscope was inserted into the patient's mouth under direct vision and advanced to the 2nd portion of the duodenum without difficulty. The patient tolerated the procedure well. The views of the mucosa were good. The patient's vital signs were monitored continuously throughout the procedure. FINDINGS: IMPRESSION: 1. RECOMMENDATIONS:
--- NOTE | 2021-03-02 08:43 | Event Note ---
Date: 03/02/21 This is a follow-up from an admission earlier this morning. Patient seen and examined in GI lab. We will continue to plan as outlined in H&P. Work-up in the emergency room today, CT of the abdomen and pelvis reveals Ingested foreign body located at the body of the stomach. Large volume ascites. 4.7 cm right ovarian cyst. CT of the cervical spine shows no acute abnormality. Chest and abdominal x-ray reveals:: Heart size is normal. No lung infiltrate. 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 The tip lies at the right atrial/SVC junction. Two-view abdomen: Gas is scattered throughout the abdomen in a nonobstructive fashion. Colonic stool is moderate. No free air. A radiopaque foreign body with 3 linear metallic strips overlies the expected location of the stomach. CT of the head reveals:No Intracranial sequela from the trauma. Extraventricular drainage shunt in place Lateral ventricles and third ventricle are extremely small; unchanged
--- NOTE | 2021-03-02 08:45 | Anesthesia Consultation ---
Anesthesia Consult and Med Hx Date of service: 03/02/21 - Airway Anesthetic Teeth Evaluation: Good ROM Head & Neck: Adequate Mental/Hyoid Distance: Adequate Mallampati Class: Class II Intubation Access Assessment: Good - Pulmonary Exam CTA: Yes - Cardiac Exam Cardiac Exam: RRR - Pre-Operative Health Status ASA Pre-Surgery Classification: ASA3, Emergency Proposed Anesthetic Plan: MAC - Pulmonary Hx Pneumonia: No - Central Nervous System Hx Psychiatric Problems: Yes (schizophrenia, bipolar disorder, suicidal ideation) - Gastrointestinal Hx Ulcer: No (foreign body in the stomack (paperclip))
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
--- NOTE | 2021-03-02 08:45 | Anesthesia Day of Surgery ---
Anesthesia Day of Surgery - Day of Surgery Patient Examined: Yes Patient H&P Reviewed: Yes Patient is NPO: Yes
--- NOTE | 2021-03-02 08:46 | Post Anesthesia Evaluation ---
- Post Anesthesia Evaluation Patient Participated: Yes Airway Patent: Yes Stable Respiratory Function: Yes Nausea/Vomiting: No Temp > 96.8F: Yes Pain Manageable: Yes Adequeate Hydration: Yes Anesthesia Complications: No Block Receding Appropriately: Not Applicable Patient on Ventilator: No
--- NOTE | 2021-03-02 08:47 | Post Operative Note ---
Date of procedure: 03/02/21 Pre-op diagnosis: foreign body ingestion Post-op diagnosis: same Findings: toothbrush (in two pieces) was seen in the stomach and removed with snare without immediate complications Procedure: egd with foreign body extraction Anesthesia: MAC Surgeon: CARLOS SHELDON Estimated blood loss: none Pathology: none Condition: stable Disposition: no change
--- NOTE | 2021-03-02 08:50 | Operative Report ---
Operative Report Operative Report: Esophagogastroduodenoscopy Procedure Note with foreign body removal Date of procedure: 03/02/2021 Endoscopist: Krishan Mora Pre-op diagnosis/indication: Foreign body ingestion Post-op diagnosis: same MEDICATIONS: MAC COMPLICATIONS: No immediate complications ESTIMATED BLOOD LOSS: None DESCRIPTION OF PROCEDURE: After consent was obtained, the patient was placed in the left lateral decubitis position. The olympus endoscope was inserted into the patient's mouth under direct vision and advanced to the 2nd portion of the duodenum without difficulty. The patient tolerated the procedure well. The views of the mucosa were good. The patient's vital signs were monitored continuously throughout the procedure. FINDINGS: The esophagus appeared normal. There was a toothbrush in two pieces in the body of the stomach. Each piece was removed separately with a snare. The remainder of the stomach appeared normal. The duodenum appeared normal. IMPRESSION: 1. Foreign body in the stomach, removed as above. RECOMMENDATIONS: -can resume diet -needs psych evaluation, and close monitoring/sitter -no further recommendations from gi at this time. will sign off, please call as needed.
[2021-03-02 08:57] LABS: Bacteria,Urine 1+ /HPF (Negative); Bilirubin,Urine NEG (Negative); Blood,Urine NEG (Negative); Color,Urine Yellow (Yellow); Mucus,Urine FEW /HPF; Protein,Urine <15 mg/dL mg/dL (Negative); Urobilinogen,Urine < 2.0 mg/dL (<2.0)
[2021-03-02 08:58] LABS: Amphetamine Screen,Urine Negative; Benzodiazepines Screen,Urine Negative; Cannabinoid Screen,Urine Negative; Cocaine Screen,Urine Negative; Methadone Screen,Urine Negative; Opiate Screen,Urine Negative
[2021-03-02] MEDS: SODIUM CHLORIDE 0.9% 1000 ML 1,000 ML IV SCH ×2 (09:55→22:40)
[2021-03-02] MEDS ORDERED: SODIUM CHLORIDE 0.9% 500 ML 500 ML IV ONE (10:07)
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
[2021-03-02] MEDS: HALOPERIDOL 5 MG TAB PO SCH ×2 (16:03→22:40)
[2021-03-02] MEDS: DIVALPROEX DR 500 MG TAB PO SCH ×2 (16:03→22:40)
[2021-03-02] MEDS: ARIPiprazole 15 MG TAB PO SCH (16:03)
[2021-03-03] MEDS ORDERED: SODIUM CHLORIDE 0.9% 250 ML IVPB IV ONE (06:27)
[2021-03-03] MEDS ORDERED: SODIUM CHLORIDE 0.9% 250ML 250 ML ONE (06:31)
--- NOTE | 2021-03-03 08:24 | Progress Note ---
Assessment and Plan Assessment and plan: Foreign body ingestion. Schizophrenia/bipolar disorder. Suicidal ideation 03/03/2021. Patient with EGD yesterday that revealed toothbrush in 2 pieces in the body of the stomach. Each piece was removed separately with snare. Esophagus and duodenum appeared normal. Diet resumed. Continue Abilify, trazodone and Haldol per psychiatric recommendations. Continue 1013 per psych History Interval history: No new issues overnight. Hospitalist Physical - Constitutional Vitals: Temp Pulse Resp BP Pulse Ox 98.5 F 91 H 18 82/53 98 03/03/21 05:00 03/03/21 06:26 03/03/21 05:00 03/03/21 06:26 03/03/21 05:00 General appearance: Present: no acute distress, well-nourished - EENT Eyes: Present: PERRL, EOM intact ENT: hearing intact, clear oral mucosa, dentition normal - Neck Neck: Present: supple, normal ROM - Respiratory Respiratory effort: normal Respiratory: bilateral: CTA - Cardiovascular Rhythm: regular Heart Sounds: Present: S1 & S2. Absent: gallop, rub - Extremities Extremities: no ischemia, No edema, Full ROM - Abdominal General gastrointestinal: soft, non-tender, non-distended, normal bowel sounds - Integumentary Integumentary: Present: clear, warm, dry - Neurologic Neurologic: CNII-XII intact, moves all extremities Results - Labs CBC & Chem 7: 03/02/21 01:19 03/02/21 01:19 Labs: Laboratory Last Values WBC 6.7 K/mm3 (4.5-11.0) 03/02/21 01:19 RBC 4.36 M/mm3 (3.65-5.03) 03/02/21 01:19 Hgb 12.2 gm/dl (10.1-14.3) 03/02/21 01:19 Hct 37.7 % (30.3-42.9) 03/02/21 01:19 MCV 86 fl (79-97) 03/02/21 01:19 MCH 28 pg (28-32) 03/02/21 01:19 MCHC 32 % (30-34) 03/02/21 01:19 RDW 18.9 % (13.2-15.2) H 03/02/21 01:19 Plt Count 258 K/mm3 (140-440) 03/02/21 01:19 Lymph % (Auto) 32.6 % (13.4-35.0) 03/02/21 01:19 [place] % (Auto) 8.9 % (0.0-7.3) H 03/02/21 01:19 Eos % (Auto) 0.6 % (0.0-4.3) 03/02/21 01:19 Baso % (Auto) 0.4 % (0.0-1.8) 03/02/21 01:19 Lymph # (Auto) 2.2 K/mm3 (1.2-5.4) 03/02/21 01:19 [place] # (Auto) 0.6 K/mm3 (0.0-0.8) 03/02/21 01:19 Eos # (Auto) 0.0 K/mm3 (0.0-0.4) 03/02/21 01:19 Baso # (Auto) 0.0 K/mm3 (0.0-0.1) 03/02/21 01:19 Seg Neutrophils % 57.5 % (40.0-70.0) 03/02/21 01:19 Seg Neutrophils # 3.9 K/mm3 (1.8-7.7) 03/02/21 01:19 PT 13.2 Sec. (12.2-14.9) 03/02/21 01:19 INR 0.90 (0.87-1.13) 03/02/21 01:19 Sodium 138 mmol/L (137-145) 03/02/21 01:19 Potassium 4.0 mmol/L (3.6-5.0) 03/02/21 01:19 Chloride 104.4 mmol/L (98-107) 03/02/21 01:19 Carbon Dioxide 24 mmol/L (22-30) 03/02/21 01:19 Anion Gap 14 mmol/L 03/02/21 01:19 BUN 16 mg/dL (7-17) 03/02/21 01:19 Creatinine 0.8 mg/dL (0.6-1.2) 03/02/21 01:19 Estimated GFR > 60 ml/min 03/02/21 01:19 BUN/Creatinine Ratio 20 % 03/02/21 01:19 Glucose 86 mg/dL (65-100) 03/02/21 01:19 Calcium 9.4 mg/dL (8.4-10.2) 03/02/21 01:19 Total Bilirubin 0.30 mg/dL (0.1-1.2) 03/02/21 01:19 AST 41 units/L (5-40) H 03/02/21 01:19 ALT 9 units/L (7-56) 03/02/21 01:19 Alkaline Phosphatase 55 units/L (35-129) 03/02/21 01:19 Total Protein 7.2 g/dL (6.3-8.2) 03/02/21 01:19 Albumin 4.1 g/dL (3.9-5) 03/02/21 01:19 Albumin/Globulin Ratio 1.3 % 03/02/21 01:19 HCG, Quant < 2 mIU/mL (0-4) 03/02/21 01:19 Urine Color Yellow (Yellow) 03/02/21 08:05 Urine Turbidity Clear (Clear) 03/02/21 08:05 Urine pH 7.0 (5.0-7.0) 03/02/21 08:05 Ur Specific Reading > 1.059 (1.003-1.030) H 03/02/21 08:05 Urine Protein <15 mg/dl mg/dL (Negative) 03/02/21 08:05 Urine Glucose (UA) Neg mg/dL (Negative) 03/02/21 08:05 Urine Ketones Neg mg/dL (Negative) 03/02/21 08:05 Urine Blood Neg (Negative) 03/02/21 08:05 Urine Nitrite Neg (Negative) 03/02/21 08:05 Urine Bilirubin Neg (Negative) 03/02/21 08:05 Urine Urobilinogen < 2.0 mg/dL (<2.0) 03/02/21 08:05 Ur Leukocyte Esterase Neg (Negative) 03/02/21 08:05 Urine WBC (Auto) 1.0 /HPF (0.0-6.0) 03/02/21 08:05 Urine RBC (Auto) 8.0 /HPF (0.0-6.0) 03/02/21 08:05 U Epithel Cells (Auto) 9.0 /HPF (0-13.0) 03/02/21 08:05 Urine Bacteria (Auto) 1+ /HPF (Negative) 03/02/21 08:05 Urine Mucus Few /HPF 03/02/21 08:05 Salicylates < 0.3 mg/dL (2.8-20.0) L 03/02/21 01:19 Urine Opiates Screen Negative 03/02/21 08:05 Urine Methadone Screen Negative 03/02/21 08:05 Acetaminophen 5.0 ug/mL (10.0-30.0) L 03/02/21 01:19 Ur Barbiturates Screen Negative 03/02/21 08:05 Valproic Acid 78.1 ug/mL (50-100) 03/02/21 01:19 Ur Phencyclidine Scrn Negative 03/02/21 08:05 Ur Amphetamines Screen Negative 03/02/21 08:05 U Benzodiazepines Scrn Negative 03/02/21 08:05 Urine Cocaine Screen Negative 03/02/21 08:05 U Marijuana (THC) Screen Negative 03/02/21 08:05 Drugs of Abuse Note Disclamer 03/02/21 08:05 Coronavirus (PCR) Negative (Negative) 03/02/21 09:51 Arizmendi/IV: Voiding Method Toilet Active Medications - Current Medications Current Medications: Generic Name Dose Route Start Last Admin Trade Name Freq PRN Reason Stop Dose Admin Acetaminophen 650 mg 03/02/21 06:25 Acetaminophen 325 Mg Tab PO Q4H PRN Pain MILD(1-3)/Fever >100.5/NAYAK Aripiprazole 30 mg 03/02/21 11:45 03/02/21 16:03 Aripiprazole 15 Mg Tab PO 30 mg DAILY RODO Administration Divalproex Sodium 500 mg 03/02/21 11:45 03/02/21 22:[address] 500 Mg Tab PO Not Given BID RODO Haloperidol 5 mg 03/02/21 11:45 03/02/21 22:40 Haloperidol 5 Mg Tab PO Not Given BID RODO Sodium Chloride 1,000 mls @ 75 mls/hr 03/02/21 10:00 03/02/21 22:40 Nacl 0.9% 1000 Ml IV 75 mls/hr DIRECT RODO Administration Magnesium Hydroxide 30 ml 03/02/21 06:25 Magnesium Hydroxide (Mom) Oral Liqd Udc PO Q4H PRN Constipation Morphine Sulfate 2 mg 03/02/21 06:25 Morphine 2 Mg/1 Ml Inj IV Q4H PRN Pain, Moderate (4-6) Morphine Sulfate 4 mg 03/02/21 06:25 Morphine 4 Mg/1 Ml Inj IV Q4H PRN Pain , Severe (7-10) Ondansetron HCl 4 mg 03/02/21 06:25 Ondansetron 4 Mg/2 Ml Inj IV Q8H PRN Nausea And Vomiting Sodium Chloride 10 ml 03/02/21 10:00 03/03/21 07:58 Sodium Chloride 0.9% 10 Ml Flush Syringe IV Not Given BID RODO Sodium Chloride 10 ml 03/02/21 06:25 03/02/21 09:40 Sodium Chloride 0.9% 10 Ml Flush Syringe IV 10 ml PRN PRN Administration LINE FLUSH
[2021-03-03 08:31] LABS: Basophils % (Auto) 0.3 % (0.0-1.8); Eosinophils % (Auto) 0.6 % (0.0-4.3); Hematocrit 33.8 % (30.3-42.9); Lymphocytes % (Auto) 41.8 % (13.4-35.0); Mean Corpuscular HGB Conc 33 % (30-34); Mean Corpuscular Volume 85 fl (79-97); Monocytes # (Auto) 0.3 K/mm3 (0.0-0.8); Monocytes % (Auto) 6.8 % (0.0-7.3); Platelet Count 211 K/mm3 (140-440); Red Blood Count 3.97 M/mm3 (3.65-5.03); Red Cell Distribution Width 18.1 % (13.2-15.2)
[2021-03-03 08:41] LABS: INR 0.94 (0.87-1.13)
[2021-03-03 08:52] LABS: Blood Urea Nitrogen 6 mg/dL (7-17); Calcium 8.7 mg/dL (8.4-10.2); Hemolysis Index 10
[2021-03-03 08:53] LABS: BUN/Creatinine Ratio 9
[2021-03-03] MEDS: ACETAMINOPHEN 325 MG TAB PO PRN (09:04)
[2021-03-03] MEDS: ARIPiprazole 15 MG TAB PO SCH (09:04)
[2021-03-03] MEDS: HALOPERIDOL 5 MG TAB PO SCH ×2 (09:05→23:11)
[2021-03-03] MEDS: DIVALPROEX DR 500 MG TAB PO SCH ×2 (09:05→23:11)
[2021-03-03] MEDS: SODIUM CHLORIDE 0.9% 1000 ML 1,000 ML IV SCH (11:22)
--- NOTE | 2021-03-03 12:58 | Progress Note ---
Subjective - Reason for Consult Consult date: 03/03/21 Reason for consult: SA - Chief Complaint Chief complaint: The patient was seen this morning, she is calm and oriented to self. She reports doing well. States sleep and apptite as good. She endorses visual hallucinations stating " I'm seeing people with guns trying to kill me." She denies any current suicidal/homicidal ideation and denies auditory hallucinations.. REVIEW OF SYSTEMS Constitutional: Negative for weight loss ENT: Negative for stridor Respiratory: Negative for cough or hemoptysis All other systems reviewed and are negative MENTAL STATUS EXAMINATION General Appearance and Behavior: Age appropriate, wearing appropriate clothes, good eye contact, anxious and cooperative Mood: Depressed Affect and affective range: congruent with stated mood Thought Process: Goal directed Thought Content: Not suicidal Speech: Normal volume, Regular rate and rhythm Suicidal Ideation: Denies Homicidal Ideation: Denies Hallucinations: Visual Delusions: Impulse Control: normal Insight and Judgment: Limited Memory/Cognition: Limited Attention: Normal Orientation: Alert, oriented Assessment (1) Schizophrenia (2) (3) Plan 1013 Start home meds when patient is off NPO Sitter: Defer to primary Medical: Per primary Disposition: Recommend acute inpatient psychiatric treatment Will follow Case staffed with Dr. Estrada Medications and Allergies Mental Status Exam - Vital signs Last Vital Signs Temp 98.5 F 03/03/21 10:57 Pulse 105 H 03/03/21 10:57 Resp 18 03/03/21 10:57 BP 97/64 03/03/21 10:57 Pulse Ox 97 03/03/21 10:57
[2021-03-03] MEDS ORDERED: WATER FOR INJ Sterile (PF) 10 ML ONE (18:19)
[2021-03-03] MEDS: ZIPRASIDONE MESYLATE 20 MG VIAL IM ONE ×2 (18:20→18:35)
[2021-03-03] MEDS ORDERED: diphenhydrAMINE 50 MG/ML VIAL IM ONE (19:00)
--- NOTE | 2021-03-03 20:07 | XRay Report ---
Right forearm 3 views INDICATION: Pain FINDINGS: Alignment appears normal. No acute fracture is definitely seen. Clinical correlation with a brant of pain. MRI follow-up could be performed if symptoms persist. Signer Name: Pj Esquivel MD Signed: 03/03/2021 8:03 PM Workstation Name: [id number]
[2021-03-04] MEDS: ARIPiprazole 15 MG TAB PO SCH ×2 (08:56→10:00)
[2021-03-04] MEDS: DIVALPROEX DR 500 MG TAB PO SCH ×2 (08:56→10:00)
[2021-03-04] MEDS: HALOPERIDOL 5 MG TAB PO SCH ×2 (08:56→10:00)
--- NOTE | 2021-03-04 12:31 | Progress Note ---
Subjective - Reason for Consult Consult date: 03/04/21 Reason for consult: SA - Chief Complaint Chief complaint: The patient was seen this morning, she is calm and oriented to self. She reports doing well. States sleep and appetite as good. She She denies any current suicidal/homicidal ideation and denies hallucinations. REVIEW OF SYSTEMS Constitutional: Negative for weight loss ENT: Negative for stridor Respiratory: Negative for cough or hemoptysis All other systems reviewed and are negative MENTAL STATUS EXAMINATION General Appearance and Behavior: Age appropriate, wearing appropriate clothes, good eye contact, anxious and cooperative Mood: " ok" Affect and affective range: congruent with stated mood Thought Process: Goal directed Thought Content: Not suicidal Speech: Normal volume, Regular rate and rhythm Suicidal Ideation: Denies Homicidal Ideation: Denies Hallucinations: Denies Delusions: None Impulse Control: normal Insight and Judgment: Limited Memory/Cognition: Limited Attention: Normal Orientation: Alert, oriented Assessment (1) Schizophrenia (2) (3) Plan DC-1013 Start home meds when patient is off NPO Sitter: Defer to primary Medical: Per primary Disposition: Do not recommend acute inpatient psychiatric treatment Will sign off Case staffed with Dr. Estrada Medications and Allergies Mental Status Exam - Vital signs Last Vital Signs Temp 98.6 F 03/03/21 23:01 Pulse 97 H 03/03/21 23:02 Resp 18 03/03/21 23:01 BP 100/63 03/03/21 23:01 Pulse Ox 95 03/03/21 23:02
[2021-03-04] MEDS: ACETAMINOPHEN 325 MG TAB PO PRN (13:11)
--- NOTE | 2021-03-04 14:11 | Discharge Summary ---
Providers - Providers Date of Admission: 03/02/21 04:48 Date of discharge: 03/04/21 Attending physician: DALILA GOMEZ MD 03/02/21 03:38 Consult to Physician [CONS] Urgent Comment: Consulting Provider: SAMMY RICE Physician Instructions: Reason For Exam: Foreign body ingestion 03/02/21 06:28 Consult to Mental Health [CONS] Urgent Reason For Exam: Suicidal Ideations Primary care physician: [facility] Hospitalization Reason for admission: Foreign body ingestion; suicidal ideation Condition: Good Pertinent studies: Reviewed. Procedures: EGD Hospital course: Patient is a 20-year-old female history of bipolar disorder, schizophrenia (mom is with auditory hallucinations), hydrocephalus, and diffuse psoriasis who presented from a [facility] after purposely ingesting a toothbrush. Patient's had multiple episodes of foreign body ingestion in the past requiring both EGD and surgery for removal. Patient denied any GI bleeding or nausea/vomiting. A 1013 was placed upon admission. Patient underwent EGD for foreign body removal via snare. The patient was evaluated by psychiatry who recommended the patient be admitted to inpatient psychiatric monitoring. The patient was at a psychiatric facility prior to presenting to the ED. The patient is medically cleared for discharge (1013 discontinued), and psychiatry has since signed off with the recommendation that the patient follow-up with outpatient psychiatry and a PCP within 7-14 days of discharge. Patient expressed understanding, and will be returning to her prior location/facility. Disposition: [address] [place] [address] Final Discharge Diagnosis (Prints w/discharge instructions): Foreign body ingestion, schizophrenia, bipolar disorder, suicidal ideation Time spent for discharge: 45 minutes Core Measure Documentation - Palliative Care Palliative Care/ Comfort Measures: Not Applicable - Core Measures Any of the following diagnoses?: none - VTE Discharge Requirements Deep Vein Thrombosis/Pulmonary Embolism Present on Admission: No Has pt received <5 days of overlap therapy or INR<2.0: No (Not indicated) Anticoagulant overlap therapy prescribed at discharge: No Contraindication No Overlap Therapy order at DC: Not Indicated - Acute [place] Discharge Requirements Aspirin at discharge: No Reason for no aspirin on DC: Medical contraindication (Not indicated) ETTA/ARB for LVSD if EF <40%: Not Applicable Reason for no ETTA/ARB: Medical contraindication (Not indicated) Beta nola at discharge: No Reason for no beta nola on DC: Medical contraindication (Not indicated) Statin for LDL = or >100 mg/dl on DC: Not Applicable Reason for no statin on DC: Medical contraindication (Not indicated) - Heart Failure Discharge Requirements ETTA/ARB for LVSD if EF <40%: Not Applicable Reason for no ETTA/ARB: Medical contraindication (Not indicated) Beta nola at discharge: No Reason for no beta nola on DC: Medical contraindication (Not indicated) - Stroke Discharge Requirements Statin for LDL = or >70 mg/dl on DC: Not Applicable Reason for no statin on DC: Not Indicated Anticoag for atrial fib/atrial flutter: Not Applicable Reason for no anticoag for AF/F on DC: Not Indicated Antithrombotic for ischemic stroke: No Reason for no antithrombotic on DC: Not Indicated Exam - Constitutional Vitals: Temp Pulse Resp BP Pulse Ox 98.3 F 93 H 18 91/56 98 03/04/21 11:37 03/04/21 11:37 03/04/21 11:37 03/04/21 11:37 03/04/21 11:37 General appearance: Present: no acute distress, well-nourished - EENT Eyes: Present: PERRL, EOM intact ENT: hearing intact, clear oral mucosa, dentition normal - Neck Neck: Present: supple, normal ROM - Respiratory Respiratory effort: normal Respiratory: bilateral: CTA - Cardiovascular Rhythm: regular Heart Sounds: Present: S1 & S2 - Extremities Extremities: no ischemia, pulses intact, pulses symmetrical, No edema, normal temperature, normal color Peripheral Pulses: within normal limits - Abdominal General gastrointestinal: Present: soft, non-tender, non-distended, normal bowel sounds Female genitourinary: Present: deferred - Rectal Rectal Exam: deferred - Integumentary Integumentary: Present: clear, warm, dry - Musculoskeletal Musculoskeletal: strength equal bilaterally - Psychiatric Psychiatric: appropriate mood/affect, cooperative - Neurologic Neurologic: CNII-XII intact, moves all extremities - Allied Health Allied health notes reviewed: nursing Plan Activity: no restrictions Diet: regular Care Plan Goals: Patient discharging to psychiatric facility after undergoing EGD for removal of foreign body (toothbrush). Assessment: Patient presented with suicidal ideation after swallowing a toothbrush (in 2 p ieces) that required EGD for removal. The patient tolerated the procedure well and had Psychiatry follow up. The patient will be discharged to a psychiatric facility. Follow up with: PRIMARY CAREMD [Primary Care Provider] - 3-5 Days
[2021-03-04 17:44] VITALS: BP 100/61
[2021-03-04] MEDS ORDERED: ZIPRASIDONE MESYLATE 20 MG VIAL IM ONE (18:07)
[2021-03-04] MEDS ORDERED: ZIPRASIDONE MESYLATE 20 MG VIAL IM PRN (18:27)
== END 2021-03-04 21:34 ==
LOC: ED 00:42 → EEVIPCON 04:48 → 3A 04:48
PROVIDERS: ADMIT Internal Medicine Geriatric Medicine; ATTEND Student in an Organized Health Care Education/Training Program
DX: T18.2XXA Foreign body in stomach, initial encounter (principal); Z20.822 Contact with and (suspected) exposure to COVID-19; R45.851 Suicidal ideations; M54.2 Cervicalgia; R10.9 Unspecified abdominal pain; F31.9 Bipolar disorder, unspecified; R18.8 Other ascites; N83.201 Unspecified ovarian cyst, right side; F20.9 Schizophrenia, unspecified; F41.9 Anxiety disorder, unspecified; F17.210 Nicotine dependence, cigarettes, uncomplicated; Z79.899 Other long term (current) drug therapy; Z98.890 Other specified postprocedural states; Z98.2 Presence of cerebrospinal fluid drainage device; Y04.8XXA Assault by other bodily force, initial encounter; Y93.89 Activity, other specified; Y92.89 Other specified places as the place of occurrence of the external cause; Y99.8 Other external cause status
CPT/HCPCS: 36415; 43247; 70450; 72125; 73090; 74022; 74178; 80048; 80053; 80164; 80307; 81001; 84702; 85025; 85610; 96372; 96374; 99285; 99406; C9113; G0378; J1200; J2250; J2704; J3486; J3490; J7030; J7040; J7050; Q9967; U0003; 80320; 87641; J7120; Q0162; G0480

== ENCOUNTER 2021-07-09 14:46 | Emergency (ER) | payer OTHER, MEDICAID ==
[2021-07-09 15:46] LABS: Basophils % (Auto) 0.2 % (0.0-1.8); Eosinophils % (Auto) 0.2 % (0.0-4.3); Hematocrit 34.5 % (30.3-42.9); Hemoglobin 11.2 gm/dl (10.1-14.3); Mean Corpuscular HGB Conc 32 % (30-34); Mean Corpuscular Volume 91 fl (79-97); Monocytes # (Auto) 0.3 K/mm3 (0.0-0.8); Monocytes % (Auto) 5.5 % (0.0-7.3); Platelet Count 194 K/mm3 (140-440); Red Blood Count 3.81 M/mm3 (3.65-5.03); Red Cell Distribution Width 15.3 % (13.2-15.2)
--- NOTE | 2021-07-09 16:12 | Emergency Department Report ---
ED Dizziness HPI - General Chief Complaint: Abdominal Pain Stated Complaint: ABD PAIN Time Seen by Provider: 07/09/21 14:59 Source: patient, EMS, old records reviewed Mode of arrival: Stretcher Limitations: No Limitations - History of Present Illness Initial Comments: 20-year-old female with a past medical history of schizophrenia, bipolar, depression, anxiety, hydrocephalus, autism, andvSurgical History: brain surgery - hydrocephalus, [employer] shunt, abdominal surgery for swallowing plastic presents to the hospital complaining of a near syncopal episode while in class. Patient was walking back to her desk front of the class when she felt lightheaded, hot, and dizzy. Patient did not pass out completely. She denies headache, chest pain, or shortness of breath. As per EMS and patient she had fluid drained from a cyst in her abdomen this past May and [employer] shunt was changed to a [facility]. As per medical record review patient has been here in the past after previous drainage of abdominal cyst. Patient complains of chronic right-sided abdominal pain that is worse with palpation, nausea, and approximately 3 loose stools a day but denies vomiting. She denies any recent foreign body ingestion or fever. Patient denies overall decreased p.o. intake and cannot recall her last meal - Related Data Home Medications Medication Instructions Recorded Confirmed Last Taken ARIPiprazole [Abilify] 1 tab PO DAILY 03/02/21 07/09/21 Unknown Haldol 5 mg PO BID 03/02/21 07/09/21 Unknown traZODone 100 mg PO HS 03/02/21 07/09/21 Unknown Previous Rx's Medication Instructions Recorded Last Taken Type Divalproex Dr [Depakote Dr] 500 mg PO BID tablet 03/04/21 Unknown Rx Ondansetron [Zofran Odt] 4 mg PO Q8HR PRN #20 tab.rapdis 07/09/21 Unknown Rx Allergies Allergy/AdvReac Type Severity Reaction Status Date / Time No Known Allergies Allergy Verified 07/09/21 14:51 ED Review of Systems ROS: Stated complaint: ABD PAIN Other details as noted in HPI Comment: All other systems reviewed and negative ED Past Medical Hx - Past Medical History Hx Congestive Heart Failure: No Hx Diabetes: No Hx Pulmonary Embolism: No Hx Seizures: No Hx Psychiatric Treatment: Yes (schizophrenia, bipolar, depression, anxiety, hydrocephalus) Hx Asthma: No Hx COPD: No Hx Tuberculosis: No Hx Dementia: No Additional medical history: bipolar, schizophrenic, autistic, anxiety, depression, swallows objects - Surgical History Additional Surgical History: brain surgery - hydrocephalus, [employer] shunt, abdominal surgery for swallowing plastic - Social History Smoking Status: Current Every Day Smoker - Medications Home Medications: Home Medications Medication Instructions Recorded Confirmed Last Taken Type ARIPiprazole [Abilify] 1 tab PO DAILY 03/02/21 07/09/21 Unknown History Haldol 5 mg PO BID 03/02/21 07/09/21 Unknown History traZODone 100 mg PO HS 03/02/21 07/09/[address] [Depakote Dr] 500 mg PO BID tablet 03/04/21 07/09/21 Unknown Rx Ondansetron [Zofran Odt] 4 mg PO Q8HR PRN #20 tab.rapdis 07/09/21 Unknown Rx ED Physical Exam - General Limitations: No Limitations - Other Other exam information: General: No acute distress Head: Atraumatic Eyes: normal appearance ENT: Moist mucous membranes Neck: Normal appearance, no midline tenderness Chest: Clear to auscultation bilaterally CV: Regular rate and rhythm Abdomen: Soft, normal bowel sounds, right-sided abdominal tenderness, previous ex lap scars noted, nondistended, no rebound or guarding Back: Normal inspection Extremity: Normal inspection, full range of motion Neuro: Alert O x 3, no facial asymmetry, speech clear, no gross motor sensory deficit Psych: Appropriate behavior Skin: No rash ED Course Vital Signs 07/09/21 07/09/21 07/09/21 14:48 15:03 17:46 Temperature 98.2 F Pulse Rate 100 H 70 Respiratory 18 20 Rate Blood Pressure 116/45 125/76 [Left] O2 Sat by Pulse 100 100 100 Oximetry ED Medical Decision Making - Lab Data Result diagrams: 07/09/21 15:20 07/09/21 15:20 Lab Results 07/09/21 07/09/21 07/09/21 Range/Units 15:20 15:20 15:20 WBC 6.2 (4.5-11.0) K/mm3 RBC 3.81 (3.65-5.03) M/mm3 Hgb 11.2 (10.1-14.3) gm/dl Hct 34.5 (30.3-42.9) % MCV 91 (79-97) fl MCH 29 (28-32) pg MCHC 32 (30-34) % RDW 15.3 H (13.2-15.2) % Plt Count 194 (140-440) K/mm3 Lymph % (Auto) 32.0 (13.4-35.0) % [place] % (Auto) 5.5 (0.0-7.3) % Eos % (Auto) 0.2 (0.0-4.3) % Baso % (Auto) 0.2 (0.0-1.8) % Lymph # (Auto) 2.0 (1.2-5.4) K/mm3 [place] # (Auto) 0.3 (0.0-0.8) K/mm3 Eos # (Auto) 0.0 (0.0-0.4) K/mm3 Baso # (Auto) 0.0 (0.0-0.1) K/mm3 Seg Neutrophils % 62.1 (40.0-70.0) % Seg Neutrophils # 3.9 (1.8-7.7) K/mm3 Sodium 138 (137-145) mmol/L Potassium 4.1 (3.6-5.0) mmol/L Chloride 107.1 H (98-107) mmol/L Carbon Dioxide 19 L (22-30) mmol/L Anion Gap 16 mmol/L BUN 13 (7-17) mg/dL Creatinine 1.0 (0.6-1.2) mg/dL Estimated GFR > 60 ml/min BUN/Creatinine Ratio 13 % Glucose 102 H (65-100) mg/dL Calcium 9.2 (8.4-10.2) mg/dL Total Bilirubin 0.20 (0.1-1.2) mg/dL AST 12 (5-40) units/L ALT 9 (7-56) units/L Alkaline Phosphatase 51 (35-129) units/L Total Protein 6.4 (6.3-8.2) g/dL Albumin 3.9 (3.9-5) g/dL Albumin/Globulin Ratio 1.6 % Lipase 27 (13-60) units/L HCG, Qual Negative (Negative) Valproic Acid (50-100) ug/mL 07/09/21 Range/Units 16:51 WBC (4.5-11.0) K/mm3 RBC (3.65-5.03) M/mm3 Hgb (10.1-14.3) gm/dl Hct (30.3-42.9) % MCV (79-97) fl MCH (28-32) pg MCHC (30-34) % RDW (13.2-15.2) % Plt Count (140-440) K/mm3 Lymph % (Auto) (13.4-35.0) % [place] % (Auto) (0.0-7.3) % Eos % (Auto) (0.0-4.3) % Baso % (Auto) (0.0-1.8) % Lymph # (Auto) (1.2-5.4) K/mm3 [place] # (Auto) (0.0-0.8) K/mm3 Eos # (Auto) (0.0-0.4) K/mm3 Baso # (Auto) (0.0-0.1) K/mm3 Seg Neutrophils % (40.0-70.0) % Seg Neutrophils # (1.8-7.7) K/mm3 Sodium (137-145) mmol/L Potassium (3.6-5.0) mmol/L Chloride (98-107) mmol/L Carbon Dioxide (22-30) mmol/L Anion Gap mmol/L BUN (7-17) mg/dL Creatinine (0.6-1.2) mg/dL Estimated GFR ml/min BUN/Creatinine Ratio % Glucose (65-100) mg/dL Calcium (8.4-10.2) mg/dL Total Bilirubin (0.1-1.2) mg/dL AST (5-40) units/L ALT (7-56) units/L Alkaline Phosphatase (35-129) units/L Total Protein (6.3-8.2) g/dL Albumin (3.9-5) g/dL Albumin/Globulin Ratio % Lipase (13-60) units/L HCG, Qual (Negative) Valproic Acid 58.4 (50-100) ug/mL - EKG Data -: EKG Interpreted by Id EKG shows normal: sinus rhythm, ST-T waves (No STEMI) Rate: normal - Radiology Data Radiology results: report reviewed ABDOMEN 2 VIEWS INDICATION / CLINICAL INFORMATION: Nausea, abdominal pain, diarrhea, decreased appetite, history of foreign body ingestion. COMPARISON: None available. FINDINGS: TUBES / LINES: None. BOWEL GAS PATTERN: No significant abnormality. FREE AIR / EXTRALUMINAL GAS: None seen. ADDITIONAL FINDINGS: No radiopaque foreign bodies are identified. No other sig nificant abnormality. CHEST: Visualized chest shows no significant abnormality. IMPRESSION: No acute findings to explain the patient's complaints. - Medical Decision Making 20-year-old female with psychiatric history and previous surgical history presents to the hospital complaining of an episode of lightheadedness while in class. She does report decreased p.o. intake. She was provided some food and drinks in the ED was able to tolerate without vomiting however, she did not eat a lot. Patient has poor IV access and even IV nurse could not identify a vein to cannulate. P.o. hydration was attempted instead. Vital signs, EKG, labs, x- ray do not reveal any significant abnormality. Patient endorses ongoing chronic right-sided abdominal pain unchanged. She will be discharged with Zofran and encourage to continue p.o. hydration. Critical Care Time: No Critical care attestation.: If time is entered above; I have spent that time in minutes in the direct care of this critically ill patient, excluding procedure time. ED Disposition Clinical Impression: Near syncope, Chronic abdominal pain Disposition: 01 HOME / SELF CARE / HOMELESS Is pt being admited?: No Does the pt Need Aspirin: No Condition: Stable Instructions: Abdominal Pain (ED), Abdominal Pain, Adult, [id number], Dizziness Additional Instructions: Take the medication as prescribed. Follow-up with your doctor or doctor/clinic provided. Return if symptoms worsen as indicated by your discharge instructions. Prescriptions: Ondansetron [Zofran Odt] 4 mg PO Q8HR PRN #20 tab.rapdis PRN Reason: Nausea And Vomiting Referrals: PRIMARY CARE, [Primary Care Provider] - 3-5 Days [facility] [Provider Group] - 3-5 Days Time of Disposition: 18:06
[2021-07-09 16:18] LABS: Alanine Aminotransferase 9 units/L (7-56); Albumin 3.9 g/dL (3.9-5); BUN/Creatinine Ratio 13; Blood Urea Nitrogen 13 mg/dL (7-17); Calcium 9.2 mg/dL (8.4-10.2); Hemolysis Index 11
--- NOTE | 2021-07-09 16:57 | XRay Report ---
ABDOMEN 2 VIEWS INDICATION / CLINICAL INFORMATION: Nausea, abdominal pain, diarrhea, decreased appetite, history of foreign body ingestion. COMPARISON: None available. FINDINGS: TUBES / LINES: None. BOWEL GAS PATTERN: No significant abnormality. FREE AIR / EXTRALUMINAL GAS: None seen. ADDITIONAL FINDINGS: No radiopaque foreign bodies are identified. No other significant abnormality. CHEST: Visualized chest shows no significant abnormality. IMPRESSION: No acute findings to explain the patient's complaints. Signer Name: Candelario Mancia MD Signed: 07/09/2021 4:52 PM Workstation Name: [id number]
[2021-07-09 17:47] VITALS: BP 125/76
--- NOTE | 2021-07-10 11:25 | Electrocardiograph Report ---
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
== END 2021-07-09 17:45 | disposition home or self-care (01) ==
LOC: ED 14:46
DX: R55 Syncope and collapse (principal); R10.9 Unspecified abdominal pain; F17.200 Nicotine dependence, unspecified, uncomplicated
CPT/HCPCS: 36415; 74019; 80053; 80164; 83690; 84703; 85025; 93005; 99284

== ENCOUNTER 2021-07-13 20:38 | Emergency (ER) | payer OTHER, MEDICARE ==
[2021-07-13] MEDS ORDERED: traZODone 50 MG TAB PO ONE (21:24)
[2021-07-13] MEDS ORDERED: ACETAMINOPHEN 325 MG TAB PO ONE (21:24)
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
[2021-07-13 22:19] LABS: Bacteria,Urine 1+ /HPF (Negative); Bilirubin,Urine NEG (Negative); Blood,Urine NEG (Negative); Color,Urine Yellow (Yellow); Mucus,Urine 2+ /HPF; Urobilinogen,Urine < 2.0 mg/dL (<2.0)
[2021-07-13 22:52] LABS: Amphetamine Screen,Urine PRESUMPTIVE NEGATIVE; Benzodiazepines Screen,Urine PRESUMPTIVE NEGATIVE; Cannabinoid Screen,Urine PRESUMPTIVE NEGATIVE; Cocaine Screen,Urine PRESUMPTIVE NEGATIVE; Methadone Screen,Urine PRESUMPTIVE NEGATIVE; Opiate Screen,Urine PRESUMPTIVE NEGATIVE
[2021-07-13] MEDS ORDERED: HALOPERIDOL LACTATE 5 MG/1 ML INJ IM ONE (23:02)
[2021-07-13 23:07] LABS: Basophils % (Auto) 0.6 % (0.0-1.8); Eosinophils % (Auto) 0.3 % (0.0-4.3); Hematocrit 38.2 % (30.3-42.9); Hemoglobin 12.2 gm/dl (10.1-14.3); Lymphocytes # (Auto) 1.8 K/mm3 (1.2-5.4); Lymphocytes % (Auto) 28.4 % (13.4-35.0); Mean Corpuscular HGB Conc 32 % (30-34); Mean Corpuscular Volume 91 fl (79-97); Monocytes # (Auto) 0.3 K/mm3 (0.0-0.8); Monocytes % (Auto) 5.4 % (0.0-7.3); Platelet Count 235 K/mm3 (140-440); Red Cell Distribution Width 15.9 % (13.2-15.2)
[2021-07-13 23:09] LABS: BUN/Creatinine Ratio 14; Blood Urea Nitrogen 14 mg/dL (7-17); Calcium 9.4 mg/dL (8.4-10.2); Hemolysis Index 16
[2021-07-14] MEDS: SODIUM CHLORIDE 0.9% 1000 ML 1,000 ML IV ONE ×2 (07:57)
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
[2021-07-14 12:31] VITALS: BP 102/74
== END 2021-07-14 12:30 | disposition home or self-care (01) ==
LOC: ED 20:38
DX: R44.0 Auditory hallucinations (principal); F31.9 Bipolar disorder, unspecified; F41.9 Anxiety disorder, unspecified; Z98.890 Other specified postprocedural states; Z20.822 Contact with and (suspected) exposure to COVID-19
CPT/HCPCS: 36415; 80048; 80307; 81001; 83690; 84703; 85025; 96372; 99284; J1630; U0003; 80320; G0480

== ENCOUNTER 2022-01-01 18:15 | Emergency (ER) | payer OTHER, MEDICAID ==
[2022-01-01] MEDS ORDERED: MORPHINE 2 MG/1 ML INJ IM ONE (19:07)
[2022-01-01] MEDS ORDERED: ONDANSETRON 4 MG/2 ML INJ IV ONE (19:07)
--- NOTE | 2022-01-01 19:19 | Emergency Department Report ---
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 PATIENT ENDORSE FEELING NAUSEATED AND PHOTOPHOBIA; DENIES PHONOPHOBIA. DENIES ANY OTHER ASSOCIATED SYMPTOMS BUT DOES HAVE GENERALIZED BODY ACHE WHICH PATIENT STATES SHE WAS DIAGNOSED WITH COVID-19 LAST WEEK. Patient denies fever chill night sweat dizziness blurred vision lightheadedness vertigo tinnitus ear pain runny nose sore throat loss of taste loss of smell chest pain palpitation short of breath cough abdominal pain vomiting diarrhea constipation dysuria bowel bladder incontinence myalgia arthralgia unsteady gait new rash and heat or cold intolerance. Severity scale (0 -10): 0 - Related Data Home Medications Medication Instructions Recorded Confirmed Last Taken ARIPiprazole [Abilify] 1 tab PO DAILY 03/02/21 07/14/21 Unknown Haldol 5 mg PO BID 03/02/21 07/14/21 Unknown traZODone 100 mg PO HS 03/02/21 07/14/21 Unknown Previous Rx's Medication Instructions Recorded Last Taken Type Divalproex Dr [Depakote Dr] 500 mg PO BID tablet 03/04/21 Unknown Rx Allergies Allergy/AdvReac Type Severity Reaction Status Date / Time No Known Allergies Allergy Verified 07/09/21 14:51 ED Review of Systems ROS: Stated complaint: COVID+/HEADACHE Other details as noted in HPI Comment: All other systems reviewed and negative Constitutional: no symptoms reported, see HPI Eyes: as per HPI ENT: as per HPI Respiratory: no symptoms reported, see HPI Cardiovascular: as per HPI Endocrine: no symptoms reported, see HPI Gastrointestinal: as per HPI, nausea Genitourinary: as per HPI Musculoskeletal: as per HPI Skin: as per HPI Neurological: as per HPI, headache. denies: weakness, numbness, paresthesias, confusion, abnormal gait Psychiatric: as per HPI Hematological/Lymphatic: as per HPI ED Past Medical Hx - Past Medical History Hx Congestive Heart Failure: No Hx Diabetes: No Hx Pulmonary Embolism: No Hx Seizures: No Hx Psychiatric Treatment: Yes (schizophrenia, bipolar, depression, anxiety, hy drocephalus) Hx Asthma: No Hx COPD: No Hx Tuberculosis: No Hx Dementia: No Additional medical history: bipolar, schizophrenic, autistic, anxiety, depression, swallows objects. 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, abdominal surgery for swallowing plastic - Social History Smoking Status: Never Smoker Substance Use Type: None - Medications Home Medications: Home Medications Medication Instructions Recorded Confirmed Last Taken Type ARIPiprazole [Abilify] 1 tab PO DAILY 03/02/21 07/14/21 Unknown History Haldol 5 mg PO BID 03/02/21 07/14/21 Unknown History traZODone 100 mg PO HS 03/02/21 07/14/[address] [Depakote Dr] 500 mg PO BID tablet 03/04/21 07/14/21 Unknown Rx ED Physical Exam - General Limitations: No Limitations General appearance: alert, in no apparent distress - Head Head exam: Present: atraumatic, normocephalic, normal inspection - Eye Eye exam: Present: normal appearance, PERRL, EOMI Pupils: Present: normal accommodation - ENT ENT exam: Present: normal exam, mucous membranes moist - Neck Neck exam: Present: normal inspection, full ROM - Respiratory Respiratory exam: Present: normal lung sounds bilaterally - Cardiovascular Cardiovascular Exam: Present: regular rate, normal rhythm, normal heart sounds - GI/Abdominal GI/Abdominal exam: Present: soft - Extremities Exam Extremities exam: Present: normal inspection, full ROM, normal capillary refill - Back Exam Back exam: Present: normal inspection, full ROM - Neurological Exam Neurological exam: Present: alert, oriented X3, CN II-XII intact - Psychiatric Psychiatric exam: Present: normal affect, normal mood - Skin Skin exam: Present: normal color ED Course Vital Signs 01/01/22 18:24 Temperature 98.6 F Pulse Rate 104 H Respiratory 16 Rate Blood Pressure 122/76 [Left] O2 Sat by Pulse 98 Oximetry - Reevaluation(s) Reevaluation #1: 01/01/22 20:04 CT SCAN WITH NO ACUTE FINDING. PENDING REST OF THE LABS TO RETURN. IN THE MEAN TIME, WILL GIVE MEDICATION FOR MIGRAINE HEADACHE. 01/01/22 20:32 MULTIPLE PERIPHERAL IV ATTEMPTS (AT LEAST 5 TIMES) BY NURSES UNSUCCESSFUL. ALSO 2 EJ ATTEMPTS BY ME UNSUCCESSFUL AND PATIENT CONTINUOUSLY BEGGING FOR IV MORPHINE WHICH IS CONCERNING FOR DRUG SEEKING BEHAVIOR. THEREFORE, I WILL GIVE EVERYTHING PO AND NO OPIOIDS. 01/01/22 21:53 I HAVE WALKED BY PATIENT'S ROOM SEVERAL TIMES AND PATIENT DOESN'T APPEAR TO BE IN ANY DISCOMFORT. I WILL D/C HER. Critical care attestation.: If time is entered above; I have spent that time in minutes in the direct care of this critically ill patient, excluding procedure time. ED Disposition Clinical Impression: Migraine Disposition: 01 HOME / SELF CARE / HOMELESS Is pt being admited?: No Does the pt Need Aspirin: No Condition: Stable Instructions: Migraine Headache Additional Instructions: MAKE A FOLLOW UP APPOINTMENT WITH PRIMARY CARE PROVIDER OF YOUR CHOICE TO BE SEEN WITHIN 3 DAYS FOR FURTHER OUTPATIENT EVALUATION AND MANAGEMENT OF YOUR HEADACHE. Forms: Work/School Release Form(ED) Time of Disposition: 20:05
--- NOTE | 2022-01-01 19:44 | Cat Scan Report ---
CT BRAIN: 01/01/2022 INDICATION / CLINICAL INFORMATION: HEADACHE. COMPARISON: CT brain 03/02/2021 FINDINGS: BRAIN/INTRACRANIAL STRUCTURES: Unenhanced CT images of the brain demonstrate no evidence of acute abn ormality. There is a left sided shunt tube present. Ventricular size is unremarkable and unchanged. There are no abnormal extra-axial fluid collections. . EXTRACRANIAL STRUCTURES: Unremarkable. IMPRESSION: No acute abnormality. No change when compared to 03/02/[address] scans at this location are performed using dose reduction to ALARA by means of automated expos ure control. Signer Name: David Mcdaniel MD Signed: 01/01/2022 7:40 PM Workstation Name: [id number]
[2022-01-01] MEDS ORDERED: SODIUM CHLORIDE 0.9% 1000 ML 1,000 ML IV ONE (20:03)
[2022-01-01] MEDS ORDERED: PROCHLORPERAZINE EDISYLATE 10 MG/2 ML VIAL IV ONE (20:03)
[2022-01-01] MEDS ORDERED: KETOROLAC 30 MG/1 ML INJ IV ONE (20:03)
[2022-01-01] MEDS ORDERED: diphenhydrAMINE 50 MG/ML VIAL IV ONE (20:03)
[2022-01-01] MEDS ORDERED: KETOROLAC 10 MG TAB PO ONE (20:34)
[2022-01-01] MEDS ORDERED: ACETAMINOPHEN 325 MG TAB PO ONE (20:34)
[2022-01-01] MEDS ORDERED: diphenhydrAMINE 25 MG CAP PO ONE (20:34)
[2022-01-01] MEDS ORDERED: MAGNESIUM OXIDE 400 MG TAB PO SCH (21:00)
[2022-01-01] MEDS ORDERED: PROCHLORPERAZINE MALEATE 10 MG TAB PO ONE (21:34)
[2022-01-01] MEDS ORDERED: SUMAtriptan SUCCINATE 50 MG TAB PO ONE (21:35)
[2022-01-01] MEDS ORDERED: MAGNESIUM OXIDE 400 MG TAB PO ONE (21:40)
[2022-01-01 22:52] VITALS: BP 140/81
== END 2022-01-01 22:52 | disposition home or self-care (01) ==
LOC: ED 18:15
DX: G43.909 Migraine, unspecified, not intractable, without status migrainosus (principal); F31.9 Bipolar disorder, unspecified; F20.9 Schizophrenia, unspecified
CPT/HCPCS: 70450; 99284; J2270; J2405; Q0164; 99283